=== PATIENT | female | born 1950 | race Caucasian/White ===

== ENCOUNTER 2020-01-15 11:26 | Outpatient (CLI) | payer MEDICARE, SELFPAY ==
[2020-01-15 11:46] LABS: Basophils Absolute Auto 0.02 K/mm3 (0.00-0.10); Basophils Percent Auto 0.4 % (0.0-1.0); Eosinophils Absolute Auto 0.13 K/mm3 (0.02-0.50); Eosinophils Percent Auto 2.3 % (1.0-6.0); Hemoglobin 14.2 g/dL (11.7-13.8); Immature Granulocyte Absolute 0.01 K/mm3 (0.00-0.00); Immature Granulocyte Percent A 0.2 % (0.0-0.0); Lymphocytes Absolute Auto 1.91 K/mm3 (1.10-4.50); Lymphocytes Percent Auto 34.1 % (18.0-42.0); Mean Corpuscular HGB Conc 33.8 g/dL (32.0-36.0); Mean Corpuscular Hemoglobin 31.1 pg (27.0-31.0); Mean Corpuscular Volume 91.9 fL (78.0-102.0); Mean Platelet Volume 9.8 fl (9.2-11.8); Monocytes Absolute Auto 0.45 K/mm3 (0.10-0.90); Neutrophils Absolute Auto 3.1 K/mm3 (1.7-7.2); Platelet Count Result 195 K/mm3 (150-420); Red Blood Count 4.57 M/mm3 (4.20-5.40); Red Cell Distribution Width 12.5 % (11.6-14.4); White Blood Count 5.6 K/mm3 (4.8-10.8)
[2020-01-15 11:48] LABS: Add Urine Microscopic? YES; Appearance Urine Clear (Clear); Bilirubin Urine Negative (Negative); Blood Urine Negative (Negative); Color Urine Yellow (Yellow); Glucose Urine UA Negative (Negative); Ketones Urine Negative (Negative); Leukocyte Esterase Ur 1+ LEU/UL (Negative); Nitrate Urine Negative (Negative); Protein Urine Negative (Negative); Specific Grav Ur 1.025 (1.010-1.020); Urobilinogen Urine 0.2 mg/dL (0.2-1.0)
[2020-01-15 11:55] LABS: Bacteria Urine 4+ /hpf; RBC Urine 0-2 /hpf (0-2); Squamous Epithelial Cell Urine Moderate /hpf (Few)
[2020-01-15 11:56] LABS: Creatinine Urine 206.07 mg/dL (40-278); MALB Creatinine Ratio 3.7 mg/g (0-30); Microalbumin Urine Random 7.7 mg/L
[2020-01-15 12:58] LABS: Alanine Aminotransferase 31 U/L (14-59); Alkaline Phosphatase 49 U/L (46-116); Anion Gap 14.6 mmol/L (7-16); Aspartate Amino Transferase 18 U/L (15-37); Bilirubin,Total 0.7 mg/dL (0.00-1.00); Blood Urea Nitrogen 15 mg/dL (7-18); Calcium 8.7 mg/dL (8.5-10.1); Carbon Dioxide 27 mmol/L (21-32); Chloride 105 mmol/L (98-108); Cholesterol 152 mg/dL (0-200); Creatine Kinase 40 U/L (26-192); Estimated Glomerular Filt Rate 49; Glucose 95 mg/dL (70-99); HDL Direct 39 mg/dL (40-60); LDL Cholesterol Calculated 71 mg/dL (<130); Osmolality Calculated 294 mOsm/kg (285-295); Potassium 4.6 mmol/L (3.5-5.1); Sodium 142 mmol/L (136-145); Total Protein 6.8 g/dL (6.4-8.2); Triglycerides 211 mg/dL (0-150); Vitamin B12 1424 pg/mL (193-986)
== END 2020-01-15 11:27 | disposition home or self-care (01) ==
PROVIDERS: PCP Internal Medicine; Visit Provider Internal Medicine
DX: E78.5 Hyperlipidemia, unspecified (principal); R73.01 Impaired fasting glucose; E55.9 Vitamin D deficiency, unspecified; R82.90 Unspecified abnormal findings in urine
CPT/HCPCS: 36415; 80053; 80061; 81001; 82043; 82550; 82607; 83036; 85025; 87077; 87086; 87088; 87186

== ENCOUNTER 2020-01-27 12:56 | Outpatient (CLI) | payer MEDICARE, SELFPAY ==
[2020-01-27 14:08] LABS: Add Urine Microscopic? NO; Appearance Urine Clear (Clear); Bilirubin Urine Negative (Negative); Blood Urine Negative (Negative); Color Urine Yellow (Yellow); Glucose Urine UA Negative (Negative); Ketones Urine Negative (Negative); Leukocyte Esterase Ur Negative LEU/UL (Negative); Nitrate Urine Negative (Negative); Protein Urine Negative (Negative); Specific Grav Ur 1.025 (1.010-1.020); Urobilinogen Urine 0.2 mg/dL (0.2-1.0)
== END 2020-01-27 12:57 | disposition home or self-care (01) ==
LOC: CHSLAB 12:58
PROVIDERS: PCP Internal Medicine; Visit Provider Internal Medicine
DX: N39.0 Urinary tract infection, site not specified (principal)
CPT/HCPCS: 81003

== ENCOUNTER 2020-06-28 10:04 | Outpatient (CLI) | payer MEDICARE, SELFPAY ==
--- NOTE | ~2020-06-28 | US_ITS ---
EXAMINATION: US soft tissue head and neck DATE: 06/28/2020 10:19 INDICATION: Lump at the mid to left posterior neck TECHNIQUE: Multiple grayscale and Doppler ultrasound images of the abdomen were obtained. COMPARISON: None FINDINGS/IMPRESSION: Normal appearance to the subcutaneous fat and underlying musculature at the region of concern. No abn ormal masses or fluid collections identified. Reviewed, dictated and finalized at location B.
== END 2020-06-28 10:05 | disposition home or self-care (01) ==
LOC: CHSIMG 10:07
PROVIDERS: PCP Internal Medicine; Visit Provider Internal Medicine
DX: D48.7 Neoplasm of uncertain behavior of other specified sites (principal)
CPT/HCPCS: 76536

== ENCOUNTER 2020-08-24 10:37 | Outpatient (CLI) | payer MEDICARE, SELFPAY ==
[2020-08-24 10:52] LABS: Basophils Absolute Auto 0.03 K/mm3 (0.00-0.10); Basophils Percent Auto 0.5 % (0.0-1.0); Eosinophils Absolute Auto 0.17 K/mm3 (0.02-0.50); Eosinophils Percent Auto 2.9 % (1.0-6.0); Hematocrit 41.8 % (35.0-42.0); Hemoglobin 13.8 g/dL (11.7-13.8); Immature Granulocyte Absolute 0.01 K/mm3 (0.00-0.00); Immature Granulocyte Percent A 0.2 % (0.0-0.0); Lymphocytes Absolute Auto 1.84 K/mm3 (1.10-4.50); Lymphocytes Percent Auto 30.9 % (18.0-42.0); Mean Corpuscular Hemoglobin 30.9 pg (27.0-31.0); Mean Corpuscular Volume 93.5 fL (78.0-102.0); Mean Platelet Volume 9.7 fl (9.2-11.8); Monocytes Absolute Auto 0.45 K/mm3 (0.10-0.90); Monocytes Percent Auto 7.6 % (2.0-11.0); Neutrophils Absolute Auto 3.5 K/mm3 (1.7-7.2); Neutrophils Percent Auto 57.9 % (50.0-70.0); Platelet Count Result 192 K/mm3 (150-420); Red Blood Count 4.47 M/mm3 (4.20-5.40); Red Cell Distribution Width 12.8 % (11.6-14.4)
[2020-08-24 10:54] LABS: Add Urine Microscopic? YES; Bilirubin Urine Negative (Negative); Blood Urine Negative (Negative); Color Urine Yellow (Yellow); Glucose Urine UA Negative (Negative); Ketones Urine Negative (Negative); Leukocyte Esterase Ur 2+ (Negative); Nitrate Urine Negative (Negative); Protein Urine Negative (Negative); Specific Grav Ur 1.025 (1.010-1.020); Urobilinogen Urine 0.2 mg/dL (0.2-1.0); pH Urine 5.5 (5.0-8.0)
[2020-08-24 10:58] LABS: Bacteria Urine 2+ /hpf; Mucus Urine Moderate /lpf; RBC Urine 0-2 /hpf (0-2); Squamous Epithelial Cell Urine Moderate /hpf (Few)
[2020-08-24 10:59] LABS: Appearance Urine Sl Cloudy (Clear)
[2020-08-24 11:15] LABS: Hemoglobin A1C 5.5 % (<5.7)
[2020-08-24 11:39] LABS: Alanine Aminotransferase 40 U/L (14-59); Albumin Level 3.9 g/dL (3.4-5.0); Alkaline Phosphatase 55 U/L (46-116); Anion Gap 9 mmol/L (8-16); Aspartate Amino Transferase 20 U/L (15-37); Bilirubin,Total 0.7 mg/dL (0.00-1.00); Blood Urea Nitrogen 18 mg/dL (7-18); Calcium 8.6 mg/dL (8.5-10.1); Carbon Dioxide 28 mmol/L (21-32); Chloride 105 mmol/L (98-108); Cholesterol 160 mg/dL (0-200); Creatine Kinase 41 U/L (26-192); Estimated Glomerular Filt Rate 49; Free T4 Free Thyroxine 0.96 ng/dL (0.76-1.46); Glucose 105 mg/dL (70-99); HDL Direct 45 mg/dL (40-60); LDL Cholesterol Calculated 70 mg/dL (<130); Osmolality Calculated 295 mOsm/kg (285-295); Potassium 4.2 mmol/L (3.5-5.1); Sodium 142 mmol/L (136-145); Thyroid Stimulating Hormone 3.52 uIU/mL (0.36-3.74); Total Protein 6.6 g/dL (6.4-8.2); Triglycerides 225 mg/dL (0-150)
[2020-08-28 10:45] LABS: Vitamin D 25 Hydroxy 34 ng/mL (30-100)
== END 2020-08-24 10:38 | disposition home or self-care (01) ==
LOC: CHSLAB 10:40
PROVIDERS: PCP Internal Medicine; Visit Provider Internal Medicine
DX: E78.2 Mixed hyperlipidemia (principal); I10 Essential (primary) hypertension; R73.01 Impaired fasting glucose; L50.1 Idiopathic urticaria; E03.4 Atrophy of thyroid (acquired); E55.9 Vitamin D deficiency, unspecified
CPT/HCPCS: 36415; 80053; 80061; 81001; 82306; 82550; 83036; 84439; 84443; 85025

== ENCOUNTER 2020-09-15 08:54 | Outpatient (CLI) | payer MEDICARE, SELFPAY ==
--- NOTE | ~2020-09-15 | MM_ITS ---
EXAMINATION: MM screening imani BI w gab HISTORY: Screening mammogram TECHNIQUE: Craniocaudal and mediolateral oblique 3-D tomosynthesis images were obtained and synthetic 2-D images were generated. CAD analysis was submitted and interpreted. COMPARISON: 11/08/2018, 08/17/2017, 11/18/2014 bilateral digital screening mammogram examinations BREAST PARENCHYMAL COMPOSITION: The breasts are almost entirely fatty. FINDINGS: Stable small circumscribed low-density intramammary left axillary tail lymph node. There is no evidence of suspicious mass, calcification, or architectural distortion to suggest malignancy in either breast. There has been no suspicious interval change. IMPRESSION: 1. No mammographic evidence of malignancy. 2. Recommend routine screening mammography in one year. BI-RADS Category 2: Benign finding(s). Reviewed, dictated and finalized at location B. 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
== END 2020-09-15 08:55 | disposition home or self-care (01) ==
LOC: CHSIMG 08:57
PROVIDERS: PCP Internal Medicine; Visit Provider Internal Medicine
DX: Z12.31 Encounter for screening mammogram for malignant neoplasm of breast (principal)
CPT/HCPCS: 77063; 77067

== ENCOUNTER 2021-03-10 08:56 | Outpatient (CLI) | payer MEDICARE, SELFPAY ==
[2021-03-10 09:10] LABS: Basophils Absolute Auto 0.03 K/mm3 (0.00-0.10); Basophils Percent Auto 0.6 % (0.0-1.0); Eosinophils Absolute Auto 0.12 K/mm3 (0.02-0.50); Eosinophils Percent Auto 2.4 % (1.0-6.0); Hematocrit 40.2 % (35.0-42.0); Hemoglobin 13.6 g/dL (11.7-13.8); Immature Granulocyte Absolute 0.01 K/mm3 (0.00-0.00); Immature Granulocyte Percent A 0.2 % (0.0-0.0); Lymphocytes Absolute Auto 1.86 K/mm3 (1.10-4.50); Lymphocytes Percent Auto 37.7 % (18.0-42.0); Mean Corpuscular HGB Conc 33.8 g/dL (32.0-36.0); Mean Corpuscular Hemoglobin 30.9 pg (27.0-31.0); Mean Corpuscular Volume 91.4 fL (78.0-102.0); Mean Platelet Volume 9.7 fl (9.2-11.8); Monocytes Absolute Auto 0.44 K/mm3 (0.10-0.90); Monocytes Percent Auto 8.9 % (2.0-11.0); Neutrophils Absolute Auto 2.5 K/mm3 (1.7-7.2); Neutrophils Percent Auto 50.2 % (50.0-70.0); Platelet Count Result 196 K/mm3 (150-420); Red Cell Distribution Width 12.6 % (11.6-14.4); White Blood Count 4.9 K/mm3 (4.8-10.8)
[2021-03-10 09:11] LABS: Add Urine Microscopic? YES; Appearance Urine Clear (Clear); Bilirubin Urine Negative (Negative); Blood Urine Negative (Negative); Color Urine Yellow (Yellow); Glucose Urine UA Negative (Negative); Ketones Urine Negative (Negative); Leukocyte Esterase Ur 1+ LEU/UL (Negative); Nitrate Urine Negative (Negative); Protein Urine Negative (Negative); Specific Grav Ur >= 1.030 (1.010-1.020); Urobilinogen Urine 0.2 mg/dL (0.2-1.0); pH Urine 5.5 (5.0-8.0)
[2021-03-10 09:18] LABS: Bacteria Urine 1+ /hpf; RBC Urine None seen /hpf (0-2); Squamous Epithelial Cell Urine Moderate /hpf (Few)
[2021-03-10 09:22] LABS: Hemoglobin A1C 5.9 % (<5.7)
[2021-03-10 09:23] LABS: Creatinine Urine 226.12 mg/dL (40-278); MALB Creatinine Ratio 5.7 mg/g (0-30); Microalbumin Urine Random < 13.0 mg/L
[2021-03-10 10:24] LABS: Alanine Aminotransferase 40 U/L (14-59); Albumin Level 3.9 g/dL (3.4-5.0); Alkaline Phosphatase 57 U/L (46-116); Anion Gap 8 mmol/L (8-16); Aspartate Amino Transferase 19 U/L (15-37); Bilirubin,Total 0.6 mg/dL (0.00-1.00); Blood Urea Nitrogen 19 mg/dL (7-18); Calcium 8.8 mg/dL (8.5-10.1); Carbon Dioxide 27 mmol/L (21-32); Chloride 105 mmol/L (98-108); Cholesterol 127 mg/dL (0-200); Creatine Kinase 81 U/L (26-192); Estimated Glomerular Filt Rate 49; Glucose 117 mg/dL (70-99); HDL Direct 40 mg/dL (40-60); LDL Cholesterol Calculated 46 mg/dL (<130); Osmolality Calculated 293 mOsm/kg (285-295); Potassium 4.5 mmol/L (3.5-5.1); Sodium 140 mmol/L (136-145); Total Protein 6.7 g/dL (6.4-8.2); Triglycerides 203 mg/dL (0-150); Vitamin B12 523 pg/mL (193-986)
== END 2021-03-10 08:57 | disposition home or self-care (01) ==
LOC: CHSLAB 08:59
PROVIDERS: PCP Internal Medicine; Visit Provider Internal Medicine
DX: R73.01 Impaired fasting glucose (principal); E78.5 Hyperlipidemia, unspecified; D68.59 Other primary thrombophilia; E53.8 Deficiency of other specified B group vitamins; N39.0 Urinary tract infection, site not specified; I10 Essential (primary) hypertension
CPT/HCPCS: 36415; 80053; 80061; 81001; 82043; 82550; 82607; 83036; 85025; 87086; 87088

== ENCOUNTER 2021-05-18 10:43 | Outpatient (CLI) | payer MEDICARE, SELFPAY ==
[2021-05-18 11:59] LABS: SARS-CoV-2 RNA PCR Negative (Negative)
== END 2021-05-18 10:44 | disposition home or self-care (01) ==
LOC: CHSLAB 10:45
PROVIDERS: PCP Internal Medicine; Visit Provider Internal Medicine
DX: J06.9 Acute upper respiratory infection, unspecified (principal); Z20.822 Contact with and (suspected) exposure to COVID-19
CPT/HCPCS: C9803; U0003; U0005

== ENCOUNTER 2021-06-10 11:47 | Outpatient (CLI) | payer MEDICARE, SELFPAY ==
--- NOTE | ~2021-06-10 | XR_ITS ---
EXAMINATION: XR chest 2V DATE: 06/10/2021 12:03 INDICATION: Chest pain. TECHNIQUE: Frontal and lateral views of the chest were obtained. COMPARISON: Chest 2 views 02/02/2017 FINDINGS: There is no pneumonia, pleural effusion, or pneumothorax. The heart size is normal. IMPRESSION: 1. No acute cardiopulmonary disease. Reviewed, dictated and finalized at location A.
== END 2021-06-10 11:48 | disposition home or self-care (01) ==
LOC: CHSIMG 11:50
PROVIDERS: PCP Internal Medicine; Visit Provider Internal Medicine
DX: R07.9 Chest pain, unspecified (principal)
CPT/HCPCS: 71046

== ENCOUNTER 2021-07-21 01:01 | Day surgery (SDC) | payer MEDICARE, SELFPAY ==
[2021-07-12 14:05] VITALS: BMI 39.7
[2021-07-21 07:44] VITALS: BP 150/72; PULSE 62; RESP 17; TEMP 36.2; O2SAT 94; BMI 41.3
[2021-07-21] MEDS: LACTATED RINGERS 1,000 ML 150 ML IV CONT (07:45)
--- NOTE | 2021-07-21 08:44 | PM.IMHP ---
H&P: HPI History of Present Illness Date/Time: 07/21/21 08:44 Chief Complaint: history of colon polyps Narrative: this is a 71-year-old woman who presents for colonoscopy. Her last colonoscopy was 3 years ago and multiple polyps were removed. She denies any changes since last colonoscopy. She denies family history of colon cancer. Review of Systems Review of Systems: All systems reviewed & are unremarkable except as noted in HPI and below Constitutional: Constitutional: Denies chills, Denies fever(s), Denies headache(s) and Denies weight loss Eyes: Eyes: Denies change in vision ENT: Denies dizziness, Denies headache(s), Denies neck mass and Denies throat swelling Cardiovascular: Cardiovascular: Denies chest pain, Denies lightheadedness and Denies dyspnea Respiratory: Respiratory: Denies cough, Denies dyspnea and Denies wheezing Gastrointestinal: Gastrointestinal: Denies abdominal pain, Denies change in bowel habits, Denies nausea and Denies vomiting Genitourinary: Genitourinary: Denies hematuria and Denies dysuria Musculoskeletal: Musculoskeletal: Reports as per HPI Integumentary/Breasts: Skin/Breast: Reports as per HPI Neurologic: Denies dizziness and Denies headache(s) Allergic/Immunologic: Allergic/Immunologic: Denies throat swelling and Denies wheezing PMFSH Social History Social History Smoking status: Never smoker Alcohol intake: current Drinks per week: 1 Living arrangements: alone Spiritual care concerns: No Meds Home Medications and Allergies Home Medications Medication Instructions Recorded Confirmed Type apixaban [Eliquis] 5 mg PO BID 07/12/21 07/12/21 History carvedilol 12.5 mg PO BID 07/12/21 07/12/21 History dicyclomine 10 mg PO BID 07/12/21 07/21/21 History esomeprazole magnesium 40 mg PO DAILY 07/12/21 07/21/21 History mirabegron [Myrbetriq] 50 mg PO DAILY 07/12/21 07/21/21 History jpmkxcwznwcn-snd-wgcm-FA-vit K 1 tablet PO DAILY 07/12/21 07/21/21 History [Adults Multivitamin] pravastatin 20 mg PO DAILY 07/12/21 07/21/21 History spironolactone 50 mg PO DAILY 07/12/21 07/21/21 History Allergies Allergy/AdvReac Type Severity Reaction Status Date / Time No Known Allergies Allergy Verified 07/21/21 07:42 Vital Signs Vital Signs - 24 hr 07/21/21 07:44 Temperature 36.2 C L Pulse Rate 62 Respiratory Rate 17 Blood Pressure 150/72 H Pulse Oximetry 94 Exam Const: General: no acute distress and alert Orientation/consciousness: patient oriented x3 HENMT: Head: normocephalic and atraumatic Ears: hearing grossly normal bilaterally General nose exam: Normal nares present Mouth: Yes Normal oral and palatal mucosa present Eyes: Periorbital: periorbital findings normal Sclera: sclerae normal EOM: EOMs intact bilaterally Neck: Neck: normal visual inspection, no lymphadenopathy and trachea midline Chest: Chest palpation & inspection: normal inspection of the chest Resp: Effort & Inspection: normal respiratory effort Auscultation: clear to auscultation bilaterally Cardio: Jugular venous distension: no JVD Rate: regular rate Rhythm: regular rhythm Heart sounds: S1 normal heart sound present and S2 normal heart sound present Peripheral pulses: Peripheral pulses 2+ throughout GI: Inspection: normal to inspection GI Palp: Yes Soft to palpation, No Tenderness to palpation present (GI), No Guarding due to palpation present (GI) and No Rebound tenderness present Percussion: Yes normal to percussion Auscultation: normal bowel sounds : General: Yes no CVA tenderness Back/Spine/Pelvis: Back: no CVA tenderness Neuro: General: patient oriented x3, no focal motor deficits and CN's II-XI intact bilaterally Cognition (Neuro): normal cognition Speech: normal speech Motor exam (neuro): 5/5 motor strength present throughout Extrem: General: capillary refill normal and no clubbing, cyanosis or edema Assessment and Plan Additional Plan History of colon po
--- NOTE | 2021-07-21 08:46 | WPDANESEPPF ---
Anes - Initial Pre Proc Eval Procedure: Operation Date: 07/21/21 08:30 Proposed Procedures p Screening Colonoscopy - Max Chavez DO Date/Time: 07/21/21 08:46 Surgeon: Max Chavez DO Pre Op Diagnosis: hx of tubular adenoma Patient Data Age: 71 Gender: F Height: 1.63 m Weight: 109.3 kg Last Vital Signs Temp 97.1 F L 07/21/21 07:44 Pulse 62 07/21/21 07:44 Resp 17 07/21/21 07:44 BP 150/72 H 07/21/21 07:44 Pulse Ox 94 07/21/21 07:44 Allergies Allergy/AdvReac Type Severity Reaction Status Date / Time No Known Allergies Allergy Verified 07/21/21 07:42 Home Medications Medication Instructions Recorded Confirmed Type apixaban [Eliquis] 5 mg PO BID 07/12/21 07/12/21 History carvedilol 12.5 mg PO BID 07/12/21 07/12/21 History dicyclomine 10 mg PO BID 07/12/21 07/21/21 History esomeprazole magnesium 40 mg PO DAILY 07/12/21 07/21/21 History mirabegron [Myrbetriq] 50 mg PO DAILY 07/12/21 07/21/21 History mkjikuhmcltq-wlq-yzkx-FA-vit K 1 tablet PO DAILY 07/12/21 07/21/21 History [Adults Multivitamin] pravastatin 20 mg PO DAILY 07/12/21 07/21/21 History spironolactone 50 mg PO DAILY 07/12/21 07/21/21 History Patient hx anesthesia problems: none Family hx anesthesia problems: none Results Review: All pre-operative results and documents have been reviewed as part of the pre-operative evaluation. [facility] Past Medical History Medical History (Updated 07/21/21 @ 08:46 by Nicholas Muniz MD) DVT (deep venous thrombosis) history of Hyperlipidemia Hypertension SRAVAN (obstructive sleep apnea) Pulmonary embolism history of Social History Social History Smoking status: Never smoker Alcohol intake: current Drinks per week: 1 Living arrangements: alone Spiritual care concerns: No Anes - Eval Final PreProcedure Day of Procedure 07/21/21 08:46 Patient weight: morbidly obese Heart: regular rate and rhythm Lungs: clear to auscultation Airway: Mallampati scale class III Neurological: alert and oriented Last oral intake: >/= 8 hours ASA classification: III Emergent: no Anesthetic plan: proceed Anesthesia type and monitoring: general GIVS and standard monitoring Results Review: All pre-operative results and documents have been reviewed as part of the pre-operative evaluation. Informed Consent: The patient's anesthetic plan and its attendant risks and benefits were discussed with the patient/family/POA. Questions were solicited and answers provided to the satisfaction of the patient/family/POA.
[2021-07-21 09:15] VITALS: BP 102/46; PULSE 59; RESP 17; O2SAT 98
[2021-07-21 09:25] VITALS: BP 109/50; PULSE 60; RESP 19; O2SAT 98
[2021-07-21 09:35] VITALS: BP 108/50; PULSE 61; RESP 20; O2SAT 99
== END 2021-07-21 09:40 | disposition home or self-care (01) ==
PROVIDERS: PCP Internal Medicine; Visit Provider Surgery
PROC: 0DJD8ZZ Inspection of Lower Intestinal Tract, Via Natural or Artificial Opening Endoscopic (ICD-10-PCS; CPT 45378; principal; 2021-07-21 08:30)
DX: Z12.11 Encounter for screening for malignant neoplasm of colon (principal); Z86.010 Personal history of colon polyps; K57.30 Diverticulosis of large intestine without perforation or abscess without bleeding
CPT/HCPCS: G0105; J2704; J7120

== ENCOUNTER 2021-09-27 11:27 | Outpatient (CLI) | payer MEDICARE, SELFPAY ==
[2021-09-27 11:40] LABS: Add Urine Microscopic? YES; Appearance Urine Clear (Clear); Basophils Absolute Auto 0.03 K/mm3 (0.00-0.10); Basophils Percent Auto 0.5 % (0.0-1.0); Bilirubin Urine Negative (Negative); Blood Urine Negative (Negative); Color Urine Light Yellow (Yellow); Eosinophils Absolute Auto 0.11 K/mm3 (0.02-0.50); Eosinophils Percent Auto 1.9 % (1.0-6.0); Glucose Urine UA Negative (Negative); Hematocrit 43.7 % (35.0-42.0); Hemoglobin 14.3 g/dL (11.7-13.8); Ketones Urine Negative (Negative); Leukocyte Esterase Ur Trace (Negative); Lymphocytes Absolute Auto 1.51 K/mm3 (1.10-4.50); Lymphocytes Percent Auto 26.4 % (18.0-42.0); Mean Corpuscular HGB Conc 32.7 g/dL (32.0-36.0); Mean Corpuscular Hemoglobin 30.2 pg (27.0-31.0); Mean Corpuscular Volume 92.2 fL (78.0-102.0); Mean Platelet Volume 9.4 fl (9.2-11.8); Monocytes Absolute Auto 0.44 K/mm3 (0.10-0.90); Monocytes Percent Auto 7.7 % (2.0-11.0); Neutrophils Absolute Auto 3.6 K/mm3 (1.7-7.2); Neutrophils Percent Auto 63.5 % (50.0-70.0); Nitrate Urine Negative (Negative); Platelet Count Result 207 K/mm3 (150-420); Protein Urine Negative (Negative); Red Blood Count 4.74 M/mm3 (4.20-5.40); Red Cell Distribution Width 12.5 % (11.6-14.4); Specific Grav Ur <= 1.005 (1.010-1.020); Urobilinogen Urine 0.2 mg/dL (0.2-1.0); White Blood Count 5.7 K/mm3 (4.8-10.8)
[2021-09-27 11:46] LABS: RBC Urine 0-2 /hpf (0-2)
[2021-09-27 11:47] LABS: Bacteria Urine 1+ /hpf; Squamous Epithelial Cell Urine Few /hpf (Few); WBC Urine 0-3 /hpf (0-3)
[2021-09-27 12:28] LABS: Hemoglobin A1C 5.8 % (<5.7)
[2021-09-27 13:11] LABS: Alanine Aminotransferase 37 U/L (14-59); Alkaline Phosphatase 65 U/L (46-116); Anion Gap 10 mmol/L (8-16); Aspartate Amino Transferase 16 U/L (15-37); Bilirubin,Total 0.7 mg/dL (0.00-1.00); Blood Urea Nitrogen 16 mg/dL (7-18); Calcium 8.9 mg/dL (8.5-10.1); Carbon Dioxide 28 mmol/L (21-32); Chloride 103 mmol/L (98-108); Cholesterol 168 mg/dL (0-200); Creatine Kinase 42 U/L (26-192); Estimated Glomerular Filt Rate 48; Glucose 107 mg/dL (70-99); HDL Direct 43 mg/dL (40-60); LDL Cholesterol Calculated 75 mg/dL (<130); Osmolality Calculated 293 mOsm/kg (285-295); Potassium 4.6 mmol/L (3.5-5.1); Sodium 141 mmol/L (136-145); Triglycerides 250 mg/dL (0-150); Vitamin B12 462 pg/mL (193-986)
== END 2021-09-27 11:28 | disposition home or self-care (01) ==
LOC: CHSLAB 11:30
PROVIDERS: PCP Internal Medicine; Visit Provider Internal Medicine
DX: R73.01 Impaired fasting glucose (principal); I10 Essential (primary) hypertension; E78.2 Mixed hyperlipidemia; E53.8 Deficiency of other specified B group vitamins
CPT/HCPCS: 36415; 80053; 80061; 81001; 82550; 82607; 83036; 85025

== ENCOUNTER 2021-09-30 12:26 | Outpatient (CLI) | payer MEDICARE, SELFPAY ==
--- NOTE | ~2021-09-30 | MM_ITS ---
EXAMINATION: MM screening imani BI w gab HISTORY: Screening mammogram TECHNIQUE: Craniocaudal and mediolateral oblique 3-D tomosynthesis images were obtained and synthetic 2-D images were generated. CAD analysis was submitted and interpreted. COMPARISON: 09/15/2020, 11/08/2018, 08/17/2017 and lateral screening mammogram examinations BREAST PARENCHYMAL COMPOSITION: The breasts are almost entirely fatty. FINDINGS: Stable small posterior upper outer quadrant left breast intramammary lymph node There is no evidence of suspicious mass, calcification, or architectural distortion to suggest malignancy in eit her breast. There has been no suspicious interval change. IMPRESSION: 1. No mammographic evidence of malignancy. 2. Recommend routine screening mammography in one year. BI-RADS Category 2: Benign finding(s). Reviewed, dictated and finalized at location A. 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
== END 2021-09-30 12:27 | disposition home or self-care (01) ==
LOC: CHSIMG 12:27
PROVIDERS: PCP Internal Medicine; Visit Provider Internal Medicine
DX: Z12.31 Encounter for screening mammogram for malignant neoplasm of breast (principal)
CPT/HCPCS: 77063; 77067

== ENCOUNTER 2021-10-16 10:17 | Outpatient (CLI) | payer MEDICARE, SELFPAY ==
[2021-10-16 11:05] LABS: SARS-CoV-2 RNA PCR Negative (Negative)
== END 2021-10-16 10:18 | disposition home or self-care (01) ==
LOC: CHSLAB 10:19
PROVIDERS: PCP Internal Medicine; Visit Provider Internal Medicine
DX: Z01.818 Encounter for other preprocedural examination (principal); Z20.822 Contact with and (suspected) exposure to COVID-19
CPT/HCPCS: C9803; U0003; U0005

== ENCOUNTER 2022-01-09 14:02 | Outpatient (RCR) | payer MEDICARE, SELFPAY ==
--- NOTE | 2022-01-09 14:41 | PTOPEVAL ---
Thank you for referring Julissa Faustin to [facility].? The patient is scheduled to be seen for therapy? __2__x/week for 10 visits. Please review, sign, date and return this plan of care VIDAL. I agree with and certify that the following plan of care is medically necessary. Referring Physician Date Admitting Provider: Attending Provider: Venancio Miles MD Referring Provider: *PT Outpatient Evaluation Start: 01/09/22 14:09 Freq: Status: Active Protocol: Document 01/09/22 14:09 [place] (Rec: 01/09/22 14:40 [place] [id number]) Therapy Assessment Status Assessment Status Assessment Status Evaluation Outpatient Past Medical History Neurological History Hx Neurological Disorders No Significant History Cardiovascular History Hx Deep Vein Thrombosis Yes Hx Hypercholesterolemia Yes Hx Hypertension Yes Respiratory History Hx Bronchitis Yes Hx Pulmonary Embolism Yes Hx Sleep Apnea Yes Gastrointestinal History Hx Appendectomy Yes: ? Hx Gastroesophageal Reflux Disease Yes Hx Irritable Bowel Yes Hx Other Gastrointestinal Disorders Yes: tubular adenoma Genitourinary History Hx Urinary Tract Infection Yes Hx Other Genitourinary Disorders Yes: OAB Musculoskeletal History Hx Joint Replacement Yes: Bilateral TKA (R 2015, L 2017) Hematological History Hx Other Hematological Disorders Yes: Factor V Leiden Endocrine History Hx Thyroidectomy Yes: Right hemithyroidectomy HEENT History Hx Tonsillectomy Yes Integumentary History Hx Skin Disorders No Significant History Reproductive History Hx Other Reproductive Disorders Yes: Right breast lumpectomy Psychosocial History Hx Psychiatric Disorders No Significant History Pain History History of Any Previous or Ongoing No Significant History Instance of Pain Anesthesia History Hx Anesthesia Reactions No Significant History Other History Hx Implanted Device Yes: Bilat knees Evaluation Information Problem Diagnosis low back pain and right hip pain Onset 10/07/21 Subjective Information Pt. reports she started Query Text:As Reported By Patient/ noticing pain across the right Family hip. She reports that pain is most notable with sitting for long periods. She has not had MRI or xray yet. She attempted prednisone dose pack in October with no relief. She reports that her symptoms have sta
== END 2022-02-17 14:56 | disposition home or self-care (01) ==
LOC: CHSPT 14:02
PROVIDERS: PCP Internal Medicine; Visit Provider Internal Medicine
DX: M54.50 Low back pain, unspecified (principal); M25.551 Pain in right hip
CPT/HCPCS: 97014; 97110; 97161; G0283

== ENCOUNTER 2022-04-10 14:16 | Outpatient (CLI) | payer MEDICARE, SELFPAY ==
[2022-04-10 15:11] LABS: SARS-CoV-2 RNA PCR Positive (Negative)
== END 2022-04-10 14:17 | disposition home or self-care (01) ==
LOC: CHSLAB 14:19
PROVIDERS: PCP Internal Medicine; Visit Provider Family Medicine
DX: U07.1 COVID-19 (principal)
CPT/HCPCS: C9803; U0003; U0005

== ENCOUNTER 2022-06-05 09:33 | Outpatient (CLI) | payer MEDICARE, SELFPAY ==
[2022-06-05 09:47] LABS: Appearance Urine Clear (Clear); Basophils Absolute Auto 0.02 K/mm3 (0.00-0.10); Basophils Percent Auto 0.4 % (0.0-1.0); Bilirubin Urine Negative (Negative); Color Urine Light Yellow (Yellow); Eosinophils Absolute Auto 0.13 K/mm3 (0.02-0.50); Eosinophils Percent Auto 2.5 % (1.0-6.0); Glucose Urine UA Negative (Negative); Hematocrit 39.5 % (35.0-42.0); Hemoglobin 13.2 g/dL (11.7-13.8); Immature Granulocyte Absolute 0.01 K/mm3 (0.00-0.00); Immature Granulocyte Percent A 0.2 % (0.0-0.0); Ketones Urine Negative (Negative); Leukocyte Esterase Ur 2+ (Negative); Lymphocytes Absolute Auto 1.61 K/mm3 (1.10-4.50); Lymphocytes Percent Auto 30.8 % (18.0-42.0); Mean Corpuscular HGB Conc 33.4 g/dL (32.0-36.0); Mean Corpuscular Hemoglobin 31.2 pg (27.0-31.0); Mean Corpuscular Volume 93.4 fL (78.0-102.0); Mean Platelet Volume 9.5 fl (9.2-11.8); Monocytes Absolute Auto 0.43 K/mm3 (0.10-0.90); Monocytes Percent Auto 8.2 % (2.0-11.0); Neutrophils Percent Auto 57.9 % (50.0-70.0); Nitrate Urine Negative (Negative); Platelet Count Result 182 K/mm3 (150-420); Protein Urine Negative (Negative); Red Blood Count 4.23 M/mm3 (4.20-5.40); Urobilinogen Urine 0.2 mg/dL (0.2-1.0); White Blood Count 5.2 K/mm3 (4.8-10.8)
[2022-06-05 09:51] LABS: Add Urine Microscopic? YES; Bacteria Urine 2+ /hpf; Blood Urine Trace-Intact (Negative); RBC Urine 0-2 /hpf (0-2); Renal Epithelial Cells Urine Few /hpf; Squamous Epithelial Cell Urine Few /hpf (Few)
[2022-06-05 10:13] LABS: Hemoglobin A1C 5.8 % (<5.7)
[2022-06-05 10:59] LABS: Alanine Aminotransferase 27 U/L (14-59); Albumin Level 3.8 g/dL (3.4-5.0); Alkaline Phosphatase 54 U/L (46-116); Anion Gap 10 mmol/L (8-16); Aspartate Amino Transferase 14 U/L (15-37); Bilirubin,Total 0.8 mg/dL (0.00-1.00); Blood Urea Nitrogen 18 mg/dL (7-18); Calcium 8.6 mg/dL (8.5-10.1); Carbon Dioxide 26 mmol/L (21-32); Chloride 105 mmol/L (98-108); Cholesterol 141 mg/dL (0-200); Creatine Kinase 41 U/L (26-192); Estimated Glomerular Filt Rate 51; Glucose 101 mg/dL (70-99); HDL Direct 41 mg/dL (40-60); LDL Cholesterol Calculated 61 mg/dL (<130); Osmolality Calculated 293 mOsm/kg (285-295); Potassium 4.3 mmol/L (3.5-5.1); Sodium 141 mmol/L (136-145); Total Protein 6.4 g/dL (6.4-8.2); Triglycerides 193 mg/dL (0-150)
== END 2022-06-05 09:34 | disposition home or self-care (01) ==
LOC: CHSLAB 09:35
PROVIDERS: PCP Internal Medicine; Visit Provider Internal Medicine
DX: R73.01 Impaired fasting glucose (principal); I10 Essential (primary) hypertension; E78.2 Mixed hyperlipidemia; E53.8 Deficiency of other specified B group vitamins
CPT/HCPCS: 36415; 80053; 80061; 81001; 82550; 83036; 85025

== ENCOUNTER 2022-08-10 13:31 | Outpatient (CLI) | payer MEDICARE, SELFPAY ==
[2022-08-10 13:47] VITALS: BP 154/56; PULSE 80; RESP 14; TEMP 36.4; O2SAT 97
[2022-08-10 13:48] VITALS: BMI 41.2
[2022-08-10] MEDS: OMALIZUMAB SUB-Q (13:54)
--- NOTE | 2022-08-10 13:59 | PC.NURSE ---
Patient here for monthly Xolair injection. Has been getting these for 7 years. No concerns voiced. Patient brought epi pen. Xolair injection administered. Observed for 20 minutes. Tolerated well. Safe exit of hospital. Will return 2021 at 1330 for next monthly injection.
== END 2022-08-10 13:32 | disposition home or self-care (01) ==
LOC: CHSLAB 13:35 → CHSTREATRM 13:42
PROVIDERS: PCP Internal Medicine
DX: L50.1 Idiopathic urticaria (principal)
CPT/HCPCS: 96372; J2357

== ENCOUNTER 2022-09-07 14:04 | Outpatient (CLI) | payer MEDICARE, SELFPAY ==
[2022-09-07 14:16] VITALS: BP 137/57; PULSE 72; RESP 14; TEMP 36.6; O2SAT 98
[2022-09-07 14:18] VITALS: BMI 42.0
[2022-09-07] MEDS: OMALIZUMAB SUB-Q (14:20)
--- NOTE | 2022-09-07 14:24 | PC.NURSE ---
Patient here for monthly Xolair injection. No concerns voiced. Reports has been getting these monthly for years. Xolair injection administered. SEE MAR. Tolerated well. NO S/SX of reaction noted or reported. Safe exit of hospital. Will return 2021.
== END 2022-09-07 14:05 | disposition home or self-care (01) ==
LOC: CHSTREATRM 14:08
PROVIDERS: PCP Internal Medicine
DX: L50.1 Idiopathic urticaria (principal)
CPT/HCPCS: 96372; J2357

== ENCOUNTER 2022-10-05 13:23 | Outpatient (CLI) | payer MEDICARE, SELFPAY ==
--- NOTE | ~2022-10-05 | MM_ITS ---
EXAMINATION: MM screening [facility] BI w gab HISTORY: Screening mammogram TECHNIQUE: Craniocaudal and mediolateral oblique 3-D tomosynthesis images were obtained and synthetic 2-D images were generated. CAD analysis was submitted and interpreted. COMPARISON: 09/30/2021, 09/15/2020, 11/08/2018 BREAST PARENCHYMAL COMPOSITION: The breasts are almost entirely fatty. FINDINGS: No suspicious mass, calcification, or architectural distortion are identified in either tobin ast to suggest malignancy. There has been no suspicious interval change. IMPRESSION: 1. No mammographic evidence of malignancy. 2. Recommend routine screening mammography in one year. BI-RADS Category 1: Negative Reviewed, dictated and finalized at location A. GENETIC
[2022-10-05] MEDS: OMALIZUMAB SUB-Q (14:08)
[2022-10-05 14:09] VITALS: BMI 42.0
[2022-10-05 14:10] VITALS: BP 140/63; PULSE 78; RESP 16; TEMP 36.3; O2SAT 98
--- NOTE | 2022-10-05 14:12 | PC.NURSE ---
Patient here for monthly Xolair injection. No concerns voiced. Injection administered. SEE MAR. Tolerated well. No S/sx of reaction noted or reported. Safe exit of hospital. Return Nov 03, 2021 at 1400
== END 2022-10-05 13:24 | disposition home or self-care (01) ==
LOC: CHSTREATRM 13:25
PROVIDERS: PCP Internal Medicine
DX: L50.1 Idiopathic urticaria (principal); Z12.31 Encounter for screening mammogram for malignant neoplasm of breast
CPT/HCPCS: 77063; 77067; 96372; J2357

== ENCOUNTER 2022-11-03 13:47 | Outpatient (CLI) | payer MEDICARE, SELFPAY ==
--- NOTE | 2022-11-03 14:00 | PC.NURSE ---
Pt to room 210 amb per self. A&Ox3. Has no questions or concerns. Oriented to room and plan of care.
[2022-11-03] MEDS: OMALIZUMAB SUB-Q (14:16)
--- NOTE | 2022-11-03 14:18 | PC.NURSE ---
Xolair injection given. Pt tolerated well. Has no complaints. Discharged to home amb per self.
== END 2022-11-03 13:48 | disposition home or self-care (01) ==
PROVIDERS: PCP Internal Medicine
DX: L50.1 Idiopathic urticaria (principal)
CPT/HCPCS: 96372; J2357

== ENCOUNTER 2022-12-08 11:18 | Outpatient (CLI) | payer MEDICARE, SELFPAY ==
[2022-12-08 11:42] LABS: Add Urine Microscopic? YES; Appearance Urine Clear (Clear); Basophils Absolute Auto 0.03 K/mm3 (0.00-0.10); Basophils Percent Auto 0.5 % (0.0-1.0); Bilirubin Urine Negative (Negative); Blood Urine Negative (Negative); Color Urine Orange (Yellow); Eosinophils Percent Auto 1.6 % (1.0-6.0); Glucose Urine UA Negative (Negative); Hematocrit 41.5 % (35.0-42.0); Hemoglobin 13.8 g/dL (11.7-13.8); Immature Granulocyte Absolute 0.02 K/mm3 (0.00-0.00); Immature Granulocyte Percent A 0.3 % (0.0-0.0); Ketones Urine Negative (Negative); Leukocyte Esterase Ur 1+ (Negative); Lymphocytes Absolute Auto 1.81 K/mm3 (1.10-4.50); Lymphocytes Percent Auto 29.4 % (18.0-42.0); Mean Corpuscular HGB Conc 33.3 g/dL (32.0-36.0); Mean Corpuscular Hemoglobin 30.9 pg (27.0-31.0); Mean Corpuscular Volume 92.8 fL (78.0-102.0); Mean Platelet Volume 9.7 fl (9.2-11.8); Monocytes Absolute Auto 0.39 K/mm3 (0.10-0.90); Monocytes Percent Auto 6.3 % (2.0-11.0); Neutrophils Absolute Auto 3.8 K/mm3 (1.7-7.2); Neutrophils Percent Auto 61.9 % (50.0-70.0); Nitrate Urine Negative (Negative); Platelet Count Result 220 K/mm3 (150-420); Protein Urine Negative (Negative); Red Blood Count 4.47 M/mm3 (4.20-5.40); Red Cell Distribution Width 12.6 % (11.6-14.4); Specific Grav Ur 1.025 (1.010-1.020); Urobilinogen Urine 0.2 mg/dL (0.2-1.0); White Blood Count 6.2 K/mm3 (4.8-10.8)
[2022-12-08 11:46] LABS: RBC Urine None seen /hpf (0-2); WBC Urine 0-3 /hpf (0-3)
[2022-12-08 11:48] LABS: Bacteria Urine 2+ /hpf; Squamous Epithelial Cell Urine Moderate /hpf (Few)
[2022-12-08 11:54] LABS: Hemoglobin A1C 5.6 % (<5.7)
[2022-12-08 12:46] LABS: Alanine Aminotransferase 29 U/L (14-59); Albumin Level 3.9 g/dL (3.4-5.0); Alkaline Phosphatase 63 U/L (46-116); Anion Gap 9 mmol/L (8-16); Aspartate Amino Transferase 22 U/L (15-37); Bilirubin,Total 0.7 mg/dL (0.00-1.00); Blood Urea Nitrogen 17 mg/dL (7-18); Calcium 8.8 mg/dL (8.5-10.1); Carbon Dioxide 28 mmol/L (21-32); Chloride 104 mmol/L (98-108); Cholesterol 150 mg/dL (0-200); Estimated Glomerular Filt Rate 52; Glucose 108 mg/dL (70-99); HDL Direct 45 mg/dL (40-60); LDL Cholesterol Calculated 65 mg/dL (<130); Osmolality Calculated 294 mOsm/kg (285-295); Potassium 4.4 mmol/L (3.5-5.1); Sodium 141 mmol/L (136-145); Total Protein 7.4 g/dL (6.4-8.2); Triglycerides 199 mg/dL (0-150); Vitamin B12 436 pg/mL (193-986)
[2022-12-08 12:50] VITALS: BP 130/70; PULSE 64; RESP 14; TEMP 36.4; O2SAT 98
[2022-12-08 12:51] VITALS: BMI 42.0
[2022-12-08] MEDS: OMALIZUMAB SUB-Q (12:52)
--- NOTE | 2022-12-08 12:56 | PC.NURSE ---
Patient here for monthly Xolair injection. Education Given. No concerns voiced. Xolair injection administered. SEE MAR. Tolerated well. Safe exit of hospital. Will return January 04, 2023 at 1330 for next month's.
== END 2022-12-08 11:19 | disposition home or self-care (01) ==
LOC: CHSTREATRM 11:27
PROVIDERS: PCP Internal Medicine
DX: L50.1 Idiopathic urticaria (principal); E53.8 Deficiency of other specified B group vitamins; R73.01 Impaired fasting glucose; D68.59 Other primary thrombophilia; I10 Essential (primary) hypertension; E78.2 Mixed hyperlipidemia
CPT/HCPCS: 36415; 80053; 80061; 81001; 82607; 83036; 85025; 96372; J2357

== ENCOUNTER 2023-01-04 13:20 | Outpatient (CLI) | payer MEDICARE, SELFPAY ==
[2023-01-04] MEDS: OMALIZUMAB SUB-Q (13:40)
[2023-01-04 13:46] VITALS: BP 135/60; PULSE 80; RESP 14; TEMP 36.4; O2SAT 98; BMI 42.0
--- NOTE | 2023-01-04 13:47 | PC.NURSE ---
Patient here for monthly Xolair injection. Education given. No concerns Voiced. Xolair injection administered. SEE MAR. Tolerated well. Will return 02/01/23 at 1300 for next month's injection. Safe exit of hospital.
== END 2023-01-04 13:21 | disposition home or self-care (01) ==
PROVIDERS: PCP Internal Medicine
DX: L50.1 Idiopathic urticaria (principal)
CPT/HCPCS: 96372; J2357

== ENCOUNTER 2023-01-28 20:27 | Emergency (ER) | payer MEDICARE, SELFPAY ==
--- NOTE | ~2023-01-28 | CT_ITS ---
CT OF right knee EXAMINATION: CT knee RT wo con DATE: 01/28/2023 21:09 INDICATION: Fall, to a half hours ago, right knee pain. TECHNIQUE: Computed tomography (CT) of the right knee was performed without intravenous contrast. Aut omated exposure control and iterative reconstruction technique were employed. The dose-length product was 435.91 mGy-cm. COMPARISON: None FINDINGS: Right knee arthroplasty. No hardware fracture or perihardware lucency. No osseous fracture detected. The radiolucent portions of the arthroplasty appear to be in good position. No lytic or berny stic lesion. No periosteal change. 3.7 cm anteromedial subcutaneous fluid collection, partially obscu red by metal artifact. IMPRESSION: No acute osseous finding in the right knee. No CT evidence of hardware related consultation. Anterome dial soft tissue contusion/hematoma. Reviewed, dictated and finalized at location K. IMPRESSION: No acute osseous finding in the right knee. No CT evidence of hardware related consultation. Anteromedial soft tissue contusion/hematoma.
[2023-01-28 20:30] VITALS: BP 148/64; PULSE 67; RESP 18; TEMP 36.9; O2SAT 100
--- NOTE | 2023-01-28 20:35 | ED.FALL ---
HPI - Fall General Chief Complaint: Extremity Injury, Lower Stated Complaint: Knee Injury Time Seen by Provider: 01/28/23 20:30 Source: patient Mode of arrival: wheelchair Limitations: no limitations History of Present Illness HPI Narrative: 72 year old female presents to the Emergency Department complaining of fall and right knee injury. patient states she fell 2 hours ago onto knee. Patient tripped causing fall. Patient has had bilateral knee replacement surgery. She currently takes Eliquis. She states knee swelled up immediately. Denies any other injury or problems. MD complaint: fall Onset (ago): hour(s) (2) Fall from: standing Fall witnessed: yes, by family Place fall occurred: home Loss of consciousness: none Prolonged down time: no Symptoms prior to fall: none Context: tripped/slipped Location of injury: other (right knee) Severity: moderate Associated symptoms (after fall): denies Related Data Home Medications Medication Instructions Recorded Confirmed apixaban 5 mg tablet (Eliquis) 5 mg PO BID 07/12/21 01/28/23 carvedilol 12.5 mg tablet 12.5 mg PO BID 07/12/21 01/28/23 dicyclomine 10 mg capsule 10 mg PO BID 07/12/21 01/28/23 esomeprazole magnesium 40 mg 40 mg PO DAILY 07/12/21 01/28/23 capsule,delayed release mirabegron 50 mg tablet,extended 50 mg PO DAILY 07/12/21 01/28/23 release 24 hr (Myrbetriq) multivit with minerals-iron 18 1 tablet PO DAILY 07/12/21 01/28/23 mg-folic ac 400 mcg-vit K 25 mcg tablet (Adults Multivitamin) pravastatin 20 mg tablet 20 mg PO DAILY 07/12/21 01/28/23 spironolactone 50 mg tablet 50 mg PO DAILY 07/12/21 01/28/23 Allergies Allergy/AdvReac Type Severity Reaction Status Date / Time No Known Allergies Allergy Verified 07/21/21 07:42 Review of Systems Review of Systems: All systems reviewed & are unremarkable except as noted in HPI and below Constitutional: Constitutional: Reports as per HPI and Reports no additional constitutional complaints Eyes: Eyes: Reports as per HPI and Reports no additional eye complaints ENT: Reports system reviewed and no additional complaints, except as documented and Reports as per HPI Cardiovascular: Cardiovascular: Reports as per HPI, Reports no additional cardiovascular complaints and Denies chest pain Respiratory: Respiratory: Reports as per HPI and Reports no additional respiratory complaints Gastrointestinal: Gastrointestinal: Reports as per HPI, Reports no additional gastrointestinal complaints and Denies abdominal pain Genitourinary: Genitourinary: Reports no additional female genitourinary complaints Musculoskeletal: Musculoskeletal: Reports no additional musculoskeletal complaints, Reports as per HPI, Reports arthralgias (right knee) and Reports joint swelling (right knee) Integumentary/Breasts: Skin/Breast: Reports system reviewed and no additional complaints, except as docu Neurologic: Reports system reviewed and no additional complaints, except as documented, Denies dizziness, Denies syncope, Denies headache(s), Denies focal weakness, Denies numbness and Denies weakness Psychiatric: Psychiatric: Reports no additional psychiatric complaints Endocrine: Endocrine: Reports no additional endocrine complaints Hematologic/Lymphatic: Hematologic/Lymphatic: Reports no additional hematologic/lymphatic complaints Allergic/Immunologic: Allergic/Immunologic: Reports no additional allergic/immunologic complaints PMFSH Past Medical History Medical History DVT (deep venous thrombosis) history of Hyperlipidemia Hypertension SRAVAN (obstructive sleep apnea) Pulmonary embolism history of Social History Social History Smoking status: Never smoker Alcohol intake: current Drinks per week: 1 Living arrangements: alone Spiritual care concerns: No Exam Const: General: healthy appearing Nutritional Appear
[2023-01-28 21:34] VITALS: BP 122/88; PULSE 88; RESP 20; TEMP 36.9; O2SAT 99
== END 2023-01-28 21:37 | disposition home or self-care (01) ==
PROVIDERS: Emergency Provider Emergency Medicine; PCP Internal Medicine
DX: S80.01XA Contusion of right knee, initial encounter (principal); E78.5 Hyperlipidemia, unspecified; I10 Essential (primary) hypertension; Z79.01 Long term (current) use of anticoagulants; Z86.718 Personal history of other venous thrombosis and embolism; Z86.711 Personal history of pulmonary embolism; W01.0XXA Fall on same level from slipping, tripping and stumbling without subsequent striking against object, initial encounter; Y92.009 Unspecified place in unspecified non-institutional (private) residence as the place of occurrence of the external cause
CPT/HCPCS: 73700; 99284

== ENCOUNTER 2023-02-02 12:35 | Outpatient (CLI) | payer MEDICARE, SELFPAY ==
[2023-02-02 12:46] VITALS: BMI 41.2
[2023-02-02 12:52] VITALS: BP 117/69; PULSE 80; RESP 14; TEMP 36.6; O2SAT 98
[2023-02-02] MEDS: OMALIZUMAB SUB-Q (12:56)
--- NOTE | 2023-02-02 12:59 | PC.NURSE ---
Patient here for monthly Xolair injection. NO concerns voiced. Reports never has a problem with in the injection. Xolair injection administered. SEE MAR. Tolerated well. No s/sx of reaction noted or reported. Safe exit of hospital ambulatory per self. Will return March 05, 2023 at 1300.
== END 2023-02-02 12:36 | disposition home or self-care (01) ==
PROVIDERS: PCP Internal Medicine
DX: L50.1 Idiopathic urticaria (principal)
CPT/HCPCS: 96372; J2357

== ENCOUNTER 2023-03-05 12:50 | Outpatient (CLI) | payer MEDICARE, SELFPAY ==
[2023-03-05 12:58] VITALS: BMI 41.2
[2023-03-05 13:07] VITALS: BP 145/54; PULSE 72; RESP 14; TEMP 36.6; O2SAT 97
[2023-03-05] MEDS: OMALIZUMAB SUB-Q (13:09)
--- NOTE | 2023-03-05 13:14 | PC.NURSE ---
Patient here for monthly Xolair injection. No concerns voiced. Reports never have problems with these shots. Xolair injection administered. SEE MAR. Tolerated well. Safe exit of hospital per ambulatory per self.
== END 2023-03-05 12:51 | disposition home or self-care (01) ==
LOC: CHSTREATRM 12:57
PROVIDERS: PCP Internal Medicine
DX: L50.1 Idiopathic urticaria (principal)
CPT/HCPCS: 96372; J2357

== ENCOUNTER 2023-05-04 10:49 | Outpatient (CLI) | payer MEDICARE, SELFPAY ==
[2023-05-04] MEDS: OMALIZUMAB SUB-Q (11:06)
[2023-05-04 11:07] VITALS: BP 114/63; PULSE 72; RESP 14; TEMP 36.6; O2SAT 98; BMI 41.2
--- NOTE | 2023-05-04 11:08 | PC.NURSE ---
Patient here for monthly Xolair injection. No concerns voiced. Xolair injection administered. SEE MAR. Tolerated well. Safe exit of hospital. Will return 06/04/23 at 1130 for May injection.
== END 2023-05-04 10:50 | disposition home or self-care (01) ==
LOC: CHSTREATRM 10:50
PROVIDERS: PCP Internal Medicine
DX: L50.1 Idiopathic urticaria (principal)
CPT/HCPCS: 96372; J2357

== ENCOUNTER 2023-06-04 11:24 | Outpatient (CLI) | payer MEDICARE, SELFPAY ==
[2023-06-04 11:36] VITALS: BP 135/67; PULSE 68; RESP 14; TEMP 36.7; O2SAT 98; BMI 41.2
[2023-06-04] MEDS: OMALIZUMAB SUB-Q (11:44)
--- NOTE | 2023-06-04 11:47 | PC.NURSE ---
Patient here for monthly Xolair injection. Has been getting these for years. No concerns voiced. Xolair injection administered. See Mar. Tolerated well. Safe exit of hospital. Will return 07/12/23. Patient know she will need to get a new order for it is after May. injection.
== END 2023-06-04 11:25 | disposition home or self-care (01) ==
LOC: CHSLAB 11:28 → CHSTREATRM 11:32
PROVIDERS: PCP Internal Medicine
DX: L50.1 Idiopathic urticaria (principal)
CPT/HCPCS: 96372; J2357

== ENCOUNTER 2023-07-12 09:29 | Outpatient (CLI) | payer MEDICARE, SELFPAY ==
[2023-07-12] MEDS: OMALIZUMAB SUB-Q (09:53)
--- NOTE | 2023-07-12 09:55 | PC.NURSE ---
Patient here for Xolair injection. Tolerated injection to left arm well. Next appt. made for 08/10/23 at 1100. Patient denies any questions or concerns, left the floor ambulatory.
== END 2023-07-12 09:30 | disposition home or self-care (01) ==
LOC: CHSTREATRM 09:37
PROVIDERS: PCP Internal Medicine
DX: L50.1 Idiopathic urticaria (principal)
CPT/HCPCS: 96372; J2357

== ENCOUNTER 2023-08-10 10:41 | Outpatient (CLI) | payer MEDICARE, SELFPAY ==
[2023-08-10 11:00] VITALS: BMI 41.2
[2023-08-10 11:01] VITALS: BP 112/70; PULSE 72; RESP 14; TEMP 36.6; O2SAT 99
[2023-08-10] MEDS: OMALIZUMAB SUB-Q (11:02)
--- NOTE | 2023-08-10 11:05 | PC.NURSE ---
Patient here for Xolair injection. Education given. No concerns voiced. Xolair injection administered. See MAR. Tolerated well. Safe exit of hospital. Will return 09/13/23 at 1100.
== END 2023-08-10 10:42 | disposition home or self-care (01) ==
PROVIDERS: PCP Internal Medicine
DX: L50.1 Idiopathic urticaria (principal)
CPT/HCPCS: 96372; J2357

== ENCOUNTER 2023-09-13 10:37 | Outpatient (CLI) | payer MEDICARE, SELFPAY ==
[2023-09-13 10:48] VITALS: BMI 41.2
[2023-09-13 10:57] LABS: Basophils Absolute Auto 0.02 K/mm3 (0.00-0.10); Basophils Percent Auto 0.4 % (0.0-1.0); Eosinophils Absolute Auto 0.08 K/mm3 (0.02-0.50); Eosinophils Percent Auto 1.4 % (1.0-6.0); Hematocrit 40.3 % (35.0-42.0); Hemoglobin 13.5 g/dL (11.7-13.8); Immature Granulocyte Absolute 0.01 K/mm3 (0.00-0.00); Immature Granulocyte Percent A 0.2 % (0.0-0.0); Lymphocytes Absolute Auto 1.67 K/mm3 (1.10-4.50); Lymphocytes Percent Auto 30.1 % (18.0-42.0); Mean Corpuscular HGB Conc 33.5 g/dL (32.0-36.0); Mean Corpuscular Hemoglobin 31.4 pg (27.0-31.0); Mean Corpuscular Volume 93.7 fL (78.0-102.0); Mean Platelet Volume 9.5 fl (9.2-11.8); Monocytes Absolute Auto 0.41 K/mm3 (0.10-0.90); Monocytes Percent Auto 7.4 % (2.0-11.0); Neutrophils Absolute Auto 3.4 K/mm3 (1.7-7.2); Neutrophils Percent Auto 60.5 % (50.0-70.0); Platelet Count Result 182 K/mm3 (150-420); Red Cell Distribution Width 12.9 % (11.6-14.4); White Blood Count 5.5 K/mm3 (4.8-10.8)
[2023-09-13 10:58] LABS: Appearance Urine Clear (Clear); Bilirubin Urine Negative (Negative); Blood Urine Trace-Intact (Negative); Color Urine Yellow (Yellow); Glucose Urine UA Negative (Negative); Ketones Urine Negative (Negative); Leukocyte Esterase Ur Trace LEU/UL (Negative); Nitrate Urine Positive (Negative); Protein Urine Negative (Negative); Urobilinogen Urine 0.2 mg/dL (0.2-1.0)
[2023-09-13 11:02] LABS: Add Urine Microscopic? YES; Bacteria Urine 4+ /hpf; RBC Urine None seen /hpf (0-2); Squamous Epithelial Cell Urine Few /hpf (Few)
[2023-09-13 11:06] LABS: Hemoglobin A1C 5.8 % (<5.7)
[2023-09-13] MEDS: OMALIZUMAB SUB-Q (11:09)
[2023-09-13 11:29] VITALS: BP 127/79; PULSE 80; RESP 16; TEMP 36.4; O2SAT 98
--- NOTE | 2023-09-13 11:32 | PC.NURSE ---
Patient here for monthly Xolair injection. No concerns voiced. Injection administered. SEE MAR. Tolerated well. Will return 10/12/23 at 1100 for next month injection. Safe exit of hospital per self/ambulatory.
[2023-09-13 12:01] LABS: Alanine Aminotransferase 35 U/L (14-59); Albumin Level 3.6 g/dL (3.4-5.0); Alkaline Phosphatase 69 U/L (46-116); Anion Gap 7 mmol/L (8-16); Aspartate Amino Transferase 15 U/L (15-37); Bilirubin,Total 0.7 mg/dL (0.00-1.00); Blood Urea Nitrogen 17 mg/dL (7-18); Calcium 8.6 mg/dL (8.5-10.1); Carbon Dioxide 30 mmol/L (21-32); Chloride 104 mmol/L (98-108); Cholesterol 138 mg/dL (0-200); Creatine Kinase 47 U/L (26-192); Estimated CRCL calculation 49 ml/min; Estimated Glomerular Filt Rate 48; Glucose 112 mg/dL (70-99); HDL Direct 45 mg/dL (40-60); LDL Cholesterol Calculated 63 mg/dL (<130); Osmolality Calculated 294 mOsm/kg (285-295); Potassium 4.2 mmol/L (3.5-5.1); Sodium 141 mmol/L (136-145); Total Protein 6.4 g/dL (6.4-8.2); Triglycerides 151 mg/dL (0-150); Vitamin B12 343 pg/mL (193-986)
== END 2023-09-13 10:38 ==
LOC: CHSTREATRM 10:47
PROVIDERS: PCP Internal Medicine
DX: L50.1 Idiopathic urticaria (principal); E53.8 Deficiency of other specified B group vitamins; N39.0 Urinary tract infection, site not specified; R73.01 Impaired fasting glucose; E78.2 Mixed hyperlipidemia; I10 Essential (primary) hypertension
CPT/HCPCS: 36415; 80053; 80061; 81001; 82550; 82607; 83036; 85025; 87077; 87086; 87088; 87186; 96372; J2357

== ENCOUNTER 2023-09-28 12:42 | Outpatient (CLI) | payer MEDICARE, SELFPAY ==
[2023-09-28 13:02] LABS: Appearance Urine Clear (Clear); Bilirubin Urine Negative (Negative); Blood Urine Negative (Negative); Color Urine Light Yellow (Yellow); Glucose Urine UA Negative (Negative); Ketones Urine Negative (Negative); Leukocyte Esterase Ur Negative (Negative); Nitrate Urine Negative (Negative); Protein Urine Negative (Negative); Urobilinogen Urine 0.2 mg/dL (0.2-1.0)
[2023-09-28 13:04] LABS: Add Urine Microscopic? NO
== END 2023-09-28 12:43 | disposition home or self-care (01) ==
PROVIDERS: PCP Internal Medicine; Visit Provider Internal Medicine
DX: N39.0 Urinary tract infection, site not specified (principal)
CPT/HCPCS: 81003; 87086; 87088

== ENCOUNTER 2023-10-12 10:54 | Outpatient (CLI) | payer MEDICARE, SELFPAY ==
--- NOTE | ~2023-10-12 | MM_ITS ---
EXAMINATION: MM screening imani BI w gab HISTORY: Screening TECHNIQUE: Craniocaudal and mediolateral oblique 3-D tomosynthesis images were obtained and synthetic 2-D images were generated. CAD analysis was submitted and interpreted. COMPARISON: Comparison to multiple prior studies sequentially, with oldest reviewed study dated 11/08. BREAST PARENCHYMAL COMPOSITION: The breasts are almost entirely fatty. FINDINGS: There is no evidence of suspicious mass, calcification, or architectural distortion to sugg est malignancy in either breast. There has been no suspicious interval change. IMPRESSION: 1. No mammographic evidence of malignancy. 2. Recommend routine screening mammography in one year. BI-RADS Category 1: Negative Reviewed, dictated and finalized at location A. 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
[2023-10-12 11:07] VITALS: BMI 41.2
[2023-10-12 11:10] VITALS: BP 127/80; PULSE 72; RESP 14; TEMP 36.6; O2SAT 98
[2023-10-12] MEDS: OMALIZUMAB SUB-Q (11:30)
--- NOTE | 2023-10-12 12:17 | PC.NURSE ---
Patient here for monthly Xolair injection. No concerns voiced. Xolair injection administered. SEE MAR. Tolerated well. Will return 11/13/2023 at 1100 for next month's. Safe exit of hospital per self/ambulatory.
== END 2023-10-12 10:55 | disposition home or self-care (01) ==
LOC: CHSTREATRM 10:57
PROVIDERS: PCP Internal Medicine
DX: L50.1 Idiopathic urticaria (principal); Z12.31 Encounter for screening mammogram for malignant neoplasm of breast
CPT/HCPCS: 77063; 77067; 96372; J2357

== ENCOUNTER 2023-11-16 13:04 | Outpatient (CLI) | payer MEDICARE, SELFPAY ==
--- NOTE | ~2023-11-16 | DEXA_ITS ---
Bone Density Report Name: OLIVA NJ Age: 73 Sex: Female Ethnicity: White Date of : 1950 Indication: postmenopausal; screening for osteoporosis; height loss; inflammatory bowel disease; hysterectomy; Referring Provider: UNKNOWN, UNKNOWN Study: Bone densitometry was performed. Exam Date: November 16, 2023 Accession number: [id number] Bone Density: Region BMD T-score Z-score Classification AP Spine(L2, L3, L4) 1.378 2.7 5.1 Normal Femoral Neck (Left) 0.794 -0.5 1.5 Normal Total Hip (Left) 1.148 1.7 3.3 Normal Femoral Neck (Right) 0.913 0.6 2.5 Normal Total Hip (Right) 1.145 1.7 3.3 Normal Femoral Neck Mean 0.854 0.0 2.0 Normal Total Hip Mean 1.146 1.7 3.3 Normal World Health Organization criteria for BMD impression classify patients as: Normal (T-score at or above -1.0), Osteopenia (T-score between -1.0 and -2.5), or Osteoporosis (T-score at or below -2.5). 10-year Fracture Risk: FRAX not reported because: All T-scores for Spine Total, Hip Total, Femoral Neck at or above -1.0 Clinical Information Provided by Patient: Has used the following medications: Vitamin D, multi Has the following medical conditions: Inflammatory bowel diseases, Hysterectomy Patient maximum height was 64 Menopause Age: 51 No regular weight bearing exercise Drinks caffeinated beverages Onset of menses at age 12 Number of children 2 Impression: The patient has normal bone mass. Discussion: BONE DENSITY IS ABOVE THE MINIMUM DESIRABLE LEVEL AT ALL SKELETAL SITES TESTED. This patient?s bone mineral density is above the minimum desirable level (T-score -1.0 or better) at all sites measured. The patient should follow a healthful lifestyle (good nutrition with adequate calcium and vitamin D, and appropriate weight-bearing exercise). Follow-Up: Consider repeating this study in 5 years or sooner if there is some new clinical indication. Reported by: Dr. Sha Ledesma on 11/16/2023 1:59:00 PM. Reviewed, dictated and finalized [facility]
[2023-11-16 13:29] VITALS: BP 123/69; PULSE 68; RESP 14; TEMP 36.6; O2SAT 97; BMI 41.2
[2023-11-16] MEDS: OMALIZUMAB SUB-Q (13:35)
== END 2023-11-16 13:05 | disposition home or self-care (01) ==
LOC: CHSIMG 13:10 → CHSTREATRM 13:11
PROVIDERS: PCP Internal Medicine
DX: M81.0 Age-related osteoporosis without current pathological fracture (principal); L50.1 Idiopathic urticaria
CPT/HCPCS: 77080; 96372; J2357

== ENCOUNTER 2023-12-19 10:54 | Outpatient (CLI) | payer MEDICARE, SELFPAY ==
[2023-12-19 11:02] VITALS: BMI 41.2
[2023-12-19 11:07] VITALS: BP 128/60; PULSE 78; RESP 14; TEMP 36.8; O2SAT 97
[2023-12-19] MEDS: OMALIZUMAB SUB-Q (11:12)
--- NOTE | 2023-12-19 11:12 | PC.NURSE ---
Patient here for monthly Xolair injection. No concerns voiced. Reports been taking for years. Don't need education. Xolair injection administered. SEE MAR. Tolerated Well. Safe exit of hospital. Will returning 01/17/24 at 1100.
== END 2023-12-19 11:19 | disposition home or self-care (01) ==
PROVIDERS: PCP Internal Medicine
DX: L50.1 Idiopathic urticaria (principal)
CPT/HCPCS: 96372; J2357

== ENCOUNTER 2024-01-17 08:54 | Outpatient (CLI) | payer MEDICARE, SELFPAY ==
[2024-01-17 09:07] VITALS: BP 123/79; PULSE 72; RESP 14; TEMP 36.5; O2SAT 98; BMI 41.2
[2024-01-17] MEDS: OMALIZUMAB SUB-Q (09:18)
--- NOTE | 2024-01-17 09:47 | PC.NURSE ---
Patient here for monthly Xolair injection. No concerns voiced. Denied education-been getting this for years. Xolair injection administered. See MAR. Tolerated well. Safe exit of hospital per self/ambulatory. Will return 01/28/24 1100 a.m.
== END 2024-01-17 10:00 | disposition home or self-care (01) ==
LOC: CHSTREATRM 08:59
PROVIDERS: PCP Internal Medicine
DX: L50.1 Idiopathic urticaria (principal)
CPT/HCPCS: 96372; J2357

== ENCOUNTER 2024-02-14 10:53 | Outpatient (CLI) | payer MEDICARE, SELFPAY ==
[2024-02-14 10:59] VITALS: BP 140/72; PULSE 72; RESP 16; TEMP 36.6; O2SAT 98; BMI 41.2
[2024-02-14] MEDS: OMALIZUMAB SUB-Q (11:05)
--- NOTE | 2024-02-14 11:14 | PC.NURSE ---
Patient here for Xolair injection. Education given. No concerns voiced. Injection administered. SEE MAR. Tolerated well. Next injection 03/18/2024 1100. Safe exit of hospital per self and ambulation.
== END 2024-02-14 10:54 | disposition home or self-care (01) ==
PROVIDERS: PCP Internal Medicine
DX: L50.1 Idiopathic urticaria (principal)
CPT/HCPCS: 96372; J2357

== ENCOUNTER 2024-03-18 10:51 | Outpatient (CLI) | payer MEDICARE, SELFPAY ==
[2024-03-18 11:06] VITALS: BMI 41.2
[2024-03-18 11:07] VITALS: BP 131/74; PULSE 72; RESP 16; TEMP 36.5; O2SAT 98
[2024-03-18] MEDS: OMALIZUMAB SUB-Q (11:10)
--- NOTE | 2024-03-18 11:29 | PC.NURSE ---
Patient here for monthly Xolair injection. Education given. No concerns. Injection administered. SEE MAR. Tolerated well. Safe exit of hospital.
== END 2024-03-18 10:52 | disposition home or self-care (01) ==
PROVIDERS: PCP Internal Medicine
DX: L50.1 Idiopathic urticaria (principal)
CPT/HCPCS: 96372; J2357

== ENCOUNTER 2024-04-10 10:04 | Outpatient (CLI) | payer MEDICARE, SELFPAY ==
[2024-04-10 10:19] LABS: Appearance Urine Clear (Clear); Bilirubin Urine Negative (Negative); Blood Urine Negative (Negative); Color Urine Light Yellow (Yellow); Glucose Urine UA Negative (Negative); Hematocrit 41.6 % (35.0-42.0); Ketones Urine Negative (Negative); Leukocyte Esterase Ur Negative (Negative); Mean Corpuscular HGB Conc 33.7 g/dL (32-36); Mean Corpuscular Volume 92.2 fL (78.0-102.0); Mean Platelet Volume 9.8 fl (9.2-11.8); Nitrate Urine Negative (Negative); Platelet Count Result 171 K/mm3 (150-420); Protein Urine Negative (Negative); Red Blood Count 4.51 M/mm3 (4.20-5.40); Red Cell Distribution Width 12.7 % (11.6-14.4); Specific Grav Ur <= 1.005 (1.010-1.020); Urobilinogen Urine 0.2 mg/dL (0.2-1.0); White Blood Count 5.1 K/mm3 (4.8-10.8)
[2024-04-10 10:22] LABS: Add Urine Microscopic? NO
[2024-04-10 10:28] LABS: Hemoglobin A1C 5.9 % (<5.7)
[2024-04-10 11:21] LABS: Alanine Aminotransferase 33 U/L (14-59); Albumin Level 3.8 g/dL (3.4-5.0); Alkaline Phosphatase 49 U/L (46-116); Anion Gap 10 mmol/L (4-12); Aspartate Amino Transferase 19 U/L (15-37); Bilirubin,Total 0.7 mg/dL (0.00-1.00); Blood Urea Nitrogen 15 mg/dL (7-18); Calcium 8.9 mg/dL (8.5-10.1); Carbon Dioxide 29 mmol/L (21-32); Chloride 103 mmol/L (98-108); Cholesterol 151 mg/dL (0-200); Creatine Kinase 34 U/L (26-192); Estimated Glomerular Filt Rate 51; Free T3 2.99 pg/mL (2.18-3.98); Glucose 106 mg/dL (70-99); HDL Direct 47 mg/dL (40-60); LDL Cholesterol Calculated 61 mg/dL (<130); Osmolality Calculated 294 mOsm/kg (285-295); Potassium 4.3 mmol/L (3.5-5.1); Sodium 142 mmol/L (136-145); Thyroid Stimulating Hormone 2.57 uIU/mL (0.36-3.74); Total Protein 6.7 g/dL (6.4-8.2); Triglycerides 215 mg/dL (0-150)
[2024-04-10 11:22] LABS: Vitamin B12 > 2000 pg/mL (193-986)
== END 2024-04-10 10:05 | disposition home or self-care (01) ==
LOC: CHSLAB 10:06
PROVIDERS: PCP Internal Medicine; Visit Provider Internal Medicine
DX: E53.8 Deficiency of other specified B group vitamins (principal); R73.01 Impaired fasting glucose; E78.2 Mixed hyperlipidemia; I10 Essential (primary) hypertension; L50.0 Allergic urticaria
CPT/HCPCS: 36415; 80053; 80061; 81003; 82550; 82607; 83036; 84439; 84443; 84481; 85027

== ENCOUNTER 2024-04-18 11:18 | Outpatient (CLI) | payer MEDICARE, SELFPAY ==
[2024-04-18 11:39] VITALS: BP 115/69; PULSE 72; RESP 14; TEMP 36.4; O2SAT 97; BMI 41.2
[2024-04-18] MEDS: OMALIZUMAB SUB-Q (11:48)
--- NOTE | 2024-04-18 11:53 | PC.NURSE ---
Patient here for monthly Xolair injection. Education given. No concerns. Patient has epi pen on her prn. Injection administered. Tolerated well. Safe exit of hospital.
== END 2024-04-18 11:19 | disposition home or self-care (01) ==
PROVIDERS: PCP Internal Medicine
DX: L50.1 Idiopathic urticaria (principal)
CPT/HCPCS: 96372; J2357

== ENCOUNTER 2024-05-26 10:43 | Outpatient (CLI) | payer MEDICARE, SELFPAY ==
[2024-05-26] MEDS: OMALIZUMAB SUB-Q (11:03)
[2024-05-26 11:07] VITALS: BP 125/78; PULSE 68; RESP 14; TEMP 36.4; O2SAT 99; BMI 41.2
--- NOTE | 2024-05-26 11:15 | PC.NURSE ---
1100 Patient here for monthly Xolair injection r/t hives. Reports has been getting these for years. Education reviewed. Injection administered. SEE MAR. Tolerated well. Patient understands side effects and carries epi pen in her purse.
== END 2024-05-26 10:44 | disposition home or self-care (01) ==
PROVIDERS: PCP Internal Medicine
DX: L50.1 Idiopathic urticaria (principal)
CPT/HCPCS: 96372; J2357

== ENCOUNTER 2024-06-11 08:19 | Outpatient (CLI) | payer MEDICARE, SELFPAY ==
--- NOTE | ~2024-06-11 | US_ITS ---
US right upper quadrant INDICATION: Epigastric pain PROCEDURE: Realtime right upper abdominal ultrasound. COMPARISON: No prior studies for comparison. FINDINGS: The pancreas is not well visualized. Liver echotexture is diffusely increased, consistent with fatty infiltration. There is normal directional flow in the portal vein. The gallbladder is normal without stones, gallbladder wall thickening or pericholecystic fluid. Comm on bile duct measures 4 mm. No sonographic Banuelos's sign. IMPRESSION: 1: Fatty infiltration of the liver. Reviewed, dictated and finalized at location B.
== END 2024-06-11 08:20 | disposition home or self-care (01) ==
LOC: CHSIMG 08:21
PROVIDERS: PCP Internal Medicine; Visit Provider Internal Medicine
DX: R10.13 Epigastric pain (principal); K76.0 Fatty (change of) liver, not elsewhere classified
CPT/HCPCS: 76705

== ENCOUNTER 2024-06-16 09:17 | Outpatient (CLI) | payer MEDICARE, SELFPAY ==
--- NOTE | ~2024-06-16 | NM_ITS ---
EXAMINATION: NM hepatobiliary w pharm DATE: 06/16/2024 12:11 INDICATION: Right upper quadrant abdominal pain. COMPARISON: Ultrasound 06/11/2024 TECHNIQUE: 6.3 mCi Tc-99m mebrofenin (Choletec) was administered intravenously. Scintigraphic images of the abdomen were obtained for one hour. Then, 2.2 mcg sincalide (Kinevac) IV was administered, an d imaging was continued for 30 minutes. FINDINGS: There is normal clearance of radiotracer from the blood pool. There is homogeneous tracer u ptake by the liver. Activity progresses to the bowel and gallbladder. Gallbladder ejection fraction (GBEF) was 39%. Note that most patients with gallbladder dysfunction have GBEF < 35%, which overlaps with the broad normal range of 10-90%. IMPRESSION: 1. Normal hepatobiliary scintigraphy. Reviewed, dictated and finalized at location A.
== END 2024-06-16 09:18 | disposition home or self-care (01) ==
LOC: CHSIMG 09:18
PROVIDERS: PCP Internal Medicine; Visit Provider Internal Medicine
DX: R10.11 Right upper quadrant pain (principal)
CPT/HCPCS: 78227; A9537; J2805

== ENCOUNTER 2024-06-23 08:01 | Outpatient (CLI) | payer MEDICARE, SELFPAY ==
--- NOTE | 2024-06-23 08:09 | EST_ITS ---
Patient Info Name: Julissa Faustin Age: 74 years : 1950 Gender: Female Ht: 63 in Wt: 242 lbs BSA: 2.27 m2 HR: 62 bpm BP: 127 / 82 mmHg Heart Rhythm: Sinus Rhythm Technical Quality: Good Exam Date: 06/23/2024 9:43 AM Exam Location: Echo Lab Patient Status: Outpatient Admit Date: 06/23/2024 Staff Ordering Physician: Venancio Miles MD Attending Provider: Venancio Miles MD Exam Type: CA stress lucio w NM Study Info An adenosine stress test was performed. History/Risk Factors Hypertension: Yes Dyslipidemia: Yes Obesity: Yes Summary 1. 1. Negative lexiscan stress test for ischemic ST changes by ECG criteria. 2. 2. Stable hemodynamics throughout the test. 3. 3. Nuclear scan to follow and will be reported separately. Please correlate with it. Protocol: LEXISCAN Stress ECG Details Stage: REST Duration (min): 6 min : 53 sec HR (bpm): 62 SBP (mmHg): 127 DBP (mmHg): 82 Stage: REST Duration (min): 10 min : 53 sec HR (bpm): 63 SBP (mmHg): 127 DBP (mmHg): 82 Stage: STAGE 1 Duration (min): 1 min : 0 sec HR (bpm): 79 SBP (mmHg): 127 DBP (mmHg): 82 Stage: STAGE 1 Duration (min): 2 min : 0 sec HR (bpm): 81 SBP (mmHg): 106 DBP (mmHg): 61 Stage: STAGE 1 Duration (min): 3 min : 0 sec HR (bpm): 78 SBP (mmHg): 113 DBP (mmHg): 60 Stage: STAGE 2 Duration (min): 1 min : 0 sec HR (bpm): 75 SBP (mmHg): 112 DBP (mmHg): 61 Stage: STAGE 2 Duration (min): 2 min : 0 sec HR (bpm): 75 SBP (mmHg): 115 DBP (mmHg): 63 Stage: STAGE 2 Duration (min): 2 min : 7 sec HR (bpm): 75 SBP (mmHg): 115 DBP (mmHg): 63 Stage: RECOVERY Duration (min): 0 min : 43 sec HR (bpm): 75 SBP (mmHg): 115 DBP (mmHg): 63 Rest HR: 63 bpm Peak HR: 82 bpm Rest Sys BP: 127 mmHg Peak Sys BP: 115 mmHg Max Pred HR: 147 bpm % Max Pred HR: 56 % Target HR: 125 bpm Max RPP: 9,430 bpm*mmHg BP Response: Normal blood pressure response Termination Reason: Completed Protocol Cardiac Symptoms: None Total Time: 5 min : 7 sec Rest Rebollar BP: 82 mmHg Peak Rebollar BP: 63 mmHg Total Dose: 0.4 mg Resting ECG Sinus rhythm, anteroseptal infarct, age indeterminate. Stress ECG No abnormal ST/T wave changes. Arrhythmias None. Report Signatures
--- NOTE | 2024-06-23 13:21 | WPDCARIOSTRE ---
Nuclear Stress Test INDICATIONS Indications: Dyspnea PROCEDURE Procedure Performed: Myocardial Perf Spect-Multi Procedure: Patient underwent a lexiscan stress test and immediately was injected with 30.6 mCi of cardiolyte. Multiple tomographic images were obtained. These are of good quality. There is no perfusion defects with stress imaging. A separate resting images were obtained after patient was injected with 10.7 mCi of cardiolyte. Multiple tomographic images were obtained. These are of good quality. There is no perfusion defects with rest imaging. CONCLUSION Conclusion: 1. Normal myocardial perfusion imaging demonstrating no perfusion defects with stress or rest imaging. 2. No reversible ischemia. 3. Left ventriculogram demonstrates normal measured ejection fraction of 71% with no wall motion abnormalities. 4. TID score 1.01 is normal.
== END 2024-06-23 08:02 | disposition home or self-care (01) ==
LOC: CHSIMG 08:04
PROVIDERS: PCP Internal Medicine; Visit Provider Internal Medicine
DX: R06.00 Dyspnea, unspecified (principal)
CPT/HCPCS: 78452; 93017; A9502; J2785

== ENCOUNTER 2024-07-03 11:00 | Outpatient (CLI) | payer MEDICARE, SELFPAY ==
[2024-07-03 11:19] VITALS: BP 134/74; PULSE 72; RESP 16; TEMP 36.4; O2SAT 97; BMI 41.2
[2024-07-03] MEDS: OMALIZUMAB SUB-Q (11:22)
--- NOTE | 2024-07-03 11:38 | PC.NURSE ---
Tolerated Xolair injection well. Always carries a epi pen in purse. SEE MAR/patient care notes.
== END 2024-07-03 11:01 | disposition home or self-care (01) ==
PROVIDERS: PCP Internal Medicine
DX: L50.1 Idiopathic urticaria (principal)
CPT/HCPCS: 96372; J2357

== ENCOUNTER 2024-08-11 10:46 | Outpatient (CLI) | payer MEDICARE, SELFPAY ==
[2024-08-11] MEDS: OMALIZUMAB SUB-Q (11:10)
[2024-08-11 11:15] VITALS: BP 127/87; PULSE 72; RESP 16; TEMP 36.5; O2SAT 98; BMI 41.2
--- NOTE | 2024-08-11 11:23 | PC.NURSE ---
Patient here for Xolair injection- Education given. No concerns voiced. Injection administered. SEE MAR/patient care notes. Tolerated well.
--- NOTE | 2024-08-11 11:24 | PC.NURSE ---
Patient always care her epi pen in purse.
== END 2024-08-11 11:24 | disposition home or self-care (01) ==
PROVIDERS: PCP Internal Medicine
DX: L50.1 Idiopathic urticaria (principal)
CPT/HCPCS: 96372; J2357

== ENCOUNTER 2024-09-15 08:22 | Outpatient (CLI) | payer MEDICARE, SELFPAY ==
[2024-09-15] MEDS: OMALIZUMAB SUB-Q (08:49)
[2024-09-15 08:50] VITALS: BP 124/63; PULSE 78; RESP 16; TEMP 36.3; O2SAT 98; BMI 41.2
--- NOTE | 2024-09-15 08:53 | PC.NURSE ---
Patient here for Xolair injection. Education given. Reports no problems getting this. Have been getting it for years. Has own epi pen in purse. Xolair injection administered. SEE MAR/patient care notes. Tolerated well.
== END 2024-09-15 08:23 | disposition home or self-care (01) ==
PROVIDERS: PCP Internal Medicine
DX: L50.1 Idiopathic urticaria (principal)
CPT/HCPCS: 96372; J2357

== ENCOUNTER 2024-10-13 10:17 | Outpatient (CLI) | payer MEDICARE, SELFPAY ==
[2024-10-13 10:32] VITALS: BP 118/69; PULSE 76; RESP 16; TEMP 36.6; O2SAT 95; BMI 41.2
[2024-10-13] MEDS: OMALIZUMAB SUB-Q (10:42)
--- NOTE | 2024-10-13 10:49 | PC.NURSE ---
Tolerated monthly Xolair injection well. SEE MAR/patient care notes/ education handout given.
--- OUTSIDE RECORDS SUMMARY | 2024-10-20 21:12 | XMS_ITS | Data Portability ---
Author Organization [place] [facility],, Anat gupta Address [address] [place] [address] Assessment No assessment recorded. Plan of Treatment Reminders Order Date Submit Date Provider Last Modified By Organization Details Last Modified Time Details Appointments ANTONY Soto VISIT 2024 11:30A M Raj parker MD Not available Not available Not available Lab None record ed. Referral None record ed. Procedures None record ed. Surgeries None record ed. Imaging None record ed. Medication Orders Xolair 150 mg/mL subcut aneous syring e 2021 022 [email or web address] [facility], [address], [address], 05/02/2022 14:23:22 Xolair 150 mg/mL subcut aneous syring e 2021 022 [email or web address] [facility], [address], [address], [place], [address], 06/06/2022 12:30:46 Xolair 150 mg/mL subcut aneous syring e 2021 022 [email or web address] Not available 07/07/2022 13:30:15 Xolair 150 mg/mL subcut aneous syring e 2022 023 [email or web address] Not available 06/11/2023 13:08:18 Patient TargetsNo targets recorded. Patient InstructionsNo instructions recorded. Reason for Referral None Reported. Results Created Date Observation Date Name Description Value Unit Range Abnormal Flag Note LastModifiedBy Organization Detail LastModifiedTime 11/20/19 24 11/16/2023 DEXA, axial skele ton + verte bral fract ure asses sment No observ ation record ed. [address] [facility] [address] [place], [address], 11/20/2023 12:32:38 Result Notes None recorded. Problems Name Problem SNOMED Code Status Onset Date Resolution Date Notes Provider Name and Address Organization Details Recorded Time Idiopathic urticaria 45252185 Active Zohreh herrera, [place] [facility], 6 12:02:25 Benign essential hypertensi on 5863490 Active Not Available Formerly [facility] 3 03:00:21 Gastroesop hageal reflux disease 047672785 Active Not Available Former[facility] 3 03:00:21 Pure hyperchole sterolemia 388771103 Active Not Available Former[facility] 3 03:00:21 Allergic urticaria 45966167 Completed 02/06/2017 Raj soto MD [address] ,[address], [place], [address] , [place] [facility], 7 12:32:13 Problem Notes None recorded. Procedures Surgical History None recorded. Imaging Results Imaging Date Name Status LastModified by Organiz ation Details LastModified Time 11/16/2023 DEXA, axial skeleton + vertebral fracture assessment completed [address] [facility] [address] [place], [address], 11/20/2023 12:32:38 Procedure Notes None recorded. Medical Equipment None Reported. Allergies No known drug allergies Medications Name Sig Start Date Stop Date Status Note LastModified by Organization Details LastModified Time celecoxib 200 mg capsule 08/24 completed Not Available Not Available Not Available amoxicillin 500 mg capsule 02/06 completed Not Available Not Available Not Available fluconazole 100 mg tablet active Not Available Not Available Not Available prednisone 10 mg tablet active Not Available Not Available Not Available carvedilol 12.5 mg tablet active Not Available Not Available Not Available ropinirole 1 mg tablet active Not Available Not Available Not Available azithromyci n 250 mg tablet active Not Available Not Available Not Available tizanidine 4 mg tablet active Not Available Not Available Not Available fluconazole 150 mg tablet active Not Available Not Available Not Available doxepin 25 mg capsule Take 1 capsule every day by oral route at bedtime. 2012 active Not Available Not Available Not Avai lable prednisone 20 mg tablet active Not Available Not Available Not Available prednisone 5 mg tablet 08/24 completed Not Available Not Available Not Available hydroxyzine HCl 50 mg tablet active Not Available Not Available Not Available ciprofloxac in 500 mg tablet active Not Available Not Available Not Available tramadol 50 mg tablet active Not Available Not Available No t Available nystatin-tr iamcinolone 100,000 unit/gram-0 .1 % topical ointment active Not Available Not Available Not Available oxycodone-a cetaminophe n 5 mg-325 mg tablet 08/24 completed Not Available Not Available Not Available aspirin 325 mg tablet,louie yed release 08/24 completed Not Available Not Available Not Available hydrocodone 7.5 mg-acetamin ophen 325 mg tablet 08/24 completed Not Available Not Available Not Available pantoprazol e 40 mg tablet,louie yed release active Not Available Not Available Not Available esomeprazol e magnesium 40 mg capsule,del ayed release active Not Available Not Available Not Available warfarin 2 mg tablet 08/24 completed Not Available Not Available Not Available montelukast 10 mg tablet 08/24 completed Not Available Not Available Not Available pravastatin 20 mg tablet active Not Available Not Available Not Available acyclovir 200 mg capsule active Not Available Not Available Not Available mupirocin 2 % topical ointment active Not Available Not Available Not Available warfarin 1 mg tablet 08/24 completed Not Available Not Available Not Available epinephrine 0.3 mg/0.3 mL injection, auto-inject or Take 1 auto as needed by injection route as directed. active Not Available Not Available No t Available levofloxaci n 500 mg tablet active Not Available Not Available Not Available methylpredn isolone 4 mg tablets in a dose pack active Not Available Not Available Not Available albuterol sulfate HFA 90 mcg/actuati on aerosol inhaler active Not Available Not Available Not Available fluticasone propionate 50 mcg/actuati on nasal spray,suspe nsion active Not Available Not Available Not Available doxycycline hyclate 100 mg tablet active Not Available Not Available No t Available dicyclomine 10 mg capsule active Not Available Not Available Not Available spironolact one 50 mg tablet active Not Available Not Available Not Available amoxicillin 875 mg-potassiu m clavulanate 125 mg tablet active Not Available Not Available Not Available esomeprazol e magnesium 20 mg capsule,del ayed release active Not Available Not Available Not Available enoxaparin 30 mg/0.3 mL subcutaneou s syringe 08/24 completed Not Available Not Available Not Available enoxaparin 100 mg/mL subcutaneou s syringe active Not Available Not Available No t Available Xolair 150 mg subcutaneou s solution Inject 300 mg by subcutane ous route. 2018 active Not Available Not Available Not Avai lable solifenacin 10 mg tablet active Not Available Not Available Not Available Vesicare 5 mg tablet active Not Available Not Available No t Available spironolact one daily active Not Available Not Available Not Available pravastatin daily active Not Available Not A vailable Not Available nadolol daily active Not Available Not Avail able Not Available Nexium daily active Not Available Not Availa ble Not Available diclofenac 1 % topical gel 02/06 completed Not Available Not Available Not Available Zyrtec 10 mg capsule Take 1 capsule twice a day by oral route for 30 days. 02/06 completed Not Available Not Available Not Available Xarelto 20 mg tablet active Not Available Not Available No t Available Myrbetriq 50 mg tablet,exte nded release active Not Available Not Available Not Available Eliquis 5 mg tablet active Not Available Not Available No t Available Linzess 72 mcg capsule PLEASE SEE ATTACHED FOR DETAILED DIRECTION S active Not Available Not Available No t Available Xolair 150 mg/mL subcutaneou s syringe Inject 150 mg every month by subcutane ous route. 2023 active Not Available Not Available Not Avai lable Paxlovid 300 mg (150 mg x 2)-100 mg tablets in a dose pack TAKE 3 TABLETS BY MOUTH TWICE A DAY FOR 5 DAYS (STOP VESICARE AND HALF DOSE ELIQUIS WHILE ON) 06/11 completed Not Available Not Available Not Available Vitals Date Recorded Body height Body mass index (BMI) Body weight Heart rate Oxygen saturation Oxygen saturation in Arterial blood by Pulse oximetry Respiratory rate Body temperature Systolic blood pressure Diastolic blood pressure Provider Name and Address Organization Details Last Updated DateTime 3 162.56 cm 41.4 kg/m2 918592. 76 g 78 /min 95 % 95 % 20 /min 97 [degF] 124 mm[Hg] 82 mm[Hg] [email or web address] [email or web address] [place] [facility], 3 12:09:05 Date Recorded Body height Body mass index (BMI) Body weight Heart rate Oxygen saturation Oxygen saturation in Arterial blood by Pulse oximetry Respiratory rate Body temperature Systolic blood pressure Diastolic blood pressure Provider Name and Address Organization Details Last Updated DateTime 4 162.56 cm 41.2 kg/m2 171853. 17 g 82 /min 98 % 98 % 18 /min 97 [degF] 132 mm[Hg] 74 mm[Hg] Khushi Li [place] [facility], 4 12:02:34 Social History Question Answer Notes LastModified by Organizat ion Details LastModified Time Tobacco Smoking Status Never Smoker Not Available [facility] 08/31/2020 03:24:58 What Is Your Level Of Alcohol Consumption? Occasional Very Rare [id number] Information not available 08/31/2020 Marital Status Single [email or web address] Informatio n not available 11/29/2012 What Was The Date Of Your Most Recent Tobacco Screening? 06/11/2023 [email or web address] Information not available 06/11/2023 Do You Use Any Illicit Or Recreational Drugs? No [email or web address] Information not available 06/11/2023 Do You Or Have You Ever Used Any Other Forms Of Tobacco Or Nicotine? No [email or web address] Information not available 06/11/2023 Sex: Unknown Functional Status None recorded. Mental Status None recorded. Family History Nothing Reported. Medical History Condition Response Coronary Artery Disease N Gout N Kidney Stones N Hyperthyroidism N Hypothyroidism N Stress N Depression N COPD N Anxiety Disorder N Diabetes N Arthritis N Tuberculosis N Cancer N Stroke N Diverticulitis N Asthma N Allergies N GERD/Reflux N High Cholesterol N Liver Disease N Heart Disease N Pulmonary Embolism N Fibromyalgia N Hypertension N Osteoporosis N Kidney Disease N Gynecological HistoryNo gynecological history recorded. Obstetrics History GPAL:G 0 P 0 0 0 0 Past Encounters Encounter ID Performer Location Encounter Start Date Encounter Closed Date Diagnosis/Indication Diagnosis SNOMED-CT Code Diagnosis ICD10 Code 7950 Raj soto MD OFFICE [address] [place] [address] [id number] 8 11/29/2012 12:50:56 11/29/2012 14:37:25 [id number] Raj soto MD OFFICE [address] [place] [address] [id number] 8 02/03/2013 15:16:39 02/03/2013 16:26:13 [id number] Raj soto MD OFFICE [address] [place] [address] [id number] 08/28/2015 10:37:50 08/28/2015 11:25:24 Allergic urticaria 22927001 L50.1 [id number] Raj soto MD OFFICE [address] [place] [address] [id number] 8 02/22/2016 13:12:53 02/22/2016 14:32:04 Idiopathic urticaria 54351014 L50.1 [id number] Raj soto MD OFFICE [address] [place] [address] [id number] 8 08/24/2016 11:39:57 08/24/2016 13:10:47 Idiopathic urticaria 70280068 L50.1 [id number] Raj soto MD OFFICE [address] [place] [address] [id number] 8 02/06/2017 11:59:03 02/06/2017 12:54:48 Idiopathic urticaria 98952415 L50.1 [id number] Raj soto MD OFFICE [address] [place] [address] [id number] 8 09/07/2017 11:57:06 09/07/2017 12:27:08 Idiopathic urticaria 81124082 L50.1 [id number] Raj soto MD OFFICE [address] [place] [address] [id number] 8 01/11/2018 11:53:22 01/11/2018 12:44:47 Idiopathic urticaria 77737559 L50.1 [id number] Raj soto MD OFFICE [address] [place] [address] 8 02/08/2018 12:18:58 02/08/2018 13:07:19 Idiopathic urticaria 43189567 L50.1 [id number] Raj soto MD OFFICE [address] [place] [address] 8 03/08/2018 11:56:44 03/08/2018 13:54:45 Idiopathic urticaria 90787875 L50.1 [id number] Raj soto MD OFFICE [address] [place] [address] 8 04/09/2018 10:56:37 04/09/2018 17:40:49 Idiopathic urticaria 93529753 L50.1 [id number] Raj soto MD OFFICE [address] [place] [address] 8 05/07/2018 11:05:03 05/07/2018 13:05:29 Idiopathic urticaria 74051642 L50.1 [id number] Raj soto MD OFFICE [address] [place] [address] 8 06/11/2018 11:02:18 06/11/2018 12:11:33 Idiopathic urticaria 04839995 L50.1 [id number] Raj soto MD OFFICE [address] [place] [address] 8 07/12/2018 11:51:58 07/12/2018 14:28:45 Idiopathic urticaria 47769922 L50.1 [id number] ALIRIO Clay OFFICE [address] [place] [address] 8 08/08/2018 10:58:33 08/08/2018 16:32:09 Idiopathic urticaria 33338338 L50.1 [id number] Raj soto MD OFFICE [address] [place] [address] 8 09/17/2018 11:34:34 09/17/2018 16:47:52 Idiopathic urticaria 31808669 L50.1 [id number] ALIRIO Clay OFFICE [address] [place] [address] 8 10/15/2018 11:34:10 10/15/2018 12:52:06 Idiopathic urticaria 43815450 L50.1 [id number] Raj soto MD OFFICE [address] [place] [address] 8 11/12/2018 11:17:14 11/12/2018 15:11:45 Idiopathic urticaria 59857853 L50.1 [id number] ALIRIO Clay OFFICE [address] [place] [address] 8 12/10/2018 11:26:49 12/10/2018 13:27:22 Idiopathic urticaria 80206767 L50.1 [id number] ALIRIO Clay OFFICE [address] [place] [address] 8 01/02/2019 11:41:20 01/02/2019 15:36:17 Idiopathic urticaria 54679737 L50.1 [id number] Raj soto MD OFFICE [address] [place] [address] 8 01/30/2019 12:33:48 01/30/2019 14:05:22 Idiopathic urticaria 87599931 L50.1 [id number] Raj soto MD OFFICE [address] [place] [address] 8 03/04/2019 10:58:22 03/04/2019 12:35:19 Idiopathic urticaria [id number] L50.1 [id number] Raj soto MD OFFICE [address] [place] [address] 8 04/01/2019 10:41:25 04/01/2019 12:08:41 Idiopathic urticaria [id number] L50.1 [id number] ALIRIO Clay OFFICE [address] [place] [address] 8 04/29/2019 10:42:31 04/29/2019 13:02:14 Idiopathic urticaria 23909103 L50.1 [id number] Raj soto MD OFFICE [address] [place], [place] [id number] 8 06/03/2019 10:58:19 06/03/2019 11:57:23 Idiopathic urticaria 33038516 L50.1 [id number] Raj soto MD OFFICE [address] [place] [address] 8 07/01/2019 14:23:38 07/01/2019 15:02:28 Idiopathic urticaria [id number] L50.1 [id number] ALIRIO Clay OFFICE [address] [place] [address] 8 08/04/2019 15:47:44 08/04/2019 17:36:11 Idiopathic urticaria 19173454 L50.1 [id number] Raj soto MD OFFICE [address] [place], [place] [address] 8 09/02/2019 12:06:07 09/02/2019 13:08:44 Idiopathic urticaria 61164840 L50.1 [id number] Raj soto MD OFFICE [address] [place] [address] 8 09/30/2019 11:45:07 09/30/2019 14:47:59 Idiopathic urticaria 72558025 L50.1 [id number] Raj soto MD OFFICE [address] [place], [place] [id number] 8 11/04/2019 11:23:58 11/04/2019 12:38:12 Idiopathic urticaria 31021795 L50.1 [id number] Raj soto MD OFFICE [address] [place] [address] 8 12/05/2019 11:16:41 12/05/2019 12:44:39 Idiopathic urticaria 76055210 L50.1 [id number] ALIRIO Clay OFFICE [address] [place], [place] [address] 8 12/26/2019 11:23:39 12/26/2019 13:15:49 Idiopathic urticaria 11533963 L50.1 [id number] ALIRIO Clay OFFICE [address] [place] [address] [id number] 8 01/27/2020 11:29:00 01/27/2020 12:04:35 Idiopathic urticaria 30107247 L50.1 [id number] Raj soto MD OFFICE [address] [place] [address] [id number] 8 02/24/2020 11:20:13 02/24/2020 12:18:22 Idiopathic urticaria 45915000 L50.1 [id number] Raj soto MD OFFICE [address] [place] [address] [id number] 8 03/25/2020 11:54:14 03/25/2020 12:33:14 Idiopathic urticaria 27632692 L50.1 [id number] Raj soto MD OFFICE [address] [place] [address] [id number] 8 04/26/2020 14:26:23 04/26/2020 14:57:52 Idiopathic urticaria 53140106 L50.1 [id number] Raj soto MD OFFICE [address] [place] [address] [id number] 8 05/25/2020 11:56:23 05/25/2020 12:52:16 Idiopathic urticaria 92694464 L50.1 [id number] Raj soto MD OFFICE [address] [place] [address] [id number] 8 06/22/2020 11:24:06 06/22/2020 12:05:34 Idiopathic urticaria 23748014 L50.1 [id number] ALIRIO Clay OFFICE [address] [place] [address] [id number] 8 07/20/2020 13:00:27 07/20/2020 13:48:32 Idiopathic urticaria 66366005 L50.1 [id number] Raj soto MD OFFICE [address] [place] [address] [id number] 8 08/12/2020 11:05:09 08/12/2020 12:12:18 Idiopathic urticaria 66384397 L50.1 [id number] Raj soto MD OFFICE [address] [place] [address] [id number] 8 09/16/2020 10:58:07 09/16/2020 11:25:25 Idiopathic urticaria 79354948 L50.1 [id number] Raj soto MD OFFICE [address] [place] [address] [id number] 8 10/14/2020 11:46:17 10/14/2020 12:20:09 Idiopathic urticaria 54226680 L50.1 [id number] Raj soto MD OFFICE [address] [place] [address] [id number] 8 11/11/2020 14:47:37 11/12/2020 09:35:22 Idiopathic urticaria 27649864 L50.1 [id number] Raj soto MD OFFICE [address] [place] [address] [id number] 8 12/07/2020 11:07:50 12/07/2020 12:11:22 Idiopathic urticaria 93313460 L50.1 [id number] Raj soto MD OFFICE [address] [place] [address] [id number] 8 01/04/2021 11:06:06 01/04/2021 11:55:57 Idiopathic urticaria 07129672 L50.1 [id number] Raj soto MD OFFICE [address] [place] [address] [id number] 8 01/31/2021 11:52:55 01/31/2021 12:27:07 Idiopathic urticaria 61580771 L50.1 [id number] Raj soto MD OFFICE [address] [place] [address] [id number] 8 03/01/2021 11:30:49 03/01/2021 12:21:01 Idiopathic urticaria 10378092 L50.1 [id number] Raj soto MD OFFICE [address] [place] [address] [id number] 8 03/29/2021 11:00:12 03/29/2021 14:44:02 Idiopathic urticaria 46559059 L50.1 [id number] Raj soto MD OFFICE [address] [place] [address] [id number] 8 04/22/2021 11:23:00 04/22/2021 12:22:00 Idiopathic urticaria 75409414 L50.1 [id number] Raj soto MD OFFICE [address] [place], [place] [address] 8 05/26/2021 11:44:46 05/26/2021 12:21:58 Idiopathic urticaria 26507534 L50.1 [id number] Raj soto MD OFFICE [address] [place] [address] [id number] 8 06/28/2021 11:33:54 06/28/2021 11:58:54 Idiopathic urticaria 42003800 L50.1 [id number] Kathleen Garcia MD OFFICE [address] [place] [address] [id number] 8 07/26/2021 11:40:07 07/26/2021 12:09:27 Idiopathic urticaria 34402536 L50.1 [id number] Raj soto MD OFFICE [address] [place] [address] [id number] 8 08/18/2021 11:30:20 08/18/2021 12:53:28 Idiopathic urticaria 28199341 L50.1 [id number] Raj soto MD OFFICE [address] [place] [address] [id number] 8 09/15/2021 11:28:54 09/15/2021 15:22:53 Idiopathic urticaria 43973620 L50.1 [id number] aRj soto MD OFFICE [address] [place], [place] [address] 8 10/13/2021 11:23:30 10/13/2021 12:12:09 Idiopathic urticaria [id number] L50.1 [id number] Raj soto MD OFFICE [address] [place] [address] [id number] 8 11/10/2021 11:33:14 11/15/2021 17:13:15 Idiopathic urticaria 72891051 L50.1 [id number] Raj soto MD OFFICE [address] [place] [address] [id number] 8 12/13/2021 11:35:41 12/13/2021 12:28:48 Idiopathic urticaria 48502700 L50.1 [id number] Raj soto MD OFFICE [address] [place] [address] 57976-289 8 01/10/2022 11:33:33 01/10/2022 12:25:48 Idiopathic urticaria 46110315 L50.1 [id number] Raj soto MD OFFICE [address] [place] [address] [id number] 8 02/07/2022 11:25:20 02/07/2022 11:50:54 Idiopathic urticaria 47144314 L50.1 [id number] Raj soto MD OFFICE [address] [place] [address] 05937-572 8 03/07/2022 11:22:41 03/07/2022 12:15:23 Idiopathic urticaria 88936327 L50.1 [id number] Raj soto MD OFFICE [address] [place] [address] [id number] 8 04/04/2022 15:57:42 04/04/2022 16:36:37 Idiopathic urticaria 91132191 L50.1 [id number] Kathleen Garcia MD OFFICE [address] [place] [address] [id number] 8 05/02/2022 13:14:15 05/02/2022 13:59:50 Idiopathic urticaria 65284050 L50.1 [id number] Raj soto MD OFFICE [address] [place] [address] 8 06/06/2022 12:02:33 06/06/2022 12:49:17 Idiopathic urticaria 70204614 L50.1 [id number] Raj soto MD OFFICE [address] [place] [address] 8 07/07/2022 12:59:43 07/07/2022 13:43:13 Idiopathic urticaria [id number] L50.1 [id number] Raj soto MD OFFICE [address] [place] [address] 8 06/11/2023 11:45:23 06/11/2023 12:37:10 Idiopathic urticaria 63831089 L50.1 [id number] Raj soto MD OFFICE [address] [place] [address] 8 06/10/2024 11:48:45 06/10/2024 12:12:50 Idiopathic urticaria 91678031 L50.1 Health Concerns Section Related Observation LastModified by Organization Detai ls LastModified Time None Recorded Concern Status LastModified by Organization Details LastModified Time None Recorded Advance Directives Directive None Recorded Payers Encounter Date Sequence Insurance Name Policy Number Policy Recio Covered Member ID Recio Member ID Guarantor Name 05/02/2022 1 [place] Julissa Boss Faustin [id number] Julissa Faustin 05/02/2022 2 [employer] OPTIONS (MEDICARE SUPPLEMENT) Julissa Boss Faustin [id number] Julissa Faustin 06/06/2022 1 [place] Julissa Boss Faustin [id number] Julissa Faustin 06/06/2022 2 [employer] OPTIONS (MEDICARE SUPPLEMENT) Julissa Boss Faustin [id number] Julissa Faustin 07/07/2022 1 [place] Julissa Boss Faustin [id number] Julissa Faustin 07/07/2022 2 [employer] OPTIONS (MEDICARE SUPPLEMENT) Julissa Gera Faustin [id number] Julissa Faustin 06/11/2023 1 [place] Julissa Faustin [id number] Julissa Faustin 06/11/2023 2 [employer] OPTIONS (MEDICARE SUPPLEMENT) Julissa Fuastin [id number] Julissa Faustin 06/10/2024 1 [place] Julissa Faustin [id number] Julissa Faustin 06/10/2024 2 [employer] OPT[employer] (MEDICARE SUPPLEMENT) Julissa Faustin [id number] Julissa Faustin Notes Date Note Type Note Provider Name and Address Organization Details Recorded Time 06/11/2023 text/html Julissa comes in f or follow-up of her idiopathic urticaria. She has been on Xolair at 150 mg per month and has found that she has complete control of her symptoms. She has been on her Xolair forabout 8 years. There has been no side effects. MD [address], [place], [address], [place] [facility], 06/11/2023 12:41:32 06/10/2024 text/html Julissa comes in f or follow-up of her urticaria. She continues on Xolair at 150 mg once a month and is doing extraordinarily well with absolutely no symptoms of her UAS is 0.she is not needing any auxiliary medication. There is no angioedema. MD [address], [place], [address], [place] [facility], 06/10/2024 12:25:41 OBGyn Episode No OBEpisode recorded.
--- OUTSIDE RECORDS SUMMARY | 2024-10-20 21:12 | XMS_ITS | Patient Health Summary ---
Author Organization [facility] Address [address] [place] [address] Care Team Providers Care Asset Protection Representative Name Role Phone Zeus Rivera MD, Brayan Boss Primary Care Provider U mauriceailable Note from [facility],non-owned Affiliates and Associated Physician Practices is amultiple site organization consisting of ambulatory clinics and hospital sitesin [place], [place]. This disclosure is being madepursuant to the Care Everywhere program and may not contain all information available regarding this patient. Last updated 18.[facility] Social History Tobacco Use Types Packs/Day Years Used Date Smoking Tobacco: Never Assessed Sex and Gender Information Value Date Recorded Sex Assigned at Not on file Gender Identity Not on file Sexual Orientation Not on file Procedures * XR CHEST 2VW(Performed 10/01/2009) Performed for Bronchitis, Acute * MAMMO BILAT SCREENING(Performed 07/20/2009) Performed for Other Screening Mammogram * GROSS + MICRO EXAM(Performed 08/26/2001) Results * XR CHEST PA AND LATERAL ROUTINE CHEST (10/01/2009 12:29 PM TOEING STOCKINGS) Anatomical Region Laterality Modality Chest Radiographic Lilliam ging 10/01/2009 2:58 PM TOEING STOCKINGS Impressions 10/01/2009 3:30 PM TOEING STOCKINGS Clear lungs. Narrative 10/01/2009 3:30 PM TOEING STOCKINGS Chest x-ray 2 views. HISTORY: Bronchitis. Two views of the chest demonstrate a normal heart size with normal pulmonary vessels. The lungs are clear. Procedure Note Moreno Munoz MD - 10/01/2009 Chest x-ray 2 views. HISTORY: Bronchitis. Two views of the chest demonstrate a normal heart size with normal pulmonary vessels. The lungs are clear. IMPRESSION Clear lungs. Brayan Schulz Sr., MD DIAGNOSTIC IMAGI NG ORDERABLES * MAMMO SCREENING DIGITAL IMAGE BILAT (07/20/2009 9:37 AM CDT) Anatomical Region Laterality Modality Breast Bilateral Other 07/20/2009 9:37 AM CDT Narrative 07/20/2009 2:01 PM CDT EXAMINATION- Digital screening mammogram on 07/20/2009. PROPOSAL WRITER- Megan Magdaleno, RT, RM PRIOR- 02/13/2008 FINDINGS- Computer assisted detection was ??utilized. ??The tissue density is fatty. There is no significant change since the prior mammogram. ASSESSMENT- BIRADS Category 1- ??Negative mammogram. RECOMMENDATION- Follow up in one year. [facility] staff will contact and schedule patients with BIRADS categories 0, 4, and 5. ? Reading Radiologist- BALDEMAR ALEX ??M.D. ? Releasing RadiologistKathleen ALEX ??M.D. ? Released Date Time- 07/20/09 1401 ? Hay Farmer- TR ??M.D. ? ADM- BRAYAN SCHULZ SR ? ATT- BRAYAN SCHULZ SR REF- BRAYAN SCHULZ SR ? CON- PCP- BRAYAN SCHULZ SR ? SCP- Procedure Note Baldemar Alex MD - 07/20/2009 EXAMINATION- Digital screening mammogram on 07/20/2009. PROPOSAL WRITER- RT To, RM PRIOR- 02/13/2008 FINDINGS- Computer assisted detection was utilized. The tissue density is fatty. There is no significant change since the prior mammogram. ASSESSMENT- BIRADS Category 1- Negative mammogram. RECOMMENDATION- Follow up in one year. [facility] staff will contact and schedule patients with BIRADS categories 0, 4, and 5. Reading Radiologist- BALDEMAR ALEX M.D. Releasing Radiologist- BALDEMAR ALEX M.D. Released Date Time- 07/20/09 1401 Hay Farmer- FELIX Morales ADM- BRAYAN SCHULZ SR ATT- BRAYAN SCHULZ SR REF- BRAYAN SCHULZ SR CON- PCP- BRAYAN SCHULZ SR SCP- Brayan Schulz Sr., MD MAMMO ORDERABLES * GROSS + MICRO EXAM (08/26/2001 11:27 AM TOEING STOCKINGS) Result CASE NUMBER [id number] Comment: ORDERING PHYSICIAN ??PRUDENCE DAVILA SPECIMEN TYPE ?Tissue-lt groin mass Date ? 08/26/2001 Physician ?Jo Davila Description ? The specimen is labeled tissue from the left groin . ??Received is a disc-shaped lobular fragment of tissue that measures 6.5 x 6 cm. in greatest diameters x about 2.3 cm. in thickness. ??The external surface is in part smooth and glistening. ??On cut section, the tissue maintained a fairly uniform yellow character with no evidence of hemorrhage or necrosis. ??Manganese Breaker fragments will be submitted in cassettes labeled A through D. RT/bk Microscopic Exam ? Sections of the left groin tissue show lobulated mature appearing adipose tissues consistent with a lipoma. ??No malignant features are discerned. ??Ab/ Diagnosis ?I. ?Left groin mass, excision ?A. ??Mature adipose tissue consistent with lipoma. ??Ab Hay Farmer ? [facility] Pathologist ?Farshad Rose M.D. Snomed. ?08/27/2001 1258 <1> CPT code ? 76908 MISCELLANEOUS SAMPLES / Unknown 08/26/2001 11:27 AM TOEING STOCKINGS 08/26/2001 11:27 AM TOEING STOCKINGS Historical Provider LAB - PATHOLOGY/C YTOLOGY ORDERABLES Care Teams Asset Protection Representative Relationship Specialty Start Date End Date Brayan Schulz Sr., MD PCP - General 07/19/09
--- OUTSIDE RECORDS SUMMARY | 2024-10-20 21:12 | XMS_ITS | Clinical Summary ---
Author Organization [facility] Address [address] [place] [address] Care Team Providers Care Operating Room Aide Name Role Phone Zeus Rivera MD, Brayan Boss Primary Care Provider [facility] Source Comments [facility] [employer],non-owned Affiliates and Associated Physician Practices is amultiple site organization consisting of ambulatory clinics and hospital sitesin [place], [place], [place] and [place]. This disclosure is being madepursuant to the Care Everywhere program and may not contain all information available regarding this patient. Last updated 18.[facility] [employer] Social History Tobacco Use Types Packs/Day Years Used Date Smoking Tobacco: Never Assessed Sex and Gender Information Value Date Recorded Sex Assigned at Not on file Gender Identity Not on file Sexual Orientation Not on file Plan of Treatment Health Maintenance Due Date Last Done Comments BONE DENSITY TESTING 1950 COLOGUARD (AGES 45-75) - COL ON CA SCREENING 1950 COLON MONITORING 1950 COLONOSCOPY - COLON CA SCREENING 1950 CT COLONOGRAPHY - COLON CA SCREENING 1950 Colorectal Cancer Screening 1950 FIT - COLON CA SCREENING 1950 FLEX SIG - COLON CA SCREENING 1950 LIPID TESTING 1950 HEPATITIS C SCREENING 02/10/1969 DTAP/TDAP/TD VACCINES (1 - Tdap) 1970 ZOSTER VACCINE (1 of 2) 2001 MAMMOGRAM 07/20/2011 07/20/2009 PNEUMOCOCCAL VACCINE 65+ (1 of 1 - PCV) 02/16/2016 DEPRESSION SCREENING 10/29/2023 COVID-19 VACCINE (1 - 2023-2 5 season) 2024 INFLUENZA VACCINE (#1) 2024 Respiratory Syncytial Virus (RSV) Vaccine Pt: or over 60 yrs (1 - 1-dose 75+ series) 2026 HEPATITIS B VACCINE Aged Out No longe r eligible based on patient's age to complete this topic HIB VACCINE Aged Out No longer eligi ble based on patient's age to complete this topic HPV VACCINE Aged Out No longer eligi ble based on patient's age to complete this topic MENINGOCOCCAL VACCINE Aged Out No candida vaughn eligible based on patient's age to complete this topic Procedures Procedure Name Priority Date/Time Associated Diagnosis Comments MAMMO BILAT SCREENING Today 07/20/2009 9:37 AM CDT Other Screening Mammogram from Last 3 Months or Most Recently Relevant to Health Maintenance Results * MAMMO SCREENING DIGITAL IMAGE BILAT (07/20/2009 9:37 AM CDT) Anatomical Region Laterality Modality Breast Bilateral Other 07/20/2009 9:37 AM CDT Narrative 07/20/2009 2:01 PM CDT EXAMINATION- Digital screening mammogram on 07/20/2009. AUTOMOBILE SALESMAN- Megan Magdaleno, RT, RM PRIOR- 02/13/2008 FINDINGS- Computer assisted detection was ??utilized. ??The tissue density is fatty. There is no significant change since the prior mammogram. ASSESSMENT- BIRADS Category 1- ??Negative mammogram. RECOMMENDATION- Follow up in one year. [facility] staff will contact and schedule patients with BIRADS categories 0, 4, and 5. ? Reading RadiologistKathleen ALEX ??M.D. ? Releasing RadiologistKathleen ALEX ??M.D. ? Released Date Time- 07/20/09 1401 ? Supervisor Boilermaking Shop- TR ??M.D. ? ADM- BRAYAN SCHULZ A SR ? ATT- BRAYAN SCHULZ SR REF- MARQUIS SCHULZT A SR ? CON- PCP- BRAYAN SCHULZ SR ? SCP- Procedure Note Baldemar Alex MD - 07/20/2009 EXAMINATION- Digital screening mammogram on 07/20/2009. AUTOMOBILE SALESMAN- RT To, ISAURO PRIOR- 02/13/2008 FINDINGS- Computer assisted detection was utilized. The tissue density is fatty. There is no significant change since the prior mammogram. ASSESSMENT- BIRADS Category 1- Negative mammogram. RECOMMENDATION- Follow up in one year. [facility] staff will contact and schedule patients with BIRADS categories 0, 4, and 5. Reading Radiologist- BALDEMAR ALEX M.D. Releasing Radiologist- BALDEMAR ALEX M.D. Released Date Time- 07/20/09 1401 Supervisor Boilermaking ShopKathleen WASHINGTON M.D. ADM- BRAYAN SCHULZ SR ATT- BRAYAN SCHULZ SR REF- BRAYAN SCHULZ SR CON- PCP- BRAYAN SCHULZ SR SCP- Brayan Schulz Sr., MD MAMMO ORDERABLES from Last 3 Months or Most Recently Relevant to Health Maintenance Care Teams Operating Room Aide Relationship Specialty Start Date End Date Brayan Schulz Sr., MD PCP - General 07/19/09
--- OUTSIDE RECORDS SUMMARY | 2024-10-20 21:12 | XMS_ITS | Referral Summary ---
Author Organization [facility] Address [address] [place] [address] Care Team Providers Care Flight Communications Officer Name Role Phone Zeus Rivera MD, Brayan Boss Primary Care Provider susana Source Comments [facility],non-owned Affiliates and Associated Physician Practices is amultiple site organization consisting of ambulatory clinics and hospital sitesin [place], [place], [place] and [place]. This disclosure is being madepursuant to the Care Everywhere program and may not contain all information available regarding this patient. Last updated 18.[facility] [place] [employer] Social History Tobacco Use Types Packs/Day Years Used Date Smoking Tobacco: Never Assessed Sex and Gender Information Value Date Recorded Sex Assigned at Not on file Gender Identity Not on file Sexual Orientation Not on file Plan of Treatment Not on file Procedures Procedure Name Priority Date/Time Associated Diagnosis Comments MAMMO BILAT SCREENING Today 07/20/2009 9:37 AM CDT Other Screening Mammogram from Last 3 Months or Most Recently Relevant to Health Maintenance Results * MAMMO SCREENING DIGITAL IMAGE BILAT (07/20/2009 9:37 AM CDT) Anatomical Region Laterality Modality Breast Bilateral Other 07/20/2009 9:37 AM CDT Narrative 07/20/2009 2:01 PM CDT EXAMINATION- Digital screening mammogram on 07/20/2009. WALLPAPERER- Megan Magdaleno RT, RM PRIOR- 02/13/2008 FINDINGS- Computer assisted detection was ??utilized. ??The tissue density is fatty. There is no significant change since the prior mammogram. ASSESSMENT- BIRADS Category 1- ??Negative mammogram. RECOMMENDATION- Follow up in one year. [facility] staff will contact and schedule patients with BIRADS categories 0, 4, and 5. ? Reading Sangita ALEX ??M.D. ? Releasing Sangita ALEX ??M.D. ? Released Date Time- 07/20/09 1401 ? Jane- FELIX ??Duane.D. ? ADM- BRAYAN SCHULZ A SR ? ATT- BRAYAN SCHULZ A SR REF- MARQUIS SCHULZT A SR ? CON- PCP- BRAYAN SCHULZ A SR ? SCP- Procedure Note Baldemar Alex MD - 07/20/2009 EXAMINATION- Digital screening mammogram on 07/20/2009. WALLPAPERER- Megan Magdaleno, RT, RM PRIOR- 02/13/2008 FINDINGS- Computer assisted detection was utilized. The tissue density is fatty. There is no significant change since the prior mammogram. ASSESSMENT- BIRADS Category 1- Negative mammogram. RECOMMENDATION- Follow up in one year. [facility] staff will contact and schedule patients with BIRADS categories 0, 4, and 5. Reading Sangita ALEX M.D. Releasing Sangita ALEX M.D. Released Date Time- 07/20/091400 Redd WASHINGTON M.D. ADM- BRAYAN SCHULZ SR ATT- BRAYAN SCHULZ SR REF- BRAYAN SCHULZ SR CON- PCP- BRAYAN SCHULZ SR SCP- MD CONSUELO Garcia Sr. ORDERABLES from Last 3 Months or Most Recently Relevant to Health Maintenance Care Teams Flight Communications Officer Relationship Specialty Start Date End Date Brayan Schulz Sr., MD PCP - General 07/19/09
--- OUTSIDE RECORDS SUMMARY | 2024-10-20 21:12 | XMS_ITS | Encounter Summary ---
Author Organization [facility] Health Address [facility] [facility] [place] [address] Care Team Providers Care Bit Sharpener Name Role Phone Zeus Rivera MD, Anthony Boss Primary Care Provider Doe meza Encounter Details Date Type Department Care Team (Latest Contact Info) Description 10/01/2009 12:23 PM SVP OF DIGITAL - 10/01/2009 11:59 PM SVP OF DIGITAL Hospital Encounter [facility] [address] [place] [address] Discharge Disposition: Home or Self Care Social History Tobacco Use Types Packs/Day Years Used Date Smoking Tobacco: Never Assessed Sex and Gender Information Value Date Recorded Sex Assigned at Not on file Gender Identity Not on file Sexual Orientation Not on file documented as of this encounter Miscellaneous Notes * Miscellaneous Scans - Document, Scanned - 10/01/2009 12:00 AM SVP OF DIGITAL * Miscellaneous Scans - Document, Scanned - 10/01/2009 12:00 AM SVP OF DIGITAL * Miscellaneous Scans - Document, Scanned - 10/01/2009 12:00 AM SVP OF DIGITAL * Miscellaneous Scans - Document, Scanned - 10/01/2009 12:00 AM SVP OF DIGITAL documented in this encounter Plan of Treatment Not on file documented as of this encounter Procedures Procedure Name Priority Date/Time Associated Diagnosis Comments XR CHEST 2VW Routine 10/01/2009 12:29 PM SVP OF DIGITAL Bronchitis, Acute documented in this encounter Results * XR CHEST PA AND LATERAL ROUTINE CHEST (10/01/2009 12:29 PM SVP OF DIGITAL) Anatomical Region Laterality Modality Chest Radiographic Lilliam ging 10/01/2009 2:58 PM SVP OF DIGITAL Impressions 10/01/2009 3:30 PM SVP OF DIGITAL Clear lungs. Narrative 10/01/2009 3:30 PM SVP OF DIGITAL Chest x-ray 2 views. HISTORY: Bronchitis. Two views of the chest demonstrate a normal heart size with normal pulmonary vessels. The lungs are clear. Procedure Note Moreno Munoz MD - 10/01/2009 Chest x-ray 2 views. HISTORY: Bronchitis. Two views of the chest demonstrate a normal heart size with normal pulmonary vessels. The lungs are clear. IMPRESSION Clear lungs. Anthony Schulz Sr., MD DIAGNOSTIC IMAGI NG ORDERABLES documented in this encounter Visit Diagnoses Diagnosis Bronchitis, acute Acute bronchitis documented in this encounter Care Teams Bit Sharpener Relationship Specialty Start Date End Date Anthony Schulz Sr., MD PCP - General 07/19/09 documented as of this encounter
--- OUTSIDE RECORDS SUMMARY | 2024-10-20 21:13 | XMS_ITS | Encounter Summary ---
Author Organization [facility] Address [address] [place] [address]. [place] [address] [place] [address] Care Team Providers Care Orthoptist Name Role Phone Unavailable Primary Care Provider Unavailabl e Encounter Details Date Type Department Care Team (Late st Contact Info) Description 06/20/2016 Scan [facility] [address] [place] [address] Scanned, Documents Social History Tobacco Use Types Packs/Day Years Used Date Smoking Tobacco: Never Assessed Comments Unknown Sex and Gender Information Value Date Recorded Sex Assigned at Not on file Legal Sex Female 1:41 AM CDT Gender Identity Not on file Sexual Orientation Not on file documented as of this encounter Plan of Treatment Not on file documented as of this encounter Visit Diagnoses Not on filedocumented in this encounter
--- OUTSIDE RECORDS SUMMARY | 2024-10-20 21:13 | XMS_ITS | Encounter Summary ---
Author Organization [facility] Address Counts include [address] beds at the [facility] [facility] [place] [address] [place] [address] Care Team Providers Care Typewriter Tester Name Role Phone Unavailable Primary Care Provider Unavailabl e Encounter Details Date Type Department Care Team (Late st Contact Info) Description 07/07/2015 Abstract [facility] [place] [address] [place] [address] Tiara Arambula MD [address] [place] [id number] Social History Tobacco Use Types Packs/Day Years [...]
--- OUTSIDE RECORDS SUMMARY | 2024-10-20 21:13 | XMS_ITS | Encounter Summary ---
Author Organization [facility] Health Address [address] [place] [address] [place] [address] Care Team Providers Care Supervisor Loading Name Role Phone Zeus Rivera MD, Brayan Boss Primary Care Provider Doe meza Encounter Details Date Type Department Care Team (Latest Contact Info) Description 07/20/2009 12:01 AM CDT - 07/20/2009 11:59 PM CDT Hospital Encounter [facility] [address] [place] [address] Brayan Schulz Sr., MD Medical Outpatient Discharge Disposition: Home or Self Care Social History Tobacco Use Types Packs/Day Years Used Date Smoking Tobacco: Never Assessed Sex and Gender Information Value Date Recorded Sex Assigned at Not on file Gender Identity Not on file Sexual Orientation Not on file documented as of this encounter Plan of Treatment Scheduled Orders Name Type Priority Associated Diagnoses Orde r Schedule MAMMO SCREENING DIGITAL IMAGE BILAT Imaging Today ONCE for 1 Occur rences starting 07/20/2009 until 07/20/2009, 1 completed documented as of this encounter Procedures Procedure Name Priority Date/Time Associated Diagnosis Comments MAMMO BILAT SCREENING Today 07/20/2009 9:37 AM CDT Other Screening Mammogram documented in this encounter Results * MAMMO SCREENING DIGITAL IMAGE BILAT (07/20/2009 9:37 AM CDT) Anatomical Region Laterality Modality Breast Bilateral Other 07/20/2009 9:37 AM CDT Narrative 07/20/2009 2:01 PM CDT EXAMINATION- Digital screening mammogram on 07/20/2009. RETAIL ATTENDANT- Megan Magdaleno, RT, RM PRIOR- 02/13/2008 FINDINGS- Computer assisted detection was ??utilized. ??The tissue density is fatty. There is no significant change since the prior mammogram. ASSESSMENT- BIRADS Category 1- ??Negative mammogram. RECOMMENDATION- Follow up in one year. [facility] staff will contact and schedule patients with BIRADS categories 0, 4, and 5. ? Reading Sangita ALEX ??M.D. ? Releasing Sangita ALEX ??M.D. ? Released Date Time- 07/20/09 1401 ? Hvac Installation Technician- TR ??M.D. ? ADM- BRAYAN SCHULZ SR ? ATT- BRAYAN SCHULZ SR REF- BRAYAN SCHULZ A SR ? CON- PCP- BRAYAN SCHULZ SR ? SCP- Procedure Note Baldemar Alex MD - 07/20/2009 EXAMINATION- Digital screening mammogram on 07/20/2009. RETAIL ATTENDANT- RT To, ISAURO PRIOR- 02/13/2008 FINDINGS- Computer assisted detection was utilized. The tissue density is fatty. There is no significant change since the prior mammogram. ASSESSMENT- BIRADS Category 1- Negative mammogram. RECOMMENDATION- Follow up in one year. [facility] staff will contact and schedule patients with BIRADS categories 0, 4, and 5. Reading Sangita ALEX M.D. Releasing Radiologist- BALDEMAR ALEX M.D. Released Date Time- 07/20/09 1401 Hvac Installation TechnicianKathleen WASHINGTON M.D. ADM- BRAYAN SCHULZ SR ATT- BRAYAN SCHULZ SR REF- BRAYAN SCHULZ SR CON- PCP- BRAYAN SCHULZ SR SCP- Brayan Schulz Sr., MD MAMMO ORDERABLES documented in this encounter Visit Diagnoses Diagnosis Other screening mammogram documented in this encounter Care Teams Supervisor Loading Relationship Specialty Start Date End Date Brayan Schulz Sr., MD PCP - General 07/19/09 documented as of this encounter
--- OUTSIDE RECORDS SUMMARY | 2024-10-20 21:13 | XMS_ITS | Encounter Summary ---
Author Organization [facility] Health Address [address] [place] [address] Care Team Providers Care Head Rose Grower Name Role Phone Zeus Rivera MD, Anthony Boss Primary Care Provider Doe meza Encounter Details Date Type Department Care Team (Late st Contact Info) Description 08/26/2001 Orders Only [facility] [address] [place] [address] ProviderMannie MD Social History Tobacco Use Types Packs/Day Years Used Date Smoking Tobacco: Never Assessed Sex and Gender Information Value Date Recorded Sex Assigned at Not on file Gender Identity Not on file Sexual Orientation Not on file documented as of this encounter Plan of Treatment Not on file documented as of this encounter Procedures Procedure Name Priority Date/Time Associated Diagnosis Comments GROSS + MICRO EXAM VIDAL 08/26/2001 11 :27 AM SURVEY DIRECTOR documented in this encounter Results * GROSS + MICRO EXAM (08/26/2001 11:27 AM SURVEY DIRECTOR) Result CASE NUMBER [id number] Comment: ORDERING [...] with no evidence of hemorrhage or necrosis. ??Fly Raiser Lockstitch fragments will be submitted in cassettes labeled A through D. RT/bk Microscopic Exam ? Sections of the left groin tissue show lobulated mature appearing adipose tissues consistent with a lipoma. ??No malignant features are discerned. ??Ab/ Diagnosis ?I. ?Left groin mass, excision ?A. ??Mature adipose tissue consistent with lipoma. ??Ab Check And Transfer Beader ? [facility] Pathologist ?Farshad Rose M.D. Snomed. ?08/27/2001 1258 <1> CPT code ? 75722 MISCELLANEOUS SAMPLES / Unknown 08/26/2001 11:27 AM SURVEY DIRECTOR 08/26/2001 11:27 AM SURVEY DIRECTOR Historical Provider LAB - PATHOLOGY/C YTOLOGY ORDERABLES documented in this encounter Visit Diagnoses Not on filedocumented in this encounter Care Teams Head Rose Grower Relationship Specialty Start Date End Date Anthony Schulz Sr., MD PCP - General 07/19/09 documented as of this encounter
--- OUTSIDE RECORDS SUMMARY | 2024-10-20 21:13 | XMS_ITS | Referral Summary ---
Author Organization [facility] [place] Address [address] [place] [address] Care Team Providers Care Reliability Specialist Name Role Phone Venancio Miles MD Primary Care Provider [phone] Allergies No known active allergies Medications carvediloL (COREG) 6.25 mg tablet 06/14/2016Carvedilol, po solid 6.25 mg TabletPOBIDCurrent Medication 06/14/20 16 Active pravastatin (PRAVACHOL) 20 mg tablet 20 mg daily Activ e warfarin (COUMADIN) 1 mg tablet warfarin 1 mg tablet Active spironolacton e (ALDACTONE) 25 mg tablet 06/14/2016Spironolacton e, po solid 25 mg TabletPOdailyCurrent Medication 06/14/20 16 Active omalizumab (XOLAIR) 150 mg/mL syringe [address] (NexIUM) 20 mg capsule daily Active ergocalcifero l, vitamin D2, 10 mcg (400 unit) tablet 06/14/2016Vitamin d, po solid 400 unit [id number] Medication 06/14/20 16 Active dicyclomine (BENTYL) 10 mg capsule 06/14/2016Dicyclomine hcl, po solid 10 mg CapsulePOas directedCurrent Medication 06/14/20 16 Active cyanocobalami n (Vitamin B-12) 1,000 mcg tablet 06/14/2016B-12, po solid 1000 mcg TabletPOas directedCurrent Medication 06/14/20 16 Active apixaban (ELIQUIS) 5 mg tablet 5 mg Active Active Problems Problem Noted Date Diagnosed Date Sensorineural hearing loss (SNHL) of both ears 1 12/14/2019 Tinnitus of both ears 10/13/2020 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 Social History Tobacco Use Types Packs/Day Years Used Date Smoking Tobacco: Never Smokeless Tobacco: Never Alcohol Use Standard Drinks/Week Comments Yes 0 (1 standard drink = 0.6 oz pur e alcohol) Comments Unknown Sex and Gender Information Value Date Recorded Sex Assigned at Not on file Legal Sex Female 3:58 AM CSR TECHNICIAN Gender Identity Not on file Sexual Orientation Not on file Last Filed Vital Signs Vital Sign Reading Time Taken Comments Blood Pressure 140/89 11/13/2012 8:40 AM CSR TECHNICIAN Pulse 62 11/13/2012 8:40 AM CSR TECHNICIAN Temperature 36.7 ??C (98 ??F) 10/13/2020 1:09 PM CSR TECHNICIAN Respiratory Rate - - Oxygen Saturation - - Inhaled Oxygen Concentration - - Weight 99.8 kg (220 lb) 10/13/2020 1:09 PM CSR TECHNICIAN Height 162.6 cm (5' 4 ) 10/13/2020 1:09 PM CSR TECHNICIAN Body Mass Index 37.76 10/13/2020 1:09 PM CSR TECHNICIAN Plan of Treatment Not on file Insurance MEDICARE [facility] Care Teams Reliability Specialist Relationship Specialty Start Date End Date Venancio Miles MD [address] [place] [address] PCP - General 11/13/12
--- OUTSIDE RECORDS SUMMARY | 2024-10-20 21:13 | XMS_ITS | Encounter Summary ---
Author Organization [facility] Address [address] [place] [address] Phone Care Team Providers Care Photogrammetric Stereo Compiler Name Role Phone Venancio Miles MD Primary Care Provider Reason for Visit * Reason Comments Tinnitus Hearing Loss Encounter Details Date Type Department Care Team (Latest Contact Info) Description 10/13/2020 1:30 PM TANDEM MILL STICKER Office Visit [facility] Otolaryngology [address] [place] [phone] Alexa Lara NP [address] [place] [phone] Sensorineural hearing loss (SNHL) of both ears (Primary Dx); Tinnitus of both ears Social History Tobacco Use Types Packs/Day Years Used Date Smoking Tobacco: Never Smokeless Tobacco: Never Alcohol Use Standard Drinks/Week Comments Yes 0 (1 standard drink = 0.6 oz pur e alcohol) Comments Unknown Sex and Gender Information Value Date Recorded Sex Assigned at Not on file Legal Sex Female 3:58 AM TANDEM MILL STICKER Gender Identity Not on file Sexual Orientation Not on file documented as of this encounter Last Filed Vital Signs Vital Sign Reading Time Taken Comments Blood Pressure - - Pulse - - Temperature 36.7 ??C (98 ??F) 10/13/2020 1:09 PM TANDEM MILL STICKER Respiratory Rate - - Oxygen Saturation - - Inhaled Oxygen Concentration - - Weight 99.8 kg (220 lb) 10/13/2020 1:09 PM TANDEM MILL STICKER Height 162.6 cm (5' 4 ) 10/13/2020 1:09 PM TANDEM MILL STICKER Body Mass Index 37.76 10/13/2020 1:09 PM TANDEM MILL STICKER documented in this encounter Progress Notes * Alexa Lara, COCONUT JELLY ROLLER - 10/13/2020 1:30 PM CST Julissa Faustin was seen in the office today. Primary care provider is Venancio Miles MD . Chief Complaint: Julissa Faustin is a 70 y.o. female with complaints of: Chief Complaint Patient presents with ??? Tinnitus ??? Hearing Loss . HPI: She comes to clinic today for evaluation of hearing loss and tinnitus. She reports this problem has been occurring for years. She reports having a hard time in a crowded room. She reports havingto use closed captioning when watching the TV. She has associated tinnitus which she describes as abuzzing that is always there. She denies any otalgia, otorrhea, or dizziness. She does report a family history of hearing loss. Three of 4 of her brothers and her mother and father all wear hearing aids. She reports a noise history as she worked in [employer] when she was young. 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 She states she has a problem with seasonal allergies. She uses Zyrtec as needed. She denies any recent fever, vision changes, chest pain, shortness of breath, nausea or vomiting, muscle weakness or fatigue, rash, headaches, insomnia or depression, heat or cold intolerance, hematuria, or easily bruising. She does report having a a blood clotting disorder, and snoring. She does use a CPAP at night. Subjective: See HPI Past Medical/Surgical History Past Medical History: Diagnosis Date ??? Adiposity Obesity ??? Allergic rhinitis ??? Bleeding disorder (CMS/HCC) ??? DVT (deep vein thrombosis) in ??? Gastroesophageal reflux disease GERD ??? History of blood clots ??? HX OTHER MEDICAL Factor V Leiden ?carrier (per pt account) no DVT h ??? Hypertension Hypertension Past Surgical History: Procedure Laterality Date ??? PARTIAL HYSTERECTOMY ??? THYROID SURGERY ??? TOTAL KNEE ARTHROPLASTY Bilateral Past Family/Social History Family History Problem Relation Age of Onset ??? Heart failure Father Congestive Heart Failure; Cause of : Congestive Heart Failure ??? Hypertension Mother Hypertension; ??? Diabetes Other Social History Socioeconomic History ??? Marital status: Spouse name: None ??? Number of children: None ??? Years of education: None ??? Highest education level: None Occupational History ??? None Social Needs ??? Financial resource strain: None ??? Food insecurity Worry: None Inability: None ??? Transportation needs Medical: None Non-medical: None Tobacco Use ??? Smoking status: Never Smoker ??? Smokeless tobacco: Never Used Substance and Sexual Activity ??? Alcohol use: Yes ??? Drug use: No ??? Sexual activity: None Lifestyle ??? Physical activity Days per week: None Minutes per session: None ??? Stress: None Relationships ??? Social connections Talks on phone: None Gets together: None Attends christianity service: None Active member of club or organization: None Attends meetings of clubs or organizations: None Relationship status: None ??? Intimate partner violence Fear of current or ex partner: None Emotionally abused: None Physically abused: None Forced sexual activity: None Other Topics Concern ??? None Social History Narrative ??? None Medications/Allergies/Immunizations Current Outpatient Medications Medication Sig Dispense Refill ??? apixaban (ELIQUIS) 5 mg tablet 5 mg ??? carvediloL (COREG) 6.25 mg tablet 06/14/2016Carvedilol, po solid 6.25 mg TabletPOBIDCurrent Medication ??? cyanocobalamin (Vitamin B-12) 1,000 mcg tablet 06/14/2016B-12, po solid 1000 mcg TabletPOas directedCurrent Medication ??? dicyclomine (BENTYL) 10 mg capsule 06/14/2016Dicyclomine hcl, po solid 10 mg CapsulePOas directedCurrent Medication ??? ergocalciferol, vitamin D2, 10 mcg (400 unit) tablet 06/14/2016Vitamin d, po solid 400 unit [id number] Medication ??? esomeprazole DR (NexIUM) 20 mg capsule daily ??? omalizumab (XOLAIR) 150 mg/mL syringe 150 mg ??? pravastatin (PRAVACHOL) 20 mg tablet 20 mg daily ??? spironolactone (ALDACTONE) 25 mg tablet 08/17/2016Spironolactone, po solid 25 mg TabletPOdailyCurrent Medication ??? warfarin (COUMADIN) 1 mg tablet warfarin 1 mg tablet No current facility-administered medications for this visit. Allergies: Patient has no allergy information on record., Immunizations: There is no immunization history on file for this patient. Review of Systems See HPI Vital Signs: Vitals Temp 36.7 ??C (98 ??F) Ht 162.6 cm (5' 4 ) Wt 99.8 kg (220 lb) BMI 37.76 kg/m?? PHYSICAL EXAMINATION: Physical Exam Vitals signs reviewed. Constitutional: Appearance: She is obese. HENT: Head: Normocephalic and atraumatic. Jaw: There is normal jaw occlusion. Right Ear: Tympanic membrane, ear canal and external ear normal. Left Ear: Tympanic membrane is scarred and retracted. Nose: Septal deviation and rhinorrhea present. Rhinorrhea is clear. Mouth/Throat: Mouth: Mucous membranes are moist. Pharynx: Oropharynx is clear. Comments: Tonsils are surgically absent Eyes: Conjunctiva/sclera: Conjunctivae normal. Neck: Musculoskeletal: Neck supple. No muscular tenderness. Pulmonary: Effort: Pulmonary effort is normal. No respiratory distress. Musculoskeletal: Normal range of motion. Lymphadenopathy: Cervical: No cervical adenopathy. Skin: General: Skin is warm and dry. Capillary Refill: Capillary refill takes less than 2 seconds. Neurological: Mental Status: She is alert and oriented to person, place, and time. Psychiatric: Mood and Affect: Mood normal. Behavior: Behavior normal. ASSESSMENT & PLAN Problem List Items Addressed This Visit Nervous Sensorineural hearing loss (SNHL) of both ears - Primary Tinnitus of both ears Julissa is a 70-year-old female who presents to the office today with hearing loss and tinnitus. She had a audiogram done today which reveals normal middle ear function with hearing that is within normal limits sloping to a moderate to severe hearing loss bilaterally. I do not see any infection in her ears today. She does have some scarring in a small retraction pocket to the left TM. I did adviseher to use Flonase 1 spray twice daily for a month. I also recommended a hearing aid evaluation. Wetalked about bringing outside noise in to help alleviate the tinnitus by using radios, TV is a, sound machines. We also discussed how high doses of ibuprofen and caffeine can make the tinnitus worse. We discussed not using Q-tips to clean her ears and protecting the hearing that she has by using appropriate ear protection when around loud noises. She verbalizes understanding of all instructions given and agrees with this treatment plan. She will call if she has any questions, concerns, or problems. Alexia Lara NP EM MILL STICKER documented in this encounter Plan of Treatment Not on file documented as of this encounter Visit Diagnoses Diagnosis Sensorineural hearing loss (SNHL) of both ears- Primary Tinnitus of both ears Unspecified tinnitus documented in this encounter Historical Medications * This list may reflect changes made after this encounter. apixaban (ELIQUIS) 5 mg tablet 5 mg cyanocobalamin (Vitamin B-12) 1,000 mcg tablet 06/14/2016B-12, po solid 1000 mcg TabletPOas directedCurrent Medication 6 dicyclomine (BENTYL) 10 mg capsule 06/14/2016Dicyclomine hcl, po solid 10 mg CapsulePOas directedCurrent Medication 6 ergocalciferol , vitamin D2, 10 mcg (400 unit) tablet 06/14/2016Vitamin d, po solid 400 unit [id number] Medication [address] (NexIUM) 20 mg capsule daily omalizumab (XOLAIR) 150 mg/mL syringe 150 mg spironolactone (ALDACTONE) 25 mg tablet 06/14/2016Spironolactone , po solid 25 mg TabletPOdailyCurrent Medication 6 warfarin (COUMADIN) 1 mg tablet warfarin 1 mg tablet pravastatin (PRAVACHOL) 20 mg tablet 20 mg daily carvediloL (COREG) 6.25 mg tablet 06/14/2016Carvedilol, po solid 6.25 mg TabletPOBIDCurrent Medication 6 added in this encounter Care Teams Photogrammetric Stereo Compiler Relationship Specialty Start Date End Date Venancio Miles MD [facility] [place] [address] PCP - General 11/13/12 documented as of this encounter
--- OUTSIDE RECORDS SUMMARY | 2024-10-20 21:13 | XMS_ITS | Encounter Summary ---
Author Organization [facility] [employer] [facility] Address [address] [place] [address] Phone Care Team Providers Care Berry Picker Name Role Phone Venancio Miles MD Primary Care Provider [phone] Encounter Details Date Type Department Care Team (Latest Contact Info) Description 10/13/2020 1:00 PM AUDIO VISUAL FACILITIES ENGINEER Procedure visit [facility] Otolaryngology [address] [place] [phone] Lilibeth [place] Au.D. [address] [place] [phone] Sensorineural hearing loss (SNHL) of both ears (Primary Dx) Social History Tobacco Use Types Packs/Day Years Used Date Smoking Tobacco: Never Smokeless Tobacco: Never Alcohol Use Standard Drinks/Week Comments Yes 0 (1 standard drink = 0.6 oz pur e alcohol) Comments Unknown Sex and Gender Information Value Date Recorded Sex Assigned at Not on file Legal Sex Female 3:58 AM AUDIO VISUAL FACILITIES ENGINEER Gender Identity Not on file Sexual Orientation Not on file documented as of this encounter Procedure Notes * Lilibeth Elmore Au.D. - 10/13/2020 1:00 PM CST Procedures Audiologic Evaluation Referring physician: Patient referred by JAYSHREE Davis History: Patient reported tinnitus in both ears for the past 5-6 years. She also reported graduallylosing hearing over the years and described difficulty hearing in background noise. She denied any dizziness or aural pain or pressure. History of Noise Exposure: yes. Hearing protection used: no Family History of Hearing loss: yes, brothers and mother. Otoscopy: Ear canals clear of cerumen bilaterally. Tympanometry: Right:Type A tymp and is consistent with normal middle ear function. Left: Type A tymp and is consistent with normal middle ear function. Audiometry: Pure tone testing revealed hearing within normal sloping to a moderately-severe SNHL, bialterally. Word Recognition Score (WRS) in the right ear is 88%, WRS in the left ear is 84%. Recommendations: -Patient will follow-up with JAYSHREE Davis for test results and recommendations. -Repeat testing per Nurse Practitioner request. -Schedule hearing aid evaluation after receiving medical clearance. O VISUAL FACILITIES ENGINEER documented in this encounter Plan of Treatment Not on file documented as of this encounter Visit Diagnoses Diagnosis Sensorineural hearing loss (SNHL) of both ears- Primary documented in this encounter Care Teams Berry Picker Relationship Specialty Start Date End Date Venancio Miles MD [address] [place], [place] [id number] PCP - General 11/13/12 documented as of this encounter
--- OUTSIDE RECORDS SUMMARY | 2024-10-20 21:13 | XMS_ITS | Encounter Summary ---
Author Organization [facility] Health Address [facility] [facility] [place] [address] Care Team Providers Care Formulator Compounder Name Role Phone Zeus Rivera MD, Anthony Boss Primary Care Provider Doe meza Encounter Details Date Type Department Care Team (Latest Contact Info) Description 10/01/2009 12:09 PM AVIATION NEUROPSYCHOLOGIST - 10/01/2009 11:59 PM [facility] Hospital Encounter [facility] Imaging Services [address] [facility] [address] [place] [address] Anthony Schulz Sr., MD Radiology Diagnostic Discharge Disposition: Home or Self Care Social [...] on filedocumented in this encounter Care Teams Formulator Compounder Relationship Specialty Start Date End Date Anthony Schulz Sr., MD PCP - General 07/19/09 documented as of this encounter
--- OUTSIDE RECORDS SUMMARY | 2024-10-20 21:13 | XMS_ITS | Encounter Summary ---
Author Organization [facility] Address [facility] [facility] [place] [address] [place] [address] Care Team Providers Care Doormaker Name Role Phone Unavailable Primary Care Provider Unavailabl e Encounter Details Date Type Department Care Team (Late st Contact Info) Description 08/09/2015 [facility] [address] [place] [address] , Yeni Montemayor MD Social History Tobacco Use Types Packs/Day [...]
--- OUTSIDE RECORDS SUMMARY | 2024-10-20 21:13 | XMS_ITS | Encounter Summary ---
Author Organization [facility] [employer] [facility] Address [address] [place] [address] Phone Care Team Providers Care Beverage Distiller Name Role Phone Venancio Miles MD Primary Care Provider [phone] Encounter Details Date Type Department Care Team (Latest Contact Info) Description 11/04/2020 1:00 PM PERSONAL FINANCIAL COUNSELOR Procedure visit [facility] Otolaryngology [address] [place] [phone] Lilibeth Elmore Au.D. [address] [place] [phone] Hearing aid consultation (Primary Dx) Social History Tobacco Use Types Packs/Day Years Used Date Smoking Tobacco: Never Smokeless Tobacco: Never Alcohol Use Standard Drinks/Week Comments Yes 0 (1 standard drink = 0.6 oz pur e alcohol) Comments Unknown Sex and Gender Information Value Date Recorded Sex Assigned at Not on file Legal Sex Female 3:58 AM PERSONAL FINANCIAL COUNSELOR Gender Identity Not on file Sexual Orientation Not on file documented as of this encounter Procedure Notes * Lilibeth [place] Au.D. - 11/04/2020 1:00 PM CST Procedures Hearing Aid Evaluation Patient in to discuss hearing aid options. Reviewed audio. Communication Needs: Patient reports difficulty in background noise and with certain TV shows or accents on TV. Counseling: Discussed hearing aid styles and technology options, as well as pricing and realistic expectations. Recommendations: She is not sure she is completely ready for the hearing aids yet. We talked about how she would have more success when there are more noticeable issues with her hearing. Plan Note: She will try to pay more attention to any hearing difficulties she is having and call when ready to pursue amplification. ONAL FINANCIAL COUNSELOR documented in this encounter Plan of Treatment Not on file documented as of this encounter Visit Diagnoses Diagnosis Hearing aid consultation- Primary documented in this encounter Care Teams Beverage Distiller Relationship Specialty Start Date End Date Venancio Miles MD [address] [place] [address] PCP - General 11/13/12 documented as of this encounter
--- OUTSIDE RECORDS SUMMARY | 2024-10-20 21:13 | XMS_ITS | Clinical Summary ---
Author Organization [facility] Address [address] [place] [address]. [place], [place] [address] [place] [address] Care Team Providers Care Sales Development Director Name Role Phone Unavailable Primary Care Provider Unavailabl e Social History Tobacco Use Types Packs/Day Years Used Date Smoking Tobacco: Never Assessed Comments Unknown Sex and Gender Information Value Date Recorded Sex Assigned at Not on file Legal Sex Female 1:41 AM CDT Gender Identity Not on file Sexual Orientation Not on file Plan of Treatment Health Maintenance Due Date Last Done Comments Colorectal Cancer Screening Colonoscopy (10 Years) 1951 Hepatitis C 1969 DTaP, Tdap and Td Vaccines ( 1 - Tdap) 1970 Mammogram Screening 1991 Zoster Vaccines (1 of 2) 2001 Dexa Scan (General) 02/16/2016 Pneumococcal Vaccine: 65+ Ye ars (1 of 1 - PCV) 02/16/2016 COVID-19 Vaccine ( - 2023-2 5 season) 2024 Influenza Adult (#1) 2024 RSV Immunization or 60+ Years (1 - 1-dose 75+ series) 2026 Meningococcal Vaccine Aged Out No candida vaughn eligible based on patient's age to complete this topic RSV Immunizations Under 20 Months Aged Out No longer eligible based on patient's age to complete this topic Insurance [facility]
--- OUTSIDE RECORDS SUMMARY | 2024-10-20 21:13 | XMS_ITS | Clinical Summary ---
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 Surgical History Surgery Date Site/Laterality Comments PARTIAL HYSTERECTOMY THYROID SURGERY TOTAL KNEE ARTHROPLASTY Bilateral Medical History Medical History Date Comments Hypertension Hypertension Gastroesophageal reflux disease GERD Hx Other Medical Factor V Leiden ?carrier (per pt account) no DVT h Adiposity Obesity Allergic rhinitis Bleeding disorder (CMS/HCC) (HCC) DVT (deep vein thrombosis) in History of blood clots Family History Medical History Relation Name Comments Heart failure Father Congestive Hea rt Failure; Cause of : Congestive Heart Failure Hypertension Mother Hypertension; Diabetes Other Relation Name Status Comments Father Mother Alive Other Social History Tobacco Use Types Packs/Day Years Used Date Smoking Tobacco: Never Smokeless Tobacco: Never Alcohol Use Standard Drinks/Week Comments Yes 0 (1 standard drink = 0.6 oz pur e alcohol) Comments Unknown Sex and Gender Information Value Date Recorded Sex Assigned at Not on file Legal Sex Female 3:58 AM MACHINE ZIPPER TRIMMER Gender Identity Not on file Sexual Orientation Not on file Obstetrics History Last Filed Vital Signs Vital Sign Reading Time Taken Comments Blood Pressure 140/89 11/13/2012 8:40 AM MACHINE ZIPPER TRIMMER Pulse 62 11/13/2012 8:40 AM MACHINE ZIPPER TRIMMER Temperature 36.7 ??C (98 ??F) 10/13/2020 1:09 PM MACHINE ZIPPER TRIMMER Respiratory Rate - - Oxygen Saturation - - Inhaled Oxygen Concentration - - Weight 99.8 kg (220 lb) 10/13/2020 1:09 PM MACHINE ZIPPER TRIMMER Height 162.6 cm (5' 4 ) 10/13/2020 1:09 PM MACHINE ZIPPER TRIMMER Body Mass Index 37.76 10/13/2020 1:09 PM MACHINE ZIPPER TRIMMER Plan of Treatment Not on file Insurance MEDICARE [facility] Care Teams Cloth Shader Relationship Specialty Start Date End Date Venancio Miles MD [address] [place], [place] [id number] PCP - General 11/13/12
--- OUTSIDE RECORDS SUMMARY | 2024-10-20 21:13 | XMS_ITS | Encounter Summary ---
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 Name Role Phone Venancio Miles MD Primary Care Provider [phone] Encounter Details Date Type Department Care Team (Late st Contact Info) Description 11/29/2012 - 11/29/2012 11:59 PM [facility] Hospital Encounter MERGED WITH [facility] Raj Portillo MD [address] [place] [address] Allergic urticaria Social History Tobacco Use Types Packs/Day Years Used Date Smoking Tobacco: Never Assessed Alcohol Use Standard Drinks/Week Comments Yes 0 (1 standard drink = 0.6 oz pur e alcohol) Comments Unknown Sex and Gender Information Value Date Recorded Sex Assigned at Not on file Legal Sex Female 3:58 AM [facility] Gender Identity Not on file Sexual Orientation Not on file documented as of this encounter Plan of Treatment Not on file documented as of this encounter Procedures Procedure Name Priority Date/Time Associated Diagnosis Comments DISCHARGE LABORATORY CUMULATIVE REPORT Routine 12/10/2012 5:09 AM [facility] SERUM THYROXINE (T4), FREE Routine 11/29/2012 1:17 PM [facility] SERUM THYROID-STIMULATING HORMONE (TSH) Routine 11/29/2012 1:17 PM [facility] SERUM COMPLEMENT C4, QUANTITATIVE Routine 11/29/2012 1:17 PM [facility] SERUM COMPLEMENT C3, QUANTITATIVE Routine 11/29/2012 1:17 PM [facility] SERUM ANTINUCLEAR AB (SHANTHI) Routine 11/29/2012 1:17 PM [facility] REFERRED TEST, MISCELLANEOUS Routine 11/29/2012 1:17 PM [facility] SERUM THYROPEROXIDASE AB Routine 11/29/2012 7:17 AM [facility] SERUM COMPLEMENT Routine 11/29/2012 7:17 AM [facility] SERUM ALLERGEN (RAST) TEST, WHEAT Routine 11/29/2012 7:17 AM [facility] SERUM ALLERGEN (RAST) TEST, TUNA Routine 11/29/2012 7:17 AM [facility] SERUM ALLERGEN (RAST) TEST, TOMATO Routine 11/29/2012 7:17 AM [facility] SERUM ALLERGEN (RAST) TEST, STRAWBERRY Routine 11/29/2012 7:17 AM [facility] SERUM ALLERGEN (RAST) TEST, SOYBEAN Routine 11/29/2012 7:17 AM [facility] SERUM ALLERGEN (RAST) TEST, SHRIMP Routine 11/29/2012 7:17 AM [facility] SERUM ALLERGEN (RAST) TEST, SESAME SEED Routine 11/29/2012 7:17 AM [facility] SERUM ALLERGEN (RAST) TEST, SALMON Routine 11/29/2012 7:17 AM [facility] SERUM ALLERGEN (RAST) TEST, RYE Routine 11/29/2012 7:17 AM [facility] SERUM ALLERGEN (RAST) TEST, RICE Routine 11/29/2012 7:17 AM [facility] SERUM ALLERGEN (RAST) TEST, POTATO Routine 11/29/2012 7:17 AM [facility] SERUM ALLERGEN (RAST) TEST, PEANUT Routine 11/29/2012 7:17 AM [facility] SERUM ALLERGEN (RAST) TEST, PEA Routine 11/29/2012 7:17 AM [facility] SERUM ALLERGEN (RAST) TEST, PARSLEY Routine 11/29/2012 7:17 AM [facility] SERUM ALLERGEN (RAST) TEST, ORANGE Routine 11/29/2012 7:17 AM [facility] SERUM ALLERGEN (RAST) TEST, OAT Routine 11/29/2012 7:17 AM [facility] SERUM ALLERGEN (RAST) TEST, MUSTARD Routine 11/29/2012 7:17 AM [facility] SERUM ALLERGEN (RAST) TEST, MILK Routine 11/29/2012 7:17 AM [facility] SERUM ALLERGEN (RAST) TEST, MELONS Routine 11/29/2012 7:17 AM [facility] SERUM ALLERGEN (RAST) TEST, RAJ Routine 11/29/2012 7:17 AM [facility] SERUM ALLERGEN (RAST) TEST, LOBSTER Routine 11/29/2012 7:17 AM [facility] SERUM ALLERGEN (RAST) TEST, KIWI FRUIT Routine 11/29/2012 7:17 AM [facility] SERUM ALLERGEN (RAST) TEST, GARLIC Routine 11/29/2012 7:17 AM [facility] SERUM ALLERGEN (RAST) TEST, EGG YOLK Routine 11/29/2012 7:17 AM [facility] SERUM ALLERGEN (RAST) TEST, EGG WHITE Routine 11/29/2012 7:17 AM [facility] SERUM ALLERGEN (RAST) TEST, CRAB Routine 11/29/2012 7:17 AM [facility] SERUM ALLERGEN (RAST) TEST, CODFISH Routine 11/29/2012 7:17 AM [facility] SERUM ALLERGEN (RAST) TEST, COCONUT Routine 11/29/2012 7:17 AM [facility] SERUM ALLERGEN (RAST) TEST, CHICKEN MEAT Routine 11/29/2012 7:17 AM [facility] SERUM ALLERGEN (RAST) TEST, CHEESE, CHEDDAR Routine 11/29/2012 7:17 AM [facility] SERUM ALLERGEN (RAST) TEST, CHEESE MOLD Routine 11/29/2012 7:17 AM [facility] SERUM ALLERGEN (RAST) TEST, CELERY Routine 11/29/2012 7:17 AM [facility] SERUM ALLERGEN (RAST) TEST, CARROT Routine 11/29/2012 7:17 AM [facility] SERUM ALLERGEN (RAST) TEST, BUCKWHEAT Routine 11/29/2012 7:17 AM [facility] SERUM ALLERGEN (RAST) TEST, BEEF Routine 11/29/2012 7:17 AM [facility] SERUM ALLERGEN (RAST) TEST, BARLEY Routine 11/29/2012 7:17 AM [facility] SERUM ALLERGEN (RAST) TEST, CABRERA'S YEAST Routine 11/29/2012 7:17 AM [facility] SERUM ALLERGEN (RAST) TEST, APPLE Routine 11/29/2012 7:17 AM [facility] SERUM ALLERGEN (RAST) TEST, ALMOND Routine 11/29/2012 7:17 AM [facility] documented in this encounter Results * Discharge Laboratory Cumulative Report (12/10/2012 5:09 AM [facility]) 12/10/2012 5:09 AM [facility] Narrative HISTORICAL RESULTS - 12/10/2012 5:09 AM [facility] ? [facility] ? Department of Laboratories ?[place] [address] ?[facility] ?In Medicine ?[address] ?[address] ?[place] [address] Patient Name: ? JULISSA [place] Med Rec Number: ?? [id number] Date of : ?1950 Gender/Age: ? Female 62 years Doctor: ? Raj Portillo M.D. Report Date/Time: 12/10/2012 5:09:47 PM ?* Abnormal ??C Critical ??f Footnote ??^ Corrected ??L Low ??H High ?i Interp Data ??@ Reference Lab ?Chart Type: Cumulative ? CHEMISTRY ? Hormones ?11/29/2012 ?13:17:00 Test ?Units ? Reference TSH i ? 2.89 ?mcIUnit/mL ??0.35-5.50 Free T4 (Free Thyroxine) ??1.31 ?ng/dL ? 0.90-1.80 Anti-TPO i ?<28 ? units/mL ?0-60 11/29/2012 13:17:00 TSH: Interpretive Data Hyperthyroid: ??<0.1 mcIUnit/mL Hypothyroid: ??>12.0 mcIUnit/mL Current interpretive data was last revised on 00. 11/29/2012 13:17:00 Anti-TPO: Interpretive Data The Cj standardization (units/mL) averages 3-fold higher compared to Theoretical International Units over the range of 50 to 800 units/mL. Current interpretive data was last revised on 04. 11/29/2012 13:17:00 ??Anti-TPO: Testing performed by: [place] [address] ??Testing performed by: [place] [address] ?IMMUNOLOGY ? 11/29/2012 ? 13:17:00 Test ? Units ??Reference Complement, Total Hemolytic ??186 ??H ?63-145 Complement, C3 ? 140.0 ? mg/dL ??83.0-185.0 Complement, C4 ? 45.9 ?mg/dL ??12.0-54.0 SHANTHI, Qual i ?Negative ? Negative ?IMMUNOLOGY 11/29/2012 13:17:00 SHANTHI, Qual: Interpretive Data Normal range for Shanthi Qualitative Antibody = Negative. 1. ??SHANTHI titers are performed on all positive qualitative results. 2. ??A significantly positive SHANTHI result is defined as a positive nuclear fluorescence at a titer of 1:80 or greater. 3. ??15% of normal people above age 65 have significantly positive SHANTHI results. ??5% or less of normal people age 65 or under have significantly positive SHANTHI results. Current interpretive data was last revised on 04. 11/29/2012 13:17:00 ??Comp Tot Hem Ser: Testing performed by: [place] [address] ? ALLERGENS ? Food ? 11/29/2012 ? 13:17:00 Test ? Units ? Reference [place] ? <0.34 ? kUnits/L ??0.00-0.34 Apple ?<0.34 ? kUnits/L ??0.00-0.34 Cabrera's Yeast ?<0.34 ? kUnits/L ??0.00-0.34 Barley ? <0.34 ? kUnits/L ??0.00-0.34 Beef ? <0.34 ? kUnits/L ??0.00-0.34 Buckwheat ?<0.34 ? kUnits/L ??0.00-0.34 Carrot ? <0.34 ? kUnits/L ??0.00-0.34 Celery ? <0.34 ? kUnits/L ??0.00-0.34 Cheese, Cheddar ??<0.34 ? kUnits/L ??0.00-0.34 Cheese, Mold ? <0.34 ? kUnits/L ??0.00-0.34 Chicken Meat ? <0.34 ? kUnits/L ??0.00-0.34 Coconut ?<0.34 ? kUnits/L ??0.00-0.34 Codfish ?<0.34 ? kUnits/L ??0.00-0.34 Crab ? <0.34 ? kUnits/L ??0.00-0.34 Egg White ?<0.34 ? kUnits/L ??0.00-0.34 Egg Yolk ? <0.34 ? kUnits/L ??0.00-0.34 Garlic ? <0.34 ? kUnits/L ??0.00-0.34 Kiwi Fruit ? <0.34 ? kUnits/L ??0.00-0.34 Lobster ?<0.34 ? kUnits/L ??0.00-0.34 Raj ?<0.34 ? kUnits/L ??0.00-0.34 Melons ? <0.34 ? kUnits/L ??0.00-0.34 Milk ? <0.34 ? kUnits/L ??0.00-0.34 Mustard ?<0.34 ? kUnits/L ??0.00-0.34 Oat ?<0.34 ? kUnits/L ??0.00-0.34 Sabine ? <0.34 ? kUnits/L ??0.00-0.34 Parsley ?<0.34 ? kUnits/L ??0.00-0.34 Pea ?<0.34 ? kUnits/L ??0.00-0.34 Peanut ? <0.34 ? kUnits/L ??0.00-0.34 Potato ? <0.34 ? kUnits/L ??0.00-0.34 Rice ? <0.34 ? kUnits/L ??0.00-0.34 Ronald ?<0.34 ? kUnits/L ??0.00-0.34 [place] ? <0.34 ? kUnits/L ??0.00-0.34 Sesame Seed ?<0.34 ? kUnits/L ??0.00-0.34 Shrimp ? <0.34 ? kUnits/L ??0.00-0.34 Soybean ?<0.34 ? kUnits/L ??0.00-0.34 Gibbs ? <0.34 ? kUnits/L ??0.00-0.34 Tomato ? <0.34 ? kUnits/L ??0.00-0.34 ? ALLERGENS ? Food ? 11/29/2012 ? 13:17:00 Test ? Units ? Reference Tuna ? <0.34 ? kUnits/L ??0.00-0.34 Wheat ?<0.34 ? kUnits/L ??0.00-0.34 11/29/2012 13:17:00 ??[place]: Testing performed by: [place] [address] 11/29/2012 13:17:00 ??Apple: Testing performed by: [place] [address] 11/29/2012 13:17:00 ??Bakers Yeast: Testing performed by: [place] [address] 11/29/2012 13:17:00 ??Barley: Testing performed by: [place] [address] 11/29/2012 13:17:00 ??Beef: Testing performed by: [place] [address] 11/29/2012 13:17:00 ??Buckwheat: Testing performed by: [place] [address] 11/29/2012 13:17:00 ??Carrot: Testing performed by: [place] [address] 11/29/2012 13:17:00 ??Celery: Testing performed by: [place] [address] 11/29/2012 13:17:00 ??Cheese Cheddar: Testing performed by: [place] [address] 11/29/2012 13:17:00 ??Cheese Mold: Testing performed by: [place] [address] 11/29/2012 13:17:00 ??Chick Meat: Testing performed by: [place] [address] 11/29/2012 13:17:00 ??Coconut: Testing performed by: [place] [address] 11/29/2012 13:17:00 ??Codfish: Testing performed by: [place] [address] 11/29/2012 13:17:00 ??Crab: Testing performed by: [place] [address] 11/29/2012 13:17:00 ??Egg White: Testing performed by: [place] [address] 11/29/2012 13:17:00 ??Egg Yolk: Testing performed by: [place] [address] 11/29/2012 13:17:00 ??Garlic: Testing performed by: [place] [address] 11/29/2012 13:17:00 ??Kiwi Fruit: Testing performed by: [place] [address] 11/29/2012 13:17:00 ??Lobster: Testing performed by: [place] [address] 11/29/2012 13:17:00 ??Raj: Testing performed by: [place] [address] 11/29/2012 13:17:00 ??Melons: Testing performed by: [place] [address] 11/29/2012 13:17:00 ??Milk: Testing performed by: [place] [address] 11/29/2012 13:17:00 ??Mustard: Testing performed by: [place] [address] 11/29/2012 13:17:00 ??Oat: Testing performed by: [place] [address] 11/29/2012 13:17:00 ??Sabine: Testing performed by: [place] [address] 11/29/2012 13:17:00 ??Parsley: Testing performed by: [place] [address] ? ALLERGENS ? Food 11/29/2012 13:17:00 ??Pea: Testing performed by: [place] [address] 11/29/2012 13:17:00 ??Peanut: Testing performed by: [place] [address] 11/29/2012 13:17:00 ??Potato: Testing performed by: [place] [address] 11/29/2012 13:17:00 ??Rice: Testing performed by: [place] [address] 11/29/2012 13:17:00 ??Ronald: Testing performed by: [place] [address] 11/29/2012 13:17:00 ??[place]: Testing performed by: [place] [address] 11/29/2012 13:17:00 ??Sesame Seed: Testing performed by: [place] [address] 11/29/2012 13:17:00 ??Shrimp: Testing performed by: [place] [address] 11/29/2012 13:17:00 ??Soybean: Testing performed by: [place] [address] 11/29/2012 13:17:00 ??Gibbs: Testing performed by: [place] [address] 11/29/2012 13:17:00 ??Tomato: Testing performed by: [place] [address] 11/29/2012 13:17:00 ??Tuna: Testing performed by: [place] [address] 11/29/2012 13:17:00 ??Wheat: Testing performed by: [place] [address] ? MISCELLANEOUS ?11/29/2012 ?13:17:00 Test ?Units ??Reference Test Name ?? See Below Result 1 ?See Below SO Ref Lab ??See Below 11/29/2012 ??13:17:00 ??Test Name ? CU (Chronic Urticaria) Index 11/29/2012 ??13:17:00 ??Result 1 ? Test Name: CU (Chronic Urticaria) Index ? Specimen Type: Blood ? Result: <1.7 ? Units: N/A ? Reference Range: <10.0 11/29/2012 ??13:17:00 ??SO Ref Lab ? Testing performed by: [place] [address]. [place] Historical Provider LAB BLOOD ORDERABLES Livia l Result Performing Organization Address [facility] de Phone Number HISTORICAL RESULTS * Referred test, miscellaneous (11/29/2012 1:17 PM [facility]) Referral specimen, test name CU (Chronic Urticaria) Index HISTORICAL RESULTS Referral lab, chem Testing performed by: [place] [address] HISTORICAL RESULTS Referral specimen, test 1 Test Name: CU (Chronic Urticaria) Index Specimen Type: Blood Result: <1.7 Units: N/A Reference Range: <10.0 HISTORICAL RESULTS Miscellaneous 11/29/2012 1:1 7 PM [facility] us Raj Portillo MD LAB BLOOD ORDERABLES Livia l Result Performing Organization Address [facility] Co de Phone Number HISTORICAL RESULTS * Serum thyroid-stimulating hormone (TSH) (11/29/2012 1:17 PM [facility]) TSH 2.89 0.35 - 5.50 mcIUnits/m l HISTORICAL RESULTS Comment: Interpretive Data Hyperthyroid: ??<0.1 mcIUnit/mL Hypothyroid: ??>12.0 mcIUnit/mL Current interpretive data was last revised on 00. Serum 11/29/2012 1:17 PM [facility] Result [facility] Raj Portillo MD LAB BLOOD ORDERABLES Livia l Result Performing Organization Address [facility] de Phone Number HISTORICAL RESULTS * Serum antinuclear ab (SHANTHI) (11/29/2012 1:17 PM [facility]) SHANTHI, qual Negative Negative HISTORICAL RESULTS Comment: Interpretive Data Normal range for Shanthi Qualitative Antibody = Negative. 1. ??SHANTHI titers are performed on all positive qualitative results. 2. ??A significantly positive SHANTHI result is defined as a positive nuclear fluorescence at a titer of 1:80 or greater. 3. ??15% of normal people above age 65 have significantly positive SHANTHI results. ??5% or less of normal people age 65 or under have significantly positive SHANTHI results. Current interpretive data was last revised on 04. Serum 11/29/2012 1:17 PM [facility] Result [facility] Raj Portillo MD LAB BLOOD ORDERABLES Livia l Result Performing Organization Address [facility] de Phone Number HISTORICAL RESULTS * Serum complement C4, quantitative (11/29/2012 1:17 PM [facility]) Complement C4 45.9 12.0 - 54.0 mg/dl HISTORICAL RESULTS Serum 11/29/2012 1:17 PM [facility] Raj Portillo MD LAB BLOOD ORDERABLES Livia l Result Performing Organization Address [facility] de Phone Number HISTORICAL RESULTS * Serum complement C3, quantitative (11/29/2012 1:17 PM [facility]) Complement C3 140.0 83.0 - 185.0 mg/dl HISTORICAL RESULTS Serum 11/29/2012 1:17 PM [facility] Result [facility] Raj Portillo MD LAB BLOOD ORDERABLES Livia l Result HISTORICAL RESULTS * Serum thyroxine (T4), free (11/29/2012 1:17 PM [facility]) Free T4 1.31 0.90 - 1.80 ng/dl HISTORICAL RESULTS Serum 11/29/2012 1:17 PM [facility] Raj Portillo MD LAB BLOOD ORDERABLES Livia l Result Performing Organization Address City/[facility]/ZIP Co de Phone Number HISTORICAL RESULTS * Serum allergen (RAST) test, wheat (11/29/2012 7:17 AM [facility]) RAST, wheat <0.34 0.00 - 0.34 KUnit/L HISTORICAL RESULTS Serum 11/29/2012 7:17 AM [facility] Narrative HISTORICAL RESULTS - 12/02/2012 8:30 AM [facility] {Testing performed by: [place] [address]} Raj Portillo MD LAB BLOOD ORDERABLES Livia l Result Performing Organization Address [facility] de Phone Number HISTORICAL RESULTS * Serum allergen (RAST) test, cheese, cheddar (11/29/2012 7:17 AM [facility]) RAST, cheese, cheddar <0.34 0.00 - 0.34 KUnit/L HISTORICAL RESULTS Serum 11/29/2012 7:17 AM [facility] Narrative HISTORICAL RESULTS - 12/02/2012 8:30 AM [facility] {Testing performed by: [place] [address]} Raj Portillo MD LAB BLOOD ORDERABLES Livia l Result Performing Organization Address City/[facility] Co de Phone Number HISTORICAL RESULTS * Serum allergen (RAST) test, raj (11/29/2012 7:17 AM [facility]) RAST, raj <0.34 0.00 - 0.34 KUnit/L HISTORICAL RESULTS Serum 11/29/2012 7:17 AM [facility] Narrative HISTORICAL RESULTS - 12/02/2012 8:30 AM [facility] {Testing performed by: [place] [address]} Raj Portillo MD LAB BLOOD ORDERABLES Livia l Result Performing Organization Address [facility] Co de Phone Number HISTORICAL RESULTS * Serum allergen (RAST) test, barley (11/29/2012 7:17 AM [facility]) RAST, barley <0.34 0.00 - 0.34 KUnit/L HISTORICAL RESULTS Serum 11/29/2012 7:17 AM [facility] Narrative HISTORICAL RESULTS - 12/02/2012 8:30 AM [facility] {Testing performed by: [place] [address]} Raj Portillo MD LAB BLOOD ORDERABLES Livia l Result Performing Organization Address [facility] de Phone Number HISTORICAL RESULTS * Serum allergen (RAST) test, celery (11/29/2012 7:17 AM [facility]) RAST, celery <0.34 0.00 - 0.34 KUnit/L HISTORICAL RESULTS Serum 11/29/2012 7:17 AM [facility] Narrative HISTORICAL RESULTS - 12/02/2012 8:30 AM [facility] {Testing performed by: [place] [address]} Raj Portillo MD LAB BLOOD ORDERABLES Livia l Result Performing Organization Address City/[facility] Co de Phone Number HISTORICAL RESULTS * Serum allergen (RAST) test, flaviosky (11/29/2012 7:17 AM [facility]) RAST, parsley <0.34 0.00 - 0.34 KUnit/L HISTORICAL RESULTS Serum 11/29/2012 7:17 AM [facility] Narrative HISTORICAL RESULTS - 12/02/2012 8:30 AM [facility] {Testing performed by: [place] [address]} Raj Portillo MD LAB BLOOD ORDERABLES Livia l Result Performing Organization Address [facility] de Phone Number HISTORICAL RESULTS * Serum allergen (RAST) test, strawberry (11/29/2012 7:17 AM [facility]) RAST, strawberry <0.34 0.00 - 0.34 KUnit/L HISTORICAL RESULTS Serum 11/29/2012 7:17 AM [facility] Narrative HISTORICAL RESULTS - 12/02/2012 8:30 AM [facility] {Testing performed by: [place] [address]} Raj Portillo MD LAB BLOOD ORDERABLES Livia l Result Performing Organization Address [facility] de Phone Number HISTORICAL RESULTS * Serum allergen (RAST) test, milk (11/29/2012 7:17 AM [facility]) RAST, milk <0.34 0.00 - 0.34 KUnit/L HISTORICAL RESULTS Serum 11/29/2012 7:17 AM [facility] Narrative HISTORICAL RESULTS - 12/02/2012 8:30 AM [facility] {Testing performed by: [place] [address]} Raj Portillo MD LAB BLOOD ORDERABLES Livia l Result Performing Organization Address [facility] Co de Phone Number HISTORICAL RESULTS * Serum allergen (RAST) test, cabrera's yeast (11/29/2012 7:17 AM [facility]) RAST, cabrera's yeast <0.34 0.00 - 0.34 KUnit/L HISTORICAL RESULTS Serum 11/29/2012 7:17 AM [facility] Narrative HISTORICAL RESULTS - 12/04/2012 3:01 AM [facility] {Testing performed by: [place] [address]} Raj Portillo MD LAB BLOOD ORDERABLES Livia l Result Performing Organization Address [facility] de Phone Number HISTORICAL RESULTS * Serum allergen (RAST) test, carrot (11/29/2012 7:17 AM [facility]) RAST, carrot <0.34 0.00 - 0.34 KUnit/L HISTORICAL RESULTS Serum 11/29/2012 7:17 AM [facility] Narrative HISTORICAL RESULTS - 12/02/2012 8:30 AM [facility] {Testing performed by: [place] [address]} Raj Portillo MD LAB BLOOD ORDERABLES Livia l Result Performing Organization Address [facility] de Phone Number HISTORICAL RESULTS * Serum allergen (RAST) test, chicken meat (11/29/2012 7:17 AM [facility]) RAST, chicken meat <0.34 0.00 - 0.34 KUnit/L HISTORICAL RESULTS Serum 11/29/2012 7:17 AM [facility] Narrative HISTORICAL RESULTS - 12/02/2012 8:30 AM [facility] {Testing performed by: [place] [address]} Raj Portillo MD LAB BLOOD ORDERABLES Livia l Result Performing Organization Address [facility] de Phone Number HISTORICAL RESULTS * Serum allergen (RAST) test, coconut (11/29/2012 7:17 AM [facility]) RAST, coconut <0.34 0.00 - 0.34 KUnit/L HISTORICAL RESULTS Serum 11/29/2012 7:17 AM [facility] Narrative HISTORICAL RESULTS - 12/02/2012 8:30 AM [facility] {Testing performed by: [place] [address]} Raj Portillo MD LAB BLOOD ORDERABLES Livia l Result HISTORICAL RESULTS * Serum allergen (RAST) test, oat (11/29/2012 7:17 AM [facility]) RAST, oat <0.34 0.00 - 0.34 KUnit/L HISTORICAL RESULTS Serum 11/29/2012 7:17 AM [facility] Narrative HISTORICAL RESULTS - 12/02/2012 8:30 AM [facility] {Testing performed by: [place] [address]} Raj Portillo MD LAB BLOOD ORDERABLES Livia l Result Performing Organization Address [facility] Co de Phone Number HISTORICAL RESULTS * Serum allergen (RAST) test, peanut (11/29/2012 7:17 AM [facility]) RAST, peanut <0.34 0.00 - 0.34 KUnit/L HISTORICAL RESULTS Serum 11/29/2012 7:17 AM [facility] Narrative HISTORICAL RESULTS - 12/02/2012 8:30 AM [facility] {Testing performed by: [place] [address]} Raj Portillo MD LAB BLOOD ORDERABLES Livia l Result Performing Organization Address [facility] de Phone Number HISTORICAL RESULTS * Serum allergen (RAST) test, kiwi fruit (11/29/2012 7:17 AM [facility]) RAST, kiwi fruit <0.34 0.00 - 0.34 KUnit/L HISTORICAL RESULTS Serum 11/29/2012 7:17 AM [facility] Narrative HISTORICAL RESULTS - 12/02/2012 8:30 AM [facility] {Testing performed by: [place] [address]} Raj Portlilo MD LAB BLOOD ORDERABLES Livia l Result Performing Organization Address City/[facility]/ZIP Co de Phone Number HISTORICAL RESULTS * Serum allergen (RAST) test, melons (11/29/2012 7:17 AM [facility]) RAST melons <0.34 0.00 - 0.34 KUnit/L HISTORICAL RESULTS Serum 11/29/2012 7:17 AM [facility] Narrative HISTORICAL RESULTS - 12/02/2012 8:30 AM [facility] {Testing performed by: [place] [address]} Raj Portillo MD LAB BLOOD ORDERABLES Livia l Result Performing Organization Address [facility] de Phone Number HISTORICAL RESULTS * Serum allergen (RAST) test, lobster (11/29/2012 7:17 AM [facility]) RAST, aimester <0.34 0.00 - 0.34 KUnit/L HISTORICAL RESULTS Serum 11/29/2012 7:17 AM [facility] Narrative HISTORICAL RESULTS - 12/02/2012 8:30 AM [facility] {Testing performed by: [place], [place] [address]} Raj Portillo MD LAB BLOOD ORDERABLES Livia l Result Performing Organization Address [facility] de Phone Number HISTORICAL RESULTS * Serum allergen (RAST) test, beef (11/29/2012 7:17 AM [facility]) RAST, beef <0.34 0.00 - 0.34 KUnit/L HISTORICAL RESULTS Serum 11/29/2012 7:17 AM [facility] Narrative HISTORICAL RESULTS - 12/02/2012 8:30 AM [facility] {Testing performed by: [place] [address]} Raj Portillo MD LAB BLOOD ORDERABLES Livia l Result Performing Organization Address [facility] de Phone Number HISTORICAL RESULTS * Serum allergen (RAST) test, apple (11/29/2012 7:17 AM [facility]) RAST, apple <0.34 0.00 - 0.34 KUnit/L HISTORICAL RESULTS Serum 11/29/2012 7:17 AM [facility] Narrative HISTORICAL RESULTS - 12/02/2012 8:30 AM [facility] {Testing performed by: [place] [address]} Raj Portillo MD LAB BLOOD ORDERABLES Livia l Result Performing Organization Address City/[facility] Co de Phone Number HISTORICAL RESULTS * Serum allergen (RAST) test, rice (11/29/2012 7:17 AM [facility]) RAST, rice <0.34 0.00 - 0.34 KUnit/L HISTORICAL RESULTS Serum 11/29/2012 7:17 AM [facility] Narrative HISTORICAL RESULTS - 12/02/2012 8:30 AM [facility] {Testing performed by: [place] [address]} Raj Portillo MD LAB BLOOD ORDERABLES Livia l Result Performing Organization Address [facility] de Phone Number HISTORICAL RESULTS * Serum allergen (RAST) test, shrimp (11/29/2012 7:17 AM [facility]) RAST, shrimp <0.34 0.00 - 0.34 KUnit/L HISTORICAL RESULTS Serum 11/29/2012 7:17 AM [facility] Narrative HISTORICAL RESULTS - 12/02/2012 8:30 AM [facility] {Testing performed by: [place] [address]} Raj Portillo MD LAB BLOOD ORDERABLES Livia l Result Performing Organization Address City/[facility] Co de Phone Number HISTORICAL RESULTS * Serum allergen (RAST) test, potato (11/29/2012 7:17 AM [facility]) RAST, potato <0.34 0.00 - 0.34 KUnit/L HISTORICAL RESULTS Serum 11/29/2012 7:17 AM [facility] Narrative HISTORICAL RESULTS - 12/02/2012 8:30 AM [facility] {Testing performed by: [place] [address]} us Raj Portillo MD LAB BLOOD ORDERABLES Livia l Result Performing Organization Address City/[facility] Co de Phone Number HISTORICAL RESULTS * Serum allergen (RAST) test, tomato (11/29/2012 7:17 AM [facility]) RAST, tomato <0.34 0.00 - 0.34 KUnit/L HISTORICAL RESULTS Serum 11/29/2012 7:17 AM [facility] Narrative HISTORICAL RESULTS - 12/02/2012 8:30 AM [facility] {Testing performed by: [place] [address]} us Raj Portillo MD LAB BLOOD ORDERABLES Livia l Result Performing Organization Address [facility] de Phone Number HISTORICAL RESULTS * Serum allergen (RAST) test, salmon (11/29/2012 7:17 AM [facility]) RAST, salmon <0.34 0.00 - 0.34 KUnit/L HISTORICAL RESULTS Serum 11/29/2012 7:17 AM [facility] Narrative HISTORICAL RESULTS - 12/02/2012 8:30 AM [facility] {Testing performed by: [place] [address]} us Raj Portillo MD LAB BLOOD ORDERABLES Livia l Result Performing Organization Address [facility] de Phone Number HISTORICAL RESULTS * Serum allergen (RAST) test, soybean (11/29/2012 7:17 AM [facility]) RAST, soybean <0.34 0.00 - 0.34 KUnit/L HISTORICAL RESULTS Serum 11/29/2012 7:17 AM [facility] Narrative HISTORICAL RESULTS - 12/02/2012 8:30 AM [facility] {Testing performed by: [place] [address]} us Raj Portillo MD LAB BLOOD ORDERABLES Livia l Result Performing Organization Address City/[facility] Co de Phone Number HISTORICAL RESULTS * Serum allergen (RAST) test, crab (11/29/2012 7:17 AM [facility]) RAST, crab <0.34 0.00 - 0.34 KUnit/L HISTORICAL RESULTS Serum 11/29/2012 7:17 AM [facility] Narrative HISTORICAL RESULTS - 12/02/2012 8:30 AM [facility] {Testing performed by: [place] [address]} Raj Portillo MD LAB BLOOD ORDERABLES Livia l Result Performing Organization Address [facility] de Phone Number HISTORICAL RESULTS * Serum allergen (RAST) test, tuna (11/29/2012 7:17 AM [facility]) RAST, tuna <0.34 0.00 - 0.34 KUnit/L HISTORICAL RESULTS Serum 11/29/2012 7:17 AM [facility] Narrative HISTORICAL RESULTS - 12/02/2012 8:30 AM [facility] {Testing performed by: [place] [address]} Raj Portillo MD LAB BLOOD ORDERABLES Livia l Result Performing Organization Address [facility] de Phone Number HISTORICAL RESULTS * Serum allergen (RAST) test, codfish (11/29/2012 7:17 AM [facility]) RAST, codfish <0.34 0.00 - 0.34 KUnit/L HISTORICAL RESULTS Serum 11/29/2012 7:17 AM [facility] Narrative HISTORICAL RESULTS - 12/02/2012 8:30 AM [facility] {Testing performed by: [place] [address]} Raj Portillo MD LAB BLOOD ORDERABLES Livia l Result Performing Organization Address City/[facility] Co de Phone Number HISTORICAL RESULTS * Serum allergen (RAST) test, buckwheat (11/29/2012 7:17 AM [facility]) RAST, buckwheat <0.34 0.00 - 0.34 KUnit/L HISTORICAL RESULTS Serum 11/29/2012 7:17 AM [facility] Narrative HISTORICAL RESULTS - 12/02/2012 8:30 AM [facility] {Testing performed by: [place] [address]} Raj Portillo MD LAB BLOOD ORDERABLES Livia l Result Performing Organization Address City/[facility] de Phone Number HISTORICAL RESULTS * Serum allergen (RAST) test, orange (11/29/2012 7:17 AM [facility]) RAST, orange <0.34 0.00 - 0.34 KUnit/L HISTORICAL RESULTS Serum 11/29/2012 7:17 AM [facility] Narrative HISTORICAL RESULTS - 12/02/2012 8:30 AM [facility] {Testing performed by: [place] [address]} Raj Portillo MD LAB BLOOD ORDERABLES Livia l Result Performing Organization Address [facility] de Phone Number HISTORICAL RESULTS * Serum allergen (RAST) test, rye (11/29/2012 7:17 AM [facility]) RAST, rye <0.34 0.00 - 0.34 KUnit/L HISTORICAL RESULTS Serum 11/29/2012 7:17 AM [facility] Narrative HISTORICAL RESULTS - 12/02/2012 8:30 AM [facility] {Testing performed by: [place] [address]} Raj Portillo MD LAB BLOOD ORDERABLES Livia l Result Performing Organization Address [facility] de Phone Number HISTORICAL RESULTS * Serum allergen (RAST) test, almond (11/29/2012 7:17 AM [facility]) RAST, almonde <0.34 0.00 - 0.34 KUnit/L HISTORICAL RESULTS Serum 11/29/2012 7:17 AM [facility] Narrative HISTORICAL RESULTS - 12/02/2012 8:30 AM [facility] {Testing performed by: [place] [address]} Raj Portillo MD LAB BLOOD ORDERABLES Livia l Result Performing Organization Address [facility] de Phone Number HISTORICAL RESULTS * Serum allergen (RAST) test, mustard (11/29/2012 7:17 AM [facility]) RAST, mustard <0.34 0.00 - 0.34 KUnit/L HISTORICAL RESULTS Serum 11/29/2012 7:17 AM [facility] Narrative HISTORICAL RESULTS - 12/02/2012 8:30 AM [facility] {Testing performed by: [place] [address]} Raj Portillo MD LAB BLOOD ORDERABLES Livia l Result Performing Organization Address [facility] de Phone Number HISTORICAL RESULTS * Serum allergen (RAST) test, cheese mold (11/29/2012 7:17 AM [facility]) RAST, cheese, mold <0.34 0.00 - 0.34 KUnit/L HISTORICAL RESULTS Serum 11/29/2012 7:17 AM [facility] Narrative HISTORICAL RESULTS - 12/02/2012 8:30 AM [facility] {Testing performed by: [place] [address]} Raj Portillo MD LAB BLOOD ORDERABLES Livia l Result Performing Organization Address [facility] de Phone Number HISTORICAL RESULTS * Serum allergen (RAST) test, garlic (11/29/2012 7:17 AM [facility]) RAST, garlic <0.34 0.00 - 0.34 KUnit/L HISTORICAL RESULTS Serum 11/29/2012 7:17 AM [facility] Narrative HISTORICAL RESULTS - 12/02/2012 8:30 AM [facility] {Testing performed by: [place] [address]} Raj Portillo MD LAB BLOOD ORDERABLES Livia l Result Performing Organization Address [facility] de Phone Number HISTORICAL RESULTS * Serum allergen (RAST) test, sesame seed (11/29/2012 7:17 AM [facility]) RAST, sesame seed <0.34 0.00 - 0.34 KUnit/L HISTORICAL RESULTS Serum 11/29/2012 7:17 AM [facility] Narrative HISTORICAL RESULTS - 12/02/2012 8:30 AM [facility] {Testing performed by: [place] [address]} Raj Portillo MD LAB BLOOD ORDERABLES Livia l Result Performing Organization Address [facility] de Phone Number HISTORICAL RESULTS * Serum allergen (RAST) test, pea (11/29/2012 7:17 AM [facility]) RAST, pea <0.34 0.00 - 0.34 KUnit/L HISTORICAL RESULTS Serum 11/29/2012 7:17 AM [facility] Narrative HISTORICAL RESULTS - 12/02/2012 8:30 AM [facility] {Testing performed by: [place] [address]} Raj Portillo MD LAB BLOOD ORDERABLES Livia l Result Performing Organization Address [facility] de Phone Number HISTORICAL RESULTS * Serum allergen (RAST) test, egg yolk (11/29/2012 7:17 AM [facility]) RAST, egg yolk <0.34 0.00 - 0.34 KUnit/L HISTORICAL RESULTS Serum 11/29/2012 7:17 AM [facility] Narrative HISTORICAL RESULTS - 12/02/2012 8:30 AM [facility] {Testing performed by: [place] [address]} Raj Portillo MD LAB BLOOD ORDERABLES Livia l Result Performing Organization Address [facility] de Phone Number HISTORICAL RESULTS * Serum allergen (RAST) test, egg white (11/29/2012 7:17 AM [facility]) RAST, egg white <0.34 0.00 - 0.34 KUnit/L HISTORICAL RESULTS Serum 11/29/2012 7:17 AM [facility] Narrative HISTORICAL RESULTS - 12/02/2012 8:30 AM [facility] {Testing performed by: [place] [address]} Raj Portillo MD LAB BLOOD ORDERABLES Livia l Result Performing Organization Address [facility] de Phone Number HISTORICAL RESULTS * (ABNORMAL) Serum complement (11/29/2012 7:17 AM [facility]) Complement hemolytic 186(H) 63 - 145 HISTORICAL RESULTS Serum 11/29/2012 7:17 AM [facility] Narrative HISTORICAL RESULTS - 12/03/2012 7:55 AM [facility] {Testing performed by: [place] [address]} Raj Portillo MD LAB BLOOD ORDERABLES Livia l Result Performing Organization Address [facility] de Phone Number HISTORICAL RESULTS * Serum thyroperoxidase ab (11/29/2012 7:17 AM [facility]) Thyroglobulin peroxidase ab <28 0 - 60 Units/ml HISTORICAL RESULTS Comment: Interpretive Data The Cj standardization (units/mL) averages 3-fold higher compared to Theoretical International Units over the range of 50 to 800 units/mL. Current interpretive data was last revised on 04. Serum 11/29/2012 7:17 AM [facility] Narrative HISTORICAL RESULTS - 12/03/2012 12:39 PM [facility] Testing performed by: [place] [address] ??Testing performed by: [facility], [place] [address] us Raj Portillo MD LAB BLOOD ORDERABLES Livia moura Result HISTORICAL RESULTS documented in this encounter Visit Diagnoses Diagnosis Allergic urticaria documented in this encounter Care Teams Rubber Goods Finisher Relationship Specialty Start Date End Date Venancio Miles MD [address] [place] [address] PCP - General 11/13/12 documented as of this encounter
== END 2024-10-13 10:18 | disposition home or self-care (01) ==
PROVIDERS: PCP Internal Medicine
DX: L50.1 Idiopathic urticaria (principal)
CPT/HCPCS: 96372; J2357

== ENCOUNTER 2024-11-26 08:48 | Outpatient (CLI) | payer MEDICARE, SELFPAY ==
--- NOTE | ~2024-11-26 | MM_ITS ---
EXAMINATION: MM screening imani BI w gab HISTORY: Screening TECHNIQUE: Craniocaudal and mediolateral oblique 3-D tomosynthesis images were obtained and synthetic 2-D images were generated. CAD analysis was submitted and interpreted. COMPARISON: Comparison to multiple prior studies sequentially, with oldest reviewed study dated 07/30. BREAST PARENCHYMAL COMPOSITION: Not Dense: The breasts are almost entirely fatty. FINDINGS: There is no evidence of suspicious mass, calcification, or architectural distortion to sugg est malignancy in either breast. There has been no suspicious interval change. IMPRESSION: 1. No mammographic evidence of malignancy. 2. Recommend routine screening mammography in one year. BI-RADS Category 1: Negative Reviewed, dictated and finalized at location A. ING RACK SUPERVISOR
--- OUTSIDE RECORDS SUMMARY | 2024-11-26 09:12 | XMS_ITS | Clinical Summary ---
Author Organization [facility] Address [address] [place] [address]. [place], [place] [id number] [place] [id number] Care Team Providers Care Card Assembler Name Role Phone Unavailable Primary Care Provider [...] (1 - 1-dose 75+ series) 2026 Meningococcal B Vaccine Aged Out No l onger eligible based on patient's age to complete this topic Meningococcal Vaccine Aged Out No candida vaughn eligible based on patient's age to complete this topic RSV Immunizations Under 20 Months Aged Out No longer eligible based on patient's age to complete this topic Insurance [facility]
--- OUTSIDE RECORDS SUMMARY | 2024-11-26 09:12 | XMS_ITS | Referral Summary ---
Author Organization [facility] [address] Address [address] [place] [address] Care Team Providers Care Garnett Machine Operator Helper Name Role Phone Venancio Miles MD Primary Care Provider [phone] Allergies No known active allergies Medications carvediloL [...] tablet 06/14/2016Vitamin d, po solid 400 unit [id number] Medication 06/14/20 16 Active dicyclomine (BENTYL) 10 [...] on file Legal Sex Female 3:58 AM TIRE BALANCER Gender Identity Not on file Sexual Orientation Not on file Last Filed Vital Signs Vital Sign Reading Time Taken Comments Blood Pressure 140/89 11/13/2012 8:40 AM [facility] Pulse 62 11/13/2012 8:40 AM TIRE BALANCER Temperature 36.7 ??C (98 ??F) 10/13/2020 1:09 PM TIRE BALANCER Respiratory Rate - - Oxygen Saturation - - Inhaled Oxygen Concentration - - Weight 99.8 kg (220 lb) 10/13/2020 1:09 PM TIRE BALANCER Height 162.6 cm (5' 4 ) 10/13/2020 1:09 PM [facility]ER Body Mass Index 37.76 10/13/2020 1:09 PM TIRE BALANCER Plan of Treatment Not on file Insurance MEDICARE [facility] Care Teams Garnett Machine Operator Helper Relationship Specialty Start Date End Date Venancio Miles MD [address] [place] [address] PCP - General 11/13/12
--- OUTSIDE RECORDS SUMMARY | 2024-11-26 09:12 | XMS_ITS | Patient Health Summary ---
Author Organization [facility] Address [address] [place] [address] Care Team Providers Care Cigarette Roller Name Role Phone Zeus Rivera MD, Brayan Boss Primary Care Provider U mauriceailable Note from [facility],non-owned Affiliates and Associated Physician Practices is amultiple site organization consisting of ambulatory clinics and hospital sitesin [place], [place], [place] and [place]. This disclosure is being madepursuant to the Care Everywhere program and may not contain all information available regarding this patient. Last updated 18.[facility] Social History Tobacco Use Types Packs/Day Years [...] AND LATERAL ROUTINE CHEST (10/01/2009 12:29 PM FORCE ADJUSTMENT SUPERVISOR) Anatomical Region Laterality Modality Chest Radiographic Lilliam ging 10/01/2009 2:58 PM FORCE ADJUSTMENT SUPERVISOR Impressions 10/01/2009 3:30 PM FORCE ADJUSTMENT SUPERVISOR Clear lungs. Narrative 10/01/2009 3:30 PM FORCE ADJUSTMENT SUPERVISOR Chest x-ray 2 views. HISTORY: Bronchitis. Two [...] CDT EXAMINATION- Digital screening mammogram on 07/20/2009. BOWLING BALL WEIGHER AND PACKER- Megan Magdaleno, RT, RM PRIOR- 02/13/2008 FINDINGS- Computer assisted detection was ??utilized. ??The tissue density is fatty. There is no significant change since the prior mammogram. ASSESSMENT- BIRADS Category 1- ??Negative mammogram. RECOMMENDATION- Follow up in one year. [facility] staff will contact and schedule patients with BIRADS categories 0, 4, and 5. ? Reading Radiologist- BALDEMAR ALEX ??M.D. ? Releasing RadiologistKathleen ALEX ??M.D. ? Released Date Time- 07/20/09 1401 ? Supervisor Marble- TR ??M.D. ? ADM- BRAYAN SCHULZ SR ? ATT- BRAYAN SCHULZ SR REF- BRAYAN SCHULZ SR ? CON- PCP- BRAYAN SCHULZ SR ? SCP- Procedure Note Baldemar Alex MD - 07/20/2009 EXAMINATION- Digital screening mammogram on 07/20/2009. BOWLING BALL WEIGHER AND PACKER- RT To, RM PRIOR- 02/13/2008 FINDINGS- Computer assisted detection was utilized. The tissue density is fatty. There is no significant change since the prior mammogram. ASSESSMENT- BIRADS Category 1- Negative mammogram. RECOMMENDATION- Follow up in one year. [facility] staff will contact and schedule patients with BIRADS categories 0, 4, and 5. Reading Radiologist- BALDEMAR ALEX M.D. Releasing Radiologist- BALDEMAR ALEX M.D. Released Date Time- 07/20/09 1401 Supervisor Marble- FELIX Morales ADM- BRAYAN SCHULZ SR ATT- BRAYAN SCHULZ SR REF- BRAYAN SCHULZ SR CON- PCP- BRAYAN SCHULZ SR SCP- Brayan Schulz Sr., MD MAMMO ORDERABLES * GROSS + MICRO EXAM (08/26/2001 11:27 AM FORCE ADJUSTMENT SUPERVISOR) Result CASE NUMBER [id number] Comment: ORDERING [...] with no evidence of hemorrhage or necrosis. ??Senior Project Controls Specialist fragments will be submitted in cassettes labeled A through D. RT/bk Microscopic Exam ? Sections of the left groin tissue show lobulated mature appearing adipose tissues consistent with a lipoma. ??No malignant features are discerned. ??Ab/ Diagnosis ?I. ?Left groin mass, excision ?A. ??Mature adipose tissue consistent with lipoma. ??Ab Supervisor Marble ? [facility] Pathologist ?Farshad Rose M.D. Snomed. ?08/27/2001 1258 <1> CPT code ? 32913 MISCELLANEOUS SAMPLES / Unknown 08/26/2001 11:27 AM FORCE ADJUSTMENT SUPERVISOR 08/26/2001 11:27 AM FORCE ADJUSTMENT SUPERVISOR Historical Provider LAB - PATHOLOGY/C YTOLOGY ORDERABLES Care Teams Cigarette Roller Relationship Specialty Start Date End Date Brayan Schulz Sr., MD PCP - General 07/19/09
--- OUTSIDE RECORDS SUMMARY | 2024-11-26 09:12 | XMS_ITS | Referral Summary ---
Author Organization [facility] Address [address] [place] [address] Care Team Providers Care Brand Ambassadors Promotional Sales Name Role Phone Zeus Rivera MD, Brayan Boss Primary Care Provider susana Source Comments [facility],non-owned Affiliates and Associated Physician Practices is amultiple site organization consisting of ambulatory clinics and hospital sitesin [place], [place] and [place]. This disclosure is being madepursuant to the Care Everywhere program and may not contain all information available regarding this patient. Last updated 18.[facility] Social History Tobacco Use Types Packs/Day Years [...] CDT EXAMINATION- Digital screening mammogram on 07/20/2009. WET PLANT OPERATOR- Megan Magdaleno RT, RM PRIOR- 02/13/2008 FINDINGS- Computer assisted detection was ??utilized. ??The tissue density is fatty. There is no significant change since the prior mammogram. ASSESSMENT- BIRADS Category 1- ??Negative mammogram. RECOMMENDATION- Follow up in one year. [facility] staff will contact and schedule patients [...] 07/20/2009 EXAMINATION- Digital screening mammogram on 07/20/2009. WET PLANT OPERATOR- Megan Magdaleno, RT, RM PRIOR- 02/13/2008 FINDINGS- Computer assisted detection was utilized. The tissue density is fatty. There is no significant change since the prior mammogram. ASSESSMENT- BIRADS Category 1- Negative mammogram. RECOMMENDATION- Follow up in one year. [facility] staff will contact and schedule patients [...] Recently Relevant to Health Maintenance Care Teams Brand Ambassadors Promotional Sales Relationship Specialty Start Date End Date Brayan Schulz Sr., MD PCP - General 07/19/09
--- OUTSIDE RECORDS SUMMARY | 2024-11-26 09:12 | XMS_ITS | Clinical Summary ---
Author Organization [facility] [address] Address [address] [place] [address] Care Team Providers Care Aquacultural Worker Supervisor Name Role Phone Venancio Miles MD Primary Care Provider [phone] Allergies No known active allergies Medications carvediloL [...] tablet 06/14/2016Vitamin d, po solid 400 unit [id number] Medication 06/14/20 16 Active dicyclomine (BENTYL) 10 [...] on file Legal Sex Female 3:58 AM VETERANS' COUNSELOR Gender Identity Not on file Sexual Orientation Not on file Obstetrics History Last Filed Vital Signs Vital Sign Reading Time Taken Comments Blood Pressure 140/89 11/13/2012 8:40 AM VETERANS' COUNSELOR Pulse 62 11/13/2012 8:40 AM VETERANS' COUNSELOR Temperature 36.7 ??C (98 ??F) 10/13/2020 1:09 PM VETERANS' COUNSELOR Respiratory Rate - - Oxygen Saturation - - Inhaled Oxygen Concentration - - Weight 99.8 kg (220 lb) 10/13/2020 1:09 PM VETERANS' COUNSELOR Height 162.6 cm (5' 4 ) 10/13/2020 1:09 PM VETERANS' COUNSELOR Body Mass Index 37.76 10/13/2020 1:09 PM VETERANS' COUNSELOR Plan of Treatment Not on file Insurance MEDICARE [facility] Care Teams Aquacultural Worker Supervisor Relationship Specialty Start Date End Date Venancio Miles MD [address] [place], [place] [id number] PCP - General 11/13/12
--- OUTSIDE RECORDS SUMMARY | 2024-11-26 09:12 | XMS_ITS | Clinical Summary ---
Author Organization [facility] Address [address] [place] [address] Care Team Providers Care Oral And Maxillofacial Surgery Resident Name Role Phone Zeus Rivera MD, Brayan Boss [facility] Source Comments [facility],non-owned Affiliates and Associated Physician Practices is amultiple site organization consisting of ambulatory clinics and hospital sitesin [place], [place], [place] and [place]. This disclosure is being madepursuant to the Care Everywhere program and may not contain all information available regarding this patient. Last updated 18.[facility] [email or web address] Social History Tobacco Use Types Packs/Day Years [...] 02/10/1969 DTAP/TDAP/TD VACCINES (1 - Tdap) 1970 PNEUMOCOCCAL VACCINE 50+ (1 of 1 - PCV) 2001 ZOSTER VACCINE (1 of 2) 2001 MAMMOGRAM 07/20/2011 07/20/2009 COVID-19 VACCINE (1 - 2023-2 5 season) 2024 INFLUENZA VACCINE (#1) 2024 DEPRESSION SCREENING 10/29/2024 Respiratory Syncytial Virus (RSV) Vaccine Pt: or [...] patient's age to complete this topic MENINGOCOCCAL (Group B) VACCINE Aged Out No longer eligible based on [...] CDT EXAMINATION- Digital screening mammogram on 07/20/2009. VEST BASTER- Megan Magdaleno, RT, RM PRIOR- 02/13/2008 FINDINGS- Computer assisted detection was ??utilized. ??The tissue density is fatty. There is no significant change since the prior mammogram. ASSESSMENT- BIRADS Category 1- ??Negative mammogram. RECOMMENDATION- Follow up in one year. [facility] staff will contact and schedule patients with BIRADS categories 0, 4, and 5. ? Reading RadiologistKathleen ALEX ??M.D. ? Releasing RadiologistKathleen ALEX ??M.D. ? Released Date Time- 07/20/09 1401 ? Flight Follower- TR ??M.D. ? ADM- BRAYAN SCHULZ A SR ? ATT- BRAYAN SCHULZ A SR REF- ZEUS,BRAYAN A SR ? CON- PCP- BRAYAN SCHULZ A SR ? SCP- Procedure Note Baldemar Alex MD - 07/20/2009 EXAMINATION- Digital screening mammogram on 07/20/2009. VEST BASTER- Megan Magdaleno, RT, RM PRIOR- 02/13/2008 FINDINGS- Computer assisted detection was utilized. The tissue density is fatty. There is no significant change since the prior mammogram. ASSESSMENT- BIRADS Category 1- Negative mammogram. RECOMMENDATION- Follow up in one year. [facility] staff will contact and schedule patients with BIRADS categories 0, 4, and 5. Reading Radiologist- BALDEMAR ALEX M.D. Releasing Radiologist- BALDEMAR ALEX M.D. Released Date Time- 07/20/09 1401 Flight FollowerKathleen [place] M.D. ADM- BRAYAN SCHULZ SR ATT- BARYAN SCHULZ SR REF- MARQUIS SCHULZT A SR CON- PCP- BRAYAN SCHULZ SR SCP- Brayan Schulz Sr., MD MAMMO ORDERABLES from Last 3 Months or Most Recently Relevant to Health Maintenance Care Teams Oral And Maxillofacial Surgery Resident Relationship Specialty Start Date End Date Brayan Schulz Sr., MD PCP - General 07/19/09
== END 2024-11-26 08:49 | disposition home or self-care (01) ==
PROVIDERS: PCP Internal Medicine; Visit Provider Internal Medicine
DX: Z12.31 Encounter for screening mammogram for malignant neoplasm of breast (principal)
CPT/HCPCS: 77063; 77067

== ENCOUNTER 2024-12-17 10:47 | Outpatient (CLI) | payer MEDICARE, SELFPAY ==
--- OUTSIDE RECORDS SUMMARY | 2024-12-17 10:57 | XMS_ITS | Referral Summary ---
Author Organization [facility] [address] [place] [address] Care Team Providers Care Corporate Driver Name Role Phone Venancio Miles MD Primary Care Provider [phone] Allergies No known active allergies Medications carvediloL [...] tablet 06/14/2016Vitamin d, po solid 400 unit [id number] Medication 06/14/20 16 Active dicyclomine (BENTYL) 10 [...] on file Legal Sex Female 3:58 AM DELIVERY ROOM SUPERVISOR Gender Identity Not on file Sexual Orientation Not on file Last Filed Vital Signs Vital Sign Reading Time Taken Comments Blood Pressure 140/89 11/13/2012 8:40 AM DELIVERY ROOM SUPERVISOR Pulse 62 11/13/2012 8:40 AM DELIVERY ROOM SUPERVISOR Temperature 36.7 C (98 F) 10/13/2020 1:09 PM DELIVERY ROOM SUPERVISOR Respiratory Rate - - Oxygen Saturation - - Inhaled Oxygen Concentration - - Weight 99.8 kg (220 lb) 10/13/2020 1:09 PM DELIVERY ROOM SUPERVISOR Height 162.6 cm (5' 4 ) 10/13/2020 1:09 PM DELIVERY ROOM SUPERVISOR Body Mass Index 37.76 10/13/2020 1:09 PM DELIVERY ROOM SUPERVISOR Plan of Treatment Not on file Insurance MEDICARE [facility] Care Teams Corporate Driver Relationship Specialty Start Date End Date Venancio Miles MD [address], [place] [phone] PCP - General 11/13/12
--- OUTSIDE RECORDS SUMMARY | 2024-12-17 10:57 | XMS_ITS | Clinical Summary ---
Author Organization [facility] [address] [place] [address] Care Team Providers Care Home Care Administrator Name Role Phone Venancio Miles MD Primary Care Provider [phone] Allergies No known active allergies Medications carvediloL [...] tablet 06/14/2016Vitamin d, po solid 400 unit [id number] Medication 06/14/20 16 Active dicyclomine (BENTYL) 10 [...] on file Legal Sex Female 3:58 AM WATER SKI ASSEMBLER Gender Identity Not on file Sexual Orientation Not on file Obstetrics History Last Filed Vital Signs Vital Sign Reading Time Taken Comments Blood Pressure 140/89 11/13/2012 8:40 AM WATER SKI ASSEMBLER Pulse 62 11/13/2012 8:40 AM WATER SKI ASSEMBLER Temperature 36.7 C (98 F) 10/13/2020 1:09 PM WATER SKI ASSEMBLER Respiratory Rate - - Oxygen Saturation - - Inhaled Oxygen Concentration - - Weight 99.8 kg (220 lb) 10/13/2020 1:09 PM WATER SKI ASSEMBLER Height 162.6 cm (5' 4 ) 10/13/2020 1:09 PM WATER SKI ASSEMBLER Body Mass Index 37.76 10/13/2020 1:09 PM WATER SKI ASSEMBLER Plan of Treatment Not on file Insurance MEDICARE [employer] Care Teams Home Care Administrator Relationship Specialty Start Date End Date Venancio Miles MD [address] [place] [address] PCP - General 11/13/12
--- OUTSIDE RECORDS SUMMARY | 2024-12-17 10:58 | XMS_ITS | Data Portability ---
Author Organization [place] [facility],, Anat gupta Address [address] [place] [address] Assessment No assessment recorded. Plan of Treatment Reminders Order Date Submit Date Provider Last Modified By Organization Details Last Modified Time Details Appointments None recorde d. Lab None recorde d. Referral None recorde d. Procedures None recorde d. Surgeries None recorde d. Imaging None recorde d. Medication Orders Xolair 150 mg/mL subcuta neous syringe 2022 023 [email or web address] Not available 13:08:18 Xolair 150 mg/mL subcuta neous syringe 2021 022 [email or web address] Not available 13:30:15 Xolair 150 mg/mL subcuta neous syringe 2021 022 [email or web address] [facility], [facility] [address], [id number], 12:30:46 Patient TargetsNo targets recorded. Patient InstructionsNo instructions recorded. Reason for Referral None Reported. Results Created Date Observation Date Name Description Value Unit Range Abnormal Flag Note LastModifiedBy Organization Detail LastModifiedTime 11/20/19 24 11/16/2023 DEXA, axial skele ton + verte bral fract ure asses sment No observ ation record ed. [email or web address] [facility] [address], [place], [address], 11/20/2023 12:32:38 Result Notes None recorded. 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 ,[address], [place], [address] , [place] [facility], 7 12:32:13 Problem Notes None recorded. Procedures Surgical History None recorded. Imaging Results Imaging Date Name Status LastModified by Organiz ation Details LastModified Time 11/16/2023 DEXA, axial skeleton + vertebral fracture assessment [email or web address] [place] [address] Rad[address] [place], [address], 11/20/2023 12:32:38 Procedure Notes None recorded. Medical [...] Not Available Not Availa ble Not Available levocetiriz ine 5 mg tablet active Not Available Not Available Not Available diclofenac 1 % topical gel [...] Updated DateTime 3 162.56 cm 41.4 kg/m2 765766. 76 g 78 /min 95 % 95 % 20 /min 97 [degF] 124 mm[Hg] 82 mm[Hg] kirill SAMS - [facility], 3 12:09:05 Date Recorded Body height Body mass index (BMI) Body weight Heart rate Oxygen saturation Oxygen saturation in Arterial blood by Pulse oximetry Respiratory rate Body temperature Systolic blood pressure Diastolic blood pressure Provider Name and Address Organization Details Last Updated DateTime 4 162.56 cm 41.2 kg/m2 588566. 17 g 82 /min 98 % 98 % 18 /min 97 [degF] 132 mm[Hg] 74 mm[Hg] Khushi Li [place] [facility], 4 12:02:34 Date Recorded Body height Body mass index (BMI) Body weight Heart rate Oxygen saturation Oxygen saturation in Arterial blood by Pulse oximetry Systolic blood pressure Diastolic blood pressure Provider Name and Address Organization Details Last Updated DateTime 5 162.56 cm 41.2 kg/m2 315911. 17 g 66 /min 97 % 97 % 128 mm[Hg] 84 mm[Hg] Amy S[facility] - [facility], 5 12:43:08 Social History Question Answer Notes LastModified by Organizat ion Details LastModified Time Tobacco Smoking Status Never Smoker Not Available [facility] 08/31/2020 03:24:58 What Is Your Level Of Alcohol Consumption? Occasional Very Rare [id number] Information not available 08/31/2020 Marital Status Single [email or web address] Informatio n not available 11/29/2012 What Was The Date Of Your Most Recent Tobacco Screening? 06/11/2023 [email or web address] Information not available 06/11/2023 Do You Use Any Illicit Or Recreational Drugs? No [email or web address] Information not available 06/11/2023 Do You Or Have You Ever Used Any Other Forms Of Tobacco Or Nicotine? No [email or web address] Information not available 06/11/2023 Sex: Unknown Functional Status None recorded. Mental Status None recorded. Family History Nothing Reported. Medical History Condition Response Diabetes N Anxiety Disorder N Coronary Artery Disease N Gout N Arthritis N Kidney Stones N Hyperthyroidism N Tuberculosis N Cancer N Diverticulitis N Stroke N Asthma N Allergies N Stress N COPD N Depression N Hypothyroidism N GERD/Reflux N High Cholesterol N Liver Disease N Heart Disease N Pulmonary Embolism N Fibromyalgia N Hypertension N Osteoporosis N Kidney Disease N Gynecological HistoryNo gynecological history recorded. Obstetrics History GPAL:G 0 P 0 0 0 0 Past Encounters Encounter ID Performer Location Encounter Start Date Encounter Closed Date Diagnosis/Indication Diagnosis SNOMED-CT Code Diagnosis ICD10 Code Diagnosis Note [id number] Raj lorenzana MD OFFICE [address] [place] [address] 8 11/29/2012 12:50:56 11/29/2012 14:37:25 [id number] Raj lorenzana MD OFFICE [address] [place] [address] 8 02/03/2013 15:16:39 02/03/2013 16:26:13 [id number] Raj lorenzana MD OFFICE [address] [place] [address] 8 08/28/2015 10:37:50 08/28/2015 11:25:24 Allergic urticaria 34805844 L50.1 [id number] Raj lorenzana MD OFFICE [address] [place] [address] 8 02/22/2016 13:12:53 02/22/2016 14:32:04 Idiopathic urticaria 56723780 L50.1 [id number] Raj lorenzana MD OFFICE [address] [place] [address] 8 08/24/2016 11:39:57 08/24/2016 13:10:47 Idiopathic urticaria 90962889 L50.1 Excellent response to Xolair at 300 mg per month. Will decrease to 150 per month and see if she continues to have a good response. I will do this for another 6 months if she continues to be hive free will try discontinu ing it. [id number] Raj lorenzana MD OFFICE [address] [place] [address] [id number] 8 02/06/2017 11:59:03 02/06/2017 12:54:48 Idiopathic urticaria 48331983 L50.1 Complete control of urticaria on Xolair 150 mg once a month. We'll continue for another 6 months at which time I will try discontinu ing. [id number] Raj lorenzana MD OFFICE [address] [place] [address] [id number] 8 09/07/2017 11:57:06 09/07/2017 12:27:08 Idiopathic urticaria 17442832 L50.1 Complete resolution of urticaria on Xolair. We will try discontinu ing [id number] Raj lorenzana MD OFFICE [address] [place] [address] [id number] 8 01/11/2018 11:53:22 01/11/2018 12:44:47 Idiopathic urticaria 78874032 L50.1 [id number] Raj lorenzana MD OFFICE [address] [place] [address] [id number] 8 02/08/2018 12:18:58 02/08/2018 13:07:19 Idiopathic urticaria 37974219 L50.1 [id number] Raj lorenzana MD OFFICE [address] [place] [address] [id number] 8 03/08/2018 11:56:44 03/08/2018 13:54:45 Idiopathic urticaria 87689914 L50.1 [id number] Raj lorenzana MD OFFICE [address] [place] [address] [id number] 8 04/09/2018 10:56:37 04/09/2018 17:40:49 Idiopathic urticaria 28281671 L50.1 [id number] Raj lorenzana MD OFFICE [address] [place] [address] [id number] 8 05/07/2018 11:05:03 05/07/2018 13:05:29 Idiopathic urticaria 50726581 L50.1 [id number] Raj lorenzana MD OFFICE [address] [place] [address] [id number] 8 06/11/2018 11:02:18 06/11/2018 12:11:33 Idiopathic urticaria 98133856 L50.1 [id number] Raj lorenzana MD OFFICE [address] [place] [address] [id number] 8 07/12/2018 11:51:58 07/12/2018 14:28:45 Idiopathic urticaria 51167821 L50.1 [id number] ALIRIO Clay OFFICE [address] [place] [address] [id number] 8 08/08/2018 10:58:33 08/08/2018 16:32:09 Idiopathic urticaria 69827363 L50.1 Patient received her Xolair injection today per patient's consent. She had her Epi-Pen / Auvi-Q with her which was checked prior to administra tion. No complicati ons noted. Patient to return in one month for her next Xolair injection. [id number] Raj lorenzana MD OFFICE [address] [place] [address] [id number] 8 09/17/2018 11:34:34 09/17/2018 16:47:52 Idiopathic urticaria 56125068 L50.1 [id number] ALIRIO Clay OFFICE [address] [place] [address] [id number] 8 10/15/2018 11:34:10 10/15/2018 12:52:06 Idiopathic urticaria 89644044 L50.1 Patient received her Xolair injection today per patient's consent. She had her Epi-Pen / Auvi-Q with her which was checked prior to administra tion. No complicati ons noted. Patient to return in one month for her next Xolair injection. [id number] Raj lorenzana MD OFFICE [address] [place] [address] [id number] 8 11/12/2018 11:17:14 11/12/2018 15:11:45 Idiopathic urticaria 05995782 L50.1 Patient received her Xolair injection today per patient's consent. She had her Epi-Pen / Auvi-Q with her which was checked prior to administra tion. No complicati ons noted. Patient to return in one month for her next Xolair injection. [id number] ALIRIO Clay OFFICE [address] [place] [address] [id number] 8 12/10/2018 11:26:49 12/10/2018 13:27:22 Idiopathic urticaria 46856506 L50.1 Patient received her Xolair injection today per patient's consent. She had her Epi-Pen / Auvi-Q with her which was checked prior to administra tion. No complicati ons noted. Patient to return in one month for her next Xolair injection. [id number] ALIRIO Clay OFFICE [address] [place] [address] [id number] 8 01/02/2019 11:41:20 01/02/2019 15:36:17 Idiopathic urticaria 93648213 L50.1 Patient received her Xolair injection today per patient's consent. She had an Epi-Pen with her which was checked prior to administra tion. No complicati ons noted. Patient to return in one month for her next Xolair injection. [id number] Raj lorenzana MD OFFICE [address] [place] [address] [id number] 8 01/30/2019 12:33:48 01/30/2019 14:05:22 Idiopathic urticaria 71937587 L50.1 Patient received her Xolair injection today per patient's consent. She had an Epi-Pen with her which was checked prior to administra tion. No complicati ons noted. Patient to return in one month for her next Xolair injection. [id number] Raj lorenzana MD OFFICE [address] [place] [address] [id number] 8 03/04/2019 10:58:22 03/04/2019 12:35:19 Idiopathic urticaria 39777529 L50.1 Patient received her Xolair injection today per patient's consent. She had an Epi-Pen with her which was checked prior to administra tion. No complicati ons noted. Patient to return in one month for her next Xolair injection. [id number] Raj lorenzana MD OFFICE [address] [place] [address] [id number] 8 04/01/2019 10:41:25 04/01/2019 12:08:41 Idiopathic urticaria 25383301 L50.1 Patient received her Xolair injection today per patient's consent. She had an Epi-Pen with her which was checked prior to administra tion. No complicati ons noted. Patient to return in one month for her next Xolair injection. [id number] ALIRIO Clay OFFICE [address] [place] [address] 04/29/2019 10:42:31 04/29/2019 13:02:14 Idiopathic urticaria 80319076 L50.1 Patient received her Xolair injection today per patient's consent. She had an Epi-Pen with her which was checked prior to administra tion. No complicati ons noted. Patient to return in one month for her next Xolair injection. [id number] Raj lorenzana MD OFFICE [address] [place] [address] 8 06/03/2019 10:58:19 06/03/2019 11:57:23 Idiopathic urticaria 99372158 L50.1 Excellent response to Xolair. She is presently at 300 mg per month. Will attempt to drop her to 150 mg per month and see as she does. [id number] Raj lorenzana MD OFFICE [address] [place] [address] [id number] 8 07/01/2019 14:23:38 07/01/2019 15:02:28 Idiopathic urticaria 75426481 L50.1 Excellent response to Xolair. She is presently at 300 mg per month. Will attempt to drop her to 150 mg per month and see as she does. [id number] ALIRIO Clay OFFICE [address] [place] [address] 8 08/04/2019 15:47:44 08/04/2019 17:36:11 Idiopathic urticaria 99527257 L50.1 Patient received her Xolair injection today per patient's consent. She had her Epi-Pen with her which was checked prior to administra tion. No complicati ons noted. Patient to return in one month for her next Xolair injection. [id number] Raj lorenzana MD OFFICE [address] [place] [address] [id number] 8 09/02/2019 12:06:07 09/02/2019 13:08:44 Idiopathic urticaria 48439473 L50.1 Patient received her Xolair injection today per patient's consent. She had her Epi-Pen with her which was checked prior to administra tion. No complicati ons noted. Patient to return in one month for her next Xolair injection. [id number] Raj lorenzana MD OFFICE [address] [place], [place] [address] 8 09/30/2019 11:45:07 09/30/2019 14:47:59 Idiopathic urticaria 70086210 L50.1 Patient received her Xolair injection today per patient's consent. She had her Epi-Pen with her which was checked prior to administra tion. No complicati ons noted. Patient to return in one month for her next Xolair injection. [id number] Raj lorenzana MD OFFICE [address] [place] [address] 8 11/04/2019 11:23:58 11/04/2019 12:38:12 Idiopathic urticaria 76405416 L50.1 Patient received her Xolair injection today per patient's consent. She had her Epi-Pen with her which was checked prior to administra tion. No complicati ons noted. Patient to return in one month for her next Xolair injection. [id number] aRj lorenzana MD OFFICE [address] [place] [address] [id number] 8 12/05/2019 11:16:41 12/05/2019 12:44:39 Idiopathic urticaria 68169115 L50.1 Patient received her Xolair injection today per patient's consent. She had her Epi-Pen with her which was checked prior to administra tion. No complicati ons noted. Patient to return in one month for her next Xolair injection. [id number] ALIRIO Clay OFFICE [address] [place], [place] [address] 8 12/26/2019 11:23:39 12/26/2019 13:15:49 Idiopathic urticaria 22510662 L50.1 Patient received her Xolair injection today per patient's consent. She had her Epi-Pen with her which was checked prior to administra tion. No complicati ons noted. Patient to return in one month for her next Xolair injection. [id number] ALIRIO Clay OFFICE [address] [place] [address] [id number] 8 01/27/2020 11:29:00 01/27/2020 12:04:35 Idiopathic urticaria 35984496 L50.1 Patient received her Xolair injection today per patient's consent. She had her Epi-Pen with her which was checked prior to administra tion. No complicati ons noted. Patient to return in one month for her next Xolair injection. [id number] Raj lorenzana MD OFFICE [address] [place] [address] [id number] 8 02/24/2020 11:20:13 02/24/2020 12:18:22 Idiopathic urticaria 17024494 L50.1 Patient received her Xolair injection today per patient's consent. She had her Epi-Pen with her which was checked prior to administra tion. No complicati ons noted. Patient to return in one month for her next Xolair injection. [id number] Raj lorenzana MD OFFICE [address] [place] [address] [id number] 8 03/25/2020 11:54:14 03/25/2020 12:33:14 Idiopathic urticaria 93051250 L50.1 Patient received her Xolair injection today per patient's consent. She had her Epi-Pen with her which was checked prior to administra tion. No complicati ons noted. Patient to return in one month for her next Xolair injection. [id number] Raj lorenzana MD OFFICE [address] [place] [address] [id number] 8 04/26/2020 14:26:23 04/26/2020 14:57:52 Idiopathic urticaria 59768032 L50.1 Patient received her Xolair injection today per patient's consent. She had her Epi-Pen with her which was checked prior to administra tion. No complicati ons noted. Patient to return in one month for her next Xolair injection. [id number] Raj lorenzana MD OFFICE [address] [place] [address] [id number] 8 05/25/2020 11:56:23 05/25/2020 12:52:16 Idiopathic urticaria [id number] L50.1 Patient received her Xolair injection today per patient's consent. She had her Epi-Pen with her which was checked prior to administra tion. No complicati ons noted. Patient to return in one month for her next Xolair injection. [id number] Raj lorenzana MD OFFICE [address] [place] [address] [id number] 8 06/22/2020 11:24:06 06/22/2020 12:05:34 Idiopathic urticaria 17460100 L50.1 Patient received her Xolair injection today per patient's consent. She had her Epi-Pen with her which was checked prior to administra tion. No complicati ons noted. Patient to return in one month for her next Xolair injection. [id number] ALIRIO Clay OFFICE [address] [place] [address] [id number] 8 07/20/2020 13:00:27 07/20/2020 13:48:32 Idiopathic urticaria 61675705 L50.1 Patient received her Xolair injection today per patient's consent. She had her Epi-Pen with her which was checked prior to administra tion. No complicati ons noted. Patient to return in one month for her next Xolair injection. [id number] Raj lorenzana MD OFFICE [address] [place] [address] [id number] 8 08/12/2020 11:05:09 08/12/2020 12:12:18 Idiopathic urticaria 34613816 L50.1 Patient received her Xolair injection today per patient's consent. She had her Epi-Pen with her which was checked prior to administra tion. No complicati ons noted. Patient to return in one month for her next Xolair injection. [id number] Raj lorenzana MD OFFICE [address] [place] [address] [id number] 8 09/16/2020 10:58:07 09/16/2020 11:25:25 Idiopathic urticaria 00676665 L50.1 Patient received her Xolair injection today per patient's consent. She had her Epi-Pen with her which was checked prior to administra tion. No complicati ons noted. Patient to return in one month for her next Xolair injection. [id number] Raj lorenzana MD OFFICE [address] [place] [address] [id number] 8 10/14/2020 11:46:17 10/14/2020 12:20:09 Idiopathic urticaria [id number] L50.1 Patient received her Xolair injection today per patient's consent. She had her Epi-Pen with her which was checked prior to administra tion. No complicati ons noted. Patient to return in one month for her next Xolair injection. [id number] Raj lorenzana MD OFFICE [address] [place] [address] [id number] 8 11/11/2020 14:47:37 11/12/2020 09:35:22 Idiopathic urticaria 23323264 L50.1 Patient received her Xolair injection today per patient's consent. She had her Epi-Pen with her which was checked prior to administra tion. No complicati ons noted. Patient to return in one month for her next Xolair injection. [id number] Raj lorenzana MD OFFICE [address] [place] [address] [id number] 8 12/07/2020 11:07:50 12/07/2020 12:11:22 Idiopathic urticaria 92049711 L50.1 Patient received her Xolair injection today per patient's consent. She had her Epi-Pen with her which was checked prior to administra tion. No complicati ons noted. Patient to return in one month for her next Xolair injection. [id number] Raj lorenzana MD OFFICE [address] [place] [address] [id number] 8 01/04/2021 11:06:06 01/04/2021 11:55:57 Idiopathic urticaria 58222825 L50.1 Patient received her Xolair injection today per patient's consent. She had her Epi-Pen with her which was checked prior to administra tion. No complicati ons noted. Patient to return in one month for her next Xolair injection. [id number] Raj lorenzana MD OFFICE [address] [place] [address] [id number] 8 01/31/2021 11:52:55 01/31/2021 12:27:07 Idiopathic urticaria 99474993 L50.1 Patient received her Xolair injection today per patient's consent. She had her Epi-Pen with her which was checked prior to administra tion. No complicati ons noted. Patient to return in one month for her next Xolair injection. [id number] Raj lorenzana MD OFFICE [address] [place] [address] [id number] 8 03/01/2021 11:30:49 03/01/2021 12:21:01 Idiopathic urticaria 40703811 L50.1 Patient received her Xolair injection today per patient's consent. She had her Epi-Pen with her which was checked prior to administra tion. No complicati ons noted. Patient to return in one month for her next Xolair injection. [id number] Raj lorenzana MD OFFICE [address] [place] [address] [id number] 8 03/29/2021 11:00:12 03/29/2021 14:44:02 Idiopathic urticaria [id number] L50.1 Patient received her Xolair injection today per patient's consent. She had her Epi-Pen with her which was checked prior to administra tion. No complicati ons noted. Patient to return in one month for her next Xolair injection. [id number] Raj lorenzana MD OFFICE [address] [place] [address] [id number] 8 04/22/2021 11:23:00 04/22/2021 12:22:00 Idiopathic urticaria 87330142 L50.1 Patient received her Xolair injection today per patient's consent. She had her Epi-Pen with her which was checked prior to administra tion. No complicati ons noted. Patient to return in one month for her next Xolair injection. [id number] Raj lorenzana MD OFFICE [address] [place] [address] [id number] 8 05/26/2021 11:44:46 05/26/2021 12:21:58 Idiopathic urticaria 40862963 L50.1 Patient received her Xolair injection today per patient's consent. She had her Epi-Pen with her which was checked prior to administra tion. No complicati ons noted. Patient to return in one month for her next Xolair injection. [id number] Raj lorenzana MD OFFICE [address] [place] [address] [id number] 8 06/28/2021 11:33:54 06/28/2021 11:58:54 Idiopathic urticaria [id number] L50.1 Patient received her Xolair injection today per patient's consent. She had her Epi-Pen with her which was checked prior to administra tion. No complicati ons noted. Patient to return in one month for her next Xolair injection. [id number] Kathleen Garcia MD OFFICE [address] [place] [address] [id number] 8 07/26/2021 11:40:07 07/26/2021 12:09:27 Idiopathic urticaria [id number] L50.1 Patient received her Xolair injection today per patient's consent. She had her Epi-Pen with her which was checked prior to administra tion. No complicati ons noted. Patient to return in one month for her next Xolair injection. [id number] Raj lorenzana MD OFFICE [address] [place] [address] [id number] 8 08/18/2021 11:30:20 08/18/2021 12:53:28 Idiopathic urticaria 09262735 L50.1 Patient received her Xolair injection today per patient's consent. She had her Epi-Pen with her which was checked prior to administra tion. No complicati ons noted. Patient to return in one month for her next Xolair injection. [id number] Raj lorenzana MD OFFICE [address] [place] [address] [id number] 8 09/15/2021 11:28:54 09/15/2021 15:22:53 Idiopathic urticaria [id number] L50.1 Patient received her Xolair injection today per patient's consent. She had her Epi-Pen with her which was checked prior to administra tion. No complicati ons noted. Patient to return in one month for her next Xolair injection. [id number] Raj lorenzana MD OFFICE [address] [place] [address] [id number] 8 10/13/2021 11:23:30 10/13/2021 12:12:09 Idiopathic urticaria [id number] L50.1 Patient received her Xolair injection today per patient's consent. She had her Epi-Pen with her which was checked prior to administra tion. No complicati ons noted. Patient to return in one month for her next Xolair injection. [id number] Raj lorenzana MD OFFICE [address] [place] [address] [id number] 8 11/10/2021 11:33:14 11/15/2021 17:13:15 Idiopathic urticaria [id number] L50.1 Patient received her Xolair injection today per patient's consent. She had her Epi-Pen with her which was checked prior to administra tion. No complicati ons noted. Patient to return in one month for her next Xolair injection. [id number] Raj lorenzana MD OFFICE [address] [place] [address] [id number] 8 12/13/2021 11:35:41 12/13/2021 12:28:48 Idiopathic urticaria [id number] L50.1 Patient received her Xolair injection today per patient's consent. She had her Epi-Pen with her which was checked prior to administra tion. No complicati ons noted. Patient to return in one month for her next Xolair injection. [id number] Raj lorenzana MD OFFICE [address] [place] [address] [id number] 8 01/10/2022 11:33:33 01/10/2022 12:25:48 Idiopathic urticaria [id number] L50.1 Patient received her Xolair injection today per patient's consent. She had her Epi-Pen with her which was checked prior to administra tion. No complicati ons noted. Patient to return in one month for her next Xolair injection. She had an excellent response to the Xolair would like to continue. [id number] Raj lorenzana MD OFFICE [address] [place] [address] 8 02/07/2022 11:25:20 02/07/2022 11:50:54 Idiopathic urticaria [id number] L50.1 [id number] Raj lorenzana MD OFFICE [address] [place] [address] 8 03/07/2022 11:22:41 03/07/2022 12:15:23 Idiopathic urticaria [id number] L50.1 [id number] Raj lorenzana MD OFFICE [address] [place] [address] 8 04/04/2022 15:57:42 04/04/2022 16:36:37 Idiopathic urticaria [id number] L50.1 [id number] Kathleen Garcia MD OFFICE [address] [place], [place] [phone] 8 05/02/2022 13:14:15 05/02/2022 13:59:50 Idiopathic urticaria [id number] L50.1 [id number] Raj lorenzana MD OFFICE [address] [place] [address] 8 06/06/2022 12:02:33 06/06/2022 12:49:17 Idiopathic urticaria [id number] L50.1 [id number] Raj lorenzana MD OFFICE [address] [place] [phone] 8 07/07/2022 12:59:43 07/07/2022 13:43:13 Idiopathic urticaria [id number] L50.1 [id number] Raj lorenzana MD OFFICE [address] [place] [phone] 8 06/11/2023 11:45:23 06/11/2023 12:37:10 Idiopathic urticaria [id number] L50.1 chronic urticaria the good response to Xolair. We will continue for 1 more year. At that time I think a trial of the drug would be warranted [id number] Raj lorenzana MD OFFICE [address] [place] [phone] 8 06/10/2024 11:48:45 06/10/2024 12:12:50 Idiopathic urticaria [id number] L50.1 chronic urticaria the good response to Xolair. we will try to increase the interval of her Xolair to first 5 weeks for the next 3 months and then will go to 6 weeks for 3 months and then 7 weeks for 3 months. She will continue otherwise in this strategy. She has had no adverse reactions to the Xolair. [id number] Raj lorenzana MD OFFICE [address] [place] [address] [phone] 8 12/11/2024 12:19:47 12/11/2024 12:49:12 Idiopathic urticaria [id number] L50.1 chronic urticaria the good response to Xolair. we will continue to increase the interval. She is at 6 weeks now we will go up to 7 and another month and then by the time she gets back for follow-up will be at 8 weeks. We may stop the shots at that time Health Concerns Section Related Observation LastModified by Organization Detai ls LastModified Time None Recorded Concern Status LastModified by Organization Details LastModified Time None Recorded Advance Directives Directive None Recorded Payers Encounter Date Sequence Insurance Name Policy Number Policy Recio Covered Member ID Recio Member ID Guarantor Name 06/06/2022 1 [place] Julissa Faustin [id number] Julissa Faustin 06/06/2022 2 [employer] HE[employer] OPTIONS (MEDICARE SUPPLEMENT) Julissa Faustin [id number] Julissa Dela Cruzett 07/07/2022 1 [place] Julissa Boss Faustin [id number] Julissa Faustin 07/07/2022 2 [employer] HE[employer] OPTIONS (MEDICARE SUPPLEMENT) Julissa Dela Cruzett [id number] Julissa Faustin 06/11/2023 1 [place] Julissa Boss Faustin [id number] Julissa Faustin 06/11/2023 2 [employer] OPTIONS (MEDICARE SUPPLEMENT) Julissa Boss Faustin [id number] Julissa Faustin 06/10/2024 1 [place] Julissa Boss Faustin [id number] Julissa Faustin 06/10/2024 2 [employer] HE[employer] OPTIONS (MEDICARE SUPPLEMENT) Julissa Boss Faustin [id number] Julissa Faustin 12/11/2024 1 MEDICARE [place]: [place] Julissa Boss Faustin [id number] Julissa Faustin 12/11/2024 2 [employer] OPTIONS (MEDICARE SUPPLEMENT) Julissa Boss Faustin [id number] Julissa Faustin Notes Date Note Type Note [...] side effects. MD [address], [place], [address], [place] [facility], 06/11/2023 12:41:32 06/10/2024 text/html Julissa comes in f or follow-up of her urticaria. She continues on Xolair at 150 mg once a month and is doing extraordinarily well with absolutely no symptoms of her UAS is 0.she is not needing any auxiliary medication. There is no angioedema. MD [address], [place], [address], [place] [facility], 06/10/2024 12:25:41 12/11/2024 text/html Julissa comes in f or 6 month follow-up on her Xolair for her idiopathic urticaria. She continues to do great she is now getting 150 mg every 6 weeks and has had absolutely no hives. Will transition to 7 weeks soon and will see her back in another's 6 months. Raj Portillo MD [address] ,[address], [place], [address], [facility] [place] [facility], 12/11/2024 13:00:27 OBGyn Episode No OBEpisode recorded.
--- OUTSIDE RECORDS SUMMARY | 2024-12-17 10:58 | XMS_ITS | Clinical Summary ---
Author Organization [facility] Address [address] [place] [address] Care Team Providers Care Inspector Toys Name Role Phone Zeus Rivera MD, Brayan Boss Primary Care Provider [facility] Source Comments [facility],non-owned Affiliates and Associated Physician Practices is amultiple site organization consisting of ambulatory clinics and hospital sitesin [place], [place], [place] and [place]. This disclosure is being madepursuant to the Care Everywhere program and may not contain all information available regarding this patient. Last updated 18.[facility] [employer] Social History Tobacco Use Types Packs/Day Years [...] CDT EXAMINATION- Digital screening mammogram on 07/20/2009. EQUIPMENT LEAD- Megan Magdaleno, RT, RM PRIOR- 02/13/2008 FINDINGS- [...] ALEX M.D. Released Date Time- 07/20/09 1401 Liner Roll Changer- FELIX Morales BRAYAN PRUITT SR ATT- BRAYAN SCHULZ SR REF- BRAYAN SCHULZ SR CON- PCP- BRAYAN SCHULZ SR SCP- Procedure Note Baldemar Alex MD - 07/20/2009 EXAMINATION- Digital screening mammogram on 07/20/2009. EQUIPMENT LEAD- Megan Magdaleno RT, RM PRIOR- 02/13/2008 FINDINGS- [...] ALEX M.D. Released Date Time- 07/20/09 1401 Liner Roll Changer- FELIX Morales ADM- BRAYAN SCHULZ SR ATT- BRAYAN SCHULZ SR REF- BRAYAN SCHULZ SR CON- PCP- BRAYAN SCHULZ SR SCP- Brayan Schulz Sr., MD MAMMO ORDERABLES from Last 3 Months or Most Recently Relevant to Health Maintenance Care Teams Inspector Toys Relationship Specialty Start Date End Date Brayan Schulz Sr., MD PCP - General 07/19/09
--- OUTSIDE RECORDS SUMMARY | 2024-12-17 10:58 | XMS_ITS | Referral Summary ---
Author Organization [facility] Address [address] [place] [address] Care Team Providers Care Meat Carrier Name Role Phone Zeus Rivera MD, Brayan Boss Primary Care Provider susana Source Comments [facility],non-owned Affiliates and Associated Physician Practices is amultiple site organization consisting of ambulatory clinics and hospital sitesin [place], [place] and [place]. This disclosure is being madepursuant to the Care Everywhere program and may not contain all information available regarding this patient. Last updated 18.[facility] Social History Tobacco Use Types Packs/Day Years [...] CDT EXAMINATION- Digital screening mammogram on 07/20/2009. HUMAN RESOURCES TEAM MEMBER- RT To, ISAURO PRIOR- 02/13/2008 FINDINGS- Computer assisted detection was utilized. The tissue density is fatty. There is no significant change since the prior mammogram. ASSESSMENT- BIRADS Category 1- Negative mammogram. RECOMMENDATION- Follow up in one year. [facility] staff will contact and schedule patients with BIRADS categories 0, 4, and 5. Reading Sangita ALEX M.D. Releasing Sangita ALEX M.D. Released Date Time- 07/20/091400 Redd [place] M.D. BRAYAN PRUITT SR ATT- ZEUS,BRAYAN A SR REF- ZEUS,BRAYAN A SR CON- PCP- ZEUS,BRAYAN Boss SR SCP- Procedure Note Baldemar Alex MD - 07/20/2009 EXAMINATION- Digital screening mammogram on 07/20/2009. HUMAN RESOURCES TEAM MEMBER- RT To, ISAURO PRIOR- 02/13/2008 FINDINGS- Computer assisted detection was utilized. The tissue density is fatty. There is no significant change since the prior mammogram. ASSESSMENT- BIRADS Category 1- Negative mammogram. RECOMMENDATION- Follow up in one year. [facility] staff will contact and schedule patients with BIRADS categories 0, 4, and 5. Reading Sangita ALEX M.D. Releasing Sangita ALEX M.D. Released Date Time- 07/20/091400 Redd [place] M.D. BRAYAN PRUITT SR ATT- ZEUS,BRAYAN A SR REF- ZEUS,BRAYAN A SR CON- PCP- ZEUS,BRAYAN A SR SCP- Brayan Schulz Sr., MD MAMMO ORDERABLES from Last 3 Months or Most Recently Relevant to Health Maintenance Care Teams Meat Carrier Relationship Specialty Start Date End Date Brayan Schulz Sr., MD PCP - General 07/19/09
--- OUTSIDE RECORDS SUMMARY | 2024-12-17 10:58 | XMS_ITS | Clinical Summary ---
Author Organization [facility] Address [address] [place] [address] Care Team Providers Care Tracer Clerk Name Role Phone Unavailable Primary Care Provider [...] patient's age to complete this topic Insurance [employer]
--- OUTSIDE RECORDS SUMMARY | 2024-12-17 10:58 | XMS_ITS | Patient Health Summary ---
Author Organization [facility] Address [address] [place] [address] Care Team Providers Care Deicer Kit Assembler Name Role Phone Zeus Rivera MD, Anthony Boss Primary Care Provider U mauriceailable Note from [facility],non-owned Affiliates and Associated Physician Practices is amultiple site organization consisting of ambulatory clinics and hospital sitesin [place], [place], [place] and [place]. This disclosure is being madepursuant to the Care Everywhere program and may not contain all information available regarding this patient. Last updated 18.[facility] Social History Tobacco Use Types Packs/Day Years [...] AND LATERAL ROUTINE CHEST (10/01/2009 12:29 PM MANAGER CAR) Anatomical Region Laterality Modality Chest Radiographic Lilliam ging 10/01/2009 2:58 PM MANAGER CAR Impressions 10/01/2009 3:30 PM MANAGER CAR Clear lungs. Narrative 10/01/2009 3:30 PM MANAGER CAR Chest x-ray 2 views. HISTORY: Bronchitis. Two [...] CDT EXAMINATION- Digital screening mammogram on 07/20/2009. BRAKE REPAIR MECHANIC- RT To, PRIOR- 02/13/2008 FINDINGS- Computer assisted detection was utilized. The tissue density is fatty. There is no significant change since the prior mammogram. ASSESSMENT- BIRADS Category 1- Negative mammogram. RECOMMENDATION- Follow up in one year. [facility] staff will contact and schedule patients with BIRADS categories 0, 4, and 5. Reading Radiologist- PATRICIA ALEX M.D. Releasing Radiologist- PATRICIA ALEX M.D. Released Date Time- 07/20/09 1401 Clinical Research Spec- FELIX Morales ADM- ANTHONY SCHULZ SR ATT- ANTHONY SCHULZ SR REF- ANTHONY SCHULZ SR CON- PCP- ANTHONY SCHULZ SR SCP- Procedure Note Patricia Alex MD - 07/20/2009 EXAMINATION- Digital screening mammogram on 07/20/2009. BRAKE REPAIR MECHANIC- RT To, PRIOR- 02/13/2008 FINDINGS- Computer assisted detection was utilized. The tissue density is fatty. There is no significant change since the prior mammogram. ASSESSMENT- BIRADS Category 1- Negative mammogram. RECOMMENDATION- Follow up in one year. [facility] staff will contact and schedule patients with BIRADS categories 0, 4, and 5. Reading RadiologistKathleen ALEX M.D. Releasing Sangita ALEX M.D. Released Date Time- 07/20/09 1401 Clinical Research Spec- TR M.D. ADM- ANTHONY SCHULZ SR ATT- ANTHONY SCHULZ SR REF- ANTHONY SCHULZ SR CON- PCP- ANTHONY SCHULZ SR SCP- Anthony Schulz Sr., MD MAMMO ORDERABLES * GROSS + MICRO EXAM (08/26/2001 11:27 AM MANAGER CAR) Result CASE NUMBER [id number] Comment: ORDERING PHYSICIAN PRUDENCE DAVILA SPECIMEN TYPE Tissue-lt groin mass Date 08/26/2001 Physician Jo Davila Gross Description The specimen is labeled tissue from the left groin . Received is a disc-shaped lobular fragment of tissue that measures 6.5 x 6 cm. in greatest diameters x about 2.3 cm. in thickness. The external surface is in part smooth and glistening. On cut section, the tissue maintained a fairly uniform yellow character with no evidence of hemorrhage or necrosis. Community Administrator fragments will be submitted in cassettes labeled A through D. RT/bk Microscopic Exam Sections of the left groin tissue show lobulated mature appearing adipose tissues consistent with a lipoma. No malignant features are discerned. Ab/ Diagnosis I. Left groin mass, excision A. Mature adipose tissue consistent with lipoma. Ab Clinical Research Spec [facility] Pathologist Farshad Rose M.D. Snomed. 08/27/2001 1258 <1> CPT code 30737 MISCELLANEOUS SAMPLES / Unknown 08/26/2001 11:27 AM MANAGER CAR 08/26/2001 11:27 AM MANAGER CAR Historical Provider LAB - PATHOLOGY/C YTOLOGY ORDERABLES Care Teams Deicer Kit Assembler Relationship Specialty Start Date End Date Anthony Schulz Sr., MD PCP - General 07/19/09
== END 2024-12-17 10:48 | disposition home or self-care (01) ==
LOC: CHSCARD 10:50
PROVIDERS: PCP Internal Medicine; Visit Provider Internal Medicine
DX: R06.00 Dyspnea, unspecified (principal); R94.2 Abnormal results of pulmonary function studies
CPT/HCPCS: 94060; 94726; 94729; 95012

== ENCOUNTER 2024-12-25 09:16 | Outpatient (CLI) | payer MEDICARE, SELFPAY ==
[2024-12-25] MEDS: OMALIZUMAB SUB-Q (09:35)
[2024-12-25 09:49] VITALS: BP 118/69; PULSE 80; RESP 16; TEMP 36.6; O2SAT 97; BMI 41.2
--- NOTE | 2024-12-25 11:53 | PC.NURSE ---
0910 Patient here for Xolair injection. Education given. No concerns voiced. Reports her doctor wants her try every 7 weeks now. He is trying to wean her off the drug. Injection administered. Tolerated well. SEE MAR/patient care list.
== END 2024-12-25 09:17 | disposition home or self-care (01) ==
PROVIDERS: PCP Internal Medicine
DX: L50.1 Idiopathic urticaria (principal)
CPT/HCPCS: 96372; J2357

== ENCOUNTER 2025-02-16 10:52 | Outpatient (CLI) | payer MEDICARE, SELFPAY ==
[2025-02-16 11:10] VITALS: BP 138/50; PULSE 64; RESP 18; TEMP 36.4; O2SAT 97; BMI 39.5
[2025-02-16] MEDS: OMALIZUMAB SUB-Q (11:21)
--- OUTSIDE RECORDS SUMMARY | 2025-02-16 12:48 | XMS_ITS | Clinical Summary ---
Author Organization [facility] Address [facility] [place] [address] Care Team Providers Care Hospitality Job Titles Name Role Phone Unavailable Primary Care Provider [...] 1 - Tdap) 1970 Mammogram Screening 1991 Pneumococcal Vaccine: 50+ Ye ars (1 of 1 - PCV) 2001 Zoster Vaccines (1 of 2) 2001 Dexa Scan (General) 02/16/2016 COVID-19 Vaccine ( - 2023-2 5 season) 2024 RSV Immunization or 60+ Years (1 [...] patient's age to complete this topic Insurance [facility]
--- OUTSIDE RECORDS SUMMARY | 2025-02-16 12:48 | XMS_ITS | Clinical Summary ---
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 Gender Identity Not on file Sexual Orientation Not on file Obstetrics History Last Filed Vital Signs Vital Sign Reading Time Taken Comments Blood Pressure 140/89 11/13/2012 8:40 AM ORGANIC CHEMISTRY TEACHER Pulse 62 11/13/2012 8:40 AM ORGANIC CHEMISTRY TEACHER Temperature 36.7 C (98 F) 10/13/2020 1:09 PM ORGANIC CHEMISTRY TEACHER Respiratory Rate - - Oxygen Saturation - - Inhaled Oxygen Concentration - - Weight 99.8 kg (220 lb) 10/13/2020 1:09 PM ORGANIC CHEMISTRY TEACHER Height 162.6 cm (5' 4 ) 10/13/2020 1:09 PM ORGANIC CHEMISTRY TEACHER Body Mass Index 37.76 10/13/2020 1:09 PM ORGANIC CHEMISTRY TEACHER Plan of Treatment Not on file Insurance MEDICARE [employer] Care Teams Account Relationship Manager Relationship Specialty Start Date End Date Venancio Miles MD [address] [place] [address] PCP - General 11/13/12
--- OUTSIDE RECORDS SUMMARY | 2025-02-16 12:48 | XMS_ITS | Data Portability ---
Author Organization [place] [facility],, Anat gupta Address [address] [place] [address] Assessment No assessment recorded. Plan of Treatment Reminders Order Date Submit Date Provider Last Modified By Organization Details Last Modified Time Details Appointments None recorde d. Lab None recorde d. Referral None recorde d. Procedures None recorde d. Surgeries None recorde d. Imaging None recorde d. Medication Orders Xolair 150 mg/mL subcuta neous syringe 2022 023 [email or web address] Not available 3 13:08:18 Xolair 150 mg/mL subcuta neous syringe 2021 022 [email or web address] Not available 13:30:15 Xolair 150 mg/mL subcuta neous syringe 2021 022 [email or web address] [facility], [facility] [address], [address], 12:30:46 Patient TargetsNo targets recorded. Patient InstructionsNo instructions recorded. Reason for Referral None Reported. Results Created Date Observation Date Name Description Value Unit Range Abnormal Flag Note LastModifiedBy Organization Detail LastModifiedTime 11/20/19 24 11/16/2023 DEXA, axial skele ton + verte bral fract ure asses sment No observ ation record ed. [email or web address] [facility] [address], [place], [address], 11/20/2023 12:32:38 Result Notes None recorded. Problems Name Problem SNOMED Code Status Onset Date Resolution Date Notes Provider Name and Address Organization Details Recorded Time Idiopathic urticaria 67907889 Active Zohreh herrera, [place] [facility], 6 12:02:25 Benign essential hypertensi on 7402406 Active Not Available [facility] 3 03:00:21 Gastroesop hageal reflux disease 760651203 Active Not Available [facility] 3 03:00:21 Pure hyperchole sterolemia 453010893 Active Not Available [facility] 3 03:00:21 Allergic urticaria 99319396 Completed 02/06/2017 Raj lorenzana MD [facility] [address], [place], [address] , [place] [facility], 7 12:32:13 Problem Notes None recorded. Procedures Surgical History None recorded. Imaging Results Imaging Date Name Status LastModified by Organiz ation Details LastModified Time 11/16/2023 DEXA, axial skeleton + [facility] [place] [address] Rad[address] [place], [address], 11/20/2023 12:32:38 Procedure Notes None recorded. Medical [...] Updated DateTime 3 162.56 cm 41.4 kg/m2 050656. 76 g 78 /min 95 % 95 [...] Updated DateTime 4 162.56 cm 41.2 kg/m2 048859. 17 g 82 /min 98 % 98 [...] Updated DateTime 5 162.56 cm 41.2 kg/m2 065831. 17 g 66 /min 97 % 97 % 128 mm[Hg] 84 mm[Hg] Amy SAMS - [facility], 5 12:43:08 Social History Question Answer Notes LastModified by Organizat ion Details LastModified Time Tobacco Smoking Status Never Smoker Not Available [facility] 08/31/2020 03:24:58 What Is Your Level Of Alcohol Consumption? Occasional Very Rare [id number] Information not available 08/31/2020 Marital Status Single [email or web address] Informatio n not available 11/29/2012 What Was The Date Of Your Most Recent Tobacco Screening? 06/11/2023 [email or web address] Information not available 06/11/2023 Do You Use Any Illicit Or Recreational Drugs? No [email or web address] Information not available 06/11/2023 Do You Or Have You Ever Used Any Other Forms Of Tobacco Or Nicotine? No [email or web address] Information not available 06/11/2023 Sex: Unknown Functional Status None recorded. Mental Status None recorded. Family History Nothing Reported. Medical History Condition Response Diabetes N Anxiety Disorder N Coronary Artery Disease N Gout N Arthritis N Kidney Stones N Hyperthyroidism N Tuberculosis N Cancer N Diverticulitis N Stroke N Asthma N Allergies N COPD N Depression N Stress N Hypothyroidism N GERD/Reflux N High Cholesterol [...] Diagnosis Note [id number] Raj lorenzana MD OFFICE [address] [place] [address] 8 11/29/2012 12:50:56 11/29/2012 14:37:25 [id number] Raj lorenzana MD OFFICE [address] [place] [address] 8 02/03/2013 15:16:39 02/03/2013 16:26:13 [id number] Raj lorenzana MD OFFICE [address] [place] [address] 8 08/28/2015 10:37:50 08/28/2015 11:25:24 Allergic urticaria 49165839 L50.1 [id number] Raj lorenzana MD OFFICE [address] [place] [address] 8 02/22/2016 13:12:53 02/22/2016 14:32:04 Idiopathic urticaria 71419226 L50.1 [id number] Raj lorenzana MD OFFICE [address] [place] [address] 8 08/24/2016 11:39:57 08/24/2016 13:10:47 Idiopathic urticaria 06573470 L50.1 Excellent response to Xolair at 300 mg per month. Will decrease to 150 per month and see if she continues to have a good response. I will do this for another 6 months if she continues to be hive free will try discontinu ing it. [id number] Raj lorenzana MD OFFICE [address] [place] [address] [phone] 8 02/06/2017 11:59:03 02/06/2017 12:54:48 Idiopathic urticaria 46445276 L50.1 Complete control of urticaria on Xolair 150 mg once a month. We'll continue for another 6 months at which time I will try discontinu ing. [id number] Raj lorenzana MD OFFICE [address] [place] [address], [place] [address] 09/07/2017 11:57:06 09/07/2017 12:27:08 Idiopathic urticaria 70580888 L50.1 Complete resolution of urticaria on Xolair. We will try discontinu ing [id number] Raj lorenzana MD OFFICE [address] [place] [address] [id number] 8 01/11/2018 11:53:22 01/11/2018 12:44:47 Idiopathic urticaria 02653739 L50.1 [id number] Raj lorenzana MD OFFICE [address] [place] [address] [phone] 8 02/08/2018 12:18:58 02/08/2018 13:07:19 Idiopathic urticaria 19059935 L50.1 [id number] Raj lorenzana MD OFFICE [address] [place] [address] [id number] 8 03/08/2018 11:56:44 03/08/2018 13:54:45 Idiopathic urticaria 28699154 L50.1 [id number] Raj lorenzana MD OFFICE [address] [place] [address] [id number] 8 04/09/2018 10:56:37 04/09/2018 17:40:49 Idiopathic urticaria 73798635 L50.1 [id number] Raj lorenzana MD OFFICE [address] [place] [address] [id number] 8 05/07/2018 11:05:03 05/07/2018 13:05:29 Idiopathic urticaria 30640185 L50.1 [id number] Raj lorenzana MD OFFICE [address] [place] [address] [id number] 8 06/11/2018 11:02:18 06/11/2018 12:11:33 Idiopathic urticaria 95508483 L50.1 [id number] Raj lorenzana MD OFFICE [address] [place] [address] [id number] 8 07/12/2018 11:51:58 07/12/2018 14:28:45 Idiopathic urticaria 74458912 L50.1 [id number] ALIRIO Clay OFFICE [address] [place] [address] [id number] 8 08/08/2018 10:58:33 08/08/2018 16:32:09 Idiopathic urticaria 16636662 L50.1 Patient received her Xolair injection today per patient's consent. She had her Epi-Pen / Auvi-Q with her which was checked prior to administra tion. No complicati ons noted. Patient to return in one month for her next Xolair injection. [id number] Raj lorenzana MD OFFICE [address] [place] [address] [phone] 8 09/17/2018 11:34:34 09/17/2018 16:47:52 Idiopathic urticaria 86584194 L50.1 [id number] ALIRIO Clay OFFICE [address] [place] [address] [id number] 8 10/15/2018 11:34:10 10/15/2018 12:52:06 Idiopathic urticaria 24738472 L50.1 Patient received her Xolair injection today per patient's consent. She had her Epi-Pen / Auvi-Q with her which was checked prior to administra tion. No complicati ons noted. Patient to return in one month for her next Xolair injection. [id number] Raj lorenzana MD OFFICE [address] [place] [address] [phone] 8 11/12/2018 11:17:14 11/12/2018 15:11:45 Idiopathic urticaria 66923846 L50.1 Patient received her Xolair injection today per patient's consent. She had her Epi-Pen / Auvi-Q with her which was checked prior to administra tion. No complicati ons noted. Patient to return in one month for her next Xolair injection. [id number] ALIRIO Clay OFFICE [address] [place] [address] [phone] 8 12/10/2018 11:26:49 12/10/2018 13:27:22 Idiopathic urticaria 63861389 L50.1 Patient received her Xolair injection today per patient's consent. She had her Epi-Pen / Auvi-Q with her which was checked prior to administra tion. No complicati ons noted. Patient to return in one month for her next Xolair injection. [id number] ALIRIO Clay OFFICE [address] [place] [address] [id number] 8 01/02/2019 11:41:20 01/02/2019 15:36:17 Idiopathic urticaria 31548859 L50.1 Patient received her Xolair injection today per patient's consent. She had an Epi-Pen with her which was checked prior to administra tion. No complicati ons noted. Patient to return in one month for her next Xolair injection. [id number] Raj lorenzana MD OFFICE [address] [place] [address] [phone] 8 01/30/2019 12:33:48 01/30/2019 14:05:22 Idiopathic urticaria 21246817 L50.1 Patient received her Xolair injection today per patient's consent. She had an Epi-Pen with her which was checked prior to administra tion. No complicati ons noted. Patient to return in one month for her next Xolair injection. [id number] Raj lorenzana MD OFFICE [address] [place] [address] [phone] 8 03/04/2019 10:58:22 03/04/2019 12:35:19 Idiopathic urticaria 28067804 L50.1 Patient received her Xolair injection today per patient's consent. She had an Epi-Pen with her which was checked prior to administra tion. No complicati ons noted. Patient to return in one month for her next Xolair injection. [id number] Raj lorenzana MD OFFICE [address] [place] [address] [id number] 8 04/01/2019 10:41:25 04/01/2019 12:08:41 Idiopathic urticaria 53260022 L50.1 Patient received her Xolair injection today per patient's consent. She had an Epi-Pen with her which was checked prior to administra tion. No complicati ons noted. Patient to return in one month for her next Xolair injection. [id number] ALIRIO Clay OFFICE [address] [place] [address] [id number] 8 04/29/2019 10:42:31 04/29/2019 13:02:14 Idiopathic urticaria 37537820 L50.1 Patient received her Xolair injection today per patient's consent. She had an Epi-Pen with her which was checked prior to administra tion. No complicati ons noted. Patient to return in one month for her next Xolair injection. [id number] Raj lorenzana MD OFFICE [address] [place] [address] [id number] 8 06/03/2019 10:58:19 06/03/2019 11:57:23 Idiopathic urticaria 11382958 L50.1 Excellent response to Xolair. She is presently at 300 mg per month. Will attempt to drop her to 150 mg per month and see as she does. [id number] Raj lorenzana MD OFFICE [address] [place] [address] [id number] 8 07/01/2019 14:23:38 07/01/2019 15:02:28 Idiopathic urticaria 80243179 L50.1 Excellent response to Xolair. She is presently at 300 mg per month. Will attempt to drop her to 150 mg per month and see as she does. [id number] ALIRIO Clay OFFICE [address] [place] [address] [phone] 8 08/04/2019 15:47:44 08/04/2019 17:36:11 Idiopathic urticaria 90295946 L50.1 Patient received her Xolair injection today per patient's consent. She had her Epi-Pen with her which was checked prior to administra tion. No complicati ons noted. Patient to return in one month for her next Xolair injection. [id number] Raj lorenzana MD OFFICE [address] [place] [address] [phone] 8 09/02/2019 12:06:07 09/02/2019 13:08:44 Idiopathic urticaria 14754296 L50.1 Patient received her Xolair injection today per patient's consent. She had her Epi-Pen with her which was checked prior to administra tion. No complicati ons noted. Patient to return in one month for her next Xolair injection. [id number] Raj lorenzana MD OFFICE [address] [place] [address] 8 09/30/2019 11:45:07 09/30/2019 14:47:59 Idiopathic urticaria 61369768 L50.1 Patient received her Xolair injection today per patient's consent. She had her Epi-Pen with her which was checked prior to administra tion. No complicati ons noted. Patient to return in one month for her next Xolair injection. [id number] Raj lorenzana MD OFFICE [address] [place] [address] 8 11/04/2019 11:23:58 11/04/2019 12:38:12 Idiopathic urticaria 55255171 L50.1 Patient received her Xolair injection today per patient's consent. She had her Epi-Pen with her which was checked prior to administra tion. No complicati ons noted. Patient to return in one month for her next Xolair injection. [id number] Raj lorenzana MD OFFICE [address] [place] [address] 8 12/05/2019 11:16:41 12/05/2019 12:44:39 Idiopathic urticaria 35318434 L50.1 Patient received her Xolair injection today per patient's consent. She had her Epi-Pen with her which was checked prior to administra tion. No complicati ons noted. Patient to return in one month for her next Xolair injection. [id number] ALIRIO Clay OFFICE [address] [place], [place] [phone] 8 12/26/2019 11:23:39 12/26/2019 13:15:49 Idiopathic urticaria 26151303 L50.1 Patient received her Xolair injection today per patient's consent. She had her Epi-Pen with her which was checked prior to administra tion. No complicati ons noted. Patient to return in one month for her next Xolair injection. [id number] ALIRIO Clay OFFICE [address] [place] [address] [phone] 8 01/27/2020 11:29:00 01/27/2020 12:04:35 Idiopathic urticaria 20259174 L50.1 Patient received her Xolair injection today per patient's consent. She had her Epi-Pen with her which was checked prior to administra tion. No complicati ons noted. Patient to return in one month for her next Xolair injection. [id number] Raj lorenzana MD OFFICE [address] [place] [address] [phone] 8 02/24/2020 11:20:13 02/24/2020 12:18:22 Idiopathic urticaria 36441283 L50.1 Patient received her Xolair injection today per patient's consent. She had her Epi-Pen with her which was checked prior to administra tion. No complicati ons noted. Patient to return in one month for her next Xolair injection. [id number] Raj lorenzana MD OFFICE [address] [place] [address] [phone] 8 03/25/2020 11:54:14 03/25/2020 12:33:14 Idiopathic urticaria 14701370 L50.1 Patient received her Xolair injection today per patient's consent. She had her Epi-Pen with her which was checked prior to administra tion. No complicati ons noted. Patient to return in one month for her next Xolair injection. [id number] Raj lorenzana MD OFFICE [address] [place] [address] 67830-343 8 04/26/2020 14:26:23 04/26/2020 14:57:52 Idiopathic urticaria 64228096 L50.1 Patient received her Xolair injection today per patient's consent. She had her Epi-Pen with her which was checked prior to administra tion. No complicati ons noted. Patient to return in one month for her next Xolair injection. [id number] Raj lorenzana MD OFFICE [address] [place] [address] [phone] 8 05/25/2020 11:56:23 05/25/2020 12:52:16 Idiopathic urticaria 34091282 L50.1 Patient received her Xolair injection today per patient's consent. She had her Epi-Pen with her which was checked prior to administra tion. No complicati ons noted. Patient to return in one month for her next Xolair injection. [id number] Raj lorenzana MD OFFICE [address] [place] [address] [id number] 8 06/22/2020 11:24:06 06/22/2020 12:05:34 Idiopathic urticaria 03155517 L50.1 Patient received her Xolair injection today per patient's consent. She had her Epi-Pen with her which was checked prior to administra tion. No complicati ons noted. Patient to return in one month for her next Xolair injection. [id number] ALIRIO Clay OFFICE [address] [place] [address] [phone] 8 07/20/2020 13:00:27 07/20/2020 13:48:32 Idiopathic urticaria 18347866 L50.1 Patient received her Xolair injection today per patient's consent. She had her Epi-Pen with her which was checked prior to administra tion. No complicati ons noted. Patient to return in one month for her next Xolair injection. [id number] Raj lorenzana MD OFFICE [address] [place] [address] [phone] 8 08/12/2020 11:05:09 08/12/2020 12:12:18 Idiopathic urticaria 11928064 L50.1 Patient received her Xolair injection today per patient's consent. She had her Epi-Pen with her which was checked prior to administra tion. No complicati ons noted. Patient to return in one month for her next Xolair injection. [id number] Raj lorenzana MD OFFICE [address] [place] [address] [id number] 8 09/16/2020 10:58:07 09/16/2020 11:25:25 Idiopathic urticaria 62480184 L50.1 Patient received her Xolair injection today per patient's consent. She had her Epi-Pen with her which was checked prior to administra tion. No complicati ons noted. Patient to return in one month for her next Xolair injection. [id number] Raj lorenzana MD OFFICE [address] [place] [address] [id number] 8 10/14/2020 11:46:17 10/14/2020 12:20:09 Idiopathic urticaria 25263823 L50.1 Patient received her Xolair injection today per patient's consent. She had her Epi-Pen with her which was checked prior to administra tion. No complicati ons noted. Patient to return in one month for her next Xolair injection. [id number] Raj lorenzana MD OFFICE [address] [place] [address] [phone] 8 11/11/2020 14:47:37 11/12/2020 09:35:22 Idiopathic urticaria 73549499 L50.1 Patient received her Xolair injection today per patient's consent. She had her Epi-Pen with her which was checked prior to administra tion. No complicati ons noted. Patient to return in one month for her next Xolair injection. [id number] Raj lorenzana MD OFFICE [address] [place] [address] [phone] 8 12/07/2020 11:07:50 12/07/2020 12:11:22 Idiopathic urticaria 20459858 L50.1 Patient received her Xolair injection today per patient's consent. She had her Epi-Pen with her which was checked prior to administra tion. No complicati ons noted. Patient to return in one month for her next Xolair injection. [id number] Raj lorenzana MD OFFICE [address] [place] [address] [phone] 8 01/04/2021 11:06:06 01/04/2021 11:55:57 Idiopathic urticaria 91971140 L50.1 Patient received her Xolair injection today per patient's consent. She had her Epi-Pen with her which was checked prior to administra tion. No complicati ons noted. Patient to return in one month for her next Xolair injection. [id number] Raj lorenzana MD OFFICE [address] [place] [address] [phone] 8 01/31/2021 11:52:55 01/31/2021 12:27:07 Idiopathic urticaria 50719089 L50.1 Patient received her Xolair injection today per patient's consent. She had her Epi-Pen with her which was checked prior to administra tion. No complicati ons noted. Patient to return in one month for her next Xolair injection. [id number] Raj lorenzana MD OFFICE [address] [place] [address] [phone] 8 03/01/2021 11:30:49 03/01/2021 12:21:01 Idiopathic urticaria 12587236 L50.1 Patient received her Xolair injection today per patient's consent. She had her Epi-Pen with her which was checked prior to administra tion. No complicati ons noted. Patient to return in one month for her next Xolair injection. [id number] Raj lorenzana MD OFFICE [address] [place] [address] [phone] 8 03/29/2021 11:00:12 03/29/2021 14:44:02 Idiopathic urticaria 58073830 L50.1 Patient received her Xolair injection today per patient's consent. She had her Epi-Pen with her which was checked prior to administra tion. No complicati ons noted. Patient to return in one month for her next Xolair injection. [id number] Raj lorenzana MD OFFICE [address] [place] [address] [phone] 8 04/22/2021 11:23:00 04/22/2021 12:22:00 Idiopathic urticaria 26987586 L50.1 Patient received her Xolair injection today per patient's consent. She had her Epi-Pen with her which was checked prior to administra tion. No complicati ons noted. Patient to return in one month for her next Xolair injection. [id number] Raj lorenzana MD OFFICE [address] [place] [address] [id number] 8 05/26/2021 11:44:46 05/26/2021 12:21:58 Idiopathic urticaria 98430277 L50.1 Patient received her Xolair injection today per patient's consent. She had her Epi-Pen with her which was checked prior to administra tion. No complicati ons noted. Patient to return in one month for her next Xolair injection. [id number] Raj lorenzana MD OFFICE [address] [place] [address] [id number] 8 06/28/2021 11:33:54 06/28/2021 11:58:54 Idiopathic urticaria 67415015 L50.1 Patient received her Xolair injection today per patient's consent. She had her Epi-Pen with her which was checked prior to administra tion. No complicati ons noted. Patient to return in one month for her next Xolair injection. [id number] Kathleen Garcia MD OFFICE [address] [place] [address] [phone] 8 07/26/2021 11:40:07 07/26/2021 12:09:27 Idiopathic urticaria [id number] L50.1 Patient received her Xolair injection today per patient's consent. She had her Epi-Pen with her which was checked prior to administra tion. No complicati ons noted. Patient to return in one month for her next Xolair injection. [id number] Raj lorenzana MD OFFICE [address] [place] [address] [phone] 8 08/18/2021 11:30:20 08/18/2021 12:53:28 Idiopathic urticaria 96543333 L50.1 Patient received her Xolair injection today per patient's consent. She had her Epi-Pen with her which was checked prior to administra tion. No complicati ons noted. Patient to return in one month for her next Xolair injection. [id number] Raj lorenzana MD OFFICE [address] [place] [address] [id number] 8 09/15/2021 11:28:54 09/15/2021 15:22:53 Idiopathic urticaria 51574018 L50.1 Patient received her Xolair injection today per patient's consent. She had her Epi-Pen with her which was checked prior to administra tion. No complicati ons noted. Patient to return in one month for her next Xolair injection. [id number] Raj lorenzana MD OFFICE [address] [place] [address] [phone] 8 10/13/2021 11:23:30 10/13/2021 12:12:09 Idiopathic urticaria 92997516 L50.1 Patient received her Xolair injection today per patient's consent. She had her Epi-Pen with her which was checked prior to administra tion. No complicati ons noted. Patient to return in one month for her next Xolair injection. [id number] Raj lorenzana MD OFFICE [address] [place] [address] [id number] 8 11/10/2021 11:33:14 11/15/2021 17:13:15 Idiopathic urticaria [id number] L50.1 Patient received her Xolair injection today per patient's consent. She had her Epi-Pen with her which was checked prior to administra tion. No complicati ons noted. Patient to return in one month for her next Xolair injection. [id number] Raj lorenzana MD OFFICE [address] [place] [address] [id number] 8 12/13/2021 11:35:41 12/13/2021 12:28:48 Idiopathic urticaria 49807466 L50.1 Patient received her Xolair injection today per patient's consent. She had her Epi-Pen with her which was checked prior to administra tion. No complicati ons noted. Patient to return in one month for her next Xolair injection. [id number] Raj lorenzana MD OFFICE [address] [place] [address] [id number] 8 01/10/2022 11:33:33 01/10/2022 12:25:48 Idiopathic urticaria [id number] L50.1 Patient received her Xolair injection today per patient's consent. She had her Epi-Pen with her which was checked prior to administra tion. No complicati ons noted. Patient to return in one month for her next Xolair injection. She had an excellent response to the Xolair would like to continue. [id number] Raj lorenzana MD OFFICE [address] [place] [address] 8 02/07/2022 11:25:20 02/07/2022 11:50:54 Idiopathic urticaria 29133674 L50.1 [id number] Raj lorenzana MD OFFICE [address] [place] [address] 8 03/07/2022 11:22:41 03/07/2022 12:15:23 Idiopathic urticaria 24545929 L50.1 [id number] Raj lorenzana MD OFFICE [address] [place] [address] 8 04/04/2022 15:57:42 04/04/2022 16:36:37 Idiopathic urticaria 70103322 L50.1 [id number] Kathleen Garcia MD OFFICE [address] [place] [address] 8 05/02/2022 13:14:15 05/02/2022 13:59:50 Idiopathic urticaria 57506702 L50.1 [id number] Raj lorenzana MD OFFICE [address] [place] [address] 8 06/06/2022 12:02:33 06/06/2022 12:49:17 Idiopathic urticaria 83863320 L50.1 [id number] Raj lorenzana MD OFFICE [address] [place] [address] 8 07/07/2022 12:59:43 07/07/2022 13:43:13 Idiopathic urticaria 97915966 L50.1 [id number] Raj lorenzana MD OFFICE [address] [place] [address] [id number] 8 06/11/2023 11:45:23 06/11/2023 12:37:10 Idiopathic urticaria 93666138 L50.1 chronic urticaria the good response to Xolair. We will continue for 1 more year. At that time I think a trial of the drug would be warranted [id number] Raj lorenzana MD OFFICE [address] [place] [address] [phone] 06/10/2024 11:48:45 06/10/2024 12:12:50 Idiopathic urticaria [id number] L50.1 chronic urticaria the good response to Xolair. we will try to increase the interval of her Xolair to first 5 weeks for the next 3 months and then will go to 6 weeks for 3 months and then 7 weeks for 3 months. She will continue otherwise in this strategy. She has had no adverse reactions to the Xolair. [id number] Raj lorenzana MD OFFICE [address] [place] [address] [phone] 12/11/2024 12:19:47 12/11/2024 12:49:12 Idiopathic urticaria [id number] L50.1 chronic urticaria the good response to [...] 06/06/2022 1 MEDICARE B-MO: WPS Julissa Faustin [id number] Julissa Faustin 06/06/2022 2 [employer] HE[employer] OPTIONS (MEDICARE SUPPLEMENT) Julissa Dela Cruzett [id number] Julissa Faustin 07/07/2022 1 MEDICARE B-MO: WPS Julissa Boss Faustin [id number] Julissa Faustin 07/07/2022 2 [employer] HE[employer] OPTIONS (MEDICARE SUPPLEMENT) Julissa Boss Faustin [id number] Julissa Faustin 06/11/2023 1 MEDICARE B-MO: WPS Julissa Boss Faustin [id number] Julissa Faustin 06/11/2023 2 [employer] HE[employer] OPTIONS (MEDICARE SUPPLEMENT) Julissa Boss Faustin [id number] Julissa Faustin 06/10/2024 1 MEDICARE B-MO: WPS Julissa Boss Faustin [id number] Julissa Faustin 06/10/2024 2 [employer] HE[employer] OPTIONS (MEDICARE SUPPLEMENT) Julissa Boss Faustin [id number] Julissa Faustin 12/11/2024 1 MEDICARE B-MO: WPS Julissa Boss Faustin [id number] Julissa Faustin 12/11/2024 2 [employer] HE[employer] OPTIONS (MEDICARE SUPPLEMENT) Julissa Boss Faustin [id number] Julissa Faustin Notes Date Note Type Note [...] side effects. MD [address], [place], [address], [place] [facility], 06/11/2023 12:41:32 06/10/2024 text/html Julissa comes in f or follow-up of her urticaria. She continues on Xolair at 150 mg once a month and is doing extraordinarily well with absolutely no symptoms of her UAS is 0.she is not needing any auxiliary medication. There is no angioedema. MD [address], [place], [address], [place] [facility], 06/10/2024 [...] months. Raj Portillo MD [address], [place], [address], [place] [facility], 12/11/2024 13:00:27 OBGyn Episode No OBEpisode recorded.
--- OUTSIDE RECORDS SUMMARY | 2025-02-16 12:48 | XMS_ITS | Clinical Summary ---
Author Organization [facility] Address [address] [place] [address] Care Team Providers Care Spray Gun Repairer Name Role Phone Zeus Rivera MD, Brayan Boss Primary Care Provider [facility] Source Comments [facility],non-owned Affiliates and Associated Physician Practices is amultiple site organization consisting of ambulatory clinics and hospital sitesin [place], [place], [place] and [place]. This disclosure is being madepursuant to the Care Everywhere program and may not contain all information available regarding this patient. Last updated 18.[facility] [employer] Social History Tobacco Use Types Packs/Day Years Used Date Smoking Tobacco: Never Assessed Comments Unknown Sex and Gender Information Value Date Recorded Sex Assigned at Not on file Legal Sex Female 6:12 AM MANAGER OF CLINICAL Gender Identity Not on file Sexual Orientation [...] VACCINE (1 - 2023-2 5 season) 2024 DEPRESSION SCREENING 10/29/2024 INFLUENZA VACCINE (Season Ended) 2025 Respiratory Syncytial Virus (RSV) Vaccine Pt: or [...] to complete this topic MENINGOCOCCAL (Group B) VACC INE SHARED DECISION-MAKING Aged Out No longer eligibl e based on patient's age to complete this topic MENINGOCOCCAL GROUPS A/C/Y/W VACCINE Aged Out No longer eligible b ased on patient's age to complete this topic [...] CDT EXAMINATION- Digital screening mammogram on 07/20/2009. TANNING CONSULTANT- RT To, ISAURO PRIOR- 02/13/2008 FINDINGS- Computer assisted detection was utilized. The tissue density is fatty. There is no significant change since the prior mammogram. ASSESSMENT- BIRADS Category 1- Negative mammogram. RECOMMENDATION- Follow up in one year. [facility] staff will contact and schedule patients with BIRADS categories 0, 4, and 5. Reading Radiologist- BALDEMAR ALEX M.D. Releasing Radiologist- BALDEMAR ALEX M.D. Released Date Time- 07/20/09 1401 Cafe Operator- FELIX Morales BRAYAN PRUITT SR, GARRETT A SR REF- BRAYAN SCHULZ SR CON- PCPBRYAAN KAM SR SCP- Procedure Note Baldemar Alex MD - 07/20/2009 EXAMINATION- Digital screening mammogram on 07/20/2009. TANNING CONSULTANT- Megan Magdaleno RT, RM PRIOR- 02/13/2008 FINDINGS- Computer assisted detection was utilized. The tissue density is fatty. There is no significant change since the prior mammogram. ASSESSMENT- BIRADS Category 1- Negative mammogram. RECOMMENDATION- Follow up in one year. [facility] staff will contact and schedule patients with BIRADS categories 0, 4, and 5. Reading Radiologist- BALDEMAR ALEX M.D. Releasing Radiologist- BALDEMAR ALEX M.D. Released Date Time- 07/20/09 1401 Cafe Operator- FELIX Morales BRAYAN PRUITT SR, GARRETT A SR REF- BRAYAN SCHULZ SR CON- PCPBRAYAN KAM SR SCP- Brayan Schulz Sr., MD MAMMO ORDERABLES Final R esult from Last 3 Months or Most Recently Relevant to Health Maintenance Care Teams Spray Gun Repairer Relationship Specialty Start Date End Date Brayan Schulz Sr., MD PCP - General 07/19/09
--- OUTSIDE RECORDS SUMMARY | 2025-02-16 12:48 | XMS_ITS | Referral Summary ---
Author Organization [facility] [address] [place] [address] Care Team Providers Care Plate Grainer Name Role Phone Venancio Miles MD Primary Care Provider [phone] Allergies No known active allergies Medications carvediloL [...] tablet 06/14/2016Vitamin d, po solid 400 unit [id number] Medication 06/14/20 16 Active dicyclomine (BENTYL) 10 [...] on file Legal Sex Female 3:58 AM RETIREMENT PLAN COUNSELOR Gender Identity Not on file Sexual Orientation Not on file Last Filed Vital Signs Vital Sign Reading Time Taken Comments Blood Pressure 140/89 11/13/2012 8:40 AM RETIREMENT PLAN COUNSELOR Pulse 62 11/13/2012 8:40 AM RETIREMENT PLAN COUNSELOR Temperature 36.7 C (98 F) 10/13/2020 1:09 PM RETIREMENT PLAN COUNSELOR Respiratory Rate - - Oxygen Saturation - - Inhaled Oxygen Concentration - - Weight 99.8 kg (220 lb) 10/13/2020 1:09 PM RETIREMENT PLAN COUNSELOR Height 162.6 cm (5' 4 ) 10/13/2020 1:09 PM RETIREMENT PLAN COUNSELOR Body Mass Index 37.76 10/13/2020 1:09 PM RETIREMENT PLAN COUNSELOR Plan of Treatment Not on file Insurance MEDICARE [employer] Care Teams Plate Grainer Relationship Specialty Start Date End Date Venancio Miles MD [address] [place], [place] [phone] PCP - General 11/13/12
== END 2025-02-16 11:24 | disposition home or self-care (01) ==
PROVIDERS: PCP Internal Medicine
DX: L50.1 Idiopathic urticaria (principal)
CPT/HCPCS: 96372; J2357

== ENCOUNTER 2025-04-06 10:34 | Outpatient (CLI) | payer MEDICARE, SELFPAY ==
[2025-04-06 11:10] VITALS: BP 132/63; PULSE 80; RESP 16; TEMP 36.5; O2SAT 97; BMI 39.5
[2025-04-06] MEDS: OMALIZUMAB SUB-Q (11:13)
--- OUTSIDE RECORDS SUMMARY | 2025-04-06 11:53 | XMS_ITS | Referral Summary ---
Author Organization [facility] [address] Address [address] [place] [address] Care Team Providers Care Dry Color Mixer Name Role Phone Venancio Miles MD Primary Care Provider [phone] Allergies No known active allergies Medications carvediloL [...] tablet 06/14/2016Vitamin d, po solid 400 unit [id number] Medication 06/14/20 16 Active dicyclomine (BENTYL) 10 [...] on file Legal Sex Female 3:58 AM UPHOLSTERER INSIDE Gender Identity Not on file Sexual Orientation Not on file Last Filed Vital Signs Vital Sign Reading Time Taken Comments Blood Pressure 140/89 11/13/2012 8:40 AM UPHOLSTERER INSIDE Pulse 62 11/13/2012 8:40 AM UPHOLSTERER INSIDE Temperature 36.7 C (98 F) 10/13/2020 1:09 PM UPHOLSTERER INSIDE Respiratory Rate - - Oxygen Saturation - - Inhaled Oxygen Concentration - - Weight 99.8 kg (220 lb) 10/13/2020 1:09 PM UPHOLSTERER INSIDE Height 162.6 cm (5' 4) 10/13/2020 1:09 PM UPHOLSTERER INSIDE Body Mass Index 37.76 10/13/2020 1:09 PM UPHOLSTERER INSIDE Plan of Treatment Not on [place] [address] [facility] Care Teams Dry Color Mixer Relationship Specialty Start Date End Date Venancio Miles MD [address] [place], [place] [phone] PCP - General 11/13/12
--- OUTSIDE RECORDS SUMMARY | 2025-04-06 11:53 | XMS_ITS | Data Portability ---
Author Organization [place] [facility],, Anat gupta Address [address] [place] [address] Assessment No assessment recorded. Plan of Treatment Reminders Order Date Submit Date Provider Last Modified By Organization Details Last Modified Time Details Appointments None recorde d. Lab None recorde d. Referral None recorde d. Procedures None recorde d. Surgeries None recorde d. Imaging None recorde d. Medication Orders Xolair 150 mg/mL subcuta neous syringe 2022 023 [email or web address] Not available 13:08:18 Xolair 150 mg/mL subcuta neous syringe 2021 022 [email or web address] Not available 13:30:15 Xolair 150 mg/mL subcuta neous syringe 2021 022 [email or web address] [facility] [address], [id number], 12:30:46 Patient TargetsNo targets recorded. Patient InstructionsNo instructions recorded. Reason for Referral None Reported. Results Created Date Observation Date Name Description Value Unit Range Abnormal Flag Note LastModifiedBy Organization Detail LastModifiedTime 11/20/19 24 11/16/2023 DEXA, axial skele ton + verte bral fract ure asses sment No observ ation record ed. [email or web address] [facility] [address] [place], [place], [address], 11/20/2023 12:32:38 Result Notes None recorded. Problems Name Problem SNOMED Code Status Onset Date Resolution Date Notes Provider Name and Address Organization Details Recorded Time Idiopathic urticaria 35456517 Active Zohreh herrera, [place] [facility], 6 12:02:25 Benign essential hypertensi on 6000683 Active Not Available [facility] 3 03:00:21 Gastroesop hageal reflux disease 933813792 Active Not Available [facility] 3 03:00:21 Pure hyperchole sterolemia 700858069 Active Not Available [facility] 3 03:00:21 Allergic urticaria 02780155 Completed 02/06/2017 Raj lorenzana MD [address] ,[address], [place], [address] , [place] [facility], 7 12:32:13 Problem Notes None recorded. Medical Equipment None Reported. [...] Updated DateTime 5 162.56 cm 41.2 kg/m2 354172. 17 g 66 /min 97 % 97 % 128 mm[Hg] 84 mm[Hg] Amy Ernandez [place] [facility], 5 12:43:08 Date Recorded Body height Body mass index (BMI) Body weight Heart rate Oxygen saturation Oxygen saturation in Arterial blood by Pulse oximetry Respiratory rate Body temperature Systolic blood pressure Diastolic blood pressure Provider Name and Address Organization Details Last Updated DateTime 4 162.56 cm 41.2 kg/m2 128605. 17 g 82 /min 98 % 98 [...] Updated DateTime 3 162.56 cm 41.4 kg/m2 205272. 76 g 78 /min 95 % 95 % 20 /min 97 [degF] 124 mm[Hg] 82 mm[Hg] [email or web address] [email or web address] [facility], 3 12:09:05 Social History Question Answer Notes LastModified by Cupple Details LastModified Time Tobacco Smoking Status Never Smoker Not Available [facility] 08/31/2020 03:24:58 Marital Status Single [email or web address] Informatio n not available 11/29/2012 What Was The Date Of Your Most Recent Tobacco Screening? 06/11/2023 [email or web address] Information not available 06/11/2023 Sex: Unknown Functional Status Question Answer Note LastModified by Cupple Details LastModified Time Do you use any illicit or recreational drugs? No [email or web address] Information not available 06/11/2023 Do you or have you ever used any other forms of tobacco or nicotine? No [email or web address] Information not available 06/11/2023 What is your level of alcohol consumption? Occasional very rare [id number] Information not available 08/31/2020 Mental Status None recorded. Family History Nothing [...] Diagnosis Note [id number] Raj lorenzana MD OFFICE [address] [place] [address] [id number] 8 11/29/2012 12:50:56 11/29/2012 14:37:25 [id number] Raj lorenzana MD OFFICE [address] [place] [address] [id number] 8 02/03/2013 15:16:39 02/03/2013 16:26:13 [id number] Raj lorenzana MD OFFICE [address] [place] [address] [id number] 8 08/28/2015 10:37:50 08/28/2015 11:25:24 Allergic urticaria 34947155 L50.1 [id number] Raj lorenzana MD OFFICE [address] [place] [address] [id number] 8 02/22/2016 13:12:53 02/22/2016 14:32:04 Idiopathic urticaria 64936167 L50.1 [id number] Raj lorenzana MD OFFICE [address] [place] [address] 8 08/24/2016 11:39:57 08/24/2016 13:10:47 Idiopathic urticaria 70428887 L50.1 Excellent response to Xolair at 300 mg per month. Will decrease to 150 per month and see if she continues to have a good response. I will do this for another 6 months if she continues to be hive free will try discontinu ing it. [id number] Raj lorenzana MD OFFICE [address] [place] [address] [id number] 8 02/06/2017 11:59:03 02/06/2017 12:54:48 Idiopathic urticaria 22879476 L50.1 Complete control of urticaria on Xolair 150 mg once a month. We'll continue for another 6 months at which time I will try discontinu ing. [id number] Raj lorenzana MD OFFICE [address] [place] [address] 8 09/07/2017 11:57:06 09/07/2017 12:27:08 Idiopathic urticaria 73738914 L50.1 Complete resolution of urticaria on Xolair. We will try discontinu ing [id number] Raj lorenzana MD OFFICE [address] [place] [address] [id number] 8 01/11/2018 11:53:22 01/11/2018 12:44:47 Idiopathic urticaria 48914643 L50.1 [id number] Raj lorenzana MD OFFICE [address] [place] [address] [id number] 8 02/08/2018 12:18:58 02/08/2018 13:07:19 Idiopathic urticaria 56427926 L50.1 [id number] Raj lorenzana MD OFFICE [address] [place] [address] [id number] 8 03/08/2018 11:56:44 03/08/2018 13:54:45 Idiopathic urticaria 97349557 L50.1 [id number] Raj lorenzana MD OFFICE [address] [place] [address] [id number] 8 04/09/2018 10:56:37 04/09/2018 17:40:49 Idiopathic urticaria 08622537 L50.1 [id number] Raj lorenzana MD OFFICE [address] [place] [address] [id number] 8 05/07/2018 11:05:03 05/07/2018 13:05:29 Idiopathic urticaria 04072425 L50.1 [id number] Raj lorenzana MD OFFICE [address] [place] [address] [id number] 8 06/11/2018 11:02:18 06/11/2018 12:11:33 Idiopathic urticaria 32056942 L50.1 [id number] Raj lorenzana MD OFFICE [address] [place] [address] [id number] 8 07/12/2018 11:51:58 07/12/2018 14:28:45 Idiopathic urticaria 87611945 L50.1 [id number] Raj lorenzana MD OFFICE [address] [place] [address] [id number] 8 08/08/2018 10:58:33 08/08/2018 16:32:09 Idiopathic urticaria 39568794 L50.1 Patient received her Xolair injection today per patient's consent. She had her Epi-Pen / Auvi-Q with her which was checked prior to administra tion. No complicati ons noted. Patient to return in one month for her next Xolair injection. [id number] Raj lorenzana MD OFFICE [address] [place] [address] [id number] 8 09/17/2018 11:34:34 09/17/2018 16:47:52 Idiopathic urticaria 24102657 L50.1 [id number] Raj lorenzana MD OFFICE [address] [place] [address] [id number] 8 10/15/2018 11:34:10 10/15/2018 12:52:06 Idiopathic urticaria 69145704 L50.1 Patient received her Xolair injection today per patient's consent. She had her Epi-Pen / Auvi-Q with her which was checked prior to administra tion. No complicati ons noted. Patient to return in one month for her next Xolair injection. [id number] Raj lorenzana MD OFFICE [address] [place] [address] [id number] 8 11/12/2018 11:17:14 11/12/2018 15:11:45 Idiopathic urticaria 82919242 L50.1 Patient received her Xolair injection today per patient's consent. She had her Epi-Pen / Auvi-Q with her which was checked prior to administra tion. No complicati ons noted. Patient to return in one month for her next Xolair injection. [id number] Raj lorenzana MD OFFICE [address] [place] [address] [id number] 8 12/10/2018 11:26:49 12/10/2018 13:27:22 Idiopathic urticaria 17787573 L50.1 Patient received her Xolair injection today per patient's consent. She had her Epi-Pen / Auvi-Q with her which was checked prior to administra tion. No complicati ons noted. Patient to return in one month for her next Xolair injection. [id number] Raj lorenzana MD OFFICE [address] [place] [address] [id number] 8 01/02/2019 11:41:20 01/02/2019 15:36:17 Idiopathic urticaria 78463842 L50.1 Patient received her Xolair injection today per patient's consent. She had an Epi-Pen with her which was checked prior to administra tion. No complicati ons noted. Patient to return in one month for her next Xolair injection. [id number] Raj lorenzana MD OFFICE [address] [place] [address] [id number] 8 01/30/2019 12:33:48 01/30/2019 14:05:22 Idiopathic urticaria 19521559 L50.1 Patient received her Xolair injection today per patient's consent. She had an Epi-Pen with her which was checked prior to administra tion. No complicati ons noted. Patient to return in one month for her next Xolair injection. [id number] Raj lorenzana MD OFFICE [address] [place] [address] [id number] 8 03/04/2019 10:58:22 03/04/2019 12:35:19 Idiopathic urticaria 41035469 L50.1 Patient received her Xolair injection today per patient's consent. She had an Epi-Pen with her which was checked prior to administra tion. No complicati ons noted. Patient to return in one month for her next Xolair injection. [id number] Raj lorenzana MD OFFICE [address] [place] [address] [id number] 8 04/01/2019 10:41:25 04/01/2019 12:08:41 Idiopathic urticaria 48711884 L50.1 Patient received her Xolair injection today per patient's consent. She had an Epi-Pen with her which was checked prior to administra tion. No complicati ons noted. Patient to return in one month for her next Xolair injection. [id number] Raj lorenzana MD OFFICE [address] [place] [address] [id number] 8 04/29/2019 10:42:31 04/29/2019 13:02:14 Idiopathic urticaria 60952259 L50.1 Patient received her Xolair injection today per patient's consent. She had an Epi-Pen with her which was checked prior to administra tion. No complicati ons noted. Patient to return in one month for her next Xolair injection. [id number] Raj lorenzana MD OFFICE [address] [place] [address] 8 06/03/2019 10:58:19 06/03/2019 11:57:23 Idiopathic urticaria 34722336 L50.1 Excellent response to Xolair. She is presently at 300 mg per month. Will attempt to drop her to 150 mg per month and see as she does. [id number] Raj lorenzana MD OFFICE [address] [place] [address] 8 07/01/2019 14:23:38 07/01/2019 15:02:28 Idiopathic urticaria 39950288 L50.1 Excellent response to Xolair. She is presently at 300 mg per month. Will attempt to drop her to 150 mg per month and see as she does. [id number] Raj lorenzana MD OFFICE [address] [place] [address] 8 08/04/2019 15:47:44 08/04/2019 17:36:11 Idiopathic urticaria 67705116 L50.1 Patient received her Xolair injection today per patient's consent. She had her Epi-Pen with her which was checked prior to administra tion. No complicati ons noted. Patient to return in one month for her next Xolair injection. [id number] Raj lorenzana MD OFFICE [address] [place] [address] 8 09/02/2019 12:06:07 09/02/2019 13:08:44 Idiopathic urticaria 98976754 L50.1 Patient received her Xolair injection today per patient's consent. She had her Epi-Pen with her which was checked prior to administra tion. No complicati ons noted. Patient to return in one month for her next Xolair injection. [id number] Raj lorenzana MD OFFICE [address] [place] [address] [id number] 8 09/30/2019 11:45:07 09/30/2019 14:47:59 Idiopathic urticaria 37259029 L50.1 Patient received her Xolair injection today per patient's consent. She had her Epi-Pen with her which was checked prior to administra tion. No complicati ons noted. Patient to return in one month for her next Xolair injection. [id number] Raj lorenzana MD OFFICE [address] [place] [address] [id number] 8 11/04/2019 11:23:58 11/04/2019 12:38:12 Idiopathic urticaria 04888508 L50.1 Patient received her Xolair injection today per patient's consent. She had her Epi-Pen with her which was checked prior to administra tion. No complicati ons noted. Patient to return in one month for her next Xolair injection. [id number] Raj lorenzana MD OFFICE [address] [place] [address] [id number] 8 12/05/2019 11:16:41 12/05/2019 12:44:39 Idiopathic urticaria 28680201 L50.1 Patient received her Xolair injection today per patient's consent. She had her Epi-Pen with her which was checked prior to administra tion. No complicati ons noted. Patient to return in one month for her next Xolair injection. [id number] Raj lorenzana MD OFFICE [address] [place] [address] [id number] 8 12/26/2019 11:23:39 12/26/2019 13:15:49 Idiopathic urticaria [id number] L50.1 Patient received her Xolair injection today per patient's consent. She had her Epi-Pen with her which was checked prior to administra tion. No complicati ons noted. Patient to return in one month for her next Xolair injection. [id number] Raj lorenzana MD OFFICE [address] [place] [address] [id number] 8 01/27/2020 11:29:00 01/27/2020 12:04:35 Idiopathic urticaria 02225295 L50.1 Patient received her Xolair injection today per patient's consent. She had her Epi-Pen with her which was checked prior to administra tion. No complicati ons noted. Patient to return in one month for her next Xolair injection. [id number] Raj lorenzana MD OFFICE [address] [place] [address] [id number] 8 02/24/2020 11:20:13 02/24/2020 12:18:22 Idiopathic urticaria 07100270 L50.1 Patient received her Xolair injection today per patient's consent. She had her Epi-Pen with her which was checked prior to administra tion. No complicati ons noted. Patient to return in one month for her next Xolair injection. [id number] Raj lorenzana MD OFFICE [address] [place] [address] [id number] 8 03/25/2020 11:54:14 03/25/2020 12:33:14 Idiopathic urticaria 68934618 L50.1 Patient received her Xolair injection today per patient's consent. She had her Epi-Pen with her which was checked prior to administra tion. No complicati ons noted. Patient to return in one month for her next Xolair injection. [id number] Raj lorenzana MD OFFICE [address] [place] [address] [id number] 8 04/26/2020 14:26:23 04/26/2020 14:57:52 Idiopathic urticaria 53101557 L50.1 Patient received her Xolair injection today per patient's consent. She had her Epi-Pen with her which was checked prior to administra tion. No complicati ons noted. Patient to return in one month for her next Xolair injection. [id number] Raj lorenzana MD OFFICE [address] [place] [address] [id number] 8 05/25/2020 11:56:23 05/25/2020 12:52:16 Idiopathic urticaria 63846673 L50.1 Patient received her Xolair injection today per patient's consent. She had her Epi-Pen with her which was checked prior to administra tion. No complicati ons noted. Patient to return in one month for her next Xolair injection. [id number] Raj lorenzana MD OFFICE [address] [place] [address] [id number] 8 06/22/2020 11:24:06 06/22/2020 12:05:34 Idiopathic urticaria 45488827 L50.1 Patient received her Xolair injection today per patient's consent. She had her Epi-Pen with her which was checked prior to administra tion. No complicati ons noted. Patient to return in one month for her next Xolair injection. [id number] Raj lorenzana MD OFFICE [address] [place] [address] [id number] 8 07/20/2020 13:00:27 07/20/2020 13:48:32 Idiopathic urticaria 78104460 L50.1 Patient received her Xolair injection today per patient's consent. She had her Epi-Pen with her which was checked prior to administra tion. No complicati ons noted. Patient to return in one month for her next Xolair injection. [id number] Raj lorenzana MD OFFICE [address] [place] [address] [id number] 8 08/12/2020 11:05:09 08/12/2020 12:12:18 Idiopathic urticaria 46825608 L50.1 Patient received her Xolair injection today per patient's consent. She had her Epi-Pen with her which was checked prior to administra tion. No complicati ons noted. Patient to return in one month for her next Xolair injection. [id number] Raj lorenzana MD OFFICE [address] [place] [address] [id number] 8 09/16/2020 10:58:07 09/16/2020 11:25:25 Idiopathic urticaria 92371502 L50.1 Patient received her Xolair injection today per patient's consent. She had her Epi-Pen with her which was checked prior to administra tion. No complicati ons noted. Patient to return in one month for her next Xolair injection. [id number] Raj lorenzana MD OFFICE [address] [place] [address] [id number] 8 10/14/2020 11:46:17 10/14/2020 12:20:09 Idiopathic urticaria 76054402 L50.1 Patient received her Xolair injection today per patient's consent. She had her Epi-Pen with her which was checked prior to administra tion. No complicati ons noted. Patient to return in one month for her next Xolair injection. [id number] Raj lorenzana MD OFFICE [address] [place] [address] [id number] 8 11/11/2020 14:47:37 11/12/2020 09:35:22 Idiopathic urticaria 09545425 L50.1 Patient received her Xolair injection today per patient's consent. She had her Epi-Pen with her which was checked prior to administra tion. No complicati ons noted. Patient to return in one month for her next Xolair injection. [id number] Raj lorenzana MD OFFICE [address] [place] [address] [id number] 8 12/07/2020 11:07:50 12/07/2020 12:11:22 Idiopathic urticaria 09925569 L50.1 Patient received her Xolair injection today per patient's consent. She had her Epi-Pen with her which was checked prior to administra tion. No complicati ons noted. Patient to return in one month for her next Xolair injection. [id number] Raj lorenzana MD OFFICE [address] [place] [address] [id number] 8 01/04/2021 11:06:06 01/04/2021 11:55:57 Idiopathic urticaria 01546872 L50.1 Patient received her Xolair injection today per patient's consent. She had her Epi-Pen with her which was checked prior to administra tion. No complicati ons noted. Patient to return in one month for her next Xolair injection. [id number] Raj lorenzana MD OFFICE [address] [place] [address] [id number] 8 01/31/2021 11:52:55 01/31/2021 12:27:07 Idiopathic urticaria 28577200 L50.1 Patient received her Xolair injection today per patient's consent. She had her Epi-Pen with her which was checked prior to administra tion. No complicati ons noted. Patient to return in one month for her next Xolair injection. [id number] Raj lorenzana MD OFFICE [address] [place] [address] [id number] 8 03/01/2021 11:30:49 03/01/2021 12:21:01 Idiopathic urticaria 63010384 L50.1 Patient received her Xolair injection today per patient's consent. She had her Epi-Pen with her which was checked prior to administra tion. No complicati ons noted. Patient to return in one month for her next Xolair injection. [id number] Raj lorenzana MD OFFICE [address] [place] [address] [id number] 8 03/29/2021 11:00:12 03/29/2021 14:44:02 Idiopathic urticaria 03035676 L50.1 Patient received her Xolair injection today per patient's consent. She had her Epi-Pen with her which was checked prior to administra tion. No complicati ons noted. Patient to return in one month for her next Xolair injection. [id number] Raj lorenzana MD OFFICE [address] [place] [address] [id number] 8 04/22/2021 11:23:00 04/22/2021 12:22:00 Idiopathic urticaria 35731610 L50.1 Patient received her Xolair injection today per patient's consent. She had her Epi-Pen with her which was checked prior to administra tion. No complicati ons noted. Patient to return in one month for her next Xolair injection. [id number] Raj lorenzana MD OFFICE [address] [place] [address] [id number] 8 05/26/2021 11:44:46 05/26/2021 12:21:58 Idiopathic urticaria 84647907 L50.1 Patient received her Xolair injection today per patient's consent. She had her Epi-Pen with her which was checked prior to administra tion. No complicati ons noted. Patient to return in one month for her next Xolair injection. [id number] Rja lorenzana MD OFFICE [address] [place] [address] [phone] 8 06/28/2021 11:33:54 06/28/2021 11:58:54 Idiopathic urticaria 93251874 L50.1 Patient received her Xolair injection today per patient's consent. She had her Epi-Pen with her which was checked prior to administra tion. No complicati ons noted. Patient to return in one month for her next Xolair injection. [id number] Raj lorenzana MD OFFICE [address] [place] [address] [id number] 8 07/26/2021 11:40:07 07/26/2021 12:09:27 Idiopathic urticaria 33150653 L50.1 Patient received her Xolair injection today per patient's consent. She had her Epi-Pen with her which was checked prior to administra tion. No complicati ons noted. Patient to return in one month for her next Xolair injection. [id number] Raj lorenzana MD OFFICE [address] [place] [address] [id number] 8 08/18/2021 11:30:20 08/18/2021 12:53:28 Idiopathic urticaria 68127599 L50.1 Patient received her Xolair injection today per patient's consent. She had her Epi-Pen with her which was checked prior to administra tion. No complicati ons noted. Patient to return in one month for her next Xolair injection. [id number] Raj lorenzana MD OFFICE [address] [place] [address] [id number] 8 09/15/2021 11:28:54 09/15/2021 15:22:53 Idiopathic urticaria 89462653 L50.1 Patient received her Xolair injection today per patient's consent. She had her Epi-Pen with her which was checked prior to administra tion. No complicati ons noted. Patient to return in one month for her next Xolair injection. [id number] Raj lorenzana MD OFFICE [address] [place] [address] [id number] 8 10/13/2021 11:23:30 10/13/2021 12:12:09 Idiopathic urticaria 80823528 L50.1 Patient received her Xolair injection today per patient's consent. She had her Epi-Pen with her which was checked prior to administra tion. No complicati ons noted. Patient to return in one month for her next Xolair injection. [id number] Raj lorenzana MD OFFICE [address] [place] [address] [id number] 8 11/10/2021 11:33:14 11/15/2021 17:13:15 Idiopathic urticaria 19850061 L50.1 Patient received her Xolair injection today per patient's consent. She had her Epi-Pen with her which was checked prior to administra tion. No complicati ons noted. Patient to return in one month for her next Xolair injection. [id number] Raj lorenzana MD OFFICE [address] [place] [address] [id number] 8 12/13/2021 11:35:41 12/13/2021 12:28:48 Idiopathic urticaria [id number] L50.1 Patient received her Xolair injection today per patient's consent. She had her Epi-Pen with her which was checked prior to administra tion. No complicati ons noted. Patient to return in one month for her next Xolair injection. [id number] Raj lorenzana MD OFFICE [address] [place] [address] [id number] 8 01/10/2022 11:33:33 01/10/2022 12:25:48 Idiopathic urticaria [id number] L50.1 Patient received her Xolair injection today per patient's consent. She had her Epi-Pen with her which was checked prior to administra tion. No complicati ons noted. Patient to return in one month for her next Xolair injection. She had an excellent response to the Xolair would like to continue. [id number] Raj lorenzana MD OFFICE [address] [place] [address] 8 02/07/2022 11:25:20 02/07/2022 11:50:54 Idiopathic urticaria [id number] L50.1 [id number] Raj lorenzana MD OFFICE [address] [place] [address] 8 03/07/2022 11:22:41 03/07/2022 12:15:23 Idiopathic urticaria 81284825 L50.1 [id number] Raj lorenzana MD OFFICE [address] [place] [address] 8 04/04/2022 15:57:42 04/04/2022 16:36:37 Idiopathic urticaria 76382171 L50.1 [id number] Raj lorenzana MD OFFICE [address] [place] [address] 8 05/02/2022 13:14:15 05/02/2022 13:59:50 Idiopathic urticaria [id number] L50.1 [id number] Raj lorenzana MD OFFICE [address] [place] [address] 8 06/06/2022 12:02:33 06/06/2022 12:49:17 Idiopathic urticaria 80291094 L50.1 [id number] Raj lorenzana MD OFFICE [address] [place] [address] 8 07/07/2022 12:59:43 07/07/2022 13:43:13 Idiopathic urticaria 66137969 L50.1 [id number] Raj lorenzana MD OFFICE [address] [place] [address] [id number] 8 06/11/2023 11:45:23 06/11/2023 12:37:10 Idiopathic urticaria 48481834 L50.1 chronic urticaria the good response to Xolair. We will continue for 1 more year. At that time I think a trial of the drug would be warranted [id number] Raj lorenzana MD OFFICE [address] [place] [address] [id number] 8 06/10/2024 11:48:45 06/10/2024 12:12:50 Idiopathic urticaria [id number] L50.1 chronic urticaria the good response to Xolair. we will try to increase the interval of her Xolair to first 5 weeks for the next 3 months and then will go to 6 weeks for 3 months and then 7 weeks for 3 months. She will continue otherwise in this strategy. She has had no adverse reactions to the Xolair. [id number] Raj lorenzana MD OFFICE [address] [place] [id number] 8 12/11/2024 12:19:47 12/11/2024 12:49:12 Idiopathic urticaria [id number] L50.1 chronic urticaria the good response to [...] ID Guarantor Name 06/06/2022 1 MEDICARE B-MO: [facility] Julissa Boss Roxie [id number] Julissa Faustin 06/06/2022 2 AARP (MEDICARE SUPPLEMENT) Julissa Boss Roxie [id number] Julissa Faustin 07/07/2022 1 MEDICARE B-MO: [facility] Julissa Boss Roxie [id number] Julissa Faustin 07/07/2022 2 AARP (MEDICARE SUPPLEMENT) Julissa Boss Faustin [id number] Julissa Faustin 06/11/2023 1 MEDICARE B-MO: [facility] Julissa Boss Faustin [id number] Julissa Faustin 06/11/2023 2 AARP (MEDICARE SUPPLEMENT) Julissa Boss Faustin [id number] Julissa Faustin 06/10/2024 1 MEDICARE B-MO: WPS Julissa Boss Faustin [id number] Julissa Faustin 06/10/2024 2 AARP (MEDICARE SUPPLEMENT) Julissa Boss Faustin [id number] Julissa Faustin 12/11/2024 1 MEDICARE B-MO: WPS Julissa Boss Faustin [id number] Julissa Faustin 12/11/2024 2 AARP (MEDICARE SUPPLEMENT) Julissa Boss Faustin [id number] Julissa Faustin Notes Date Note Type Note [...] side effects. MD [address], [place], [address], [place] [facility], 06/11/2023 12:41:32 06/10/2024 text/html Julissa comes in f or follow-up of her urticaria. She continues on Xolair at 150 mg once a month and is doing extraordinarily well with absolutely no symptoms of her UAS is 0.she is not needing any auxiliary medication. There is no angioedema. MD [address], [place], [address], [place] [facility], 06/10/2024 [...] another's 6 months. Raj Portillo MD [address], [place], [address], [facility], 12/11/2024 13:00:27 OBGyn Episode No OBEpisode recorded.
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
--- OUTSIDE RECORDS SUMMARY | 2025-04-06 11:53 | XMS_ITS | Clinical Summary ---
Author Organization [facility] [address] [place] [address] Care Team Providers Care Internet Security Specialist Name Role Phone Venancio Miles MD Primary Care Provider [phone] Allergies No known active allergies Medications carvediloL [...] tablet 06/14/2016Vitamin d, po solid 400 unit [id number] Medication 06/14/20 16 Active dicyclomine (BENTYL) 10 [...] on file Legal Sex Female 3:58 AM POLYETHYLENE COMBINER Gender Identity Not on file Sexual Orientation Not on file Obstetrics History Last Filed Vital Signs Vital Sign Reading Time Taken Comments Blood Pressure 140/89 11/13/2012 8:40 AM POLYETHYLENE COMBINER Pulse 62 11/13/2012 8:40 AM POLYETHYLENE COMBINER Temperature 36.7 C (98 F) 10/13/2020 1:09 PM POLYETHYLENE COMBINER Respiratory Rate - - Oxygen Saturation - - Inhaled Oxygen Concentration - - Weight 99.8 kg (220 lb) 10/13/2020 1:09 PM POLYETHYLENE COMBINER Height 162.6 cm (5' 4) 10/13/2020 1:09 PM POLYETHYLENE COMBINER Body Mass Index 37.76 10/13/2020 1:09 PM POLYETHYLENE COMBINER Plan of Treatment Not on file Insurance MEDICARE AARP Care Teams Internet Security Specialist Relationship Specialty Start Date End Date Venancio Miles MD [address] [place] [address] PCP - General 11/13/12
== END 2025-04-06 10:35 | disposition home or self-care (01) ==
PROVIDERS: PCP Internal Medicine
DX: L50.1 Idiopathic urticaria (principal)
CPT/HCPCS: 96372; J2357

== ENCOUNTER 2025-05-12 11:03 | Outpatient (CLI) | payer MEDICARE, SELFPAY ==
--- OUTSIDE RECORDS SUMMARY | 2025-05-12 11:22 | XMS_ITS | Clinical Summary ---
Author Organization [facility] Address [facility] [place] [address] Care Team Providers Care Small Equipment Operator Name Role Phone Unavailable Primary Care Provider [...] patient's age to complete this topic Insurance [facility]
--- OUTSIDE RECORDS SUMMARY | 2025-05-12 11:22 | XMS_ITS | Clinical Summary ---
Author Organization [facility] [address] [place] [address] Care Team Providers Care Piece Worker Name Role Phone Venancio Miles MD Primary Care Provider [phone] Allergies No known active allergies Medications carvediloL [...] tablet 06/14/2016Vitamin d, po solid 400 unit [id number] Medication 06/14/20 16 Active dicyclomine (BENTYL) 10 [...] on file Legal Sex Female 3:58 AM DESKTOP SPECIALIST Gender Identity Not on file Sexual Orientation Not on file Obstetrics History Last Filed Vital Signs Vital Sign Reading Time Taken Comments Blood Pressure 140/89 11/13/2012 8:40 AM DESKTOP SPECIALIST Pulse 62 11/13/2012 8:40 AM DESKTOP SPECIALIST Temperature 36.7 C (98 F) 10/13/2020 1:09 PM DESKTOP SPECIALIST Respiratory Rate - - Oxygen Saturation - - Inhaled Oxygen Concentration - - Weight 99.8 kg (220 lb) 10/13/2020 1:09 PM DESKTOP SPECIALIST Height 162.6 cm (5' 4) 10/13/2020 1:09 PM DESKTOP SPECIALIST Body Mass Index 37.76 10/13/2020 1:09 PM DESKTOP SPECIALIST Plan of Treatment Not on file Insurance MEDICARE A[employer] Care Teams Piece Worker Relationship Specialty Start Date End Date Venancio Miles MD [address] [place] [address] PCP - General 11/13/12
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
--- OUTSIDE RECORDS SUMMARY | 2025-05-12 11:22 | XMS_ITS | Referral Summary ---
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 Gender Identity Not on file Sexual Orientation Not on file Last Filed Vital Signs Vital Sign Reading Time Taken Comments Blood Pressure 140/89 11/13/2012 8:40 AM COLORING MACHINE OPERATOR Pulse 62 11/13/2012 8:40 AM COLORING MACHINE OPERATOR Temperature 36.7 C (98 F) 10/13/2020 1:09 PM COLORING MACHINE OPERATOR Respiratory Rate - - Oxygen Saturation - - Inhaled Oxygen Concentration - - Weight 99.8 kg (220 lb) 10/13/2020 1:09 PM COLORING MACHINE OPERATOR Height 162.6 cm (5' 4) 10/13/2020 1:09 PM COLORING MACHINE OPERATOR Body Mass Index 37.76 10/13/2020 1:09 PM COLORING MACHINE OPERATOR Plan of Treatment Not on file Insurance MEDICARE [facility] Care Teams Tin Flipper Relationship Specialty Start Date End Date Venancio Miles MD [address] [place], [place] [id number] PCP - General 11/13/12
--- OUTSIDE RECORDS SUMMARY | 2025-05-12 11:23 | XMS_ITS | Data Portability ---
Author Organization [place] [facility],, Anat gupta Address [address] [place] [address] Assessment No assessment recorded. Plan of Treatment Reminders Order Date Submit Date Provider Last Modified By Organization Details Last Modified Time Details Appointments None recorde d. Lab None recorde d. Referral None recorde d. Procedures None recorde d. Surgeries None recorde d. Imaging None recorde d. Medication Orders Xolair 150 mg/mL subcuta neous syringe 2022 023 [email or web address] Not available 3 13:08:18 Xolair 150 mg/mL subcuta neous syringe 2021 022 [email or web address] Not available 13:30:15 Xolair 150 mg/mL subcuta neous syringe 2021 022 [email or web address] [facility], [facility] [address], [id number], 12:30:46 Patient TargetsNo targets recorded. Patient InstructionsNo instructions recorded. Reason for Referral None Reported. Results Created Date Observation Date Name Description Value Unit Range Abnormal Flag Note LastModifiedBy Organization Detail LastModifiedTime 11/20/19 24 11/16/2023 DEXA, axial skele ton + verte bral fract ure asses sment No observ ation record ed. [email or web address] [facility] [address] [facility], [place], [address], 11/20/2023 12:32:38 Result Notes None recorded. Problems Name Problem SNOMED Code Status Onset Date Resolution Date Notes Provider Name and Address Organization Details Recorded Time Idiopathic urticaria 70564234 Active Zohreh herrera, [place] [facility], 6 12:02:25 Benign essential hypertensi on 1035752 Active Not Available [facility] 3 03:00:21 Gastroesop hageal reflux disease 299249639 Active Not Available [facility] 3 03:00:21 Pure hyperchole sterolemia 121919682 Active Not Available [facility] 3 03:00:21 Allergic urticaria 70872430 Completed 02/06/2017 Raj lorenzana MD [address], [place], [address] , [place] [facility], [...] in Arterial blood by Pulse oximetry Systolic And Diastolic Provider Name and Address Organization Details Last Updated DateTime 5 162.56 cm 41.2 kg/m2 919551. 17 g 66 /min 97 % 97 % 128/84 mm[Hg] Amy Ernandez [place] [facility], 5 12:43:08 Date Recorded Body height Body mass index (BMI) Body weight Heart rate Oxygen saturation Oxygen saturation in Arterial blood by Pulse oximetry Respiratory rate Body temperature Systolic And Diastolic Provider Name and Address Organization Details Last Updated DateTime 4 162.56 cm 41.2 kg/m2 901299. 17 g 82 /min 98 % 98 % 18 /min 97 [degF] 132/74 mm[Hg] Khushi Li [place] [facility], 4 12:02:34 Date Recorded Body height Body mass index (BMI) Body weight Heart rate Oxygen saturation Oxygen saturation in Arterial blood by Pulse oximetry Respiratory rate Body temperature Systolic And Diastolic Provider Name and Address Organization Details Last Updated DateTime 3 162.56 cm 41.4 kg/m2 825213. 76 g 78 /min 95 % 95 % 20 /min 97 [degF] 124/82 mm[Hg] kirill [facility], 3 12:09:05 Social History Question Answer Notes LastModified by [employer] Details LastModified Time Tobacco Smoking Status Never Smoker Not Available [email or web address] 08/31/2020 03:24:58 Marital Status Single [email or web address] [employer] n not available 11/29/2012 What Was The Date Of Your Most Recent Tobacco Screening? 06/11/2023 [email or web address] Information not available 06/11/2023 Sex: Unknown Functional Status Question Answer Note LastModified by [employer] Details LastModified Time Do you use any illicit or recreational drugs? No [email or web address] Information not available 06/11/2023 Do you or have you ever used any other forms of tobacco or nicotine? No Information not available 06/11/2023 What is your level of alcohol consumption? Occasional very rare [id number] Information not available 08/31/2020 Mental Status None [...] Diagnosis Note [id number] Raj lorenzana MD OFFICE [address] [place] [address] [phone] 8 11/29/2012 12:50:56 11/29/2012 14:37:25 [id number] Raj lorenzana MD OFFICE [address] [place] [address] [id number] 8 02/03/2013 15:16:39 02/03/2013 16:26:13 [id number] Raj lorenzana MD OFFICE [address] [place] [address] [id number] 8 08/28/2015 10:37:50 08/28/2015 11:25:24 Allergic urticaria 64892353 L50.1 [id number] Raj lorenzana MD OFFICE [address] [place] [address] [id number] 8 02/22/2016 13:12:53 02/22/2016 14:32:04 Idiopathic urticaria 57806377 L50.1 [id number] Raj lorenzana MD OFFICE [address] [place] [address] [id number] 8 08/24/2016 11:39:57 08/24/2016 13:10:47 Idiopathic urticaria 18882645 L50.1 Excellent response to Xolair at 300 mg per month. Will decrease to 150 per month and see if she continues to have a good response. I will do this for another 6 months if she continues to be hive free will try discontinu ing it. [id number] Raj lorenzana MD OFFICE [address] [place] [address] [id number] 8 02/06/2017 11:59:03 02/06/2017 12:54:48 Idiopathic urticaria 24318673 L50.1 Complete control of urticaria on Xolair 150 mg once a month. We'll continue for another 6 months at which time I will try discontinu ing. [id number] Raj lorenzana MD OFFICE [address] [place] [address] [id number] 8 09/07/2017 11:57:06 09/07/2017 12:27:08 Idiopathic urticaria 53262226 L50.1 Complete resolution of urticaria on Xolair. We will try discontinu ing [id number] Raj lorenzana MD OFFICE [address] [place] [address] [id number] 8 01/11/2018 11:53:22 01/11/2018 12:44:47 Idiopathic urticaria 18166209 L50.1 [id number] Raj lorenzana MD OFFICE [address] [place] [address] [id number] 8 02/08/2018 12:18:58 02/08/2018 13:07:19 Idiopathic urticaria 66103758 L50.1 [id number] Raj lorenzana MD OFFICE [address] [place] [address] [id number] 8 03/08/2018 11:56:44 03/08/2018 13:54:45 Idiopathic urticaria 29461467 L50.1 [id number] Raj lorenzana MD OFFICE [address] [place] [address] [id number] 8 04/09/2018 10:56:37 04/09/2018 17:40:49 Idiopathic urticaria 75767567 L50.1 [id number] Raj lorenzana MD OFFICE [address] [place] [address] [id number] 8 05/07/2018 11:05:03 05/07/2018 13:05:29 Idiopathic urticaria 05205199 L50.1 [id number] Raj lorenzana MD OFFICE [address] [place] [address] [id number] 8 06/11/2018 11:02:18 06/11/2018 12:11:33 Idiopathic urticaria 25825732 L50.1 [id number] Raj lorenzana MD OFFICE [address] [place] [address] [id number] 8 07/12/2018 11:51:58 07/12/2018 14:28:45 Idiopathic urticaria 02972874 L50.1 [id number] Raj lorenzana MD OFFICE [address] [place] [address] [id number] 8 08/08/2018 10:58:33 08/08/2018 16:32:09 Idiopathic urticaria 28217601 L50.1 Patient received her Xolair injection today per patient's consent. She had her Epi-Pen / Auvi-Q with her which was checked prior to administra tion. No complicati ons noted. Patient to return in one month for her next Xolair injection. [id number] Raj lorenzana MD OFFICE [address] [place] [address] [id number] 8 09/17/2018 11:34:34 09/17/2018 16:47:52 Idiopathic urticaria 02429190 L50.1 [id number] Raj lorenzana MD OFFICE [address] [place] [address] [id number] 8 10/15/2018 11:34:10 10/15/2018 12:52:06 Idiopathic urticaria 22321779 L50.1 Patient received her Xolair injection today per patient's consent. She had her Epi-Pen / Auvi-Q with her which was checked prior to administra tion. No complicati ons noted. Patient to return in one month for her next Xolair injection. [id number] Raj lorenzana MD OFFICE [address] [place] [address] [id number] 8 11/12/2018 11:17:14 11/12/2018 15:11:45 Idiopathic urticaria 16762729 L50.1 Patient received her Xolair injection today per patient's consent. She had her Epi-Pen / Auvi-Q with her which was checked prior to administra tion. No complicati ons noted. Patient to return in one month for her next Xolair injection. [id number] Raj lorenzana MD OFFICE [address] [place] [address] [id number] 8 12/10/2018 11:26:49 12/10/2018 13:27:22 Idiopathic urticaria 05427525 L50.1 Patient received her Xolair injection today per patient's consent. She had her Epi-Pen / Auvi-Q with her which was checked prior to administra tion. No complicati ons noted. Patient to return in one month for her next Xolair injection. [id number] Raj lorenzana MD OFFICE [address] [place] [address] [id number] 8 01/02/2019 11:41:20 01/02/2019 15:36:17 Idiopathic urticaria 38963114 L50.1 Patient received her Xolair injection today per patient's consent. She had an Epi-Pen with her which was checked prior to administra tion. No complicati ons noted. Patient to return in one month for her next Xolair injection. [id number] Raj lorenzana MD OFFICE [address] [place] [address] [id number] 8 01/30/2019 12:33:48 01/30/2019 14:05:22 Idiopathic urticaria 86421012 L50.1 Patient received her Xolair injection today per patient's consent. She had an Epi-Pen with her which was checked prior to administra tion. No complicati ons noted. Patient to return in one month for her next Xolair injection. [id number] Raj lorenzana MD OFFICE [address] [place] [address] [id number] 8 03/04/2019 10:58:22 03/04/2019 12:35:19 Idiopathic urticaria 87255103 L50.1 Patient received her Xolair injection today per patient's consent. She had an Epi-Pen with her which was checked prior to administra tion. No complicati ons noted. Patient to return in one month for her next Xolair injection. [id number] Raj lorenzana MD OFFICE [address] [place] [address] [phone] 8 04/01/2019 10:41:25 04/01/2019 12:08:41 Idiopathic urticaria [id number] L50.1 Patient received her Xolair injection today per patient's consent. She had an Epi-Pen with her which was checked prior to administra tion. No complicati ons noted. Patient to return in one month for her next Xolair injection. [id number] Raj lorenzana MD OFFICE [address] [place] [address] [id number] 8 04/29/2019 10:42:31 04/29/2019 13:02:14 Idiopathic urticaria 65389007 L50.1 Patient received her Xolair injection today per patient's consent. She had an Epi-Pen with her which was checked prior to administra tion. No complicati ons noted. Patient to return in one month for her next Xolair injection. [id number] Raj lorenzana MD OFFICE [address] [place] [address] [phone] 8 06/03/2019 10:58:19 06/03/2019 11:57:23 Idiopathic urticaria 10294907 L50.1 Excellent response to Xolair. She is presently at 300 mg per month. Will attempt to drop her to 150 mg per month and see as she does. [id number] Raj lorenzana MD OFFICE [address] [place] [address] 8 07/01/2019 14:23:38 07/01/2019 15:02:28 Idiopathic urticaria 36138723 L50.1 Excellent response to Xolair. She is presently at 300 mg per month. Will attempt to drop her to 150 mg per month and see as she does. [id number] Raj lorenzana MD OFFICE [address] [place] [address] 8 08/04/2019 15:47:44 08/04/2019 17:36:11 Idiopathic urticaria [id number] L50.1 Patient received her Xolair injection today per patient's consent. She had her Epi-Pen with her which was checked prior to administra tion. No complicati ons noted. Patient to return in one month for her next Xolair injection. [id number] Raj lorenzana MD OFFICE [address] [place] [address] [id number] 8 09/02/2019 12:06:07 09/02/2019 13:08:44 Idiopathic urticaria [id number] L50.1 Patient received her Xolair injection today per patient's consent. She had her Epi-Pen with her which was checked prior to administra tion. No complicati ons noted. Patient to return in one month for her next Xolair injection. [id number] Raj lorenzana MD OFFICE [address] [place] [address] [phone] 8 09/30/2019 11:45:07 09/30/2019 14:47:59 Idiopathic urticaria [id number] L50.1 Patient received her Xolair injection today per patient's consent. She had her Epi-Pen with her which was checked prior to administra tion. No complicati ons noted. Patient to return in one month for her next Xolair injection. [id number] Raj lorenzana MD OFFICE [address] [place] [address] [id number] 8 11/04/2019 11:23:58 11/04/2019 12:38:12 Idiopathic urticaria [id number] L50.1 Patient received her Xolair injection today per patient's consent. She had her Epi-Pen with her which was checked prior to administra tion. No complicati ons noted. Patient to return in one month for her next Xolair injection. [id number] Raj lorenzana MD OFFICE [address] [place] [address] [id number] 8 12/05/2019 11:16:41 12/05/2019 12:44:39 Idiopathic urticaria [id number] L50.1 Patient received her Xolair injection today per patient's consent. She had her Epi-Pen with her which was checked prior to administra tion. No complicati ons noted. Patient to return in one month for her next Xolair injection. [id number] Raj lorenzana MD OFFICE [address] [place] [address] [id number] 8 12/26/2019 11:23:39 12/26/2019 13:15:49 Idiopathic urticaria [id number] L50.1 Patient received her Xolair injection today per patient's consent. She had her Epi-Pen with her which was checked prior to administra tion. No complicati ons noted. Patient to return in one month for her next Xolair injection. [id number] Raj lorenzana MD OFFICE [address] [place] [address] [id number] 8 01/27/2020 11:29:00 01/27/2020 12:04:35 Idiopathic urticaria [id number] L50.1 Patient received her Xolair injection today per patient's consent. She had her Epi-Pen with her which was checked prior to administra tion. No complicati ons noted. Patient to return in one month for her next Xolair injection. [id number] Raj lorenzana MD OFFICE [address] [place] [address] [phone] 8 02/24/2020 11:20:13 02/24/2020 12:18:22 Idiopathic urticaria 91761402 L50.1 Patient received her Xolair injection today per patient's consent. She had her Epi-Pen with her which was checked prior to administra tion. No complicati ons noted. Patient to return in one month for her next Xolair injection. [id number] Raj lorenzana MD OFFICE [address] [place] [address] [id number] 8 03/25/2020 11:54:14 03/25/2020 12:33:14 Idiopathic urticaria 54784543 L50.1 Patient received her Xolair injection today per patient's consent. She had her Epi-Pen with her which was checked prior to administra tion. No complicati ons noted. Patient to return in one month for her next Xolair injection. [id number] Raj lorenzana MD OFFICE [address] [place] [address] [id number] 8 04/26/2020 14:26:23 04/26/2020 14:57:52 Idiopathic urticaria 49631615 L50.1 Patient received her Xolair injection today per patient's consent. She had her Epi-Pen with her which was checked prior to administra tion. No complicati ons noted. Patient to return in one month for her next Xolair injection. [id number] Raj lorenzana MD OFFICE [address] [place] [address] [id number] 8 05/25/2020 11:56:23 05/25/2020 12:52:16 Idiopathic urticaria 76015857 L50.1 Patient received her Xolair injection today per patient's consent. She had her Epi-Pen with her which was checked prior to administra tion. No complicati ons noted. Patient to return in one month for her next Xolair injection. [id number] Raj lorenzana MD OFFICE [address] [place] [address] [id number] 8 06/22/2020 11:24:06 06/22/2020 12:05:34 Idiopathic urticaria [id number] L50.1 Patient received her Xolair injection today per patient's consent. She had her Epi-Pen with her which was checked prior to administra tion. No complicati ons noted. Patient to return in one month for her next Xolair injection. [id number] Raj lorenzana MD OFFICE [address] [place] [address] [id number] 8 07/20/2020 13:00:27 07/20/2020 13:48:32 Idiopathic urticaria [id number] L50.1 Patient received her Xolair injection today per patient's consent. She had her Epi-Pen with her which was checked prior to administra tion. No complicati ons noted. Patient to return in one month for her next Xolair injection. [id number] Raj lorenzana MD OFFICE [address] [place] [address] [id number] 8 08/12/2020 11:05:09 08/12/2020 12:12:18 Idiopathic urticaria [id number] L50.1 Patient received her Xolair injection today per patient's consent. She had her Epi-Pen with her which was checked prior to administra tion. No complicati ons noted. Patient to return in one month for her next Xolair injection. [id number] Raj lorenzana MD OFFICE [address] [place] [address] [phone] 8 09/16/2020 10:58:07 09/16/2020 11:25:25 Idiopathic urticaria [id number] L50.1 Patient received her Xolair injection today per patient's consent. She had her Epi-Pen with her which was checked prior to administra tion. No complicati ons noted. Patient to return in one month for her next Xolair injection. [id number] Raj lorenzana MD OFFICE [address] [place] [address] [id number] 8 10/14/2020 11:46:17 10/14/2020 12:20:09 Idiopathic urticaria [id number] L50.1 Patient received her Xolair injection today per patient's consent. She had her Epi-Pen with her which was checked prior to administra tion. No complicati ons noted. Patient to return in one month for her next Xolair injection. [id number] Raj lorenzana MD OFFICE [address] [place] [address] [id number] 8 11/11/2020 14:47:37 11/12/2020 09:35:22 Idiopathic urticaria 64233436 L50.1 Patient received her Xolair injection today per patient's consent. She had her Epi-Pen with her which was checked prior to administra tion. No complicati ons noted. Patient to return in one month for her next Xolair injection. [id number] Raj lorenzana MD OFFICE [address] [place] [address] [id number] 8 12/07/2020 11:07:50 12/07/2020 12:11:22 Idiopathic urticaria 77575386 L50.1 Patient received her Xolair injection today per patient's consent. She had her Epi-Pen with her which was checked prior to administra tion. No complicati ons noted. Patient to return in one month for her next Xolair injection. [id number] Raj lorenzana MD OFFICE [address] [place] [address] [id number] 8 01/04/2021 11:06:06 01/04/2021 11:55:57 Idiopathic urticaria 04288215 L50.1 Patient received her Xolair injection today per patient's consent. She had her Epi-Pen with her which was checked prior to administra tion. No complicati ons noted. Patient to return in one month for her next Xolair injection. [id number] Raj lorenzana MD OFFICE [address] [place] [address] [phone] 8 01/31/2021 11:52:55 01/31/2021 12:27:07 Idiopathic urticaria [id number] L50.1 Patient received her Xolair injection today per patient's consent. She had her Epi-Pen with her which was checked prior to administra tion. No complicati ons noted. Patient to return in one month for her next Xolair injection. [id number] Raj lorenzana MD OFFICE [address] [place] [address] [phone] 8 03/01/2021 11:30:49 03/01/2021 12:21:01 Idiopathic urticaria [id number] L50.1 Patient received her Xolair injection today per patient's consent. She had her Epi-Pen with her which was checked prior to administra tion. No complicati ons noted. Patient to return in one month for her next Xolair injection. [id number] Raj lorenzana MD OFFICE [address] [place] [address] [id number] 8 03/29/2021 11:00:12 03/29/2021 14:44:02 Idiopathic urticaria [id number] L50.1 Patient received her Xolair injection today per patient's consent. She had her Epi-Pen with her which was checked prior to administra tion. No complicati ons noted. Patient to return in one month for her next Xolair injection. [id number] Raj lorenzana MD OFFICE [address] [place] [address] [id number] 8 04/22/2021 11:23:00 04/22/2021 12:22:00 Idiopathic urticaria [id number] L50.1 Patient received her Xolair injection today per patient's consent. She had her Epi-Pen with her which was checked prior to administra tion. No complicati ons noted. Patient to return in one month for her next Xolair injection. [id number] Raj lorenzana MD OFFICE [address] [place] [address] [phone] 8 05/26/2021 11:44:46 05/26/2021 12:21:58 Idiopathic urticaria [id number] L50.1 Patient received her Xolair injection today per patient's consent. She had her Epi-Pen with her which was checked prior to administra tion. No complicati ons noted. Patient to return in one month for her next Xolair injection. [id number] Raj lorenzana MD OFFICE [address] [place] [address] [phone] 8 06/28/2021 11:33:54 06/28/2021 11:58:54 Idiopathic urticaria [id number] L50.1 Patient received her Xolair injection today per patient's consent. She had her Epi-Pen with her which was checked prior to administra tion. No complicati ons noted. Patient to return in one month for her next Xolair injection. [id number] Raj lorenzana MD OFFICE [address] [place] [address] [phone] 8 07/26/2021 11:40:07 07/26/2021 12:09:27 Idiopathic urticaria [id number] L50.1 Patient received her Xolair injection today per patient's consent. She had her Epi-Pen with her which was checked prior to administra tion. No complicati ons noted. Patient to return in one month for her next Xolair injection. [id number] Raj lorenzana MD OFFICE [address] [place] [address] [id number] 8 08/18/2021 11:30:20 08/18/2021 12:53:28 Idiopathic urticaria [id number] L50.1 Patient received her Xolair injection today per patient's consent. She had her Epi-Pen with her which was checked prior to administra tion. No complicati ons noted. Patient to return in one month for her next Xolair injection. [id number] Raj lorenzana MD OFFICE [address] [place] [address] [id number] 8 09/15/2021 11:28:54 09/15/2021 15:22:53 Idiopathic urticaria [id number] L50.1 Patient received her Xolair injection today per patient's consent. She had her Epi-Pen with her which was checked prior to administra tion. No complicati ons noted. Patient to return in one month for her next Xolair injection. [id number] Raj lorenzana MD OFFICE [address] [place] [address] [phone] 8 10/13/2021 11:23:30 10/13/2021 12:12:09 Idiopathic urticaria [id number] L50.1 Patient received her Xolair injection today per patient's consent. She had her Epi-Pen with her which was checked prior to administra tion. No complicati ons noted. Patient to return in one month for her next Xolair injection. [id number] Raj lorenzana MD OFFICE [address] [place] [address] [phone] 8 11/10/2021 11:33:14 11/15/2021 17:13:15 Idiopathic urticaria [id number] L50.1 Patient received her Xolair injection today per patient's consent. She had her Epi-Pen with her which was checked prior to administra tion. No complicati ons noted. Patient to return in one month for her next Xolair injection. [id number] Raj lorenzana MD OFFICE [address] [place] [address] [phone] 8 12/13/2021 11:35:41 12/13/2021 12:28:48 Idiopathic urticaria [id number] L50.1 Patient received her Xolair injection today per patient's consent. She had her Epi-Pen with her which was checked prior to administra tion. No complicati ons noted. Patient to return in one month for her next Xolair injection. [id number] Raj lorenzana MD OFFICE [address] [place] [address] [phone] 8 01/10/2022 11:33:33 01/10/2022 12:25:48 Idiopathic urticaria [id number] L50.1 Patient received her Xolair injection today per patient's consent. She had her Epi-Pen with her which was checked prior to administra tion. No complicati ons noted. Patient to return in one month for her next Xolair injection. She had an excellent response to the Xolair would like to continue. [id number] Raj lorenzana MD OFFICE [address] [place] [address] 8 02/07/2022 11:25:20 02/07/2022 11:50:54 Idiopathic urticaria [id number] L50.1 [id number] Raj lorenzana MD OFFICE [address] [place] [address] 8 03/07/2022 11:22:41 03/07/2022 12:15:23 Idiopathic urticaria [id number] L50.1 [id number] Raj lorenzana MD OFFICE [address] [place] [address] 8 04/04/2022 15:57:42 04/04/2022 16:36:37 Idiopathic urticaria [id number] L50.1 [id number] Raj lorenzana MD OFFICE [address] [place] [place] [address] 8 05/02/2022 13:14:15 05/02/2022 13:59:50 Idiopathic urticaria [id number] L50.1 [id number] Raj lorenzana MD OFFICE [address] [address] 8 06/06/2022 12:02:33 06/06/2022 12:49:17 Idiopathic urticaria [id number] L50.1 [id number] Raj lorenzana MD OFFICE [address] [place] [address] 8 07/07/2022 12:59:43 07/07/2022 13:43:13 Idiopathic urticaria [id number] L50.1 [id number] Raj lorenzana MD OFFICE [address] [place] [address] 8 06/11/2023 11:45:23 06/11/2023 12:37:10 Idiopathic urticaria [id number] L50.1 chronic urticaria the good response to Xolair. We will continue for 1 more year. At that time I think a trial of the drug would be warranted [id number] Raj lorenzana MD OFFICE [address] [place] [id number] 06/10/2024 11:48:45 06/10/2024 12:12:50 Idiopathic urticaria [id number] L50.1 chronic urticaria the good response to Xolair. we will try to increase the interval of her Xolair to first 5 weeks for the next 3 months and then will go to 6 weeks for 3 months and then 7 weeks for 3 months. She will continue otherwise in this strategy. She has had no adverse reactions to the Xolair. [id number] Raj lorenzana MD OFFICE [address] [place] [id number] 12/11/2024 12:19:47 12/11/2024 12:49:12 Idiopathic urticaria [id number] L50.1 chronic urticaria the good response to [...] Recorded Advance Directives Directive None Recorded Payers Insurance Date Sequence Insurance Name Policy Number Policy Recio Covered Member ID Recio Member ID Guarantor Name 12/08/2024 1 [place] Julissa Boss Roxie [id number] Julissa Roxie 01/10/2017 1 [place] [id number] Julissa Roxie [id number] Julissa Roxie 12/15/2024 2 AARP (MEDICARE SUPPLEMENT) Julissalena Faustin [id number] Julissa Faustin 02/24/2020 2 [employer]IC[employer] - [id number] (MEDICARE SUPPLEMENT) Julissa Faustin [id number] Julissa Faustin Notes Date Note Type Note [...] side effects. MD [address], [place], [address], [place] [facility], 06/11/2023 12:41:32 06/10/2024 text/html Julissa comes in f or follow-up of her urticaria. She continues on Xolair at 150 mg once a month and is doing extraordinarily well with absolutely no symptoms of her UAS is 0.she is not needing any auxiliary medication. There is no angioedema. 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 She continues to do great she is now getting 150 mg every 6 weeks and has had absolutely no hives. Will transition to 7 weeks soon and will see her back in another's 6 months. MD [address], [place], [address], [place] [facility], 12/11/2024 13:00:27 OBGyn Episode No OBEpisode recorded.
[2025-05-12 11:27] VITALS: BP 136/71; PULSE 88; RESP 16; TEMP 36.6; O2SAT 97; BMI 39.2
== END 2025-05-12 11:04 | disposition home or self-care (01) ==
PROVIDERS: PCP Internal Medicine
DX: L50.1 Idiopathic urticaria (principal)
CPT/HCPCS: 96372; J2357

== ENCOUNTER 2025-06-16 08:08 | Outpatient (CLI) | payer MEDICARE, SELFPAY ==
[2025-06-16 08:56] LABS: Hematocrit 42.6 % (35.0-42.0); Hemoglobin 13.9 g/dL (11.7-13.8); Mean Corpuscular HGB Conc 32.6 g/dL (32-36); Mean Corpuscular Hemoglobin 30.7 pg (27.0-31.0); Mean Corpuscular Volume 94.0 fL (78.0-102.0); Platelet Count Result 182 K/mm3 (150-420); Red Blood Count 4.53 M/mm3 (4.20-5.40); White Blood Count 9.1 K/mm3 (4.8-10.8)
[2025-06-16 09:14] LABS: Hemoglobin A1C 5.8 % (<5.7)
[2025-06-16 09:27] LABS: Alanine Aminotransferase 24 U/L (6-35); Albumin Level 4.2 g/dL (3.5-5.1); Alkaline Phosphatase 59 U/L (38-126); Anion Gap 7 mmol/L (4-12); Aspartate Amino Transferase 23 U/L (14-36); Bilirubin,Total 1.1 mg/dL (0.2-1.3); Blood Urea Nitrogen 14 mg/dL (7-17); Calcium 9.4 mg/dL (8.4-10.2); Carbon Dioxide 28 mmol/L (22-30); Chloride 104 mmol/L (98-107); Cholesterol 171 mg/dL (0-200); Creatine Kinase 23 U/L (30-135); Estimated Glomerular Filt Rate 54; Glucose 114 mg/dL (65-110); HDL Direct 45 mg/dL; Osmolality Calculated 289 mOsm/kg (285-295); Potassium 4.4 mmol/L (3.4-5.0); Sodium 139 mmol/L (137-145); Total Protein 6.5 g/dL (6.3-8.2); Triglycerides 288 mg/dL (<150)
[2025-06-16 09:43] LABS: Free T4 Free Thyroxine 1.20 ng/dL (0.78-2.19)
[2025-06-16 09:44] LABS: Free T3 3.74 pg/mL (2.18-3.98)
[2025-06-16 09:57] LABS: Thyroid Stimulating Hormone 1.660 uIU/mL (0.465-4.680)
[2025-06-16 10:16] LABS: Vitamin B12 > 1000.0 pg/mL (239-931)
[2025-06-16 13:04] LABS: Add Urine Microscopic? YES; Appearance Urine Clear (Clear); Glucose Urine UA Negative (Negative); Leukocyte Esterase Ur 1+ (Negative); Nitrate Urine Negative (Negative); Specific Grav Ur <= 1.005 (1.010-1.020)
== END 2025-06-16 08:09 | disposition home or self-care (01) ==
LOC: CHSLAB 08:11
PROVIDERS: PCP Internal Medicine; Visit Provider Internal Medicine
DX: I10 Essential (primary) hypertension (principal); E78.2 Mixed hyperlipidemia; R06.09 Other forms of dyspnea; D68.59 Other primary thrombophilia; E53.8 Deficiency of other specified B group vitamins; R73.01 Impaired fasting glucose
CPT/HCPCS: 36415; 80053; 80061; 81001; 82550; 82607; 83036; 84439; 84443; 84481; 85027

== ENCOUNTER 2025-06-30 10:59 | Outpatient (CLI) | payer MEDICARE, SELFPAY ==
[2025-06-30 11:20] VITALS: BP 140/79; PULSE 72; RESP 14; TEMP 36.5; O2SAT 98
--- OUTSIDE RECORDS SUMMARY | 2025-06-30 11:36 | XMS_ITS | Clinical Summary ---
Author Organization [facility] Address [address] [place] [address] Care Team Providers Care Optical Instrument Inspector Name Role Phone Zeus Rivera MD, Brayan Boss Primary [facility] Source Comments [facility],non-owned Affiliates and Associated Physician Practices is amultiple site organization consisting of ambulatory clinics and hospital sitesin [place], [place], [place] and [place]. This disclosure is being madepursuant to the Care Everywhere program and may not contain all information available regarding this patient. Last updated 18.[facility] [employer] 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 SENIOR CONSULTING MANAGER- RT To, ISAURO PRIOR- 02/13/2008 FINDINGS- Computer assisted detection was utilized. The tissue density is fatty. There is no significant change since the prior mammogram. ASSESSMENT- BIRADS Category 1- Negative mammogram. RECOMMENDATION- Follow up in one year. [facility] staff will contact and schedule patients with BIRADS categories 0, 4, and 5. Reading Radiologist- BALDEMAR ALEX M.D. Releasing Radiologist- BALDEMAR ALEX M.D. Released Date Time- 07/20/09 1401 Market Risk Specialist- FELIX Morales BRAYAN PRUITT SR, GARRETT A SR REF- BRAYAN SCHULZ SR CON- PCPBRAYAN KAM SR SCP- Procedure Note Baldemar Alex MD - 07/20/2009 EXAMINATION- Digital screening mammogram on 07/20/2009. SENIOR CONSULTING MANAGER- Megan Magdaleno RT, RM PRIOR- 02/13/2008 FINDINGS- Computer assisted detection was utilized. The tissue density is fatty. There is no significant change since the prior mammogram. ASSESSMENT- BIRADS Category 1- Negative mammogram. RECOMMENDATION- Follow up in one year. [facility] staff will contact and schedule patients with BIRADS categories 0, 4, and 5. Reading Radiologist- BALDEMAR ALEX M.D. Releasing Radiologist- BALDEMAR ALEX M.D. Released Date Time- 07/20/09 1401 Market Risk Specialist- FELIX Morales BRAYAN PRUITT SR, GARRETT A SR REF- BRAYAN SCHULZ SR CON- PCPBRAYAN KAM SR SCP- Brayan Schulz Sr., MD MAMMO ORDERABLES Final R esult from Last 3 Months or Most Recently Relevant to Health Maintenance Care Teams Optical Instrument Inspector Relationship Specialty Start Date End Date Brayan Schulz Sr., MD PCP - General 07/19/09
--- OUTSIDE RECORDS SUMMARY | 2025-06-30 11:36 | XMS_ITS | Clinical Summary ---
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 Gender Identity Not on file Sexual Orientation Not on file Obstetrics History Last Filed Vital Signs Vital Sign Reading Time Taken Comments Blood Pressure 140/89 11/13/2012 8:40 AM MANAGER BODY Pulse 62 11/13/2012 8:40 AM MANAGER BODY Temperature 36.7 C (98 F) 10/13/2020 1:09 PM MANAGER BODY Respiratory Rate - - Oxygen Saturation - - Inhaled Oxygen Concentration - - Weight 99.8 kg (220 lb) 10/13/2020 1:09 PM MANAGER BODY Height 162.6 cm (5' 4) 10/13/2020 1:09 PM MANAGER BODY Body Mass Index 37.76 10/13/2020 1:09 PM MANAGER BODY Plan of Treatment Not on file Insurance MEDICARE AARP Care Teams Plant Superintendent Relationship Specialty Start Date End Date Venancio Miles MD [address] [place] [address] PCP - General 11/13/12
--- OUTSIDE RECORDS SUMMARY | 2025-06-30 11:36 | XMS_ITS | Clinical Summary ---
Author Organization [facility] Address [facility] [place] [address] Care Team Providers Care Dust Brush Assembler Name Role Phone Unavailable Primary Care [...] patient's age to complete this topic Insurance [facility]
== END 2025-06-30 11:00 | disposition home or self-care (01) ==
PROVIDERS: PCP Internal Medicine
DX: L50.1 Idiopathic urticaria (principal)
CPT/HCPCS: 96372; J2357

== ENCOUNTER 2025-08-07 11:04 | Outpatient (CLI) | payer MEDICARE, SELFPAY ==
[2025-08-07 11:23] VITALS: BMI 39.2
[2025-08-07 11:42] VITALS: BP 130/80; PULSE 80; RESP 14; TEMP 36.6; O2SAT 97
== END 2025-08-07 11:05 | disposition home or self-care (01) ==
PROVIDERS: PCP Internal Medicine
DX: L50.1 Idiopathic urticaria (principal)
CPT/HCPCS: 96372; J2357

== ENCOUNTER 2025-09-21 12:23 | Outpatient (CLI) | payer MEDICARE, SELFPAY ==
[2025-09-21 12:38] VITALS: BP 124/70; PULSE 72; RESP 14; TEMP 36.6; O2SAT 98; BMI 39.2
--- OUTSIDE RECORDS SUMMARY | 2025-09-21 14:15 | XMS_ITS | Clinical Summary ---
Author Organization [facility] Address [address] [place] [address] Care Team Providers Care Sluice Tender Name Role Phone Zeus Rivera MD, Brayan Boss Primary Care Provider [facility] Source Comments [facility],non-owned Affiliates and Associated Physician Practices is amultiple site organization consisting of ambulatory clinics and hospital sitesin [place], [place], [place] and [place]. This disclosure is being madepursuant to the Care Everywhere program and may not contain all information available regarding this patient. Last updated 18.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 WET POUR MIXER- RT To, ISAURO PRIOR- 02/13/2008 FINDINGS- Computer assisted detection was utilized. The tissue density is fatty. There is no significant change since the prior mammogram. ASSESSMENT- BIRADS Category 1- Negative mammogram. RECOMMENDATION- Follow up in one year. [facility] staff will contact and schedule patients with BIRADS categories 0, 4, and 5. Reading Radiologist- BALDEMAR ALEX M.D. Releasing Radiologist- BALDEMAR ALEX M.D. Released Date Time- 07/20/09 1401 Body Trimmer Upholsterer- FELIX Morales BRAYAN PRUITT SR, GARRETT A SR REF- BRAYAN SCHULZ SR CON- PCPBRAYAN KAM SR SCP- Procedure Note Baldemar Alex MD - 07/20/2009 EXAMINATION- Digital screening mammogram on 07/20/2009. WET POUR MIXER- Megan Magdaleno RT, RM PRIOR- 02/13/2008 FINDINGS- Computer assisted detection was utilized. The tissue density is fatty. There is no significant change since the prior mammogram. ASSESSMENT- BIRADS Category 1- Negative mammogram. RECOMMENDATION- Follow up in one year. [facility] staff will contact and schedule patients with BIRADS categories 0, 4, and 5. Reading Radiologist- BALDEMAR ALEX M.D. Releasing Radiologist- BALDEMAR ALEX M.D. Released Date Time- 07/20/09 1401 Body Trimmer Upholsterer- FELIX Morales BRAYAN PRUITT SR, GARRETT A SR REF- BRAYAN SCHULZ SR CON- PCPBRAYAN KAM SR SCP- Brayan Schulz Sr., MD MAMMO ORDERABLES Final R esult from Last 3 Months or Most Recently Relevant to Health Maintenance Care Teams Sluice Tender Relationship Specialty Start Date End Date Brayan Schulz Sr., MD PCP - General 07/19/09
--- OUTSIDE RECORDS SUMMARY | 2025-09-21 14:15 | XMS_ITS | Clinical Summary ---
Author Organization [facility] Address [facility] [place] [address] Care Team Providers Care Development Specialist Name Role Phone Unavailable Primary Care Provider [...] Scan (General) 02/16/2016 COVID-19 Vaccine ( - 2024-2 6 season) 2025 Influenza Adult (#1) 2025 RSV Immunization or 60+ Years (1 - 1-dose 75+ series) 2026 Hepatitis A Vaccines Aged Out No long er eligible based on patient's age to complete this topic Meningococcal B Vaccine Aged Out No l [...]
--- OUTSIDE RECORDS SUMMARY | 2025-09-21 14:15 | XMS_ITS | Data Portability ---
Author Organization [place] [facility],, Anat gupta Address [address] [place] [address] Assessment No assessment recorded. Plan of Treatment Reminders Order Date Submit Date Provider Last Modified By Organization Details Last Modified Time Details Appointments None recorde d. Lab None recorde d. Referral None recorde d. Procedures None recorde d. Surgeries None recorde d. Imaging None recorde d. Medication Orders Xolair 150 mg/mL subcuta neous syringe 2022 023 [email or web address] Not available 3 13:08:18 Xolair 150 mg/mL subcuta neous syringe 2021 022 [email or web address] Not available 13:30:15 Patient TargetsNo targets recorded. Patient Instructions Encounter Date Encounter Id Patient Instructions Last Modified By Organization Details Last Modified Time 07/28/2025 [id number] spirometry testing* Not avai lable 07/28/2025 13:30:16 Side effects of inhaled corticosteroids were reviewed with emphasis placed on oral candidiasis and dysphonia. Rinsing the mouth after utilization should decrease the incidence of oral candidiasis significantly. Sometimes use of the spacer may improve symptoms of dysphonia. The most common side effects of nasal steroids is nasal bleeding. This almost always occurs from the nasal septum. This can be avoided by directing the nasal spray straight up or slightly laterally. If bleeding does occur the nasal steroid should be discontinued until bleeding stops. The nasal spray can then be restarted, but if bleeding reoccurs It needs to be discontinued. Not available 07/28/2025 14:54:25 Reason for Referral None Reported. Results Created Date Observation Date Name Description Value Unit Range Abnormal Flag Note LastModifiedBy Organization Detail LastModifiedTime 07/28/20 25 07/28/2025 myron metry testi ng* fev1 83 Not Available [facility] [address], [place], [address], 07/28/2025 12:27:58 07/28/20 25 07/28/2025 myron metry testi ng* fvc 73 Not Available [facility] [address], [place], [address], 07/28/2025 12:27:58 07/28/20 25 07/28/2025 myron metry testi ng* % reversibilit y Not Available [facility] [address], [place], [address], 07/28/2025 12:27:58 11/20/19 24 11/16/2023 DEXA, axial skele ton + verte bral fract ure asses sment No observ ation record ed. [email or web address] [facility] [address], [place], [address], 11/20/2023 12:32:38 07/28/20 myron metry testi ng* No observ ation record ed. Not Available 07/28 12:46:35 Result Notes None recorded. Problems Name Problem SNOMED Code Status Onset Date Resolution Date Notes Provider Name and Address Organization Details Recorded Time Idiopathic urticaria 02245882 Active FLAQUITA [facility] - [facility], 6 12:02:25 Benign essential hypertensi on 4867286 Active Not Available [facility] 3 03:00:21 Gastroesop hageal reflux disease 238507463 Active Not Available [facility] 3 03:00:21 Pure hyperchole sterolemia 620011873 Active Not Available [facility] 3 03:00:21 Allergic urticaria 08372192 Completed 02/06/2017 Raj lorenzana MD [address], [place], [address] , [place] [facility], 7 12:32:13 Uncomplica lottie moderate persistent asthma 080874942 Active [address], [place], [address] , [place] [facility], 14:45:13 Allergic rhinitis 60783213 Active [address], [place], [address] , [place] [facility], 14:45:30 Problem Notes None recorded. Medical Equipment None Reported. Allergies No known drug allergies Medications Name Sig Start Date Stop Date Status Note LastModified by Organization Details LastModified Time celecoxib 200 mg capsule 08/24 completed Not Available Not Available Not Available amoxicillin 500 mg capsule 02/06 completed Not Available Not Available Not Available fluconazole 100 mg tablet 07/28 completed Not Available Not Available Not Available prednisone 10 mg tablet active Not Available Not Available Not Available carvedilol 12.5 mg tablet active Not Available Not Available Not Available ropinirole 1 mg tablet active Not Available Not Available Not Available azithromyci n 250 mg tablet 07/28 completed Not Available Not Available Not Available tizanidine 4 mg tablet 07/28 completed Not Available Not Available Not Available fluconazole 150 mg tablet 07/28 completed Not Available Not Available Not Available doxepin [...] Not Available ciprofloxac in 500 mg tablet 07/28 completed Not Available Not Available Not Available tramadol 50 mg tablet 07/28 completed Not Available Not Available Not Available nystatin-tr iamcinolone 100,000 unit/gram-0 .1 % [...] pantoprazol e 40 mg tablet,louie yed release 07/28 completed Not Available Not Available Not Available esomeprazol e magnesium 40 mg capsule,del ayed release active Not Available Not Available Not Available warfarin 2 mg tablet 08/24 completed Not Available Not Available Not Available montelukast 10 mg tablet 08/24 completed Not Available Not Available Not Available pravastatin 20 mg tablet active Not Available Not Available Not Available acyclovir 200 mg capsule 07/28 completed Not Available Not Available Not Available mupirocin 2 % topical ointment 07/28 completed Not Available Not Available Not Available warfarin 1 mg tablet 08/24 completed Not Available Not Available Not Available epinephrine 0.3 mg/0.3 mL injection, auto-inject or Take 1 auto as needed by injection route as directed. active Not Available Not Available No t Available levofloxaci n 500 mg tablet 07/28 completed Not Available Not Available Not Available methylpredn isolone 4 mg tablets in a dose pack 07/28 completed Not Available Not Available Not Available albuterol sulfate HFA 90 mcg/actuati on aerosol inhaler active Not Available Not Available Not Available fluticasone propionate 50 mcg/actuati on nasal spray,suspe nsion active Not Available Not Available Not Available doxycycline hyclate 100 mg tablet 07/28 completed Not Available Not Available Not Available dicyclomine 10 mg capsule 07/28 completed Not Available Not Available Not Available spironolact one 50 mg tablet active Not Available Not Available Not Available amoxicillin 875 mg-potassiu m clavulanate 125 mg tablet active Not Available Not Available Not Available esomeprazol e magnesium 20 mg capsule,del ayed release 07/28 completed Not Available Not Available Not Available enoxaparin 30 mg/0.3 mL subcutaneou s syringe 08/24 completed Not Available Not Available Not Available enoxaparin 100 mg/mL subcutaneou s syringe active Not Available Not Available No t Available Xolair 150 mg subcutaneou s solution Inject 300 mg by subcutane ous route. 07/28 completed Not Available Not Available Not Available solifenacin 10 mg tablet 07/28 completed Not Available Not Available Not Available Vesicare [...] Available Myrbetriq 50 mg tablet,exte nded release 07/28 completed Not Available Not Available Not Available Eliquis 5 mg tablet 07/28 completed Not Available Not Available Not Available Linzess 72 mcg capsule PLEASE SEE ATTACHED FOR DETAILED DIRECTION S 07/28 completed Not Available Not Available Not Available Xolair 150 mg/mL subcutaneou s syringe Inject 150 mg every month by subcutane ous route for 28 days. 2024 active Not Available Not Available Not Avai lable Paxlovid 300 mg (150 mg x 2)-100 mg tablets in a dose pack TAKE 3 TABLETS BY MOUTH TWICE A DAY FOR 5 DAYS (STOP VESICARE AND HALF DOSE ELIQUIS WHILE ON) 06/11 completed Not Available Not Available Not Available Vitals Date Recorded Body height Body mass index (BMI) Body weight Heart rate Oxygen saturation Systolic And Diastolic Provider Name and Address Organization Details Last Updated DateTime 5 162.56 cm 41.2 kg/m2 837011. 17 g 66 /min 97 % 128/84 mm[Hg] Amy SAMS - [facility], 5 12:43:08 Date Recorded Body height Body mass index (BMI) Body weight Heart rate Oxygen saturation Respiratory rate Body temperature Systolic And Diastolic Provider Name and Address Organization Details Last Updated DateTime 4 162.56 cm 41.2 kg/m2 722855. 17 g 82 /min 98 % 18 /min 97 [degF] 132/74 mm[Hg] Khushi Li [place] [facility], 4 12:02:34 Date Recorded Body height Body mass index (BMI) Body weight Heart rate Oxygen saturation Respiratory rate Body temperature Systolic And Diastolic Provider Name and Address Organization Details Last Updated DateTime 3 162.56 cm 41.4 kg/m2 804052. 76 g 78 /min 95 % 20 /min 97 [degF] 124/82 mm[Hg] kirill nevarez [place] [facility], 3 12:09:05 Date Recorded Body height Heart rate Oxygen saturation Respiratory rate Body temperature Systolic And Diastolic Provider Name and Address Organization Details Last Updated DateTime 5 162.56 cm 61 /min 97 % 18 /min 97 [degF] 130/76 mm[Hg] Khushi SAMS - [facility], 5 11:54:54 Social History Question Answer Notes LastModified by [employer] Central Details LastModified Time Tobacco Smoking Status Never Smoker Not [facility] 08/31/2020 03:24:58 Do You Have An Advance Directive? Yes Information not available 07/28/2025 Marital Status Single [email or web address] Informat[employer] n not available 11/29/2012 What Was The Date Of Your Most Recent Tobacco Screening? 07/28/2025 Information not available 07/28/2025 Sex: Unknown Functional Status Question Answer Note LastModified by [employer] Details LastModified Time Do you use any illicit or recreational drugs? No [email or web address] Information not available 06/11/2023 Do you or have you ever used any other forms of tobacco or nicotine? No [email or web address] Information not available 06/11/2023 What is your level of alcohol consumption? Occasional very rare [id number] Information not available 08/31/2020 Mental Status None recorded. Family History Nothing Reported. Medical History Condition Response Diabetes N Anxiety Disorder N Coronary Artery Disease N Gout N Arthritis N Kidney Stones N Hyperthyroidism N Tuberculosis N Cancer N Diverticulitis N Stroke N Asthma Y Allergies Y COPD N Depression N Stress N Hypothyroidism N GERD/Reflux Y High Cholesterol Y Liver Disease N Heart Disease N Pulmonary Embolism N Fibromyalgia N Hypertension Y Osteoporosis N Kidney Disease N Gynecological HistoryNo gynecological history recorded. Obstetrics History GPAL:G 0 P 0 0 0 0 Past Encounters Encounter ID Performer Location Encounter Start Date Encounter Closed Date Diagnosis/Indication Diagnosis SNOMED-CT Code Diagnosis ICD10 Code Diagnosis IMO Codes Diagnosis Note [id number] Raj lorenzana MD OFFICE [address] [place] [address] 8 11/29/2012 12:50:56 11/29/2012 14:37:25 [id number] Raj lorenzana MD OFFICE [address] [place] [address] 8 02/03/2013 15:16:39 02/03/2013 16:26:13 [id number] Raj lorenzana MD OFFICE [address] [place] [address] 8 08/28/2015 10:37:50 08/28/2015 11:25:24 Allergic urticaria 31854917 L50.1 [id number] Raj lorenzana MD OFFICE [address] [place] [address] 8 02/22/2016 13:12:53 02/22/2016 14:32:04 Idiopathic urticaria 26780774 L50.1 [id number] Raj lorenzana MD OFFICE [address] [place] [address] 8 08/24/2016 11:39:57 08/24/2016 13:10:47 Idiopathic urticaria 45508448 L50.1 Excellent response to Xolair at 300 mg per month. Will decrease to 150 per month and see if she continues to have a good response. I will do this for another 6 months if she continues to be hive free will try discontinu ing it. [id number] Raj lorenzana MD OFFICE [address] [place] [address] [id number] 8 02/06/2017 11:59:03 02/06/2017 12:54:48 Idiopathic urticaria 33777177 L50.1 Complete control of urticaria on Xolair 150 mg once a month. We'll continue for another 6 months at which time I will try discontinu ing. [id number] Raj lorenzana MD OFFICE [address] [place] [address] [id number] 8 09/07/2017 11:57:06 09/07/2017 12:27:08 Idiopathic urticaria 44116084 L50.1 Complete resolution of urticaria on Xolair. We will try discontinu ing [id number] Raj lorenzana MD OFFICE [address] [place] [address] [id number] 8 01/11/2018 11:53:22 01/11/2018 12:44:47 Idiopathic urticaria 27556884 L50.1 [id number] Raj lorenzana MD OFFICE [address] [place] [address] [id number] 8 02/08/2018 12:18:58 02/08/2018 13:07:19 Idiopathic urticaria 69467324 L50.1 [id number] Raj lorenzana MD OFFICE [address] [place] [address] [id number] 8 03/08/2018 11:56:44 03/08/2018 13:54:45 Idiopathic urticaria 74339475 L50.1 [id number] Raj lorenzana MD OFFICE [address] [place] [address] [id number] 8 04/09/2018 10:56:37 04/09/2018 17:40:49 Idiopathic urticaria 74433360 L50.1 [id number] Raj lorenzana MD OFFICE [address] [place] [address] [id number] 8 05/07/2018 11:05:03 05/07/2018 13:05:29 Idiopathic urticaria 39950080 L50.1 [id number] Raj lorenzana MD OFFICE [address] [place] [address] [id number] 8 06/11/2018 11:02:18 06/11/2018 12:11:33 Idiopathic urticaria 37070859 L50.1 [id number] Raj lorenzana MD OFFICE [address] [place] [address] [id number] 8 07/12/2018 11:51:58 07/12/2018 14:28:45 Idiopathic urticaria 45749440 L50.1 [id number] Raj lorenzana MD OFFICE [address] [place] [address] [id number] 8 08/08/2018 10:58:33 08/08/2018 16:32:09 Idiopathic urticaria 58992341 L50.1 Patient received her Xolair injection today per patient's consent. She had her Epi-Pen / Auvi-Q with her which was checked prior to administra tion. No complicati ons noted. Patient to return in one month for her next Xolair injection. [id number] Raj lorenzana MD OFFICE [address] [place] [address] [id number] 8 09/17/2018 11:34:34 09/17/2018 16:47:52 Idiopathic urticaria 28695705 L50.1 [id number] Raj lorenzana MD OFFICE [address] [place] [address] [id number] 8 10/15/2018 11:34:10 10/15/2018 12:52:06 Idiopathic urticaria 63630228 L50.1 Patient received her Xolair injection today per patient's consent. She had her Epi-Pen / Auvi-Q with her which was checked prior to administra tion. No complicati ons noted. Patient to return in one month for her next Xolair injection. [id number] Raj lorenzana MD OFFICE [address] [place] [address] [id number] 8 11/12/2018 11:17:14 11/12/2018 15:11:45 Idiopathic urticaria 79370944 L50.1 Patient received her Xolair injection today per patient's consent. She had her Epi-Pen / Auvi-Q with her which was checked prior to administra tion. No complicati ons noted. Patient to return in one month for her next Xolair injection. [id number] Raj lorenzana MD OFFICE [address] [place] [address] [id number] 8 12/10/2018 11:26:49 12/10/2018 13:27:22 Idiopathic urticaria 81027640 L50.1 Patient received her Xolair injection today per patient's consent. She had her Epi-Pen / Auvi-Q with her which was checked prior to administra tion. No complicati ons noted. Patient to return in one month for her next Xolair injection. [id number] Raj lorenzana MD OFFICE [address] [place] [address] [id number] 8 01/02/2019 11:41:20 01/02/2019 15:36:17 Idiopathic urticaria 70903271 L50.1 Patient received her Xolair injection today per patient's consent. She had an Epi-Pen with her which was checked prior to administra tion. No complicati ons noted. Patient to return in one month for her next Xolair injection. [id number] Raj lorenzana MD OFFICE [address] [place] [address] [id number] 8 01/30/2019 12:33:48 01/30/2019 14:05:22 Idiopathic urticaria 08279530 L50.1 Patient received her Xolair injection today per patient's consent. She had an Epi-Pen with her which was checked prior to administra tion. No complicati ons noted. Patient to return in one month for her next Xolair injection. [id number] Raj lorenzana MD OFFICE [address] [place] [address] [id number] 8 03/04/2019 10:58:22 03/04/2019 12:35:19 Idiopathic urticaria 28657116 L50.1 Patient received her Xolair injection today per patient's consent. She had an Epi-Pen with her which was checked prior to administra tion. No complicati ons noted. Patient to return in one month for her next Xolair injection. [id number] Raj lorenzana MD OFFICE [address] [place] [address] [id number] 8 04/01/2019 10:41:25 04/01/2019 12:08:41 Idiopathic urticaria 60521673 L50.1 Patient received her Xolair injection today per patient's consent. She had an Epi-Pen with her which was checked prior to administra tion. No complicati ons noted. Patient to return in one month for her next Xolair injection. [id number] Raj lorenzana MD OFFICE [address] [place] [address] [id number] 8 04/29/2019 10:42:31 04/29/2019 13:02:14 Idiopathic urticaria 60444494 L50.1 Patient received her Xolair injection today per patient's consent. She had an Epi-Pen with her which was checked prior to administra tion. No complicati ons noted. Patient to return in one month for her next Xolair injection. [id number] Raj lorenzana MD OFFICE [address] [place] [address] [id number] 8 06/03/2019 10:58:19 06/03/2019 11:57:23 Idiopathic urticaria 39822780 L50.1 Excellent response to Xolair. She is presently at 300 mg per month. Will attempt to drop her to 150 mg per month and see as she does. [id number] Raj lorenzana MD OFFICE [address] [place] [address] [id number] 8 07/01/2019 14:23:38 07/01/2019 15:02:28 Idiopathic urticaria 73123675 L50.1 Excellent response to Xolair. She is presently at 300 mg per month. Will attempt to drop her to 150 mg per month and see as she does. [id number] Raj lorenzana MD OFFICE [address] [place] [address] [id number] 8 08/04/2019 15:47:44 08/04/2019 17:36:11 Idiopathic urticaria 44238882 L50.1 Patient received her Xolair injection today per patient's consent. She had her Epi-Pen with her which was checked prior to administra tion. No complicati ons noted. Patient to return in one month for her next Xolair injection. [id number] Raj lorenzana MD OFFICE [address] [place] [address] [id number] 8 09/02/2019 12:06:07 09/02/2019 13:08:44 Idiopathic urticaria 67312186 L50.1 Patient received her Xolair injection today per patient's consent. She had her Epi-Pen with her which was checked prior to administra tion. No complicati ons noted. Patient to return in one month for her next Xolair injection. [id number] Raj lorenzana MD OFFICE [address] [place] [address] [id number] 8 09/30/2019 11:45:07 09/30/2019 14:47:59 Idiopathic urticaria 48405407 L50.1 Patient received her Xolair injection today per patient's consent. She had her Epi-Pen with her which was checked prior to administra tion. No complicati ons noted. Patient to return in one month for her next Xolair injection. [id number] Raj lorenzana MD OFFICE [address] [place] [address] [id number] 8 11/04/2019 11:23:58 11/04/2019 12:38:12 Idiopathic urticaria 92608203 L50.1 Patient received her Xolair injection today per patient's consent. She had her Epi-Pen with her which was checked prior to administra tion. No complicati ons noted. Patient to return in one month for her next Xolair injection. [id number] Raj lorenzana MD OFFICE [address] [place] [address] [id number] 8 12/05/2019 11:16:41 12/05/2019 12:44:39 Idiopathic urticaria 89293454 L50.1 Patient received her Xolair injection today per patient's consent. She had her Epi-Pen with her which was checked prior to administra tion. No complicati ons noted. Patient to return in one month for her next Xolair injection. [id number] Raj lorenzana MD OFFICE [address] [place] [address] [id number] 8 12/26/2019 11:23:39 12/26/2019 13:15:49 Idiopathic urticaria [id number] L50.1 Patient received her Xolair injection today per patient's consent. She had her Epi-Pen with her which was checked prior to administra tion. No complicati ons noted. Patient to return in one month for her next Xolair injection. [id number] Raj lorenzana MD OFFICE [address] [place] [address] [id number] 8 01/27/2020 11:29:00 01/27/2020 12:04:35 Idiopathic urticaria 93140492 L50.1 Patient received her Xolair injection today per patient's consent. She had her Epi-Pen with her which was checked prior to administra tion. No complicati ons noted. Patient to return in one month for her next Xolair injection. [id number] Raj lorenzana MD OFFICE [address] [place] [address] [id number] 8 02/24/2020 11:20:13 02/24/2020 12:18:22 Idiopathic urticaria 60598715 L50.1 Patient received her Xolair injection today per patient's consent. She had her Epi-Pen with her which was checked prior to administra tion. No complicati ons noted. Patient to return in one month for her next Xolair injection. [id number] Raj lorenzana MD OFFICE [address] [place] [address] [id number] 8 03/25/2020 11:54:14 03/25/2020 12:33:14 Idiopathic urticaria [id number] L50.1 Patient received her Xolair injection today per patient's consent. She had her Epi-Pen with her which was checked prior to administra tion. No complicati ons noted. Patient to return in one month for her next Xolair injection. [id number] Raj lorenzana MD OFFICE [address] [place] [address] [id number] 8 04/26/2020 14:26:23 04/26/2020 14:57:52 Idiopathic urticaria 20417553 L50.1 Patient received her Xolair injection today per patient's consent. She had her Epi-Pen with her which was checked prior to administra tion. No complicati ons noted. Patient to return in one month for her next Xolair injection. [id number] Raj lorenzana MD OFFICE [address] [place] [address] [id number] 8 05/25/2020 11:56:23 05/25/2020 12:52:16 Idiopathic urticaria 48390499 L50.1 Patient received her Xolair injection today per patient's consent. She had her Epi-Pen with her which was checked prior to administra tion. No complicati ons noted. Patient to return in one month for her next Xolair injection. [id number] Raj lorenzana MD OFFICE [address] [place] [address] [id number] 8 06/22/2020 11:24:06 06/22/2020 12:05:34 Idiopathic urticaria [id number] L50.1 Patient received her Xolair injection today per patient's consent. She had her Epi-Pen with her which was checked prior to administra tion. No complicati ons noted. Patient to return in one month for her next Xolair injection. [id number] Raj lorenzana MD OFFICE [address] [place] [address] [id number] 8 07/20/2020 13:00:27 07/20/2020 13:48:32 Idiopathic urticaria [id number] L50.1 Patient received her Xolair injection today per patient's consent. She had her Epi-Pen with her which was checked prior to administra tion. No complicati ons noted. Patient to return in one month for her next Xolair injection. [id number] Raj lorenzana MD OFFICE [address] [place] [address] [id number] 8 08/12/2020 11:05:09 08/12/2020 12:12:18 Idiopathic urticaria [id number] L50.1 Patient received her Xolair injection today per patient's consent. She had her Epi-Pen with her which was checked prior to administra tion. No complicati ons noted. Patient to return in one month for her next Xolair injection. [id number] Raj lorenzana MD OFFICE [address] [place] [address] [id number] 8 09/16/2020 10:58:07 09/16/2020 11:25:25 Idiopathic urticaria [id number] L50.1 Patient received her Xolair injection today per patient's consent. She had her Epi-Pen with her which was checked prior to administra tion. No complicati ons noted. Patient to return in one month for her next Xolair injection. [id number] Raj lorenzana MD OFFICE [address] [place] [address] [id number] 8 10/14/2020 11:46:17 10/14/2020 12:20:09 Idiopathic urticaria [id number] L50.1 Patient received her Xolair injection today per patient's consent. She had her Epi-Pen with her which was checked prior to administra tion. No complicati ons noted. Patient to return in one month for her next Xolair injection. [id number] Raj lorenzana MD OFFICE [address] [place] [address] [id number] 8 11/11/2020 14:47:37 11/12/2020 09:35:22 Idiopathic urticaria [id number] L50.1 Patient received her Xolair injection today per patient's consent. She had her Epi-Pen with her which was checked prior to administra tion. No complicati ons noted. Patient to return in one month for her next Xolair injection. [id number] Raj lorenzana MD OFFICE [address] [place] [address] [id number] 8 12/07/2020 11:07:50 12/07/2020 12:11:22 Idiopathic urticaria [id number] L50.1 Patient received her Xolair injection today per patient's consent. She had her Epi-Pen with her which was checked prior to administra tion. No complicati ons noted. Patient to return in one month for her next Xolair injection. [id number] Raj lorenzana MD OFFICE [address] [place] [address] [phone] 8 01/04/2021 11:06:06 01/04/2021 11:55:57 Idiopathic urticaria [id number] L50.1 Patient received her Xolair injection today per patient's consent. She had her Epi-Pen with her which was checked prior to administra tion. No complicati ons noted. Patient to return in one month for her next Xolair injection. [id number] Raj lorenzana MD OFFICE [address] [place] [address] [phone] 8 01/31/2021 11:52:55 01/31/2021 12:27:07 Idiopathic urticaria [id number] L50.1 Patient received her Xolair injection today per patient's consent. She had her Epi-Pen with her which was checked prior to administra tion. No complicati ons noted. Patient to return in one month for her next Xolair injection. [id number] Raj lorenzana MD OFFICE [address] [place] [address] [phone] 8 03/01/2021 11:30:49 03/01/2021 12:21:01 Idiopathic urticaria [id number] L50.1 Patient received her Xolair injection today per patient's consent. She had her Epi-Pen with her which was checked prior to administra tion. No complicati ons noted. Patient to return in one month for her next Xolair injection. [id number] Raj lorenzana MD OFFICE [address] [place] [address] [phone] 8 03/29/2021 11:00:12 03/29/2021 14:44:02 Idiopathic urticaria [id number] L50.1 Patient received her Xolair injection today per patient's consent. She had her Epi-Pen with her which was checked prior to administra tion. No complicati ons noted. Patient to return in one month for her next Xolair injection. [id number] Raj lorenzana MD OFFICE [address] [place] [address] [phone] 8 04/22/2021 11:23:00 04/22/2021 12:22:00 Idiopathic urticaria [id number] L50.1 Patient received her Xolair injection today per patient's consent. She had her Epi-Pen with her which was checked prior to administra tion. No complicati ons noted. Patient to return in one month for her next Xolair injection. [id number] Raj lorenzana MD OFFICE [address] [place] [address] [phone] 8 05/26/2021 11:44:46 05/26/2021 12:21:58 Idiopathic urticaria [id number] L50.1 Patient received her Xolair injection today per patient's consent. She had her Epi-Pen with her which was checked prior to administra tion. No complicati ons noted. Patient to return in one month for her next Xolair injection. [id number] Raj lorenzana MD OFFICE [address] [place] [address] [phone] 8 06/28/2021 11:33:54 06/28/2021 11:58:54 Idiopathic urticaria [id number] L50.1 Patient received her Xolair injection today per patient's consent. She had her Epi-Pen with her which was checked prior to administra tion. No complicati ons noted. Patient to return in one month for her next Xolair injection. [id number] Raj lorenzana MD OFFICE [address] [place] [address] [phone] 8 07/26/2021 11:40:07 07/26/2021 12:09:27 Idiopathic urticaria [id number] L50.1 Patient received her Xolair injection today per patient's consent. She had her Epi-Pen with her which was checked prior to administra tion. No complicati ons noted. Patient to return in one month for her next Xolair injection. [id number] Raj lorenzana MD OFFICE [address] [place] [address] [phone] 8 08/18/2021 11:30:20 08/18/2021 12:53:28 Idiopathic urticaria [id number] L50.1 Patient received her Xolair injection today per patient's consent. She had her Epi-Pen with her which was checked prior to administra tion. No complicati ons noted. Patient to return in one month for her next Xolair injection. [id number] Raj lorenzana MD OFFICE [address] [place] [address] [phone] 8 09/15/2021 11:28:54 09/15/2021 15:22:53 Idiopathic urticaria [id number] L50.1 Patient received her Xolair injection today per patient's consent. She had her Epi-Pen with her which was checked prior to administra tion. No complicati ons noted. Patient to return in one month for her next Xolair injection. [id number] Raj lorenzana MD OFFICE [address] [place] [address] [phone] 8 10/13/2021 11:23:30 10/13/2021 12:12:09 Idiopathic urticaria 63656194 L50.1 Patient received her Xolair injection today per patient's consent. She had her Epi-Pen with her which was checked prior to administra tion. No complicati ons noted. Patient to return in one month for her next Xolair injection. [id number] Raj lorenzana MD OFFICE [address] [place] [address] [phone] 8 11/10/2021 11:33:14 11/15/2021 17:13:15 Idiopathic urticaria 74294398 L50.1 Patient received her Xolair injection today per patient's consent. She had her Epi-Pen with her which was checked prior to administra tion. No complicati ons noted. Patient to return in one month for her next Xolair injection. [id number] Raj lorenzana MD OFFICE [address] [place] [address] [phone] 8 12/13/2021 11:35:41 12/13/2021 12:28:48 Idiopathic urticaria 59179621 L50.1 Patient received her Xolair injection today per patient's consent. She had her Epi-Pen with her which was checked prior to administra tion. No complicati ons noted. Patient to return in one month for her next Xolair injection. [id number] Raj lorenzana MD OFFICE [address] [place] [address] [phone] 8 01/10/2022 11:33:33 01/10/2022 12:25:48 Idiopathic urticaria 68099922 L50.1 Patient received her Xolair injection today per patient's consent. She had her Epi-Pen with her which was checked prior to administra tion. No complicati ons noted. Patient to return in one month for her next Xolair injection. She had an excellent response to the Xolair would like to continue. [id number] Raj lorenzana MD OFFICE [address] [place] [address] [phone] 8 02/07/2022 11:25:20 02/07/2022 11:50:54 Idiopathic urticaria [id number] L50.1 [id number] Raj lorenzana MD OFFICE [address] [place] [address] [phone] 8 03/07/2022 11:22:41 03/07/2022 12:15:23 Idiopathic urticaria 15235444 L50.1 [id number] Raj lorenzana MD OFFICE [address] [place] [address] [phone] 8 04/04/2022 15:57:42 04/04/2022 16:36:37 Idiopathic urticaria 87481674 L50.1 [id number] Raj lorenzana MD OFFICE [address] [place] [address] [phone] 8 05/02/2022 13:14:15 05/02/2022 13:59:50 Idiopathic urticaria 55549805 L50.1 [id number] Raj lorenzana MD OFFICE [address] [place] [address] [phone] 8 06/06/2022 12:02:33 06/06/2022 12:49:17 Idiopathic urticaria 37101660 L50.1 [id number] Raj lorenzana MD OFFICE [address] [place] [address] [phone] 8 07/07/2022 12:59:43 07/07/2022 13:43:13 Idiopathic urticaria 04046714 L50.1 [id number] Raj lorenzana MD OFFICE [address] [place] [address] [phone] 8 06/11/2023 11:45:23 06/11/2023 12:37:10 Idiopathic urticaria 12373608 L50.1 chronic urticaria the good response to Xolair. We will continue for 1 more year. At that time I think a trial of the drug would be warranted [id number] Raj lorenzana MD OFFICE [address] [place] [address] [phone] 8 06/10/2024 11:48:45 06/10/2024 12:12:50 Idiopathic urticaria 04649252 L50.1 chronic urticaria the good response to Xolair. we will try to increase the interval of her Xolair to first 5 weeks for the next 3 months and then will go to 6 weeks for 3 months and then 7 weeks for 3 months. She will continue otherwise in this strategy. She has had no adverse reactions to the Xolair. [id number] Raj lorenzana MD OFFICE [address] [place] [address] [phone] 8 12/11/2024 12:19:47 12/11/2024 12:49:12 Idiopathic urticaria 91309949 L50.1 chronic urticaria the good response to Xolair. we will continue to increase the interval. She is at 6 weeks now we will go up to 7 and another month and then by the time she gets back for follow-up will be at 8 weeks. We may stop the shots at that time [id number] Raj lorenzana MD OFFICE [address] [facility],[address] [place] [address] [phone] 8 07/28/2025 11:43:23 07/28/2025 13:36:42 Uncomplicated moderate persistent asthma 131776843 J45.40 [id number] PFTs obtained during today's visit confirm patient's asthma diagnosis. She will continue on Breo 100/25 mcg; 1 inhalation once daily as well as needed albuterol use. She denies any night time awakenings due to her asthma symptoms and her albuterol use throughout the day is limited.Fernando welsh will return to the office in 6 months for follow up. Chronic id iopathic urticaria 090707130 L50.1 [id number] Patient's UAS7 score is a 0. She has had a great response to Xolair and therefore we will continue her on this in the future. Patient will continue on Xolair as prescribed ; once every 4 weeks. Allergic rhinitis 864386 04 J30.9 [id number] She will continue on her current treatment regimen including fluticason e nasal spray and levocetiri zine daily. Health Concerns Section Related Observation LastModified by Organization Detai ls LastModified Time None Recorded Concern Status LastModified by Organization Details LastModified Time None Recorded Advance Directives Directive Y: Payers Insurance Date Sequence Insurance Name Policy Number Policy Recio Covered Member ID Recio Member ID Guarantor Name 07/25/2025 1 [place] Julissa Boss Roxie [id number] Julissa Roxie 01/10/2017 1 [place] [id number] Julissa Faustin [id number] Julissa Faustin 07/25/2025 2 AARP (MEDICARE SUPPLEMENT) Julissa Boss Roxie [id number] Julissa Faustin 02/24/2020 2 [employer] (MEDICARE SUPPLEMENT) Julissa Roxie [id number] Julissa Faustin Notes Date Note Type Note Provider Name and Address Organization Details Recorded Time 06/11/2023 text/html Julissa comes in for follow-up of her idiopathic urticaria. She has been on Xolair at 150 mg per month and has found that she has complete control of her symptoms. She has been on her Xolair forabout 8 years. There has been no side effects. MD [address], [place], [address], [facility], 06/11/2023 12:41:32 06/10/2024 text/html Julissa comes in for follow-up of her urticaria. She continues on Xolair at 150 mg once a month and is doing extraordinarily well with absolutely no symptoms of her UAS is 0.she is not needing any auxiliary medication. There is no angioedema. MD [address], [place], [address], [facility], 06/10/2024 12:25:41 12/11/2024 text/html Julissa comes in for 6 month follow-up on her Xolair for her idiopathic urticaria. She continues to do great she is now getting 150 mg every 6 weeks and has had absolutely no hives. Will transition to 7 weeks soon and will see her back in another's 6 months. MD [address], [place], [address], [facility], 12/11/2024 13:00:27 07/28/2025 text/html ACT TestReported by PatientACT TestFor asthma control test, patient reportsin the past 4 weeks, how much time did your asthma keep you from getting as much done as you would like? (5),how often have you had shortness of breath5,how often did your asthma symptoms wake you up5,how often did you use your rescue inhaler5,how would you rate your asthma control5, andtotal score 25. Julissa, a delightful 75 year-old female returns to the office for follow up of her chronic idiopathic urticaria and subsequent Xolair therapy. She notes complete control of her CIU since starting Xolair therapy about 3 years ago. She notes that she was taking prednisone 20 mg by mouth once daily and Cary 360 mg by mouth once daily to try and control her CIU prior to starting Xolair therapy without any relief. She notes that both her allergic rhinitis symptoms as well as some respiratory symptoms, such as wheezing, developed recently. She notes that these symptoms developed soon after she started obtaining her Xolair injections every 8 weeks instead of the prescribed and recommended every 4 weeks. She underwent DLCO testing and was diagnosed with moderate persistent asthma. She was subsequently placed on Breo 100/25 mcg; 1 inhalation once daily in addition to albuterol as needed.She started to take levocetirizine 5 mg and fluticasone nasal spray; 1 spray per nostril daily for her increased allergic rhinitis symptoms. She notes control of her increased allergic rhinitis symptoms.No other health concerns were discussed at this visit. Anat Gupta, SECOND VP HR ASSESSMENT-C [address], [place], [address], [facility], 07/28/2025 14:55:29 OBGyn Episode No OBEpisode recorded.
--- OUTSIDE RECORDS SUMMARY | 2025-09-21 14:15 | XMS_ITS | Continuity of Care Document ---
Author Organization [place] [facility],, OFFICE Address [address] [facility] [address] [place] [address] Assessment No assessment recorded. Plan of Treatment Reminders Order Date Submit Date Provider Last Modified By Organization Details Last Modified Time Details Appointments None record ed. Lab None record ed. Referral None record ed. Procedures None record ed. Surgeries None record ed. Imaging None record ed. Medication Orders None record ed. Patient TargetsNo targets recorded. Patient Instructions Encounter Date Encounter Id Patient Instructions Last Modified By Organization Details Last Modified Time 07/28/2025 [id number] spirometry testing* Not avai lable 07/28/2025 13:30:16 [...] Abnormal Flag Note LastModifiedBy Organization Detail LastModifiedTime 07/28/2007/28/2025 myron metry testi ng* fev1 83 Not Available [facility] [address] [place] [address] [address], [place], [address], 07/28/2025 12:27:58 07/28/20 25 07/28/2025 myron metry testi ng* fvc 73 Not Available [facility] [address], [place], [address], 07/28/2025 12:27:58 07/28/20 25 07/28/2025 myron metry testi ng* % reversibilit y Not Available [facility] [address], [place], [address], 07/28/2025 12:27:58 07/28/20 myron metry testi ng* No observ ation record ed. Not Available 07/28 12:46:35 Result Notes None recorded. Problems Name Problem SNOMED Code Status Onset Date Resolution Date Notes Provider Name and Address Organization Details Recorded Time Idiopathic urticaria 56410814 Active Zohreh herrera, [place] [facility], 6 12:02:25 Benign essential hypertensi on 1556780 Active Not Available [facility] 3 03:00:21 Gastroesop hageal reflux disease 536311629 Active Not Available [facility] 3 03:00:21 Pure hyperchole sterolemia 659562594 Active Not Available [facility] 3 03:00:21 Allergic urticaria 59696789 Completed 02/06/2017 Raj lorenzana MD [address], [place], [address] , [place] [facility], 7 12:32:13 Uncomplica lottie moderate persistent asthma 228733855 Active [address], [place], [address] , [place] [facility], 5 14:45:13 Allergic rhinitis 08633411 Active [address], [place], [address] , [place] [facility], 5 14:45:30 Problem Notes None recorded. Medical Equipment [...] Not Available Vitals Date Recorded Body height Heart rate Oxygen saturation Respiratory rate Body temperature Systolic And Diastolic Provider Name and Address Organization Details Last Updated DateTime 5 162.56 cm 61 /min 97 % 18 /min 97 [degF] 130/76 mm[Hg] Khushi [facility] - [facility], 11:54:54 Social History Question Answer Notes LastModified by Organizat ion Details LastModified Time Tobacco Smoking Status Never Smoker Not Available [facility] 08/31/2020 03:24:58 Do You Have An Advance Directive? Yes Information not available 07/28/2025 Marital Status Single [email or web address] Informatio n not available 11/29/2012 What Was The Date Of Your Most Recent Tobacco Screening? 07/28/2025 Information not available 07/28/2025 Sex: Unknown Functional Status Question Answer Note LastModified by Organizat ion Details LastModified Time Do you use any illicit or recreational drugs? No [email or web address] Information not available 06/11/2023 Do you or have you ever used any other forms of tobacco or nicotine? No [email or web address] Information not available 06/11/2023 What is your level of alcohol consumption? Occasional very rare [id number] Information not available 08/31/2020 Mental Status None recorded. Family History Nothing Reported. Medical History Condition Response Diabetes N Anxiety Disorder N Coronary Artery Disease N Gout N Arthritis N Kidney Stones N Hyperthyroidism N Tuberculosis N Cancer N Diverticulitis N Stroke N Asthma Y Allergies Y Stress N COPD N Depression N Hypothyroidism N GERD/Reflux Y High Cholesterol [...] ICD10 Code Diagnosis IMO Codes Diagnosis Note [id number] Raj lorenzana MD OFFICE [address] [place] [address] [phone] 8 07/28/2025 11:43:23 07/28/2025 13:36:42 Uncomplicated moderate persistent asthma 554626303 J45.40 [id number] PFTs obtained during today's visit confirm patient's asthma diagnosis. She will continue on Breo 100/25 mcg; 1 inhalation once daily as well as needed albuterol use. She denies any night time awakenings due to her asthma symptoms and her albuterol use throughout the day is limited.Fernando welsh will return to the office in 6 months for follow up. Chronic id iopathic urticaria 172173229 L50.1 [id number] Patient's UAS7 score is a 0. She has had a great response to Xolair and therefore we will continue her on this in the future. Patient will continue on Xolair as prescribed ; once every 4 weeks. Allergic rhinitis 019921 04 J30.9 2679781 She will continue on her current treatment regimen including fluticason e nasal spray and levocetiri zine daily. Health Concerns Section Related Observation LastModified by Organization Detai ls LastModified Time None Recorded Concern Status LastModified by Organization Details LastModified Time None Recorded Payers Encounter Date Sequence Insurance Name Policy Number Policy Recio Covered Member ID Recio Member ID Guarantor Name 07/28/2025 1 [place] Julissa Faustin [id number] Julissa Faustin 07/28/2025 2 AARP (MEDICARE SUPPLEMENT) Julissa Faustin [id number] Julissa Faustin Notes Date Note Type Note Provider Name and Address Organization Details Recorded Time 07/28/2025 text/html ACT TestReported by PatientACT TestFor [...] concerns were discussed at this visit. Anat Garcia, AGRICULTURAL EQUIPMENT SALES ENGINEER-C [address], [place], [address], [facility] [place] [facility], 07/28/2025 14:55:29 OBGyn Episode No OBEpisode recorded.
--- OUTSIDE RECORDS SUMMARY | 2025-09-21 14:15 | XMS_ITS | Clinical Summary ---
Author Organization [facility] [address] [place] [address] Care Team Providers Care Green Building Design Specialist Name Role Phone Venancio Miles MD Primary Care Provider [phone] Allergies No known active allergies Medications carvediloL [...] tablet 06/14/2016Vitamin d, po solid 400 unit [id number] Medication 06/14/20 16 Active dicyclomine (BENTYL) 10 [...] on file Legal Sex Female 3:58 AM PET HANDLER Gender Identity Not on file Sexual Orientation Not on file Last Filed Vital Signs Vital Sign Reading Time Taken Comments Blood Pressure 140/89 11/13/2012 8:40 AM PET HANDLER Pulse 62 11/13/2012 8:40 AM PET HANDLER Temperature 36.7 C (98 F) 10/13/2020 1:09 PM PET HANDLER Respiratory Rate - - Oxygen Saturation - - Inhaled Oxygen Concentration - - Weight 99.8 kg (220 lb) 10/13/2020 1:09 PM PET HANDLER Height 162.6 cm (5' 4) 10/13/2020 1:09 PM PET HANDLER Body Mass Index 37.76 10/13/2020 1:09 PM PET HANDLER Plan of Treatment Not on file Insurance MEDICARE AARP Care Teams Green Building Design Specialist Relationship Specialty Start Date End Date Venancio Miles MD [address] [place] [address] PCP - General 11/13/12
== END 2025-09-21 12:24 | disposition home or self-care (01) ==
PROVIDERS: PCP Internal Medicine
DX: L50.1 Idiopathic urticaria (principal)
CPT/HCPCS: 96372; J2357

== ENCOUNTER 2025-10-26 09:49 | Outpatient (CLI) | payer MEDICARE, SELFPAY ==
--- OUTSIDE RECORDS SUMMARY | 2025-10-26 10:12 | XMS_ITS | Data Portability ---
Author Organization [place] [facility],, Anat gupta Address [address] [place] [address] Assessment No assessment recorded. Plan of Treatment Reminders Order Date Submit Date Provider Last Modified By Organization Details Last Modified Time Details Appointments None recorde d. Lab None recorde d. Referral None recorde d. Procedures None recorde d. Surgeries None recorde d. Imaging None recorde d. Medication Orders Xolair 150 mg/mL subcuta neous syringe 2022 023 [email or web address] Not available 3 13:08:18 Xolair 150 mg/mL subcuta neous syringe 2021 022 [email or web address] Not available 13:30:15 Patient TargetsNo targets recorded. Patient Instructions Encounter Date Encounter Id Patient Instructions Last Modified By Organization Details Last Modified Time 07/28/2025 [id number] spirometry testing* Not avai lable 07/28/2025 13:30:16 [...] Medicine [address], [place], [address], 07/28/2025 12:27:58 07/28/20 25 07/28/2025 myron metry testi ng* fvc 73 Not Available [facility] [address], [place], [address], 07/28/2025 12:27:58 07/28/20 25 07/28/2025 myron metry testi ng* % reversibilit y Not Available [facility] [address], [place], [address], 07/28/2025 12:27:58 11/20/19 24 11/16/2023 DEXA, axial skele ton + verte bral fract ure asses sment No observ ation record ed. [email or web address] [facility] [address] [facility] [address] [facility], [place], [address], 11/20/2023 12:32:38 07/28/20 myron metry testi ng* No observ ation record ed. Not Available 07/28 12:46:35 Result Notes None recorded. Problems Name Problem SNOMED Code Status Onset Date Resolution Date Notes Provider Name and Address Organization Details Recorded Time Idiopathic urticaria 98074856 Active FLAQUITA Blanco - [facility], 6 12:02:25 Benign essential hypertensi on 7824185 Active Not Available [facility] 3 03:00:21 Gastroesop hageal reflux disease 319659512 Active Not Available [facility] 3 03:00:21 Pure hyperchole sterolemia 115210596 Active Not Available [facility] 3 03:00:21 Allergic urticaria 89808998 Completed 02/06/2017 Raj lorenzana MD [address], [place], [address] , [place] [facility], 7 12:32:13 Uncomplica lottie moderate persistent asthma 719576783 Active [address], [place], [address] , [place] [facility], 14:45:13 Allergic rhinitis 45800192 Active [address], [place], [address] , [place] [facility], [...] Updated DateTime 5 162.56 cm 41.2 kg/m2 351970. 17 g 66 /min 97 % 128/84 mm[Hg] Amy SAMS - [facility], 5 12:43:08 Date Recorded Body height Body mass index (BMI) Body weight Heart rate Oxygen saturation Respiratory rate Body temperature Systolic And Diastolic Provider Name and Address Organization Details Last Updated DateTime 4 162.56 cm 41.2 kg/m2 258667. 17 g 82 /min 98 % 18 /min 97 [degF] 132/74 mm[Hg] Khushi Li [place] [facility], 4 12:02:34 Date Recorded Body height Body mass index (BMI) Body weight Heart rate Oxygen saturation Respiratory rate Body temperature Systolic And Diastolic Provider Name and Address Organization Details Last Updated DateTime 3 162.56 cm 41.4 kg/m2 434220. 76 g 78 /min 95 % 20 [...] Social History Question Answer Notes LastModified by [employer] Details LastModified Time Tobacco Smoking Status Never Smoker Not Available [facility] 08/31/2020 03:24:58 Do You Have An Advance Directive? Yes Information not available 07/28/2025 Marital Status Single [email or web address] Informat[employer] n not available 11/29/2012 What Was The Date Of Your Most Recent Tobacco Screening? 07/28/2025 Information not available 07/28/2025 Sex: Unknown Functional Status Question Answer Note LastModified by [employer] Details LastModified Time Do you use any illicit or recreational drugs? No [email or web address] Information not available 06/11/2023 Do you or have you ever used any other forms of tobacco or nicotine? No [email or web address] Information not available 06/11/2023 What is your level of alcohol consumption? Occasional very rare [id number] Information not available 08/31/2020 Mental Status None [...] Diagnosis Note [id number] Raj lorenzana MD OFFICE [address] [place] [address] 8 11/29/2012 12:50:56 11/29/2012 14:37:25 [id number] Raj lorenzana MD OFFICE [address] [place] [address] 8 02/03/2013 15:16:39 02/03/2013 16:26:13 [id number] Raj lorenzana MD OFFICE [address] [place] [address] 8 08/28/2015 10:37:50 08/28/2015 11:25:24 Allergic urticaria 08534289 L50.1 [id number] Raj lorenzana MD OFFICE [address] [place] [address] 8 02/22/2016 13:12:53 02/22/2016 14:32:04 Idiopathic urticaria 34838418 L50.1 [id number] Raj lorenzana MD OFFICE [address] [place] [address] 8 08/24/2016 11:39:57 08/24/2016 13:10:47 Idiopathic urticaria 46332982 L50.1 Excellent response to Xolair at 300 mg per month. Will decrease to 150 per month and see if she continues to have a good response. I will do this for another 6 months if she continues to be hive free will try discontinu ing it. [id number] Raj lorenzana MD OFFICE [address] [place] [address] [phone] 8 02/06/2017 11:59:03 02/06/2017 12:54:48 Idiopathic urticaria 25587631 L50.1 Complete control of urticaria on Xolair 150 mg once a month. We'll continue for another 6 months at which time I will try discontinu ing. [id number] Raj lorenzana MD OFFICE [address] [place] [address] [phone] 8 09/07/2017 11:57:06 09/07/2017 12:27:08 Idiopathic urticaria 41401766 L50.1 Complete resolution of urticaria on Xolair. We will try discontinu ing [id number] Raj lorenzana MD OFFICE [address] [place] [address] [phone] 8 01/11/2018 11:53:22 01/11/2018 12:44:47 Idiopathic urticaria 52338276 L50.1 [id number] Raj lorenzana MD OFFICE [address] [place] [address] 53522-050 8 02/08/2018 12:18:58 02/08/2018 13:07:19 Idiopathic urticaria 28952144 L50.1 [id number] Raj lorenzana MD OFFICE [address] [place] [address] [phone] 8 03/08/2018 11:56:44 03/08/2018 13:54:45 Idiopathic urticaria 25478674 L50.1 [id number] Raj lorenzana MD OFFICE [address] [place] [address] [id number] 8 04/09/2018 10:56:37 04/09/2018 17:40:49 Idiopathic urticaria 95360325 L50.1 [id number] Raj lorenzana MD OFFICE [address] [place] [address] [id number] 8 05/07/2018 11:05:03 05/07/2018 13:05:29 Idiopathic urticaria 76539138 L50.1 [id number] Raj lorenzana MD OFFICE [address] [place] [address] [id number] 8 06/11/2018 11:02:18 06/11/2018 12:11:33 Idiopathic urticaria 77826215 L50.1 [id number] Raj lorenzana MD OFFICE [address] [place] [address] [id number] 8 07/12/2018 11:51:58 07/12/2018 14:28:45 Idiopathic urticaria 72710286 L50.1 [id number] Raj lorenzana MD OFFICE [address] [place] [address] [phone] 8 08/08/2018 10:58:33 08/08/2018 16:32:09 Idiopathic urticaria 98210063 L50.1 Patient received her Xolair injection today per patient's consent. She had her Epi-Pen / Auvi-Q with her which was checked prior to administra tion. No complicati ons noted. Patient to return in one month for her next Xolair injection. [id number] Raj lorenzana MD OFFICE [address] [place] [address] [phone] 8 09/17/2018 11:34:34 09/17/2018 16:47:52 Idiopathic urticaria 92645584 L50.1 [id number] Raj lorenzana MD OFFICE [address] [place] [address] [id number] 8 10/15/2018 11:34:10 10/15/2018 12:52:06 Idiopathic urticaria 76064224 L50.1 Patient received her Xolair injection today per patient's consent. She had her Epi-Pen / Auvi-Q with her which was checked prior to administra tion. No complicati ons noted. Patient to return in one month for her next Xolair injection. [id number] Raj lorenzana MD OFFICE [address] [place] [address] [phone] 8 11/12/2018 11:17:14 11/12/2018 15:11:45 Idiopathic urticaria 92479802 L50.1 Patient received her Xolair injection today per patient's consent. She had her Epi-Pen / Auvi-Q with her which was checked prior to administra tion. No complicati ons noted. Patient to return in one month for her next Xolair injection. [id number] Raj lorenzana MD OFFICE [address] [place] [address] [phone] 8 12/10/2018 11:26:49 12/10/2018 13:27:22 Idiopathic urticaria 93558080 L50.1 Patient received her Xolair injection today per patient's consent. She had her Epi-Pen / Auvi-Q with her which was checked prior to administra tion. No complicati ons noted. Patient to return in one month for her next Xolair injection. [id number] Raj lorenzana MD OFFICE [address] [place] [address] [phone] 8 01/02/2019 11:41:20 01/02/2019 15:36:17 Idiopathic urticaria 67334338 L50.1 Patient received her Xolair injection today per patient's consent. She had an Epi-Pen with her which was checked prior to administra tion. No complicati ons noted. Patient to return in one month for her next Xolair injection. [id number] Raj lorenzana MD OFFICE [address] [place] [address] [phone] 8 01/30/2019 12:33:48 01/30/2019 14:05:22 Idiopathic urticaria 48748747 L50.1 Patient received her Xolair injection today per patient's consent. She had an Epi-Pen with her which was checked prior to administra tion. No complicati ons noted. Patient to return in one month for her next Xolair injection. [id number] Raj lorenzana MD OFFICE [address] [place] [address] [id number] 8 03/04/2019 10:58:22 03/04/2019 12:35:19 Idiopathic urticaria 17245237 L50.1 Patient received her Xolair injection today per patient's consent. She had an Epi-Pen with her which was checked prior to administra tion. No complicati ons noted. Patient to return in one month for her next Xolair injection. [id number] Raj lorenzana MD OFFICE [address] [place] [address] [id number] 8 04/01/2019 10:41:25 04/01/2019 12:08:41 Idiopathic urticaria 84208068 L50.1 Patient received her Xolair injection today per patient's consent. She had an Epi-Pen with her which was checked prior to administra tion. No complicati ons noted. Patient to return in one month for her next Xolair injection. [id number] Raj lorenzana MD OFFICE [address] [place] [address] [phone] 8 04/29/2019 10:42:31 04/29/2019 13:02:14 Idiopathic urticaria 87427879 L50.1 Patient received her Xolair injection today per patient's consent. She had an Epi-Pen with her which was checked prior to administra tion. No complicati ons noted. Patient to return in one month for her next Xolair injection. [id number] Raj lorenzana MD OFFICE [address] [place] [address] [phone] 8 06/03/2019 10:58:19 06/03/2019 11:57:23 Idiopathic urticaria 22322372 L50.1 Excellent response to Xolair. She is presently at 300 mg per month. Will attempt to drop her to 150 mg per month and see as she does. [id number] Raj lorenzana MD OFFICE [address] [place] [address] [id number] 8 07/01/2019 14:23:38 07/01/2019 15:02:28 Idiopathic urticaria 22816853 L50.1 Excellent response to Xolair. She is presently at 300 mg per month. Will attempt to drop her to 150 mg per month and see as she does. [id number] Raj lorenzana MD OFFICE [address] [place] [address] [id number] 8 08/04/2019 15:47:44 08/04/2019 17:36:11 Idiopathic urticaria 22102129 L50.1 Patient received her Xolair injection today per patient's consent. She had her Epi-Pen with her which was checked prior to administra tion. No complicati ons noted. Patient to return in one month for her next Xolair injection. [id number] Raj lorenzana MD OFFICE [address] [place] [address] [phone] 8 09/02/2019 12:06:07 09/02/2019 13:08:44 Idiopathic urticaria 51668691 L50.1 Patient received her Xolair injection today per patient's consent. She had her Epi-Pen with her which was checked prior to administra tion. No complicati ons noted. Patient to return in one month for her next Xolair injection. [id number] Raj lorenzana MD OFFICE [address] [place] [address] [id number] 8 09/30/2019 11:45:07 09/30/2019 14:47:59 Idiopathic urticaria 81119234 L50.1 Patient received her Xolair injection today per patient's consent. She had her Epi-Pen with her which was checked prior to administra tion. No complicati ons noted. Patient to return in one month for her next Xolair injection. [id number] Raj lorenzana MD OFFICE [address] [place] [address] [phone] 8 11/04/2019 11:23:58 11/04/2019 12:38:12 Idiopathic urticaria 72557876 L50.1 Patient received her Xolair injection today per patient's consent. She had her Epi-Pen with her which was checked prior to administra tion. No complicati ons noted. Patient to return in one month for her next Xolair injection. [id number] Raj lorenzana MD OFFICE [address] [place] [address] [phone] 8 12/05/2019 11:16:41 12/05/2019 12:44:39 Idiopathic urticaria 48073372 L50.1 Patient received her Xolair injection today per patient's consent. She had her Epi-Pen with her which was checked prior to administra tion. No complicati ons noted. Patient to return in one month for her next Xolair injection. [id number] Raj lorenzana MD OFFICE [address] [place] [address] [phone] 8 12/26/2019 11:23:39 12/26/2019 13:15:49 Idiopathic urticaria 18820379 L50.1 Patient received her Xolair injection today per patient's consent. She had her Epi-Pen with her which was checked prior to administra tion. No complicati ons noted. Patient to return in one month for her next Xolair injection. [id number] Raj lorenzana MD OFFICE [address] [place] [address] [phone] 8 01/27/2020 11:29:00 01/27/2020 12:04:35 Idiopathic urticaria 55324005 L50.1 Patient received her Xolair injection today per patient's consent. She had her Epi-Pen with her which was checked prior to administra tion. No complicati ons noted. Patient to return in one month for her next Xolair injection. [id number] Raj lorenzana MD OFFICE [address] [place] [address] [id number] 8 02/24/2020 11:20:13 02/24/2020 12:18:22 Idiopathic urticaria 92145323 L50.1 Patient received her Xolair injection today per patient's consent. She had her Epi-Pen with her which was checked prior to administra tion. No complicati ons noted. Patient to return in one month for her next Xolair injection. [id number] Raj lorenzana MD OFFICE [address] [place] [address] [phone] 8 03/25/2020 11:54:14 03/25/2020 12:33:14 Idiopathic urticaria 47808847 L50.1 Patient received her Xolair injection today per patient's consent. She had her Epi-Pen with her which was checked prior to administra tion. No complicati ons noted. Patient to return in one month for her next Xolair injection. [id number] Raj lorenzana MD OFFICE [address] [place] [address] [phone] 8 04/26/2020 14:26:23 04/26/2020 14:57:52 Idiopathic urticaria 69328811 L50.1 Patient received her Xolair injection today per patient's consent. She had her Epi-Pen with her which was checked prior to administra tion. No complicati ons noted. Patient to return in one month for her next Xolair injection. [id number] Raj lorenzana MD OFFICE [address] [place] [address] [phone] 8 05/25/2020 11:56:23 05/25/2020 12:52:16 Idiopathic urticaria 04217282 L50.1 Patient received her Xolair injection today per patient's consent. She had her Epi-Pen with her which was checked prior to administra tion. No complicati ons noted. Patient to return in one month for her next Xolair injection. [id number] Raj lorenzana MD OFFICE [address] [place] [address] [phone] 8 06/22/2020 11:24:06 06/22/2020 12:05:34 Idiopathic urticaria 01413711 L50.1 Patient received her Xolair injection today per patient's consent. She had her Epi-Pen with her which was checked prior to administra tion. No complicati ons noted. Patient to return in one month for her next Xolair injection. [id number] Raj lorenzana MD OFFICE [address] [place] [address] [phone] 8 07/20/2020 13:00:27 07/20/2020 13:48:32 Idiopathic urticaria 66554226 L50.1 Patient received her Xolair injection today per patient's consent. She had her Epi-Pen with her which was checked prior to administra tion. No complicati ons noted. Patient to return in one month for her next Xolair injection. [id number] Raj lorenzana MD OFFICE [address] [place] [address] [id number] 8 08/12/2020 11:05:09 08/12/2020 12:12:18 Idiopathic urticaria 03945316 L50.1 Patient received her Xolair injection today per patient's consent. She had her Epi-Pen with her which was checked prior to administra tion. No complicati ons noted. Patient to return in one month for her next Xolair injection. [id number] Raj lorenzana MD OFFICE [address] [place] [address] [id number] 8 09/16/2020 10:58:07 09/16/2020 11:25:25 Idiopathic urticaria 62618458 L50.1 Patient received her Xolair injection today per patient's consent. She had her Epi-Pen with her which was checked prior to administra tion. No complicati ons noted. Patient to return in one month for her next Xolair injection. [id number] Raj lorenzana MD OFFICE [address] [place] [address] [phone] 8 10/14/2020 11:46:17 10/14/2020 12:20:09 Idiopathic urticaria 08250387 L50.1 Patient received her Xolair injection today per patient's consent. She had her Epi-Pen with her which was checked prior to administra tion. No complicati ons noted. Patient to return in one month for her next Xolair injection. [id number] Raj lorenzana MD OFFICE [address] [place] [address] [phone] 8 11/11/2020 14:47:37 11/12/2020 09:35:22 Idiopathic urticaria 47228400 L50.1 Patient received her Xolair injection today per patient's consent. She had her Epi-Pen with her which was checked prior to administra tion. No complicati ons noted. Patient to return in one month for her next Xolair injection. [id number] Raj lorenzana MD OFFICE [address] [place] [address] [phone] 8 12/07/2020 11:07:50 12/07/2020 12:11:22 Idiopathic urticaria 93612433 L50.1 Patient received her Xolair injection today per patient's consent. She had her Epi-Pen with her which was checked prior to administra tion. No complicati ons noted. Patient to return in one month for her next Xolair injection. [id number] Raj lorenzana MD OFFICE [address] [place] [address] [id number] 8 01/04/2021 11:06:06 01/04/2021 11:55:57 Idiopathic urticaria 25133821 L50.1 Patient received her Xolair injection today per patient's consent. She had her Epi-Pen with her which was checked prior to administra tion. No complicati ons noted. Patient to return in one month for her next Xolair injection. [id number] Raj lorenzana MD OFFICE [address] [place] [address] [phone] 8 01/31/2021 11:52:55 01/31/2021 12:27:07 Idiopathic urticaria 14379260 L50.1 Patient received her Xolair injection today per patient's consent. She had her Epi-Pen with her which was checked prior to administra tion. No complicati ons noted. Patient to return in one month for her next Xolair injection. [id number] Raj lorenzana MD OFFICE [address] [place] [address] [phone] 8 03/01/2021 11:30:49 03/01/2021 12:21:01 Idiopathic urticaria 85435640 L50.1 Patient received her Xolair injection today per patient's consent. She had her Epi-Pen with her which was checked prior to administra tion. No complicati ons noted. Patient to return in one month for her next Xolair injection. [id number] Raj lorenzana MD OFFICE [address] [place] [address] [phone] 8 03/29/2021 11:00:12 03/29/2021 14:44:02 Idiopathic urticaria [id number] L50.1 Patient received her Xolair injection today per patient's consent. She had her Epi-Pen with her which was checked prior to administra tion. No complicati ons noted. Patient to return in one month for her next Xolair injection. [id number] Raj lorenzana MD OFFICE [address] [place] [address] [phone] 8 04/22/2021 11:23:00 04/22/2021 12:22:00 Idiopathic urticaria 90674175 L50.1 Patient received her Xolair injection today per patient's consent. She had her Epi-Pen with her which was checked prior to administra tion. No complicati ons noted. Patient to return in one month for her next Xolair injection. [id number] Raj lorenzana MD OFFICE [address] [place] [address] [phone] 8 05/26/2021 11:44:46 05/26/2021 12:21:58 Idiopathic urticaria 59931735 L50.1 Patient received her Xolair injection today per patient's consent. She had her Epi-Pen with her which was checked prior to administra tion. No complicati ons noted. Patient to return in one month for her next Xolair injection. [id number] Raj lorenzana MD OFFICE [address] [place] [address] [phone] 8 06/28/2021 11:33:54 06/28/2021 11:58:54 Idiopathic urticaria 46713338 L50.1 Patient received her Xolair injection today per patient's consent. She had her Epi-Pen with her which was checked prior to administra tion. No complicati ons noted. Patient to return in one month for her next Xolair injection. [id number] Raj lorenzana MD OFFICE [address] [place] [address] [phone] 8 07/26/2021 11:40:07 07/26/2021 12:09:27 Idiopathic urticaria 79769005 L50.1 Patient received her Xolair injection today per patient's consent. She had her Epi-Pen with her which was checked prior to administra tion. No complicati ons noted. Patient to return in one month for her next Xolair injection. [id number] Raj lorenzana MD OFFICE [address] [place] [address] [phone] 8 08/18/2021 11:30:20 08/18/2021 12:53:28 Idiopathic urticaria 86452938 L50.1 Patient received her Xolair injection today per patient's consent. She had her Epi-Pen with her which was checked prior to administra tion. No complicati ons noted. Patient to return in one month for her next Xolair injection. [id number] Raj lorenzana MD OFFICE [address] [place] [address] [phone] 8 09/15/2021 11:28:54 09/15/2021 15:22:53 Idiopathic urticaria 62549029 L50.1 Patient received her Xolair injection today per patient's consent. She had her Epi-Pen with her which was checked prior to administra tion. No complicati ons noted. Patient to return in one month for her next Xolair injection. [id number] Raj lorenzana MD OFFICE [address] [place] [address] [phone] 8 10/13/2021 11:23:30 10/13/2021 12:12:09 Idiopathic urticaria [id number] L50.1 Patient received her Xolair injection today per patient's consent. She had her Epi-Pen with her which was checked prior to administra tion. No complicati ons noted. Patient to return in one month for her next Xolair injection. [id number] Raj lorenzana MD OFFICE [address] [place] [address] [phone] 8 11/10/2021 11:33:14 11/15/2021 17:13:15 Idiopathic urticaria 84373534 L50.1 Patient received her Xolair injection today per patient's consent. She had her Epi-Pen with her which was checked prior to administra tion. No complicati ons noted. Patient to return in one month for her next Xolair injection. [id number] Raj lorenzana MD OFFICE [address] [place] [address] [phone] 8 12/13/2021 11:35:41 12/13/2021 12:28:48 Idiopathic urticaria 95671193 L50.1 Patient received her Xolair injection today per patient's consent. She had her Epi-Pen with her which was checked prior to administra tion. No complicati ons noted. Patient to return in one month for her next Xolair injection. [id number] Raj lorenzana MD OFFICE [address] [place] [address] [phone] 8 01/10/2022 11:33:33 01/10/2022 12:25:48 Idiopathic urticaria 24442728 L50.1 Patient received her Xolair injection today per patient's consent. She had her Epi-Pen with her which was checked prior to administra tion. No complicati ons noted. Patient to return in one month for her next Xolair injection. She had an excellent response to the Xolair would like to continue. [id number] Raj lorenzana MD OFFICE [address] [place] [address] [phone] 8 02/07/2022 11:25:20 02/07/2022 11:50:54 Idiopathic urticaria [id number] L50.1 [id number] Raj lorenzana MD OFFICE [address] [place] [address] [phone] 8 03/07/2022 11:22:41 03/07/2022 12:15:23 Idiopathic urticaria 32399250 L50.1 [id number] Raj lorenzana MD OFFICE [address] [place] [address] [phone] 8 04/04/2022 15:57:42 04/04/2022 16:36:37 Idiopathic urticaria 35125499 L50.1 [id number] Raj lorenzana MD OFFICE [address] [place] [address] [phone] 8 05/02/2022 13:14:15 05/02/2022 13:59:50 Idiopathic urticaria [id number] L50.1 [id number] Raj lorenzana MD OFFICE [address] [place] [address] [phone] 8 06/06/2022 12:02:33 06/06/2022 12:49:17 Idiopathic urticaria 31398321 L50.1 [id number] Raj lorenzana MD OFFICE [address] [place] [address] [phone] 8 07/07/2022 12:59:43 07/07/2022 13:43:13 Idiopathic urticaria [id number] L50.1 [id number] Raj lorenzana MD OFFICE [address] [place] [phone] 8 06/11/2023 11:45:23 06/11/2023 12:37:10 Idiopathic urticaria [id number] L50.1 chronic urticaria the good response to Xolair. We will continue for 1 more year. At that time I think a trial of the drug would be warranted [id number] Raj lorenzana MD OFFICE [address] [place] [address] [phone] 8 06/10/2024 11:48:45 06/10/2024 12:12:50 Idiopathic urticaria 31082624 L50.1 chronic urticaria the good response to Xolair. we will try to increase the interval of her Xolair to first 5 weeks for the next 3 months and then will go to 6 weeks for 3 months and then 7 weeks for 3 months. She will continue otherwise in this strategy. She has had no adverse reactions to the Xolair. 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 we will continue to increase the interval. She is at 6 weeks now we will go up to 7 and another month and then by the time she gets back for follow-up will be at 8 weeks. We may stop the shots at that time [id number] Raj lorenzana MD OFFICE [address] [facility],[address] [place] [address] [phone] 8 07/28/2025 11:43:23 07/28/2025 13:36:42 Uncomplicated moderate persistent asthma [id number] J45.40 [id number] PFTs obtained during today's visit confirm patient's asthma diagnosis. She will continue on Breo 100/25 mcg; 1 inhalation once daily as well as needed albuterol use. She denies any night time awakenings due to her asthma symptoms and her albuterol use throughout the day is limited.Fernando welsh will return to the office in 6 months for follow up. Chronic id iopathic urticaria [id number] L50.1 120851 Patient's UAS7 score is a 0. She has had a great response to Xolair and therefore we will continue her on this in the future. Patient will continue on Xolair as prescribed ; once every 4 weeks. 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 MD [address], [place], [address], [facility], 06/11/2023 12:41:32 06/10/2024 text/html Julissa comes in for follow-up of her urticaria. She continues on Xolair at 150 mg once a month and is doing extraordinarily well with absolutely no symptoms of her UAS is 0.she is not needing any auxiliary medication. There is no angioedema. MD [address], [place], [address], [facility], 06/10/2024 12:25:41 12/11/2024 text/html Julissa comes in for 6 month follow-up on her Xolair for her idiopathic urticaria. She continues to do great she is now getting 150 mg every 6 weeks and has had absolutely no hives. Will transition to 7 weeks soon and will see her back in another's 6 months. MD [address], [place], [address], [facility], 12/11/2024 13:00:27 [...] were discussed at this visit. Anat Gupta, SKIVING MACHINE OPERATOR-C [address], [place], [address], [facility], 07/28/2025 14:55:29 OBGyn Episode No OBEpisode recorded.
--- OUTSIDE RECORDS SUMMARY | 2025-10-26 10:12 | XMS_ITS | Clinical Summary ---
Author Organization [facility] Address [address] [place] [address] Care Team Providers Care Executive Services Administrator Name Role Phone Zeus Rivera MD, Brayan Boss Primary Care Provider [facility] Source Comments [facility],non-owned Affiliates and Associated Physician Practices is amultiple site organization consisting of ambulatory clinics and hospital sitesin [place], [place], [place] and [place]. This disclosure is being madepursuant to the Care Everywhere program and may not contain all information available regarding this patient. Last updated 18.[facility] [place] Social History Tobacco Use Types Packs/Day Years Used Date Smoking Tobacco: Never Assessed Comments Unknown Sex and Gender Information Value Date Recorded Sex Assigned at Not on file Legal Sex Female 6:12 AM PIGMENT PUSHER Gender Identity Not on file Sexual Orientation [...] CDT EXAMINATION- Digital screening mammogram on 07/20/2009. INTERACTIVE MARKETING STRATEGIST- RT To, ISAURO PRIOR- 02/13/2008 FINDINGS- Computer assisted detection was utilized. The tissue density is fatty. There is no significant change since the prior mammogram. ASSESSMENT- BIRADS Category 1- Negative mammogram. RECOMMENDATION- Follow up in one year. [facility] staff will contact and schedule patients with BIRADS categories 0, 4, and 5. Reading Radiologist- BALDEMAR ALEX M.D. Releasing Radiologist- BALDEMAR ALEX M.D. Released Date Time- 07/20/09 1401 Teaching Fellow- FELIX Morales BRAYAN PRUITT SR, GARRETT A SR REF- BRAYAN SCHULZ SR CON- PCPBRAYAN KAM SR SCP- Procedure Note Baldemar Alex MD - 07/20/2009 EXAMINATION- Digital screening mammogram on 07/20/2009. INTERACTIVE MARKETING STRATEGIST- Megan Magdaleno RT, RM PRIOR- 02/13/2008 FINDINGS- Computer assisted detection was utilized. The tissue density is fatty. There is no significant change since the prior mammogram. ASSESSMENT- BIRADS Category 1- Negative mammogram. RECOMMENDATION- Follow up in one year. [facility] staff will contact and schedule patients with BIRADS categories 0, 4, and 5. Reading Radiologist- BALDEMAR ALEX M.D. Releasing Radiologist- BALDEMAR ALEX M.D. Released Date Time- 07/20/09 1401 Teaching Fellow- FELIX Morales BRAYAN PRUITT SR, GARRETT A SR REF- BRAYAN SCHULZ SR CON- PCPBRAYAN KAM SR SCP- Brayan Schulz Sr., MD MAMMO ORDERABLES Final R esult from Last 3 Months or Most Recently Relevant to Health Maintenance Care Teams Executive Services Administrator Relationship Specialty Start Date End Date Brayan Schulz Sr., MD PCP - General 07/19/09
--- OUTSIDE RECORDS SUMMARY | 2025-10-26 10:12 | XMS_ITS | Clinical Summary ---
Author Organization [facility] Address [address] [place] [address] Care Team Providers Care Construction Carpenters Helper Name Role Phone Venancio Miles MD Primary Care Provider [phone] Allergies No known active allergies Medications carvediloL [...] tablet 06/14/2016Vitamin d, po solid 400 unit [id number] Medication 06/14/20 16 Active dicyclomine (BENTYL) 10 [...] on file Legal Sex Female 3:58 AM MARBLE CARVER Gender Identity Not on file Sexual Orientation Not on file Last Filed Vital Signs Vital Sign Reading Time Taken Comments Blood Pressure 140/89 11/13/2012 8:40 AM MARBLE CARVER Pulse 62 11/13/2012 8:40 AM MARBLE CARVER Temperature 36.7 C (98 F) 10/13/2020 1:09 PM MARBLE CARVER Respiratory Rate - - Oxygen Saturation - - Inhaled Oxygen Concentration - - Weight 99.8 kg (220 lb) 10/13/2020 1:09 PM MARBLE CARVER Height 162.6 cm (5' 4) 10/13/2020 1:09 PM MARBLE CARVER Body Mass Index 37.76 10/13/2020 1:09 PM MARBLE CARVER Plan of Treatment Not on file Insurance MEDICARE AARP Care Teams Construction Carpenters Helper Relationship Specialty Start Date End Date Venancio Miles MD [address] [place] [address] PCP - General 11/13/12
--- OUTSIDE RECORDS SUMMARY | 2025-10-26 10:12 | XMS_ITS | Continuity of Care Document ---
Author Organization [place] [facility],, OFFICE Address [address] [facility] [address] [place] [address] Assessment No assessment recorded. Plan of Treatment [...] By Organization Details Last Modified Time 07/28/2025 [id number] spirometry testing* Not avai lable 07/28/2025 13:30:16 [...] 83 Not Available [facility] [address] [place] [address] [address], [place], [address], 07/28/2025 12:27:58 07/28/20 25 07/28/2025 myron metry testi ng* fvc 73 Not Available [facility] [address], [place], [address], 07/28/2025 12:27:58 07/28/20 25 07/28/2025 myron metry testi ng* % reversibilit y Not Available [facility] [address], [place], [address], 07/28/2025 12:27:58 07/28/20 myron metry testi ng* No observ ation record ed. Not Available 07/28 12:46:35 Result Notes None recorded. Problems Name Problem SNOMED Code Status Onset Date Resolution Date Notes Provider Name and Address Organization Details Recorded Time Idiopathic urticaria 28131052 Active Zohreh herrera, [place] - [facility], 6 12:02:25 Benign essential hypertensi on 9247978 Active Not Available [facility] 3 03:00:21 Gastroesop hageal reflux disease 817774221 Active Not Available [facility] 3 03:00:21 Pure hyperchole sterolemia 419684048 Active Not Available [facility] 3 03:00:21 Allergic urticaria 12663160 Completed 02/06/2017 Raj lorenzana MD [address], [place], [address] , [place] [facility], 7 12:32:13 Uncomplica lottie moderate persistent asthma 083606301 Active [address], [place], [address] , [place] [facility], 5 14:45:13 Allergic rhinitis 91893187 Active [address], [place], [address] , [place] [facility], [...] Tobacco Smoking Status Never Smoker Not Available [facility] 08/31/2020 03:24:58 Do You Have An Advance Directive? Yes Information not available 07/28/2025 Marital Status Single [email or web address] Informatio n not available 11/29/2012 What Was The Date Of Your Most Recent Tobacco Screening? 07/28/2025 Information not available 07/28/2025 Sex: Unknown Functional Status Question Answer Note LastModified by Organizat ion Details LastModified Time Do you use any illicit or recreational drugs? No [email or web address] Information not available 06/11/2023 Do you or have you ever used any other forms of tobacco or nicotine? No [email or web address] Information not available 06/11/2023 What is your level of alcohol consumption? Occasional very rare [id number] Information not available 08/31/2020 Mental Status None [...] ICD10 Code Diagnosis IMO Codes Diagnosis Note [id number] Raj lorenzana MD OFFICE [address] [place] [phone] 8 07/28/2025 11:43:23 07/28/2025 13:36:42 Uncomplicated moderate persistent asthma 879393919 J45.40 2213223 PFTs obtained during today's visit confirm patient's asthma diagnosis. She will continue on Breo 100/25 mcg; 1 inhalation once daily as well as needed albuterol use. She denies any night time awakenings due to her asthma symptoms and her albuterol use throughout the day is limited.Fernando welsh will return to the office in 6 months for follow up. Chronic id iopathic urticaria 069083910 L50.1 795765 Patient's UAS7 score is a 0. She has had a great response to Xolair and therefore we will continue her on this in the future. Patient will continue on Xolair as prescribed ; once every 4 weeks. Allergic rhinitis 572305 04 J30.9 5842454 She will continue on her current treatment [...] 07/28/2025 1 MEDICARE B-[place]: WPS Julissa Faustin [id number] Julissa Faustin 07/28/2025 2 AARP (MEDICARE SUPPLEMENT) Julissa Faustin [id number] Julissa Faustin Notes Date Note Type Note [...] were discussed at this visit. Anat Garcia, PRECISION AIRCRAFT STRUCTURE ASSEMBLER-C [address], [place], [address], [facility], 07/28/2025 14:55:29 OBGyn Episode No OBEpisode recorded.
--- OUTSIDE RECORDS SUMMARY | 2025-10-26 10:12 | XMS_ITS | Clinical Summary ---
Author Organization [facility] Address [facility] [place] [address] Care Team Providers Care Feeder Tender Name Role Phone Unavailable Primary Care Provider [...] age to complete this topic Insurance [facility]
[2025-10-26 10:40] VITALS: BMI 39.2
[2025-10-26 10:50] VITALS: BP 140/78; PULSE 83; RESP 16; TEMP 36.6; O2SAT 97
== END 2025-10-26 09:50 | disposition home or self-care (01) ==
PROVIDERS: PCP Internal Medicine
DX: L50.1 Idiopathic urticaria (principal)
CPT/HCPCS: 96372; J2357